=== PATIENT | male | born 1935 | race Caucasian/White ===

== ENCOUNTER 2020-05-28 14:54 | Outpatient (CLI) | payer MEDICARE, SELFPAY ==
--- NOTE | ~2020-05-28 | US_ITS ---
EXAMINATION: US thyroid DATE: 05/28/2020 15:32 INDICATION: Nontoxic single thyroid nodule. TECHNIQUE: Multiple ultrasound images of the thyroid were obtained. COMPARISON: Ultrasound 03/20/2019, 09/08/2016 FINDINGS: The right thyroid lobe measures 3.7 x 2.3 x 2.2 cm. The left thyroid lobe measures 4.0 x 3.2 x 2.4 c m. In the right thyroid lobe, there is a 1.1 mm solid, hypoechoic, xbgcb-xitx-[id number] nodule with lobul ated margin without echogenic foci (TI-RADS TR4), stable from 09/08/16. In the left thyroid lobe, the re is a 2.6 cm solid, hypoechoic, ygoaq-zcgz-vctn nodule with lobulated margin without echogenic foci , increased in size from 1.9 cm on 09/08/16 (TR4). There are multiple subcentimeter nodules in the th yroid. IMPRESSION: 1. Thyroid nodules. Consider ultrasound-guided fine-needle aspiration of the 2.6 cm left thyroid nodu le. Reviewed, dictated and finalized at location A. IMPRESSION: 1. Thyroid nodules. Consider ultrasound-guided fine-needle aspiration of the 2. 6 cm left thyroid nodule.
== END 2020-05-28 14:55 | disposition home or self-care (01) ==
LOC: ANHIMG 15:01
PROVIDERS: PCP Internal Medicine; Visit Provider Internal Medicine Endocrinology, Diabetes & Metabolism
DX: E04.1 Nontoxic single thyroid nodule (principal)
CPT/HCPCS: 76536

== ENCOUNTER 2020-06-11 12:55 | Outpatient (CLI) | payer MEDICARE, SELFPAY ==
--- NOTE | ~2020-06-11 | US_ITS ---
EXAMINATION: US FNA w image guidance DATE: 06/11/2020 13:45 INDICATION: Left thyroid nodule. TECHNIQUE: The procedure and its benefits, risks, and benefits were discussed with the patient. Risks specifical ly discussed included bleeding. The patient verbalized understanding of the risks and agreed to proce ed. The neck was prepped and draped in the usual sterile manner. 1% lidocaine was used for local ane sthesia. 5 passes were made with a 25G needle into the lesion. Appropriate needle location was docu mented with continuous sonographic guidance. There were no immediate complications. The patient unde rstood to call the ordering physician for results after a week and a half and verbalized that underst anding. FINDINGS: Grayscale ultrasound images demonstrate needles advanced into a 2.6 cm left thyroid nodule for biopsy . IMPRESSION: 1. Ultrasound-guided fine needle aspiration of a left thyroid nodule. Reviewed, dictated and finalized at location A.
== END 2020-06-11 12:56 | disposition home or self-care (01) ==
LOC: ANHIMG 12:57
PROVIDERS: PCP Internal Medicine; Visit Provider Internal Medicine Endocrinology, Diabetes & Metabolism
DX: E04.1 Nontoxic single thyroid nodule (principal)
CPT/HCPCS: 10005; 88173; 88305

== ENCOUNTER → 2020-08-14 13:17 | Outpatient (CLI) | payer MEDICARE, SELFPAY ==
--- NOTE | ~2020-08-14 | XR_ITS ---
EXAMINATION: XR chest 2V DATE: 08/14/2020 13:30 INDICATION: Chronic obstructive pulmonary disease with acute exacerbation. TECHNIQUE: Frontal and lateral views of the chest were obtained. COMPARISON: Chest 2 views 09/14/2019, CT abdomen and pelvis 07/14/2010 FINDINGS: The lung volumes are small, which is chronic. There is mild atelectasis in the mid and lowe r lung zones. No pleural effusion or pneumothorax. The heart size is normal. There are multiple chron ic compression fractures in the spine. IMPRESSION: 1. Chronically small lung volumes with mild atelectasis. Reviewed, dictated and finalized at location A.
== END ==
PROVIDERS: PCP Internal Medicine; Visit Provider Internal Medicine
DX: J44.1 Chronic obstructive pulmonary disease with (acute) exacerbation (principal); R91.8 Other nonspecific abnormal finding of lung field
CPT/HCPCS: 71046

== ENCOUNTER 2020-11-25 13:07 | Emergency (ER) | payer MEDICARE, SELFPAY ==
[2020-11-25] VITALS (12 sets, daily range): BP systolic 141–175; BP diastolic 71–91; PULSE 93–116; RESP 0–22; TEMP 37.2; O2SAT 88–100
--- NOTE | ~2020-11-25 | XR_ITS ---
EXAMINATION: XR chest 2V EXAM DATE: 11/25/2020 14:02 INDICATION: Shortness of breath. Chest pain, congestion. TECHNIQUE: Frontal and lateral projections of the chest obtained and reviewed. Comparison is made to prior examination from 08/14/2020. FINDINGS: Again there is low lung volume. No confluent consolidation, pneumothorax or pleural effusi on suspected. Cardiomediastinal silhouette is normal. Chronic thoracolumbar compression fractures. Th ere are bony degenerative changes. IMPRESSION: Chronic low lung volume. Reviewed, dictated and finalized at location B. 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
--- NOTE | ~2020-11-25 | CT_ITS ---
EXAMINATION: CTA chest PE abdomen pel DATE: 11/25/2020 17:32 INDICATION: Chest pain, shortness of breath and congestion with positive d-dimer. Abdominal distentio n and bloating. TECHNIQUE: Computed tomography (CT) pulmonary angiogram of the chest was performed with 100 mL Omnipa que-350 intravenous contrast. Additional 3D reconstructions utilizing coronal maximum intensity proje ction (MIP) were performed. CT of the abdomen and pelvis was performed with intravenous contrast util izing the same contrast bolus following a short delay. Automated exposure control and iterative recon struction technique were employed. The dose-length product was 1687.61 mGy-cm. COMPARISON: CT dated 07/14/2010 FINDINGS: Chest: . contrast opacification of the pulmonary arteries. There is mild streak artifact from dense contrast in the superior vena cava and right atrium. Mild to moderate scattered respiratory motion artifact. Overall this mildly decreases sensitivity in the subsegmental pulmonary arteries. No pulmonary emboli sm identified. Small lung volumes. Peripheral and basilar predominant reticular opacities in the lung s which could represent mild pulmonary edema or chronic interstitial fibrosis with either nonspecific interstitial pneumonia (NSIP) or usual interstitial pneumonia (UIP) pattern. There is mucous pluggin g within multiple subsegmental bronchi in the basilar segments of the bilateral lower lobes. No pleur al effusion. A few scattered calcified pulmonary nodules along with calcified mediastinal and bilater al hilar lymph nodes consistent with old granulomatous disease. Borderline heart size. Atheroscleroti c coronary artery calcifications. No pericardial effusion. No pathologically enlarged thoracic lympha denopathy. Severe thoracal lumbar spondylosis with multiple chronic compression and burst fractures. Abdomen/pelvis: Dilation of the common bile duct to 15 mm which along with minimal central intrahepatic biliary ducta l dilation is likely related to prior cholecystectomy. Punctate hepatic and splenic calcific lesions consistent with old granulomatous disease. Pancreas right adrenal gland are normal. Chronic 1 cm left adrenal nodule most consistent with adenoma. Several bilateral low-attenuation renal cysts, the larg est in the right kidney measuring 2.5 cm. There is a 7 mm indeterminate moderate to high attenuation exophytic lesion at the upper pole of the right kidney which is equivocal for proteinaceous/hemorrhag ic cyst versus solid neoplasm. Decrease in size of a multinodular region of scarring at the periphery of the lower pole of the left kidney likely sequela of prior ablation. There is prominent colonic di verticulosis with a descending and sigmoid: predominance. There is no adjacent inflammatory change to suggest diverticulitis. Small bowel and appendix are normal. No obstruction. Bladder is normal. Bra chytherapy seeds at the prostate. Small fat-containing left inguinal hernia. No free intraperitoneal gas or fluid. No pathologically enlarged abdominal or pelvic lymphadenopathy. Severe lumbosacral spon dylosis with bilateral L5 pars intra-articular is defects and 7 mm anterolisthesis with respect to S1 . IMPRESSION: 1. No pulmonary embolism. Sensitivity decreased in the subsegmental pulmonary arteries. 2. Small lung volumes with coarse reticular opacities with peripheral and lower lung predominance darline picious for chronic interstitial fibrosis of either UIP or NSIP pattern. Differential includes mild p ulmonary edema. 3. Borderline heart size. 4. Diverticulosis. 5. Indeterminate 7 mm exophytic lesion at the upper pole of the right kidney which could represent a proteinaceous/hemorrhagic cyst or solid renal cell carcinoma. If this would affect clinical managemen t would consider and postcontrast MRI for further evaluation although given the size this may still r emain indeterminate.
--- NOTE | 2020-11-25 13:33 | ECG_ITS ---
Measurements Intervals [place] Rate: 115 P: 19 VT: 172 QRS: 3 QRSD: 81 T: 29 QT: 292 QTc: 405 Interpretive Statements SINUS TACHYCARDIA EARLY PRECORDIAL R/S TRANSITION VOLTAGE CRITERIA FOR LVH BASELINE WANDER- II, III, AVF, V4-V6 ABNORMAL ECG Electronically Signed On 11-25-2020 13:39:21 [employer] by Robert Cutler D.O.
[2020-11-25 13:44] LABS: Basophils Absolute Auto 0.1 K/mm3 (0.0-0.1); Basophils Percent Auto 0.7 % (0.2-1.2); Eosinophils Absolute Auto 0.2 K/mm3 (0-0.3); Eosinophils Percent Auto 2.2 % (0-4.4); Hematocrit 40.8 % (42.0-52.0); Hemoglobin 13.4 g/dL (14.0-18.0); Immature Granulocyte Absolute 0.02 K/mm3 (0.00-0.031); Immature Granulocyte Percent A 0.3 % (0-0.5); Lymphocytes Absolute Auto 0.93 K/mm3 (0.9-3.2); Lymphocytes Percent Auto 13.7 % (18.3-44.2); Mean Corpuscular HGB Conc 32.8 g/dl (32-36); Mean Corpuscular Hemoglobin 29.8 pg (26-34); Mean Corpuscular Volume 90.7 fl (80-100); Mean Platelet Volume 9.9 fl (7.4-10.4); Monocytes Absolute Auto 0.4 K/mm3 (0.1-0.6); Monocytes Percent Auto 5.8 % (2.6-8.5); Neutrophils Absolute Auto 5.2 K/mm3 (1.3-6.7); Neutrophils Percent Auto 77.3 % (45.5-73.1); Platelet Count Result 266 k/mm3 (150-375); Red Cell Distribution Width 14.2 % (11.5-14.5); White Blood Count 6.8 K/mm3 (4.5-10.0)
[2020-11-25 13:53] LABS: INR 0.9; Prothrombin Time 13.1 Seconds (11.1-14.7)
[2020-11-25 13:54] LABS: Partial Thromboplastin Time 27.3 SECONDS (22.3-36.8)
[2020-11-25 14:07] LABS: Anion Gap 6 mmol/L (8-16); Blood Urea Nitrogen 19 mg/dL (9-20); Calcium 9.4 mg/dL (8.4-10.2); Carbon Dioxide 28 mmol/L (22-30); Chloride 102 mmol/L (98-107); Estimated CRCL calculation 64 ml/min; Estimated Glomerular Filt Rate > 60; Glucose 163 mg/dL (75-110); Potassium 4.3 mmol/L (3.4-5.0); Sodium 136 mmol/L (137-145)
[2020-11-25 14:11] LABS: D Dimer 0.58 ug/mL (<0.48)
[2020-11-25 14:16] LABS: Troponin I < 0.012 ng/mL (0.000-0.034)
--- NOTE | 2020-11-25 16:07 | ED.GENADULT ---
HPI - General Adult General Chief complaint: Weakness Stated complaint: SOB Time Seen by Provider: 11/25/20 16:04 Source: patient Mode of arrival: ambulatory Limitations: no limitations History of Present Illness HPI narrative: An 85-year-old male presents to the emergency department with complaints of shortness of breath, cough and congestion. Patient states that he has been diagnosed with chronic bronchitis. Patient notes that his symptoms have been going on for the past 3 months. He states he had some other meds changed around by his primary care doctor and he feels that maybe some of the new medications are not working as well. He denies any fevers or chills. He denies any headache or body aches. Patient states that his stomach always feels bloated and that he has problems with breathing. Related Data Home Medications Medication Instructions Recorded Confirmed acetaminophen [Tylenol] 650 mg PO ONCE 09/14/19 10/27/20 aspirin [Adult Aspirin Regimen] 09/14/19 10/27/20 multivit with min-folic acid mg PO 09/14/19 10/27/20 [Adult One Daily Multivitamin] cholecalciferol (vitamin D3) 25 2,000 unit PO DAILY tablet 11/19/19 10/27/20 mcg (1,000 unit) tablet methimazole 5 mg tablet 5 mg PO DAILY 10/27/20 10/27/20 Allergies Allergy/AdvReac Type Severity Reaction Status Date / Time warfarin AdvReac Intermediate Dizziness Verified 11/25/20 13:37 Review of Systems Review of Systems: Narrative: CONSTITUTIONAL: Denies fever, chills, or sweats. EYES: Denies visual changes, redness, or discharge. ENT: Denies rhinorrhea, congestion, sore throat, or otalgia. CARDIOVASCULAR: Denies chest pain, palpitations, or edema. RESPIRATORY: Denies cough or dyspnea. GASTROINTESTINAL: Denies abdominal pain, nausea, vomiting, or diarrhea. He does endorse distention and bloating. GENITOURINARY: Denies dysuria or hematuria. SKIN: Denies rash or itching. MUSCULOSKELETAL: Denies back pain, joint pain, or myalgia. NEUROLOGIC: Denies headache, numbness, dizziness, or weakness. PSYCHIATRIC: Denies anxiety or depression. [facility] Past Medical History Medical History (Updated 11/25/20 @ 18:17 by Saul Michael DO) Dermatitis of left ear canal Eczema intertrigo Hypertension Prostate cancer Psoriasis Surgical History Surgical History H/O heart artery stent Family History Family History Mother Family history of malignant neoplasm Father Acute myocardial infarction Social History Social History Smoking status: Never smoker Alcohol intake: never Gender identity (if verbalized by the patient): Male Exam Narrative: Exam Narrative: GENERAL: Well-appearing, well-nourished, and in no acute distress. HEAD: Normocephalic, atraumatic. EYES: PERRLA and EOMI. ENT: Nares clear, no rhinorrhea or epistaxis. Mucous membranes moist. Oropharynx without tonsillar hypertrophy exudate or other lesions. Bilateral TMs pearly cintron nonbulging NECK: Supple. No adenopathy or masses. No carotid bruits or JVD CHEST: Clear to auscultation. No respiratory distress. No wheezes rales or rhonchi HEART: Regular rate and rhythm. No murmur heard. Normal peripheral pulses. ABDOMEN: Soft, nontender, normal active bowel sounds. Distended abdomen, nontender. EXTREMITIES: Normal range of motion. No edema. SKIN: Warm, dry, no rash. NEURO: No focal deficits. Alert and oriented x3. PSYCH: Normal mood and affect. Course Reevaluation(s) Reevaluation #1: After work of having completed patient was resting comfortably in the room, I presented to his room he was sleeping. After waking him we discussed his work-up. Patient states that he feels better after the breathing treatment and steroids. He is feeling reassured after the work-up noting that there was nothing acutely wrong. Explained to him that I feel like t
[2020-11-25] MEDS: methylPREDNISolone SOD SUCC 125 MG VIAL IV PUSH (16:29)
[2020-11-25] MEDS: ALBUTEROL SULFATE NEB 2.5 MG/0.5 ML INH 10 MG INHALATION (16:38)
[2020-11-25] MEDS: IPRATROPIUM BR 0.02% INH SOLN 0.5 MG/2.5 ML VIAL 1 MG INHALATION (16:38)
[2020-11-25 17:08] LABS: Troponin I 0.019 ng/mL (0.000-0.034)
[2020-11-26 18:19] LABS: SARS-CoV-2 RNA PCR Negative
== END 2020-11-25 18:43 | disposition home or self-care (01) ==
PROVIDERS: Emergency Medicine; Emergency Provider Emergency Medicine; PCP Internal Medicine
DX: J44.1 Chronic obstructive pulmonary disease with (acute) exacerbation (principal); Z20.822 Contact with and (suspected) exposure to COVID-19; I10 Essential (primary) hypertension; Z85.038 Personal history of other malignant neoplasm of large intestine; Z95.5 Presence of coronary angioplasty implant and graft; Z79.82 Long term (current) use of aspirin; R00.0 Tachycardia, unspecified; R94.31 Abnormal electrocardiogram [ECG] [EKG]
CPT/HCPCS: 36415; 71046; 71275; 74177; 80048; 84484; 85025; 85380; 85610; 85730; 93005; 94640; 96374; 99284; C9803; J2930; Q9967; U0003; U0005

== ENCOUNTER 2021-01-16 10:57 | Outpatient (CLI) | payer MEDICARE, SELFPAY | END 2021-01-16 10:58 | disposition home or self-care (01) | LOC: ANHCOVIDVC 10:57 | PROVIDERS: PCP Internal Medicine | DX: Z23 Encounter for immunization (principal) | CPT/HCPCS: 0001A; 91300 ==

== ENCOUNTER 2021-02-06 10:53 | Outpatient (CLI) | payer MEDICARE, SELFPAY | END 2021-02-06 10:54 | disposition home or self-care (01) | LOC: ANHCOVIDVC 10:53 | PROVIDERS: PCP Internal Medicine | DX: Z23 Encounter for immunization (principal) | CPT/HCPCS: 0002A; 91300 ==

== ENCOUNTER 2021-03-17 11:45 | Outpatient (CLI) | payer MEDICARE, SELFPAY ==
[2021-03-17 12:20] LABS: Rheumatoid Factor < 8.6 IU/ML (<12)
[2021-03-17 13:00] VITALS: PULSE 88; O2SAT 95
[2021-03-17 13:05] VITALS: PULSE 118; O2SAT 90
[2021-03-17 13:15] VITALS: PULSE 93; O2SAT 95
--- NOTE | 2021-03-17 16:39 | WPDPFTINT ---
PFT Procedure Performed PFT Procedure Performed Spirometry with Pre/Post Bronchodilator Plethysmography (Lung Vol) Diffusing Cap (DLCO) Flow Vol Loop PFT Interpretation This is a pulmonary function test with pre and post-bronchodilator spirometry, plethysmography and diffusing capacity. The test was performed and results interpreted in accordance with the 2019 and 2005 ATS/ERS Task Force guidelines respectively using the Global Lung Function Initiative-2012 reference equations. Patient demonstrated good effort and cooperation. Reproducibility criteria were met. The quality of the pre bronchodilator spirometry maneuver was Grade B and post bronchodilator spirometry maneuver was Grade E. Patient had difficulty performing the test despite maximal coaching. Only 1 DLCO and lung volume efforts were performed due to these difficulties. Findings: Spirometry: There is decreased maximal expiratory airflow at all lung volumes with a concave expiratory flow tracing. The contour the inspiratory flow tracing is normal. The pre bronchodilator FVC is 1.64 L, 50% predicted. The pre bronchodilator FEV1 is 1.01 L, 42% predicted. The FEV1: FVC ratio 62%. The post bronchodilator FVC is 1.39 L, representing a 15% decrease. The post bronchodilator FEV1 is 0.85 L, representing a 16% decrease. Plethysmography: The total lung capacity is 4.07 L, 65% predicted. The functional residual capacity is 3.55 L, 105% predicted. The residual volume is 2.43 L, 96% predicted. Diffusing capacity: The absolute diffusion capacity is 14.6, 68% predicted. The diffusing capacity corrected for alveolar volume is 5.30, 142% predicted. Impression: There is poor reproducibility of the post bronchodilator spirometry and only single DLCO and plethysmography maneuvers limiting the interpretation of the study. Using the best available data there is a combined obstructive and restrictive ventilatory abnormality. There are no guidelines to assign the severity of obstruction and restriction with a combined abnormality. In my opinion, given the moderately concave expiratory flow tracing and moderately decreased FEV1: FVC ratio and moderate restrictive abnormality I would state there is a moderate obstructive abnormality and a moderate restrictive abnormality resulting in a severely decreased FEV1. There is no significant improvement after inhaling a single dose of albuterol. The absolute diffusing capacity is normal and increased when corrected for alveolar volume. There are no prior studies for comparison
== END 2021-03-17 11:46 | disposition home or self-care (01) ==
PROVIDERS: PCP Internal Medicine; Visit Provider Internal Medicine Pulmonary Disease
DX: R60.0 Localized edema (principal)
CPT/HCPCS: 36415; 86430; 94060; 94618; 94726; 94729

== ENCOUNTER 2021-06-23 09:30 | Outpatient (CLI) | payer MEDICARE, SELFPAY ==
--- NOTE | ~2021-06-23 | US_ITS ---
EXAMINATION: US thyroid DATE: 06/23/2021 10:01 INDICATION: Hypothyroidism. TECHNIQUE: Multiple ultrasound images of the thyroid were obtained. COMPARISON: Ultrasound 05/28/2020, 03/20/2019, 09/08/16 FINDINGS: The right thyroid lobe measures 4.0 x 2.4 x 2.2 cm. The left thyroid lobe measures 3.4 x 3.3 x 2.3 c m. In the right thyroid lobe, there is a 10 mm predominantly solid, hypoechoic, tmzzm-znrh-xpnj nodu le with lobulated margin without echogenic foci (TI-RADS TR4), stable from 09/08/16. In the left thyr oid lobe, there is a 2.5 cm solid, very hypoechoic, gllxt-qqtc-gyvm nodule with smooth margin without echogenic foci (TR4), stable from 06/11/2020 when fine-needle aspiration demonstrated benign patholog y. There are subcentimeter nodules in the thyroid. IMPRESSION: 1. Stable thyroid nodules, likely not clinically significant. No follow-up is needed. Reviewed, dictated and finalized at location A. IMPRESSION: 1. Stable thyroid nodules, likely not clinically significant. No follow-up is n eeded.
[2021-06-23 10:56] LABS: Thyroid Stimulating Hormone 0.468 uIU/mL (0.465-4.680)
[2021-06-23 11:15] LABS: Free T4 Free Thyroxine 1.17 ng/mL (0.78-2.19)
== END 2021-06-23 09:31 | disposition home or self-care (01) ==
PROVIDERS: PCP Internal Medicine; Visit Provider Internal Medicine Endocrinology, Diabetes & Metabolism
DX: E03.9 Hypothyroidism, unspecified (principal); E04.2 Nontoxic multinodular goiter
CPT/HCPCS: 36415; 76536; 84439; 84443

== ENCOUNTER 2022-01-01 14:00 | Outpatient (CLI) | payer MEDICARE, SELFPAY ==
--- NOTE | ~2022-01-01 | CT_ITS ---
EXAMINATION: CT diagnostic chest wo con EXAM DATE: 01/01/2022 14:24 INDICATION: J84.9 - Interstitial pulmonary disease, unspecified . Upper chest pressure. Cough. TECHNIQUE: Spiral CT of the chest without contrast. HRCT. Axial, coronal and sagittal images of the c hest were reviewed. Coronal maximum intensity pixel images of chest reviewed. The dose-length produ ct (DLP) for this examination was 457.28 mGy-cm. The exposure was tailored according to patient size (auto mA exposure control), and iterative reconstruction (ASIR) was used as additional dose reductio n technique. Comparison is made to prior examination from 11/25/2020. FINDINGS: Again there is mild peripheral basilar predominant interlobular septal thickening, probabl y mild Nonspecific Interstitial Pneumonitis (NSIP) pattern interstitial lung disease with many possi ble underlying etiologies including collagen vascular disease, medications/drugs, prior viral infecti on (COVID-19), hypersensitivity pneumonitis, idiopathic etiologies. This is not significantly changed compared to prior study. There are no pleural or pericardial effusions. Tracheobronchial tree is patent. There is no media stinal, hilar or axillary lymphadenopathy. There is no pneumothorax. Mild cardiomegaly. There ar e dense coronary arteries, could be severe coronary arterial sclerosis and/or coronary artery stent(s ), which are difficult to distinguish due to cardiac motion on this non-gated exam. Correlate with ca rdiac history. Small lesion superior pole of the right kidney are unchanged, probably cysts, hemorrh agic cysts. There is thoracic spondylosis without osteoblastic or osteolytic lesions identified. IMPRESSION: 1. 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 2. Mild cardiomegaly. Reviewed, dictated and finalized at location A. LUBRICATOR
== END 2022-01-01 14:01 | disposition home or self-care (01) ==
LOC: ANHIMG 14:04
PROVIDERS: PCP Internal Medicine; Visit Provider Physician Assistant
DX: J84.9 Interstitial pulmonary disease, unspecified (principal); I51.7 Cardiomegaly
CPT/HCPCS: 71250

== ENCOUNTER 2022-01-11 12:25 | Outpatient (CLI) | payer MEDICARE, SELFPAY ==
--- NOTE | 2022-01-12 13:50 | WPDPFTINT ---
PFT Procedure Performed PFT Procedure Performed Spirometry with Pre/Post Bronchodilator Plethysmography (Lung Vol) Diffusing Cap (DLCO) Flow Vol Loop PFT Interpretation Lung volumes were measured with the body plethysmography method. Lung volumes are unremarkable. Spirometry showed diminished expiratory flow rates and a normal FEV1 to FVC ratio 79%. Following administration of a bronchodilator there was no significant increase in expiratory flow rates. Lung diffusion capacity was not measured as patient could not hold breath for 6 sec. Flow volume loop is consistent with a suboptimal effort. In comparison to previous study in March of 2021, the post bronchodilator FVC is unchanged whereas the FEV1 is now greater by approximately 200 mL. Impression: Nonspecific pattern. Suboptimal patient effort.
--- NOTE | 2022-01-12 13:56 | WPDSIXMINUTE ---
Six Minute Walk Procedure Procedure Performed Pulmonary Stress Test (6 min walk) Six Minute Walk This 6 minute walk test was carried out with the patient breathing ambient air. The pre walk oxyhemoglobin saturation was 94%. The patient was able to walk only 5 minutes with the distance walked being 500 ft. Patient performance was limited by shortness of breath. During this limited walk the oxyhemoglobin saturation remained over 92%. Impression: Incomplete testing due to shortness of breath. No oxyhemoglobin desaturation noted.
== END 2022-01-11 12:26 | disposition home or self-care (01) ==
LOC: ANHPFT 12:28
PROVIDERS: PCP Internal Medicine; Visit Provider Physician Assistant
DX: J84.9 Interstitial pulmonary disease, unspecified (principal); G47.34 Idiopathic sleep related nonobstructive alveolar hypoventilation; R06.02 Shortness of breath
CPT/HCPCS: 94060; 94618; 94726

== ENCOUNTER 2022-02-12 08:23 | Outpatient (CLI) | payer MEDICARE, SELFPAY ==
--- NOTE | ~2022-02-12 | CT_ITS ---
EXAMINATION: CT abdomen pelvis w con DATE: 02/12/2022 09:18 INDICATION: Prostate cancer. TECHNIQUE: Computed tomography (CT) of the abdomen and pelvis was performed with 100 mL Omnipaque 350 intravenous contrast. Automated exposure control and iterative reconstruction technique were employe d. The dose-length product was 1664.17 mGy-cm. COMPARISON: CT abdomen and pelvis 11/25/2020 FINDINGS: The visualized portions of the lung bases again demonstrate peripheral septal thickening. N o bronchiectasis or honeycombing. There is a trace right pleural effusion. There is left atrial and l eft ventricular enlargement the heart. 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 There are coron emily artery calcifications. No pericardial effusion. Calcifications in the liver and spleen are consis tent with old granulomatous disease. There are changes of cholecystectomy. The common duct measures 1 1 mm without change. The pancreas and adrenal glands are normal. There are cysts in the kidneys measu ring up to 2.9 cm. There is a 6 mm hyperdense mass in right kidney. There are ablation changes of inf erior pole of left kidney. There are brachytherapy seeds in the prostate. There is diverticulosis of the colon without evidence of diverticulitis. The appendix is normal. There are no dilated loops of b owel. There are no pathologically enlarged lymph nodes. There is no free intraperitoneal fluid. There is a left inguinal hernia containing fat. There is a 16 mm nonaggressive lytic lesion with sclerotic margin in right ilium, likely benign. There is severe thoracolumbar spondylosis. There are chronic b ilateral L5 pars defects. There is 8 mm anterolisthesis of L5 on S1. There are numerous chronic verte bral body fractures. IMPRESSION: 1. No evidence of metastatic disease. 2. Stable 6 mm hyperdense mass in right kidney, which may be a hemorrhagic cyst or renal cell carcino ma. 3. Peripheral septal thickening in the lungs, which may be mild pulmonary edema or mild chronic inter stitial lung disease. Reviewed, dictated and finalized at location A. IMPRESSION: 1. No evidence of metastatic disease. 2. Stable 6 mm hyperdense mass in right kidney, which may be a hemorrhagic cyst or renal cell carcinoma. 3. Peripheral septal thickening in the lungs, which may be mild pulmonary edema or mild chronic interstitial lung disease.
--- NOTE | ~2022-02-12 | NM_ITS ---
EXAMINATION: NM bone scan whole body DATE: 02/12/2022 15:37 INDICATION: Prostate cancer TECHNIQUE: 25 mCi Tc-99m HDP was administered intravenously. Delayed whole-body scintigrams were obt ained. COMPARISON: CT abdomen and pelvis dated 02/12/2022 FINDINGS: Likely degenerative joint centered uptake in the right foot, bilateral elbows and at the medial julia rtment of the left knee. Additional minimal likely degenerative joint centered uptake at the remainin g compartments of the bilateral knees and at the bilateral acromioclavicular joints. Additional mild disc centered uptake associated with severe spondylosis at L5-S1. No other suspicious foci of abnorma l bone uptake to suggest metastatic disease. IMPRESSION: 1. No evident osseous metastatic disease. Reviewed, dictated and finalized at location A.
[2022-02-12 09:04] LABS: Estimated Glomerular Filt Rate > 60
== END 2022-02-12 08:24 | disposition home or self-care (01) ==
LOC: ANHIMG 08:25
PROVIDERS: PCP Internal Medicine; Visit Provider Urology
DX: C61 Malignant neoplasm of prostate (principal); N28.89 Other specified disorders of kidney and ureter; R91.8 Other nonspecific abnormal finding of lung field
CPT/HCPCS: 74177; 78306; A9561; Q9967

== ENCOUNTER 2022-02-24 09:55 | Emergency (ER) | payer MEDICARE, SELFPAY ==
[2022-02-24] VITALS (62 sets, daily range): BP systolic 67–195; BP diastolic 45–112; PULSE 101–162; RESP 17–27; TEMP 36.8; O2SAT 92–100
--- NOTE | ~2022-02-24 | CT_ITS ---
EXAMINATION: CT brain wo con DATE: 02/24/2022 10:33 INDICATION: Syncope. Head injury. TECHNIQUE: Computed tomography (CT) of the head was performed without intravenous contrast. The mA wa s adjusted according to patient size. Iterative reconstruction technique was employed. The dose-lengt h product was 908.00 mGy-cm. COMPARISON: Head CT 07/01/2006, brain MRI 05/20/2016 FINDINGS: There are scattered areas of low attenuation in the cerebral white matter. There are bilate ral subdural hematomas measuring up to 7 mm on the right and 5 mm on the left there are predominantly isodense to cerebrospinal fluid. There is a small area in right parietal region that is hyperdense t o cintron matter. There is no acute ischemic infarct or abnormal mass lesion. The ventricles are normal in size. There is mild mucosal thickening in the paranasal sinuses. There are changes of right-sided scleral banding procedure. There are likely changes of right ocular lens replacement surgery. The mas toid air cells are normal. There is a chronic 2 mm radiopaque foreign body in left forehead. IMPRESSION: 1. Small right-sided acute on chronic subdural hematoma. Small left-sided chronic subdural hematoma. I called this result to Dr. Wadsworth. 2. Moderate nonspecific cerebral white matter disease, which likely represents chronic small vessel i schemic disease. Reviewed, dictated and finalized at location A. IMPRESSION: 1. Small right-sided acute on chronic subdural hematoma. Small left-sided chron ic subdural hematoma. I called this result to Dr. Wadsworth. 2. Moderate nonspecific cerebral white matter disease, which likely represents chronic small vessel ischemic disease.
--- NOTE | ~2022-02-24 | XR_ITS ---
EXAMINATION: XR abdomen NG/feed tube insert INDICATION: Nasogastric tube placement TECHNIQUE: Portable AP KUB-NG at 1249 hours COMPARISON: None available FINDINGS: The tip of the nasogastric tube is in the stomach. The proximal side port is in the distal esophagus. The bowel gas pattern is normal. There are airspace opacities of the visualized lung bases . IMPRESSION: 1. Tip of the nasogastric tube in the stomach with the proximal side port in the distal esophagus. Re commend advancing 3 to 4 cm. Reviewed, dictated and finalized at location A. IMPRESSION: 1. Tip of the nasogastric tube in the stomach with the proximal side port in th e distal esophagus. Recommend advancing 3 to 4 cm.
--- NOTE | ~2022-02-24 | XR_ITS ---
EXAMINATION: XR chest ET placement INDICATION: Endotracheal tube placement TECHNIQUE: Portable AP chest at 1248 hours COMPARISON: 1020 hours FINDINGS: An endotracheal tube has been inserted which ends 3.8 cm above the simone. A nasogastric tu be is been inserted which ends with its tip in the stomach and proximal side port in the distal esoph berry. Patchy bilateral airspace opacities persist without significant change. The lung volumes are lo w. The heart size is normal. There is no pleural effusion or pneumothorax. IMPRESSION: 1. Endotracheal tube in adequate position. 2. Recommend advancing nasogastric tube 3 to 4 cm. 3. Stable patchy bilateral opacities, consistent with pneumonia and/or pulmonary edema. Reviewed, dictated and finalized at location A. IMPRESSION: 1. Endotracheal tube in adequate position. 2. Recommend advancing nasogastric tube 3 to 4 cm. 3. Stable patchy bilateral opacities, consistent with pneumonia and/or pulmonar y edema.
--- NOTE | ~2022-02-24 | CT_ITS ---
EXAMINATION: CT cervical spine wo con EXAM DATE: 02/24/2022 10:33 INDICATION: fall, rule out fracture . TECHNIQUE: Spiral CT of the cervical spine was performed without contrast. Axial images were reviewe d. Coronal and sagittal reformatted images cervical spine were also reviewed. The dose-length produc t (DLP) for this examination was 393.16 mGy-cm. The exposure was tailored according to patient size (auto mA exposure control), and iterative reconstruction (ASIR) was used as additional dose reduction technique. Correlation is made to neck CT 09/28/2014. FINDINGS: There is no evidence of acute cervical fracture. The odontoid process is intact. Pre-dens space is normal. Prevertebral soft tissue is normal. There are no soft tissue abnormalities identi fied. There is no disc space widening or traumatic vertebral body subluxation suspected. Moderate t o severe cervical spondylosis. There is 1.8 cm left thyroid lobe nodule. A detailed level by level e valuation of spondylosis can be added as addendum if requested. IMPRESSION: 1. No acute cervical fracture. 2. Moderate to severe cervical spondylosis. 3. Left thyroid lobe nodule. Reviewed, dictated and finalized at location B.
--- NOTE | ~2022-02-24 | CT_ITS ---
EXAMINATION: CT brain wo con EXAM DATE: 02/24/2022 13:39 INDICATION: Confusion, syncope. TECHNIQUE: Spiral CT of the head was performed without contrast. Axial, coronal and sagittal images were reviewed. The dose-length product (DLP) for this examination was 605.33 mGy-cm. The exposure w as tailored according to patient size, and iterative reconstruction (ASIR) was used as additional dos e reduction technique. There is no prior study for comparison. FINDINGS: There is a nasogastric tube. There are low-density thin bilateral subdural fluid collection s, with small hyperdense region in the right subdural posteriorly most likely small amount of acute b lood, acute on chronic right-sided and chronic left-sided subdural hematomas. Stable appearance julia red to earlier same date. There is moderate microangiopathy and cerebral atrophy. Right-sided catarac t surgery. No brain mass or acute infarction suspected. IMPRESSION: 1. Small acute on chronic right subdural hematoma, unchanged. 2. Small chronic left subdural hematoma. 3. Microangiopathy and atrophy. Reviewed, dictated and finalized at location B.
--- NOTE | ~2022-02-24 | XR_ITS ---
EXAMINATION: XR chest 1V portable INDICATION: Dyspnea on exertion TECHNIQUE: Portable AP chest at 1020 hours COMPARISON: 11/25/2020 FINDINGS: The lung volumes are low. There are patchy opacities throughout all lung zones. The heart s ize is normal. There is no pleural effusion or pneumothorax. IMPRESSION: 1. Patchy bilateral opacities, consistent with pneumonia and/or pulmonary edema. Reviewed, dictated and finalized at location A. IMPRESSION: 1. Patchy bilateral opacities, consistent with pneumonia and/or pulmonary edema .
--- NOTE | 2022-02-24 10:13 | ECG_ITS ---
Measurements Intervals [place] Rate: 93 P: 48 CA: 173 QRS: 1 QRSD: 85 T: 91 QT: 298 QTc: 371 Interpretive Statements SINUS RHYTHM WITH OCCASIONAL SUPRAVENTRICULAR PREMATURE COMPLEXES POSSIBLE RIGHT VENTRICULAR CONDUCTION DELAY [RSR (QR) IN V1/V2] ANTERIOR MYOCARDIAL INFARCTION , PROBABLY OLD [40+ ms Q WAVE AND/OR ST/T ABNORMALITY IN V3/V4] ABNORMAL ECG COMPARED TO ECG 11/25/2020 13:25:28 SINUS RHYTHM NOW PRESENT MYOCARDIAL INFARCT FINDING NOW PRESENT Electronically Signed On 02-24-2022 15:55:13 CDT by Laci Borges M.D.
--- NOTE | 2022-02-24 10:24 | ED.SYNCOPE ---
HPI - Syncope General Chief Complaint: Syncope Stated Complaint: fall/head injury/blacking out Time Seen by Provider: 02/24/22 10:03 Source: patient, RN notes reviewed and old records reviewed Mode of arrival: ambulatory Limitations: other (hard of hearing) History of Present Illness HPI narrative: This is an 87 year old male with history of interstitial lung disease, CAD s/p stent, hypertension who presents for evaluation of syncopal episodes. Patient states he has been having worsening shortness of breath over past several months and he has been evaluated by his communication analyst. He thinks he may have passed out 3 times last night and this morning. His told nursing that he passed out last night and hit his head on counter, but patient does not remember . This morning he states he was just standing and he passed out. He also reports increasing shortness of breath but denies chest pain. He reports having frequent episodes of sob with syncopal episodes. He has mild headache but denies nausea, vomiting or dizziness. He is also reporting chronic bilateral leg swelling. Related Data Home Medications Medication Instructions Recorded Confirmed acetaminophen [Tylenol] 650 mg PO ONCE 09/14/19 01/25/22 aspirin [Adult Aspirin Regimen] 09/14/19 01/25/22 multivit with min-folic acid mg PO 09/14/19 01/25/22 [Adult One Daily Multivitamin] cholecalciferol (vitamin D3) 25 2,000 unit PO DAILY tablet 11/19/19 01/25/22 mcg (1,000 unit) tablet methimazole 5 mg tablet 5 mg PO DAILY 10/27/20 01/25/22 Allergies Allergy/AdvReac Type Severity Reaction Status Date / Time warfarin AdvReac Intermediate Dizziness Verified 12/29/21 13:29 Review of Systems Review of Systems: All systems reviewed & are unremarkable except as noted in HPI and below Constitutional: Constitutional: Denies chills and Denies fever(s) ENT: Denies sore throat Cardiovascular: Cardiovascular: Denies chest pain and Denies rapid heart rate Respiratory: Respiratory: Reports cough and Reports dyspnea Gastrointestinal: Gastrointestinal: Denies abdominal pain, Denies diarrhea, Denies nausea and Denies vomiting Neurologic: Reports headache(s) and Denies numbness PMFSH Past Medical History Medical History Dermatitis of left ear canal Eczema intertrigo Hypertension Interstitial lung disease Obesity (BMI 30-39.9) Prostate cancer Psoriasis Surgical History Surgical History H/O heart artery stent Family History Family History Mother Family history of malignant neoplasm Father Acute myocardial infarction Social History Social History Alcohol intake: never Gender identity (if verbalized by the patient): Male Exam Const: General: alert Orientation/consciousness: patient oriented x3 Other: tachypnea HENMT: Mouth: Yes moist mucous membranes Other: dried blood to posterior scalp, no active bleeding Eyes: Pupils: Equal, round and reactive pupils present EOM: EOMs intact bilaterally Neck: Neck: normal visual inspection Chest: Chest palpation & inspection: normal inspection of the chest Resp: Effort & Inspection: no retractions, tachypneic and no use of accessory muscles Auscultation: clear to auscultation bilaterally Cardio: Rate: tachycardic Rhythm: regular rhythm Heart sounds: no murmurs GI: Inspection: distended Auscultation: normal bowel sounds Other: soft, nontender, Back/Spine/Pelvis: Back: no CVA tenderness Skin: General skin exam: normal color Rashes: no rashes Neuro: General: patient oriented x3, moves all extremities and CN's II-XI intact bilaterally Extrem: General: edema bilateral (leg) Psych: Mental Status: mental status grossly normal Affect: normal affect Course Reevaluat
--- NOTE | 2022-02-24 10:24 | PC.NURSE ---
pt in CT at this time.
[2022-02-24 10:43] LABS: Basophils Absolute Auto 0.1 K/mm3 (0.0-0.1); Basophils Percent Auto 0.5 % (0.2-1.2); Eosinophils Absolute Auto 0.1 K/mm3 (0-0.3); Eosinophils Percent Auto 1.1 % (0-4.4); Hematocrit 35.2 % (42.0-52.0); Hemoglobin 11.5 g/dL (14.0-18.0); Immature Granulocyte Absolute 0.02 K/mm3 (0.00-0.031); Immature Granulocyte Percent A 0.2 % (0-0.5); Lymphocytes Percent Auto 7.5 % (18.3-44.2); Mean Corpuscular HGB Conc 32.7 g/dl (32-36); Mean Corpuscular Hemoglobin 29.9 pg (26-34); Mean Corpuscular Volume 91.7 fl (80-100); Mean Platelet Volume 9.9 fl (7.4-10.4); Monocytes Absolute Auto 0.8 K/mm3 (0.1-0.6); Monocytes Percent Auto 8.4 % (2.6-8.5); Neutrophils Absolute Auto 7.7 K/mm3 (1.3-6.7); Neutrophils Percent Auto 82.3 % (45.5-73.1); Platelet Count Result 307 k/mm3 (150-375); Red Blood Count 3.84 M/mm3 (4.6-6.20); Red Cell Distribution Width 14.6 % (11.5-14.5); White Blood Count 9.4 K/mm3 (4.5-10.0)
[2022-02-24 10:57] LABS: Alanine Aminotransferase 38 U/L (4-50); Albumin Level 4.1 g/dL (3.5-5.1); Alkaline Phosphatase 72 U/L (38-126); Anion Gap 7 mmol/L (8-16); Aspartate Amino Transferase 39 U/L (17-59); Bilirubin,Total 0.8 mg/dL (0.2-1.3); Blood Urea Nitrogen 20 mg/dL (9-20); Calcium 9.1 mg/dL (8.4-10.2); Carbon Dioxide 26 mmol/L (22-30); Chloride 98 mmol/L (98-107); Estimated CRCL calculation 65 ml/min; Estimated Glomerular Filt Rate > 60; Glucose 127 mg/dL (65-110); Lipase 75 U/L (23-300); Magnesium 1.9 mg/dL (1.6-2.3); Potassium 3.9 mmol/L (3.4-5.0); Sodium 131 mmol/L (137-145)
[2022-02-24 10:59] LABS: INR 1.1; Prothrombin Time 13.7 Seconds (11.1-14.7)
[2022-02-24 11:00] LABS: Partial Thromboplastin Time 29.2 SECONDS (22.3-36.8)
[2022-02-24 11:08] LABS: Alveolar/Arterial O2 Gradient 48.5 mmHg; Base Excess ABG 1.4 mEq/l (+/-2.0); Carboxyhemoglobin 1.1 % THb (0-2.0); Device ROOM AIR; Fractional Inspired Oxygen 21 %; HCO3 ABG 25.3 mEq/l (22.0-26.0); Methemoglobin ABG 0.3 %THb (0-1.5); Modified Allen's Test Pass; Oxygen Content ABG 15.3 %vol (16.0-22.0); Oxygen Saturation ABG 90.7 % (95.0-100.0); Oxyhemoglobin 88.4 % THb (90.0-100.0); PCO2 ABG 37.4 mmHg (35.0-45.0); PO2 ABG 56.4 mmHg (80.0-100.0); PO2 FiO2 Ratio Arterial Blood 2.69 %; Reduced Hemoglobin 10.2 %THb (0-5.0); Site Drawn RIGHT RADIAL; Total Hemoglobin 12.3 g/dL (12.0-18.0); pH ABG 7.448 (7.350-7.450)
[2022-02-24 11:10] LABS: NT Pro B Type Natriuretic Pept 3830 pg/mL (5-100); Troponin I 0.078 ng/mL (0.000-0.034)
[2022-02-24 11:30] LABS: SARS-CoV-2 RNA PCR Negative
[2022-02-24] MEDS: FUROSEMIDE INJ 40 MG/4 ML VIAL IV PUSH (11:35)
--- NOTE | 2022-02-24 12:02 | PC.NURSE ---
pt attempting to get out of bed. pt educated on the importance of staying in bed. bed alarm placed under pt. call light within reach.
[2022-02-24 12:10] LABS: Appearance Urine Clear (Clear); Bilirubin Urine Negative (Negative); Color Urine Yellow (Yellow); Glucose Urine UA Negative (Negative); Ketones Urine Trace mg/dL (Negative); Leukocyte Esterase Ur Negative LEU/UL (Negative); Nitrate Urine Negative (Negative); Protein Urine 3+ mg/dL (Negative); Specific Grav Ur 1.025 (1.001-1.035); Urobilinogen Urine 0.2 mg/dL (<2.0)
--- NOTE | 2022-02-24 12:15 | PC.NURSE ---
verbal order from edp for 1mg ativan ivp and 5mg haldol im stat for pt agitation.
[2022-02-24 12:17] LABS: Add Urine Microscopic? YES; Blood Urine Trace-Intact (Negative)
[2022-02-24 12:18] LABS: Glucose Point of Care 197 mg/dl (65-105)
[2022-02-24] MEDS: LORazepam INJ (*CRX) 2 MG/ML VIAL 1 MG IV PUSH (12:18)
[2022-02-24] MEDS: HALOPERIDOL LACTATE 5 MG/ML VIAL IM (12:19)
[2022-02-24 12:20] LABS: Mucus Urine Rare /lpf; RBC Urine 0-2 /hpf (0-2); WBC Urine 0-3 /hpf
--- NOTE | 2022-02-24 12:25 | PC.NURSE ---
pt noncompliant w/ care. pt screaming and continuously pulling off oxygen. pt hitting staff. EDP at bedside at this time for intubation.
--- NOTE | 2022-02-24 12:27 | PC.NURSE ---
1227: 24 mg of Etomidate administered per Dr. Wadsworth. 1229: pt intubated. 8mm tube. 24 cm at the lip.
--- NOTE | 2022-02-24 12:37 | PC.NURSE ---
Per EDP Ananth. Propofol started at 5mcg/kg/min. VORB.
[2022-02-24 12:49] LABS: Base Excess ABG -8.1 mEq/l (+/-2.0); Fractional Inspired Oxygen 100 %; HCO3 ABG 21.3 mEq/l (22.0-26.0); Methemoglobin ABG 0.3 %THb (0-1.5); Oxygen Content ABG 17.9 %vol (16.0-22.0); Oxygen Saturation ABG 98.9 % (95.0-100.0); Oxyhemoglobin 97.5 % THb (90.0-100.0); PO2 ABG 188.1 mmHg (80.0-100.0); PO2 FiO2 Ratio Arterial Blood 1.88 %; Reduced Hemoglobin 1.2 %THb (0-5.0); Total Hemoglobin 12.8 g/dL (12.0-18.0)
[2022-02-24 12:52] LABS: Device VENTILATOR; Modified Allen's Test Pass; PCO2 ABG 61.9 mmHg (35.0-45.0); Site Drawn RIGHT RADIAL; pH ABG 7.155 (7.350-7.450)
[2022-02-24 12:53] LABS: Arterial Blood Gas PEEP 5 cmH2O; Arterial Blood Gas Tidal Volume 450 ml; Arterial Blood Gas Vent Mode CMV; Arterial Blood Gas Ventilator rate 18 /MIN
[2022-02-24] MEDS: PROPOFOL IV EMULSION 100 ML 3.07 MG IV CONT (12:59)
[2022-02-24] MEDS: ALBUTEROL SULFATE NEB 2.5 MG/0.5 ML INH 5 MG INHALATION (13:02)
[2022-02-24] MEDS: IPRATROPIUM BR 0.02% INH SOLN 0.5 MG/2.5 ML VIAL INHALATION (13:02)
[2022-02-24] MEDS: fentaNYL CITRATE INJ (*CRX) 100 MCG/2 ML VIAL 75 MCG IV PUSH (13:03)
[2022-02-24] MEDS: SODIUM CHLORIDE 0.9% IV 1,000 ML 999 ML IV CONT (13:20)
--- NOTE | 2022-02-24 13:52 | ECG_ITS ---
Measurements Intervals Cascade Rate: 135 P: SD: 0 QRS: 7 QRSD: 106 T: 139 QT: 308 QTc: 462 Interpretive Statements ATRIAL FIBRILLATION WITH RAPID VENTRICULAR RESPONSE POSSIBLE RIGHT VENTRICULAR CONDUCTION DELAY [RSR (QR) IN V1/V2] ANTERIOR MYOCARDIAL INFARCTION , OF INDETERMINATE AGE [40+ ms Q WAVE AND/OR ST/T ABNORMALITY IN V3/V4] MODERATE T-WAVE ABNORMALITY, CONSIDER LATERAL ISCHEMIA [-0.1+ mV T WAVE IN I/aVL/V5/V6] ABNORMAL ECG Electronically Signed On 02-24-2022 16:05:29 CDT by Laci Borges M.D.
[2022-02-24] MEDS: methylPREDNISolone SOD SUCC 125 MG VIAL IV PUSH (14:19)
[2022-02-24 15:00] LABS: Alveolar/Arterial O2 Gradient 475.3 mmHg; Base Excess ABG -1.9 mEq/l (+/-2.0); Carboxyhemoglobin 0.3 % THb (0-2.0); Fractional Inspired Oxygen 100 %; HCO3 ABG 23.9 mEq/l (22.0-26.0); Methemoglobin ABG 0.3 %THb (0-1.5); Oxygen Content ABG 16.3 %vol (16.0-22.0); Oxygen Saturation ABG 99.2 % (95.0-100.0); Oxyhemoglobin 98.3 % THb (90.0-100.0); PCO2 ABG 45.3 mmHg (35.0-45.0); PO2 ABG 192.4 mmHg (80.0-100.0); PO2 FiO2 Ratio Arterial Blood 1.92 %; Reduced Hemoglobin 1.1 %THb (0-5.0); Total Hemoglobin 11.5 g/dL (12.0-18.0); pH ABG 7.341 (7.350-7.450)
[2022-02-24 15:01] LABS: Arterial Blood Gas PEEP 5 cmH2O; Arterial Blood Gas Tidal Volume 450 ml; Arterial Blood Gas Vent Mode CMV; Arterial Blood Gas Ventilator rate 18 /MIN; Device VENTILATOR; Modified Allen's Test Pass; Site Drawn RIGHT RADIAL
[2022-02-24] MEDS: fentaNYL CITRATE INJ (*CRX) 100 MCG/2 ML VIAL 50 MCG IV PUSH (15:34)
[2022-02-24] MEDS: ROCURONIUM BROMIDE 50 MG/5 ML VIAL IV PUSH (15:35)
[2022-02-24] MEDS: MIDAZOLAM HCL (*CRX) 2 MG/2 ML VIAL IV PUSH (15:40)
[2022-02-24] MEDS: SODIUM CHLORIDE 0.9% IV 500 ML 999 ML IV CONT (15:55)
== END 2022-02-24 16:30 | disposition short-term general hospital (02) ==
PROVIDERS: Emergency Provider General Practice; PCP Internal Medicine
DX: I62.01 Nontraumatic acute subdural hemorrhage (principal); R55 Syncope and collapse; I50.9 Heart failure, unspecified; J96.01 Acute respiratory failure with hypoxia; I62.03 Nontraumatic chronic subdural hemorrhage; J96.02 Acute respiratory failure with hypercapnia; R79.89 Other specified abnormal findings of blood chemistry; Z20.822 Contact with and (suspected) exposure to COVID-19; I11.0 Hypertensive heart disease with heart failure; I25.10 Atherosclerotic heart disease of native coronary artery without angina pectoris; Z95.5 Presence of coronary angioplasty implant and graft; J84.9 Interstitial pulmonary disease, unspecified; Z79.82 Long term (current) use of aspirin; R90.82 White matter disease, unspecified; E04.1 Nontoxic single thyroid nodule; M47.812 Spondylosis without myelopathy or radiculopathy, cervical region
CPT/HCPCS: 31500; 36415; 36600; 51702; 70450; 71045; 72125; 80053; 81001; 82375; 82805; 82948; 83050; 83605; 83690; 83735; 83880; 84484; 85025; 85380; 85610; 85730; 93005; 94640; 96365; 96366; 96372; 96375; 96376; 99291; C9803; J0330; J1630; J1940; J2060; J2250; J2704; J2930; J3010; J7030; J7040; U0003; U0005

== ENCOUNTER 2023-02-09 16:19 | Observation (INO) | payer MEDICARE, SELFPAY ==
[2023-02-09] VITALS (11 sets, daily range): BP systolic 112–167; BP diastolic 51–79; PULSE 67–91; RESP 16–21; TEMP 36.8; O2SAT 95–100; BMI 34.3
--- NOTE | ~2023-02-09 | CT_ITS ---
EXAMINATION: CT cervical spine wo con DATE: 02/09/2023 16:55 INDICATION: Ground-level fall, neck pain TECHNIQUE: Computed tomography (CT) of the cervical spine was performed without intravenous contrast. The dose-length product (DLP) was 543.92 mGy-cm. Automated exposure control and iterative reconstruc tion technique were employed. COMPARISON: 02/24/2022 FINDINGS: There are 2 mm of retrolisthesis of C5 on C6. There is no fracture. The vertebral body heig hts are normal. There is mild loss of intervertebral disc space height throughout the cervical spine. The odontoid process is intact. There is multilevel severe facet and uncovertebral joint osteoarthri tis. There is a 2 cm left thyroid nodule. IMPRESSION: 1. Moderate to severe cervical spondylosis without acute findings. Reviewed, dictated and finalized at location F.
--- NOTE | ~2023-02-09 | CT_ITS ---
EXAMINATION: CT brain wo con DATE: 02/09/2023 16:53 INDICATION: Possible cerebrovascular accident TECHNIQUE: Computed tomography (CT) of the head was performed without intravenous contrast. The mA wa s adjusted according to patient size. Iterative reconstruction technique was employed. Exam dose: 60 5.33 mGy-cm total exam DLP. COMPARISON: February 24, 2022 CT brain FINDINGS: Bilateral vertebral artery and prominent bilateral carotid siphon internal carotid artery c alcifications. There is nonspecific diminished attenuation of the cerebral white matter, likely due to chronic small vessel ischemic changes. No intracranial mass lesion or hemorrhage, midline shift or mass effect. There is cerebral volume loss. No subdural or epidural hematoma. No midline shift or mass effects. There is a scleral band of the right ocular globe. The paranasal sinuses and mastoid air cells are no rmally developed and aerated. No fracture or bone destruction of the cranial vault is detected. IMPRESSION: Cerebral atherosclerosis and chronic small vessel ischemic changes of the cerebral white matter Cerebral atrophy No acute intracranial finding Reviewed, dictated and finalized at Location A. Reviewed, dictated and finalized at location B.
--- NOTE | ~2023-02-09 | XR_ITS ---
EXAMINATION: XR chest 2V DATE: 02/09/2023 18:16 INDICATION: Transient alteration of awareness, interstitial lung disease TECHNIQUE: AP and lateral views of the chest are obtained. COMPARISON: 02/24/2022 FINDINGS: The lung volumes are low. There are minimal bibasilar airspace opacities. No pleural effusi on or pneumothorax. The cardiomediastinal silhouette is normal. There is moderate thoracic spondylosi s. Chronic thoracic and lumbar compression fractures are noted. IMPRESSION: 1. Mild atelectasis of the lung bases. Reviewed, dictated and finalized at location F.
--- NOTE | ~2023-02-09 | US_ITS ---
Procedure: Duplex Doppler examination of the bilateral carotids. Indication: Syncope Technique: Real time, color-flow and pulse wave Doppler examination of the bilateral carotids was performed. Findings: Padilla scale ultrasonography of the right neck demonstrated small calcified plaques at the right caroti d bulb. There was demonstration of normal color-flow and Doppler waveforms within the right common, i nternal and external carotid arteries. The peak systolic velocities in the right common, internal and external carotid arteries were demonstrated to be 100 cm/sec, 99 cm/sec and 133 cm/sec respectively. The right ICA/CCA ratio was 1.0.The proximal right internal carotid artery demonstrates 0% stenosis relative to the normal distal artery lumen diameter. Padilla scale sonography of the left neck demonstrated small plaques at the left carotid bulb. There was demonstration of normal color-flow and wave forms within the left common, internal and external bhakta tid arteries. The peak systolic velocities in the left common, internal and external carotid arteries were demonstrated to be 125cm/sec, 122 cm/sec and 167 cm/sec respectively. The left ICA/CCA ratio wa s 1.0. The proximal left internal carotid artery demonstrates 0% stenosis relative to the normal dist al artery lumen diameter. There was antegrade flow demonstrated in the bilateral vertebral arteries. Impression: No hemodynamically significant stenosis of the bilateral internal carotid arteries. Antegrade flow in the bilateral vertebral arteries. Note: The methodology used is an indirect measurement validated against a direct method (such as the NASCET criteria) that compares diameters at the stenosis to the distal ICA. Reviewed, dictated and finalized at location . Impression: No hemodynamically significant stenosis of the bilateral internal carotid arter ies. Antegrade flow in the bilateral vertebral arteries. Note: The methodology used is an indirect measurement validated against a direct meth od (such as the NASCET criteria) that compares diameters at the stenosis to the distal ICA.
[2023-02-09 16:47] LABS: Basophils Percent Auto 0.6 % (0.2-1.2); Eosinophils Absolute Auto 0.1 K/mm3 (0-0.3); Eosinophils Percent Auto 1.7 % (0-4.4); Hematocrit 34.8 % (42.0-52.0); Hemoglobin 11.1 g/dL (14.0-18.0); Immature Granulocyte Absolute 0.02 K/mm3 (0.00-0.031); Immature Granulocyte Percent A 0.3 % (0-0.5); Lymphocytes Absolute Auto 1.38 K/mm3 (0.9-3.2); Lymphocytes Percent Auto 19.6 % (18.3-44.2); Mean Corpuscular HGB Conc 31.9 g/dl (32-36); Mean Corpuscular Volume 94.1 fl (80-100); Mean Platelet Volume 10.3 fl (7.4-10.4); Monocytes Absolute Auto 0.6 K/mm3 (0.1-0.6); Monocytes Percent Auto 8.1 % (2.6-8.5); Neutrophils Absolute Auto 4.9 K/mm3 (1.3-6.7); Neutrophils Percent Auto 69.7 % (45.5-73.1); Platelet Count Result 250 k/mm3 (150-375)
[2023-02-09 16:59] LABS: Alanine Aminotransferase 33 U/L (6-50); Albumin Level 4.4 g/dL (3.5-5.1); Alkaline Phosphatase 69 U/L (38-126); Anion Gap 8 mmol/L (8-16); Aspartate Amino Transferase 34 U/L (17-59); Bilirubin,Total 0.5 mg/dL (0.2-1.3); Blood Urea Nitrogen 29 mg/dL (9-20); Calcium 9.9 mg/dL (8.4-10.2); Carbon Dioxide 27 mmol/L (22-30); Chloride 100 mmol/L (98-107); Estimated CRCL calculation 64 ml/min; Estimated Glomerular Filt Rate > 60; Glucose 97 mg/dL (65-110); Potassium 4.8 mmol/L (3.4-5.0); Sodium 135 mmol/L (137-145)
--- NOTE | 2023-02-09 17:38 | ED.GENADULT ---
HPI - General Adult General Chief complaint: Syncope Stated complaint: near syncope, GLF Time Seen by Provider: 02/09/23 16:26 History of Present Illness HPI narrative: 87-year-old male presenting to the emergency department for evaluation of multiple near syncopal and syncopal episodes today. Patient states this morning he was working on his car and had 2 near syncopal episodes where he felt increasingly lightheaded and dizzy. Patient states he was able to rest and did feel improved after these episodes. Patient reports that this afternoon he bent over to pick something up and did have a full syncopal episode at this time. Patient denies any injury but states he did fall to the ground and did have loss of consciousness for approximately 1 minute. Patient did call EMS for this and was found to have a low pulse ox on exam. Patient did not have hypoxia upon arrival to the ED. Related Data Home Medications Medication Instructions Recorded Confirmed acetaminophen 325 mg capsule 650 mg PO ONCE 09/14/19 01/24/23 (Tylenol) aspirin 81 mg tablet,delayed 09/14/19 01/24/23 release (Adult Aspirin Regimen) multivitamin with minerals-folic mg PO 09/14/19 01/24/23 acid 0.4 mg tablet (Adult One Daily Multivitamin) cholecalciferol (vitamin D3) 25 2,000 unit PO DAILY 11/19/19 01/24/23 mcg (1,000 unit) tablet atorvastatin 80 mg tablet 80 mg PO QHS 01/24/23 01/24/23 clopidogrel 75 mg tablet (Plavix) 75 mg PO DAILY 01/24/23 01/24/23 furosemide 20 mg tablet 20 mg PO QAM 01/24/23 01/24/23 lisinopril 5 mg tablet 5 mg PO DAILY 01/24/23 01/24/23 loteprednol etabonate 0.5 % eye 1 drp EACH EYE ONCE 01/24/23 01/24/23 drops,suspension metoprolol tartrate 25 mg tablet 25 mg PO BID 01/24/23 01/24/23 Allergies Allergy/AdvReac Type Severity Reaction Status Date / Time warfarin AdvReac Intermediate Dizziness Verified 01/24/23 11:18 Review of Systems Review of Systems: All systems reviewed & are unremarkable except as noted in HPI and below PMFSH Past Medical History Medical History Dermatitis of left ear canal Eczema intertrigo Hypertension Interstitial lung disease Obesity (BMI 30-39.9) Prostate cancer Psoriasis Surgical History Surgical History H/O heart artery stent (~02/2022) Family History Family History Mother Family history of malignant neoplasm Father Acute myocardial infarction Social History Social History Smoking status: Never smoker Alcohol intake: never Substance use: never Substance use type: does not use Lack of Transportation: No Lack of Food: Never True Current Housing: I Have Housing Concerned About Future Housing: No Difficulty Paying Gas/Electric Bills: No Difficulty Paying for Meds: No Currently Unemployed: No Education: High School Diploma/GED Difficulty w/ Childcare or Family Care: No Living arrangements: with family Additional living arrangements comments: Occupation/Education: retired Gender identity (if verbalized by the patient): Male Sexual Orientation (if Verbalized by the Patient): Straight or Heterosexual Spiritual care concerns: No Exam Narrative: APPEARANCE: Well appearing, no pain, no distress, well-nourished. HEAD: normocephalic, atraumatic. EYES: PERRLA/EOMI, conjunctivae clear. NOSE: Normal no drainage NECK: Supple. No adenopathy, no masses. RESPIRATORY: Airway patent, respirations nonlabored. Clear to auscultation bilaterally, no rales, rhonchi, wheezing. CARDIOVASCULAR: Regular rate and rhythm without murmurs rubs or gallops. ABDOMINAL: Soft, nontender, nondistended, normal bowel sounds MUSCULOSKELETAL: Moves all extremities. Strength/ROM intact, No edema, No calf tenderness. NEURO: Alert. Cranial nerves II through X
[2023-02-09 17:42] LABS: Influenza A QL RT-PCR Negative (Negative); Influenza B QL RT-PCR Negative (Negative); RSV RNA, RT-PCR Negative (Negative); SARS-CoV-2 RNA PCR Negative
[2023-02-09 20:00] LABS: Troponin I 0.013 ng/mL (0.000-0.034)
--- NOTE | 2023-02-09 21:24 | ADMGEN ---
This patient, Kwame Crane, was admitted to Medical Room 341-01. Patient/family oriented to hospital policies and general routines including ID bracelet, bed and alarms, visiting hours, pain management, procedures, bathroom and other care routines, personal items, smoking policy, room service/diet, and visiting hours. Information on how to activate the Rapid Response Team has been discussed. Patient/Family are encouraged to report perceived risks to care and to ask questions if they do not understand what they are told or what they should do.
--- NOTE | 2023-02-09 22:19 | PM.IMHP ---
H&P: HPI History of Present Illness Date/Time: 02/09/23 22:19 Chief Complaint: Syncopal episode Narrative: Patient is an 87-year-old male with past medical history coronary artery disease status post LAD stenting in February of 2022, hyperlipidemia, hypertension, systolic CHF with most recent EF of 65%, interstitial lung disease and atrial fibrillation not on anticoagulation due to GI bleeding who was brought in by his son for a syncopal episode today. Patient is usually very at home, not on home oxygen ambulates by himself. He said that he was underneath his car working on it when he felt dizzy and felt that he was going to pass out. This subsided until patient went to open his car door had a syncopal episode. Patient denies any prodrome. He denies any chest pain new shortness of breath, no headache, no focal weakness, no seizure activity no bladder or bowel incontinence. Patient says this has never happened to him before. He did say that he had dizzy episodes back in February 2022 when he was found to have a non ST elevation MT requiring catheterization with stenting of his LAD. At that time he had a brief episode of atrial fibrillation which converted on its own. Patient was started on anticoagulation however developed GI bleeding so this was discontinued. On initial discharge from the hospital patient was noted to have EF of less than 30% and was on a LifeVest, however most recent echo from April of 2022 shows EF of 65%. He also has chronic neck pains for which he takes Tylenol and ibuprofen. Patient currently denies any fever, headache, nausea or vomiting, dysuria or diarrhea. Workup in the ER revealed normal sinus rhythm on EKG with a head CT scan negative for any acute lesions, CT of the cervical spine with no acute fractures, and a chest x-ray which was unremarkable. Patient is being admitted for observation for his syncope. Review of Systems Review of Systems: no fever or weight loss no vision changes, no eye discharge no throat pain, no hoarseness, no lymphadenopathy no chest pain, no palpitations no coughing, no wheezing no abdominal pain, no diarrhea, no nausea, no vomiting no dysuria, no vaginal discharge no leg swelling, no edema no suicidal or homicidal ideation PMFSH Past Medical History Medical History Dermatitis of left ear canal Eczema intertrigo Hypertension Interstitial lung disease Obesity (BMI 30-39.9) Prostate cancer Psoriasis Surgical History Surgical History H/O heart artery stent (~02/2022) Family History Family History Mother Family history of malignant neoplasm Father Acute myocardial infarction Social History Social History Smoking status: Never smoker Alcohol intake: never Substance use: never Substance use type: does not use Lack of Transportation: No Lack of Food: Never True Current Housing: I Have Housing Concerned About Future Housing: No Difficulty Paying Gas/Electric Bills: No Difficulty Paying for Meds: No Currently Unemployed: No Education: High School Diploma/GED Difficulty w/ Childcare or Family Care: No Living arrangements: with family Additional living arrangements comments: Occupation/Education: retired Gender identity (if verbalized by the patient): Male Sexual Orientation (if Verbalized by the Patient): Straight or Heterosexual Spiritual care concerns: No Meds Home Medications and Allergies Home Medications Medication Instructions Recorded Confirmed Type acetaminophen 325 mg capsule 650 mg PO PRN PRN pain 09/14/19 02/09/23 History (Tylenol) aspirin 81 mg tablet,delayed 81 mg PO DAILY 09/14/19 02/09/23 History release (Adult Aspirin Regimen) multivitamin with minerals-folic 0.4 mg PO DAILY 09/14/19 02/09/23 Hist
[2023-02-10] VITALS (11 sets, daily range): BP systolic 106–164; BP diastolic 54–79; PULSE 60–97; RESP 16–18; TEMP 36.7–37.1; O2SAT 93–99
--- NOTE | 2023-02-10 | ECG_ITS ---
Measurements Intervals Moran Rate: 77 P: 46 VT: 170 QRS: 56 QRSD: 85 T: 0 QT: 338 QTc: 384 Interpretive Statements SINUS RHYTHM EARLY PRECORDIAL R/S TRANSITION BORDERLINE ST-T WAVE ABNORMALITY- ANTEROLAT/INF LEADS BASELINE ARTIFACT- I, II, AVR, V1-V3 COMPARED TO ECG 02/24/2022 14:04:25 SINUS RHYTHM NOW PRESENT Electronically Signed On 02-10-2023 6:50:45 CDT by Robert Cutler D.O.
[2023-02-10] MEDS: ACETAMINOPHEN 325 MG TABLET 650 MG PO ×3 (01:58→18:03)
[2023-02-10 02:44] LABS: Troponin I < 0.012 ng/mL (0.000-0.034)
[2023-02-10 09:43] LABS: Hematocrit 34.1 % (42.0-52.0); Hemoglobin 10.9 g/dL (14.0-18.0); Mean Corpuscular Hemoglobin 30.2 pg (26-34); Mean Corpuscular Volume 94.5 fl (80-100); Platelet Count Result 242 k/mm3 (150-375); Red Blood Count 3.61 M/mm3 (4.6-6.20); White Blood Count 6.4 K/mm3 (4.5-10.0)
[2023-02-10 10:11] LABS: Anion Gap 5 mmol/L (8-16); Blood Urea Nitrogen 24 mg/dL (9-20); Calcium 9.3 mg/dL (8.4-10.2); Carbon Dioxide 31 mmol/L (22-30); Chloride 100 mmol/L (98-107); Estimated CRCL calculation 57 ml/min; Estimated Glomerular Filt Rate > 60; Glucose 150 mg/dL (65-110); Potassium 4.6 mmol/L (3.4-5.0); Sodium 136 mmol/L (137-145)
[2023-02-10] MEDS: lisinopriL 5 MG TABLET PO (10:27)
[2023-02-10] MEDS: METOPROLOL TARTRATE 25 MG TABLET PO ×2 (10:28→18:00)
[2023-02-10] MEDS: LOTEPREDNOL ETABONATE 0.5% OPH 5 ML BOTTLE 1 DROP EACH EYE (10:28)
[2023-02-10] MEDS: THERAPEUTIC MULTIVITAMINS/MINERALS TAB (*BKC) 1 TABLET PO (10:28)
[2023-02-10] MEDS: ASPIRIN 81 MG ENTERIC TABLET PO (10:28)
[2023-02-10] MEDS: CHOLECALCIFEROL 1,000 UNITS TABLET 2000 UNITS PO (10:28)
[2023-02-10] MEDS: CLOPIDOGREL BISULFATE 75 MG TABLET PO (10:28)
--- NOTE | 2023-02-10 16:48 | PM.IMPN ---
Progress Note: A&P Assessment and Plan (1) Syncope: Code(s): R55 - Syncope and collapse Status: Acute Assessment and Plan: presented after an episode of syncope. Patient hit his head and possibly briefly lost consciousness. Head CT and cervical spine CT with no acute abnormalities with findings of cerebral atrophy and moderate to severe cervical spondylosis. orthostatics initially negative. Repeat in continue to monitor orthostatics each shift. Patient appears euvolemic. Troponin negative. EKG was sinus rhythm. Continue to monitor on telemetry. Carotid Dopplers with no significant stenosis. Will obtain echocardiogram. (2) Interstitial lung disease: Code(s): J84.9 - Interstitial pulmonary disease, unspecified Status: Acute Assessment and Plan: Patient with known interstitial lung disease and follows up with Pulmonary as an outpatient. Currently patient is not on any home oxygen and is saturating well on room air. Continue inhalers as needed (3) Hypertension: Code(s): I10 - Essential (primary) hypertension Status: Acute Assessment and Plan: blood pressures are stable. Orthostatics negative. Continue home lisinopril and metoprolol tartrate. Hold furosemide at this time. Monitor BP trends (4) Paroxysmal atrial fibrillation: Code(s): I48.0 - Paroxysmal atrial fibrillation Status: Acute Assessment and Plan: Patient with history of paroxysmal AFib. Currently rate controlled and patient is sinus rhythm on his EKG. He follows up with Cardiology. Patient is not on full anticoagulation due to history of GI bleed but is on daily aspirin therapy. (5) Presence of stent in coronary artery in patient with coronary artery disease: Code(s): I25.10 - Atherosclerotic heart disease of [place] coronary artery without angina pectoris; Z95.5 - Presence of coronary angioplasty implant and graft Status: Acute Assessment and Plan: Patient with known history of coronary artery disease status post non ST elevation [place] in February 2022 with LAD stenting. patient is asymptomatic, no acute issues. Troponin negative. Continue with medical management. Subjective Date/time seen: 02/10/23 16:48 Interval history: date of service: 02/10/2023 Kwame Crane is an 87-year-old male with a history of interstitial lung disease, hypertension, prostate cancer, and CAD who is seen in follow-up for syncope. The patient states that he was feeling lightheaded, fell to the ground and hit his head. If he had any loss of consciousness it was extremely briefly as the patient was awake and alert at the time that his son found him immediately after urine him fall. The patient's main complaint is left-sided neck pain. He states it feels like a numbness and aching. He feels that this occasionally travels down his shoulder and into his arm, however he denies numbness or tingling of his extremities. He denies weakness of his extremities. He denies shortness of breath, cough, chest pain, or wheezing. He does feel a bit unsteady when he is walking but denies any obvious weakness. Endorses some mild dizziness upon standing. Endorses occasional nausea. Denies diarrhea. Denies dysuria or hematuria. Review of Systems Review of Systems: All systems reviewed & are unremarkable except as noted in HPI and below Exam Narrative: General: Well-nourished, well-appearing 87-year-old male, sitting up in a chair, comfortable, NARD Neuro: awake, alert and oriented x4, speech clear, no focal neuro deficits noted HEENMT: normocephalic, atraumatic, EOMI, sclerae anicteric, hard of hearing Respiratory: clear to auscultation bilaterally, nonlabored breathing Cardio: regular rate, regular rhythm with S1-S2 Abdomen: nondistended, normoactive bowel sounds, soft, nontender to palpation Extremities: no edema, erythema, or tenderness to palpation, DP pulses 2+ bilaterally S
[2023-02-10] MEDS: ATORVASTATIN 40 MG TABLET 80 MG PO (20:41)
[2023-02-11] VITALS (10 sets, daily range): BP systolic 109–151; BP diastolic 49–73; PULSE 64–70; RESP 20; TEMP 36.9–37; O2SAT 93–96
--- NOTE | 2023-02-11 | ECHO_ITS ---
Patient Info Name: Kwame Crane Age: 87 years : 1935 Gender: Male Ht: 66 in Wt: 212 lbs BSA: 2.15 m2 HR: 69 bpm BP: 164 / 56 mmHg Heart Rhythm: Sinus Rhythm Exam Date: 02/11/2023 8:13 AM Exam Location: [facility] Patient Status: Inpatient Admit Date: 02/09/2023 Staff Ordering Physician: Myriam Mendoza PA-C Nurse Aide: Cy Garcia RDCS, RT Attending Provider: Yonny Jeffrey MD Referring Physician: Reji CAMPA; Exam Type: CA echo doppler color flow Study Info Complete two-dimensional, color flow and Doppler transthoracic echocardiogram is performed. Strain analysis performed. Summary 1. Complete two-dimensional, color flow and Doppler transthoracic echocardiogram is performed. 2. Concentric left ventricular hypertrophy with normal systolic function and grade 2 diastolic noncompliance. 3. Mild aortic valve stenosis and modest aortic regurgitation. Valve area 1.5 cm2. Left Ventricle Left ventricular chamber dimension is normal. Left ventricular systolic function is normal, estimated at 55-60%. There is mild concentric increased left ventricular wall thickness. The left ventricular diastolic function is grade II diastolic dysfunction. Right Ventricle Right ventricular chamber dimension is normal. Left Atria Left atrial chamber dimension is mildly enlarged. Aortic Valve The aortic valve is trileaflet. There is moderate aortic valve sclerosis. There is mild to moderate aortic valve stenosis with a peak velocity of 258 cm/s, mean gradient of 15 mmHg, and aortic valve area of 1.8 cm2. There is mild aortic valve regurgitation. Pulmonic Valve The pulmonic valve is not well visualized. Mitral Valve The mitral valve has normal leaflets. Tricuspid Valve The tricuspid valve leaflets are normal. Pericardium/Pleural The pericardium appears normal. Aorta The aortic root size at the sinus of Valsalva is normal. Left Ventricular Outflow Tract Name Value Normal LVOT 2D LVOT Diameter 2.0 cm LVOT Doppler LVOT Peak Gradient 7 mmHg LVOT Mean Gradient 4 mmHg LVOT VTI 29 cm LVOT VTI/AV VTI Ratio 0.6 LVOT Stroke Volume 90 ml LVOT CO 5.7 l/min LVOT CI 2.7 l/min/m2 Mitral Valve Name Value Normal MV Doppler MV Decel [place] 219 cm/s2 MV PHT 84 ms MV Area (PHT) 2.6 cm2 4.0-5.0 MV Diastolic Function MV E Peak Velocity 63 cm/s MV A Peak Velocity 67 cm/s MV E/A 1.0
[2023-02-11 06:10] LABS: Hematocrit 32.5 % (42.0-52.0); Hemoglobin 10.2 g/dL (14.0-18.0); Mean Corpuscular HGB Conc 31.4 g/dl (32-36); Mean Corpuscular Hemoglobin 29.2 pg (26-34); Mean Corpuscular Volume 93.1 fl (80-100); Mean Platelet Volume 10.5 fl (7.4-10.4); Platelet Count Result 243 k/mm3 (150-375); Red Blood Count 3.49 M/mm3 (4.6-6.20); Red Cell Distribution Width 13.9 % (11.5-14.5); White Blood Count 7.6 K/mm3 (4.5-10.0)
[2023-02-11 06:33] LABS: Anion Gap 4 mmol/L (8-16); Blood Urea Nitrogen 33 mg/dL (9-20); Calcium 9.3 mg/dL (8.4-10.2); Carbon Dioxide 33 mmol/L (22-30); Chloride 99 mmol/L (98-107); Estimated CRCL calculation 47 ml/min; Estimated Glomerular Filt Rate > 60; Glucose 100 mg/dL (65-110); Potassium 4.9 mmol/L (3.4-5.0); Sodium 136 mmol/L (137-145)
[2023-02-11] MEDS: lisinopriL 5 MG TABLET PO (08:50)
[2023-02-11] MEDS: ASPIRIN 81 MG ENTERIC TABLET PO (08:51)
[2023-02-11] MEDS: CHOLECALCIFEROL 1,000 UNITS TABLET 2000 UNITS PO (08:51)
[2023-02-11] MEDS: METOPROLOL TARTRATE 25 MG TABLET PO (08:51)
[2023-02-11] MEDS: LOTEPREDNOL ETABONATE 0.5% OPH 5 ML BOTTLE 1 DROP EACH EYE (08:51)
[2023-02-11] MEDS: CLOPIDOGREL BISULFATE 75 MG TABLET PO (08:51)
[2023-02-11] MEDS: THERAPEUTIC MULTIVITAMINS/MINERALS TAB (*BKC) 1 TABLET PO (08:51)
[2023-02-11] MEDS: ACETAMINOPHEN 325 MG TABLET 650 MG PO (08:52)
--- NOTE | 2023-02-11 13:58 | PM.DS ---
DS: Admitting Diagnosis Discharge Date 02/11/2023 Admitting Diagnosis Syncope DS: Discharge Diagnosis Discharge Diagnosis (1) Syncope: Code(s): R55 - Syncope and collapse Status: Acute Assessment and Plan: presented after an episode of syncope. Patient hit his head and possibly briefly lost consciousness. Head CT and cervical spine CT with no acute abnormalities with findings of cerebral atrophy and moderate to severe cervical spondylosis. orthostatics negative. Patient euvolemic. Troponins negative. EKG showed patient to be in sinus rhythm. He will continue with 30 day cardiac event monitor and follow up with his brickmason helper. Echocardiogram completed which revealed mild aortic stenosis and modest aortic regurgitation. No additional significant valvular disease. Carotid Dopplers with no significant stenosis. discussed importance of maintaining adequate p.o. hydration and fall prevention. (2) Interstitial lung disease: Code(s): J84.9 - Interstitial pulmonary disease, unspecified Status: Acute Assessment and Plan: Patient with known interstitial lung disease and follows with Pulmonary as an outpatient. Currently patient is not on any home oxygen and Maintained adequate O2 saturations on room air during admission. Continue home maintenance inhaler (3) Hypertension: Code(s): I10 - Essential (primary) hypertension Status: Acute Assessment and Plan: blood pressures remained stable. Orthostatics negative. Continue home lisinopril, metoprolol tartrate, furosemide. (4) Paroxysmal atrial fibrillation: Code(s): I48.0 - Paroxysmal atrial fibrillation Status: Acute Assessment and Plan: Patient with history of paroxysmal AFib. Remained rate controlled during admission and patient in sinus rhythm on EKG. He follows with Cardiology. Patient is not on full anticoagulation due to history of GI bleed but is on daily aspirin therapy. (5) Presence of stent in coronary artery in patient with coronary artery disease: Code(s): I25.10 - Atherosclerotic heart disease of [place] coronary artery without angina pectoris; Z95.5 - Presence of coronary angioplasty implant and graft Status: Acute Assessment and Plan: Patient with known history of coronary artery disease status post non ST elevation [place] in February 2022 with LAD stenting. patient remained asymptomatic, no acute issues. Troponin negative. Continue with medical management. DS: Summary Hospital Course Hospital Course: Date of admission: 02/09/2023 Date of discharge: 02/11/2023 Kwame Crane is an 87-year-old male with a history of interstitial lung disease, hypertension, prostate cancer, and CAD who presented to the emergency department on 02/09/2023 with complaints of syncope. On presentation to the ED, his vital signs were stable, he was afebrile, CBC and BMP unremarkable, head CT with no acute findings with evidence of cerebral atrophy, cervical spine CT no acute findings with evidence of moderate to severe cervical spondylosis, and CXR with mild atelectasis. He was admitted to the hospitalist service for further evaluation and management. Please see above for further details. Workup for syncope was negative. Orthostatics negative. Patient was overall feeling improved ambulating without difficulty. He will continue with 30 day monitor technician at discharge and follow-up with his brickmason helper. Discussed fall precautions. Patient overall feeling back to his usual state of health and felt comfortable with plans for discharge home. He was discharged in hemodynamically stable condition on 02/11/2023. Discussed with the patient and his family regarding worrisome signs and symptoms for which to return and he was educated on his medications. Time Spent with Patient Time attestation: Total time spent providing and/or coordinating discharge services: 45 minutes Time spent: Jah
--- NOTE | 2023-02-11 14:44 | PC.NURSE ---
call to pt's son to inform him of dc order per pt's request
== END 2023-02-11 15:20 | disposition home or self-care (01) ==
LOC: ANHED 16:59 → ANH3MED 20:51
PROVIDERS: Physician Assistant; Admitting Provider Internal Medicine; Emergency Provider Emergency Medicine; Visit Provider Family Medicine
DX: R55 Syncope and collapse (principal); J84.9 Interstitial pulmonary disease, unspecified; I11.0 Hypertensive heart disease with heart failure; I50.20 Unspecified systolic (congestive) heart failure; I48.0 Paroxysmal atrial fibrillation; I25.10 Atherosclerotic heart disease of native coronary artery without angina pectoris; E66.9 Obesity, unspecified; Z20.822 Contact with and (suspected) exposure to COVID-19; I67.2 Cerebral atherosclerosis; I35.0 Nonrheumatic aortic (valve) stenosis; M47.812 Spondylosis without myelopathy or radiculopathy, cervical region; J98.11 Atelectasis; G31.9 Degenerative disease of nervous system, unspecified; E78.5 Hyperlipidemia, unspecified; Z95.5 Presence of coronary angioplasty implant and graft; Z68.34 Body mass index [BMI] 34.0-34.9, adult; Z79.1 Long term (current) use of non-steroidal anti-inflammatories (NSAID); Z79.51 Long term (current) use of inhaled steroids; Z79.82 Long term (current) use of aspirin; Z79.01 Long term (current) use of anticoagulants; Z79.899 Other long term (current) drug therapy
CPT/HCPCS: 36415; 70450; 71046; 72125; 80048; 80053; 84484; 85025; 85027; 87637; 93005; 93306; 93880; 99285; A9270; G0378

== ENCOUNTER 2023-03-12 10:00 | Emergency (ER) | payer MEDICARE, SELFPAY ==
[2023-03-12] VITALS (20 sets, daily range): BP systolic 132–186; BP diastolic 61–92; PULSE 65–96; RESP 17–25; TEMP 36.6; O2SAT 82–100
--- NOTE | ~2023-03-12 | CT_ITS ---
EXAMINATION: CT brain wo con INDICATION: Headache COMPARISON: 02/09/2023 TECHNIQUE: Standard unenhanced head CT. The dose-length product (DLP) was 529.67 mGy-cm. The mA was a djusted according to patient size. Iterative reconstruction technique was employed. FINDINGS: There is no acute intraparenchymal hemorrhage. No evidence of mass lesion. No evidence of a cute infarction. There is moderate periventricular and subcortical hypodensity probably related to sm all vessel ischemic disease. There is moderate prominence of the sulci and ventricles related to cere bral atrophy. Intracranial calcified cerebral atherosclerosis is noted. There are no extra-axial farida ections. There is no mass effect or midline shift. Changes in the right globe are likely from ocular lens surgery. There also appear be changes of scleral banding on the left. The visualized sinuses and mastoid air cells are well aerated. IMPRESSION: 1. No acute intracranial abnormality. 2. Age related findings. Reviewed, dictated and finalized at location A.
--- NOTE | ~2023-03-12 | XR_ITS ---
EXAMINATION: XR chest 1V portable INDICATION: Weakness TECHNIQUE: Portable AP chest at 1045 hours COMPARISON: 02/09/2023 FINDINGS: The lung volumes are low. There is mild atelectasis of the lung bases. No pleural effusion or pneumothorax. The cardiomediastinal silhouette is normal. IMPRESSION: 1. Mild atelectasis of the lung bases. Reviewed, dictated and finalized at location A.
--- NOTE | ~2023-03-12 | CT_ITS ---
EXAMINATION: CT abdomen pelvis w con INDICATION: Generalized abdominal pain TECHNIQUE: Computed tomographic images of the abdomen and pelvis were obtained after the administrati on of 100 cc of Omnipaque 350 intravenous contrast. The dose-length product (DLP) was 1448.74 mGy-cm. Automated exposure control and iterative reconstruction technique were employed. COMPARISON: 02/12/2022 FINDINGS: Minimal dependent atelectasis is present in the lung bases. The heart size is normal. The g allbladder is surgically absent. There is mild enlargement of the common bile duct and central intrah epatic ducts which is likely due to post cholecystectomy state. Punctate calcifications in otherwise normal appearing liver and spleen likely represent healed granulomatous disease. The pancreas and adr enal glands are normal. Cysts of the kidneys measure up to 2.9 cm on the right. The previously descri bed 6 mm hyperdense right kidney mass is difficult to assess due to respiratory motion. There is calc ified atherosclerosis of the aorta and many of the other arteries. No pathologically enlarged abdomin al or pelvic lymph nodes are identified. No free intraperitoneal gas or evidence of bowel obstruction . Brachytherapy seeds are noted in the prostate. Colonic diverticulosis is present without evidence o f diverticulitis. There is severe thoracolumbar spondylosis. Multiple chronic vertebral body fracture s are noted. There are bilateral L5 pars defects. IMPRESSION: 1. No CT correlate for the patient's symptoms. Reviewed, dictated and finalized at location A.
--- NOTE | 2023-03-12 10:06 | ECG_ITS ---
Measurements Intervals Rudolph Rate: 63 P: 93 WA: 178 QRS: -6 QRSD: 88 T: 118 QT: 376 QTc: 387 Interpretive Statements SINUS RHYTHM LEFT VENTRICULAR HYPERTROPHY AND ST-T CHANGE [VOLTAGE CRITERIA PLUS ST/T ABNORMALITY] COMPARED TO ECG 02/09/2023 16:24:55 LEFT VENTRICULAR HYPERTROPHY NOW PRESENT Electronically Signed On 03-12-2023 12:17:52 CDT by Marina Schwab M.D.
[2023-03-12 10:17] LABS: Basophils Percent Auto 0.6 % (0.2-1.2); Eosinophils Absolute Auto 0.2 K/mm3 (0-0.3); Eosinophils Percent Auto 2.7 % (0-4.4); Hematocrit 35.2 % (42.0-52.0); Hemoglobin 11.2 g/dL (14.0-18.0); Immature Granulocyte Absolute 0.02 K/mm3 (0.00-0.031); Immature Granulocyte Percent A 0.3 % (0-0.5); Lymphocytes Absolute Auto 1.42 K/mm3 (0.9-3.2); Lymphocytes Percent Auto 21.2 % (18.3-44.2); Mean Corpuscular HGB Conc 31.8 g/dl (32-36); Mean Corpuscular Hemoglobin 29.4 pg (26-34); Mean Corpuscular Volume 92.4 fl (80-100); Mean Platelet Volume 10.1 fl (7.4-10.4); Monocytes Absolute Auto 0.8 K/mm3 (0.1-0.6); Monocytes Percent Auto 11.4 % (2.6-8.5); Neutrophils Absolute Auto 4.3 K/mm3 (1.3-6.7); Neutrophils Percent Auto 63.8 % (45.5-73.1); Platelet Count Result 262 k/mm3 (150-375); Red Blood Count 3.81 M/mm3 (4.6-6.20); Red Cell Distribution Width 14.3 % (11.5-14.5); White Blood Count 6.7 K/mm3 (4.5-10.0)
[2023-03-12 10:28] LABS: Alanine Aminotransferase 32 U/L (6-50); Albumin Level 4.4 g/dL (3.5-5.1); Alkaline Phosphatase 73 U/L (38-126); Anion Gap 7 mmol/L (8-16); Aspartate Amino Transferase 33 U/L (17-59); Bilirubin,Total 0.5 mg/dL (0.2-1.3); Blood Urea Nitrogen 21 mg/dL (9-20); Calcium 9.5 mg/dL (8.4-10.2); Carbon Dioxide 30 mmol/L (22-30); Chloride 98 mmol/L (98-107); Estimated CRCL calculation 58 ml/min; Estimated Glomerular Filt Rate > 60; Glucose 105 mg/dL (65-110); Potassium 4.3 mmol/L (3.4-5.0); Sodium 135 mmol/L (137-145)
[2023-03-12 10:39] LABS: Appearance Urine Clear (Clear); Bacteria Urine None Seen /hpf; Bilirubin Urine Negative (Negative); Blood Urine Negative (Negative); Color Urine Yellow (Yellow); Glucose Urine UA Negative (Negative); Ketones Urine Negative (Negative); Leukocyte Esterase Ur Negative LEU/UL (Negative); Nitrate Urine Negative (Negative); Non Pathogenic Casts 0-2; Protein Urine 2+ mg/dL (Negative); RBC Urine 0-2 /hpf (0-2); Specific Grav Ur 1.011 (1.001-1.035); Squamous Epithelial Cell Urine None seen /hpf (Few); Urobilinogen Urine 0.2 mg/dL (<2.0); WBC Urine 0-5 /hpf
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
[2023-03-12 10:58] LABS: Lipase 164 U/L (23-300)
[2023-03-12 10:59] LABS: Add Urine Microscopic? YES
[2023-03-12] MEDS: ONDANSETRON INJ 4 MG/2 ML VIAL IV PUSH (11:07)
[2023-03-12] MEDS: ACETAMINOPHEN 500 MG TABLET 1000 MG PO (11:09)
[2023-03-12 11:11] LABS: NT Pro B Type Natriuretic Pept 657 pg/mL (19.9-100); Troponin I 0.017 ng/mL (0.000-0.034)
[2023-03-12] MEDS: SODIUM CHLORIDE 0.9% IV 1,000 ML 500 ML IV CONT (11:22)
[2023-03-12] MEDS: diphenhydrAMINE HCl INJ 50 MG/ML VIAL 25 MG IV PUSH (11:23)
[2023-03-12] MEDS: PROCHLORPERAZINE EDISYLATE 10 MG/2 ML VIAL IV PUSH (11:24)
[2023-03-12 11:38] LABS: Influenza A QL RT-PCR Negative (Negative); Influenza B QL RT-PCR Negative (Negative); SARS-CoV-2 RNA PCR Negative (Negative)
[2023-03-12] MEDS: fentaNYL CITRATE INJ (*CRX) 100 MCG/2 ML VIAL 25 MCG IV PUSH (14:52)
== END 2023-03-12 16:16 | disposition home or self-care (01) ==
PROVIDERS: Emergency Medicine; Emergency Provider Physician Assistant; PCP Family Medicine
DX: R10.84 Generalized abdominal pain (principal); R51.9 Headache, unspecified; Z20.822 Contact with and (suspected) exposure to COVID-19; I10 Essential (primary) hypertension; J44.9 Chronic obstructive pulmonary disease, unspecified; I48.0 Paroxysmal atrial fibrillation; I25.2 Old myocardial infarction; J84.9 Interstitial pulmonary disease, unspecified; E66.9 Obesity, unspecified; Z68.37 Body mass index [BMI] 37.0-37.9, adult; Z95.5 Presence of coronary angioplasty implant and graft; Z85.46 Personal history of malignant neoplasm of prostate; Z79.82 Long term (current) use of aspirin; Z79.02 Long term (current) use of antithrombotics/antiplatelets; I51.7 Cardiomegaly
CPT/HCPCS: 36415; 70450; 71045; 74177; 80053; 81001; 83690; 83880; 84484; 85025; 87636; 93005; 96361; 96374; 96375; 99284; A9270; J0780; J1200; J2405; J3010; J7030; Q9967

== ENCOUNTER 2023-05-15 06:57 | Emergency (ER) | payer MEDICARE, SELFPAY ==
--- NOTE | ~2023-05-15 | CT_ITS ---
EXAMINATION: CT cervical spine wo con DATE: 05/15/2023 08:01 INDICATION: Head injury TECHNIQUE: Computed tomography (CT) of the cervical spine was performed without intravenous contrast. The dose-length product (DLP) was 560.66 mGy-cm. Automated exposure control and iterative reconstruc tion technique were employed. COMPARISON: 02/09/2023 FINDINGS: There are 2 mm of unchanged retrolisthesis of C5 on C6. There is mild loss of intervertebra l disc space height throughout the cervical spine. The vertebral body heights are normal. The odontoi d process is intact. There is multilevel severe facet and uncovertebral joint osteoarthritis. IMPRESSION: 1. Moderate to severe cervical spondylosis without acute findings or significant interval change. Reviewed, dictated and finalized at location A. IMPRESSION: 1. Moderate to severe cervical spondylosis without acute findings or significan t interval change.
--- NOTE | ~2023-05-15 | XR_ITS ---
EXAMINATION: XR shoulder RT min 2V INDICATION: Right shoulder pain TECHNIQUE: Four views of the right shoulder are submitted. COMPARISON: None FINDINGS: Normal alignment. No fracture. A tiny heterotopic ossification projecting adjacent to the g reater tuberosity likely reflects calcific tendinitis. Glenohumeral and acromioclavicular joint space s are normal. Soft tissues are unremarkable. IMPRESSION: 1. No acute osseous abnormality. Reviewed, dictated and finalized at location A.
--- NOTE | ~2023-05-15 | CT_ITS ---
EXAMINATION: CT brain wo con INDICATION: Head injury COMPARISON: 03/12/2023 TECHNIQUE: Standard unenhanced head CT. The dose-length product (DLP) was 529.67 mGy-cm. The mA was a djusted according to patient size. Iterative reconstruction technique was employed. FINDINGS: There is no acute intraparenchymal hemorrhage. No evidence of mass lesion. No evidence of a cute infarction. There is mild periventricular and subcortical hypodensity probably related to small vessel ischemic disease. There is mild prominence of the sulci and ventricles related to cerebral atr ophy. Intracranial calcified cerebral atherosclerosis is noted. There are no extra-axial collections. There is no mass effect or midline shift. There are surgical changes in the globes. The visualized s inuses and mastoid air cells are well aerated. IMPRESSION: 1. No acute intracranial abnormality. 2. Age related findings. Reviewed, dictated and finalized at location A.
--- NOTE | ~2023-05-15 | XR_ITS ---
EXAMINATION: XR hand LT min 3V INDICATION: Left hand laceration TECHNIQUE: Three views of the left hand are obtained. COMPARISON: None available FINDINGS: Soft tissue gas is seen between the first and second metacarpals. There is an associated 1 mm radiopaque density in palmar skin, possible foreign body. There are at least three heterotopic den sities projecting between the first and second metacarpals. Advanced osteoarthritis is present at the first carpometacarpal joint, the first through third metacarpophalangeal joints, and in multiple int erphalangeal joints. No definite fracture is identified. IMPRESSION: 1. Findings consistent with soft tissue laceration between the first and second metacarpals with poss ible associated radiopaque foreign bodies. 2. Severe polyarticular arthritis. Reviewed, dictated and finalized at location A. IMPRESSION: 1. Findings consistent with soft tissue laceration between the first and second metacarpals with possible associated radiopaque foreign bodies. 2. Severe polyarticular arthritis.
--- NOTE | ~2023-05-15 | XR_ITS ---
EXAMINATION: XR ribs LT 2V w CXR 2V INDICATION: Left chest pain TECHNIQUE: Frontal and lateral views of the chest and 3 views of the left ribs were obtained. COMPARISON: 02/09/2023 FINDINGS: The lung volumes are low. There are minimal bibasilar airspace opacities. No pleural effusi on or pneumothorax. Chronic thoracic and lumbar compression fractures are again noted. There appear t o be nondisplaced anterolateral fractures of the left eighth and ninth ribs. IMPRESSION: 1. Probable nondisplaced anterolateral fractures of the left eighth and ninth ribs. 2. Mild atelectasis of the lung bases. Reviewed, dictated and finalized at location A. IMPRESSION: 1. Probable nondisplaced anterolateral fractures of the left eighth and ninth r ibs. 2. Mild atelectasis of the lung bases.
[2023-05-15 06:58] VITALS: BP 94/55; PULSE 92; RESP 20; TEMP 36.3; O2SAT 97
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
--- NOTE | 2023-05-15 07:39 | ED.FALL ---
HPI - Fall General Chief Complaint: Fall Stated Complaint: fall Time Seen by Provider: 05/15/23 07:06 Source: patient, family, RN notes reviewed and old records reviewed Mode of arrival: ambulatory Limitations: no limitations History of Present Illness HPI Narrative: This is an 88 year old male who presents from home for evaluation of a fall. His family states they do not have electricity so patient was walking in the dark and he tripped. Patient thinks he hit his head but he denies LOC. He states he has some dizziness after the fall . He also reports right shoulder pain , left rib pain and left hand laceration. His family is unsure is he takes anticoagulation. He deneis shortness of breath, nausea, vomiting. He denies neck pain, back pain or lower extremity pain. MD complaint: fall Related Data Home Medications Medication Instructions Recorded Confirmed acetaminophen 325 mg capsule 650 mg PO PRN PRN pain 09/14/19 05/03/23 (Tylenol) aspirin 81 mg tablet,delayed 81 mg PO DAILY 09/14/19 05/03/23 release (Adult Aspirin Regimen) multivitamin with minerals-folic 0.4 mg PO DAILY 09/14/19 05/03/23 acid 0.4 mg tablet (Adult One Daily Multivitamin) cholecalciferol (vitamin D3) 25 2,000 unit PO DAILY 11/19/19 05/03/23 mcg (1,000 unit) tablet atorvastatin 80 mg tablet 80 mg PO QHS 01/24/23 05/03/23 clopidogrel 75 mg tablet (Plavix) 75 mg PO DAILY 01/24/23 05/03/23 furosemide 20 mg tablet 20 mg PO QAM 01/24/23 05/03/23 lisinopril 5 mg tablet 5 mg PO DAILY 01/24/23 05/03/23 loteprednol etabonate 0.5 % eye 1 drp EACH EYE DAILY 01/24/23 05/03/23 drops,suspension metoprolol tartrate 25 mg tablet 25 mg PO BID 01/24/23 05/03/23 Allergies Allergy/AdvReac Type Severity Reaction Status Date / Time warfarin AdvReac Intermediate Dizziness Verified 05/15/23 06:57 Review of Systems Constitutional: Constitutional: Denies weakness Cardiovascular: Cardiovascular: Denies syncope, Denies rapid heart rate, Denies irregular heart rhythm, Denies leg edema and Denies dyspnea Respiratory: Respiratory: Denies chest congestion, Denies hemoptysis, Denies excessive phlegm production and Denies dyspnea Gastrointestinal: Gastrointestinal: Denies abdominal pain, Denies hematochezia, Denies diarrhea and Denies vomiting Genitourinary: Genitourinary: Denies hematuria, Denies dysuria, Denies penile discharge and Denies testicular pain Musculoskeletal: Musculoskeletal: Reports myalgias, Reports arthralgias, Denies joint swelling, Denies loss of height and Denies muscle weakness Neurologic: Reports dizziness, Denies syncope, Denies focal weakness and Denies weakness PMFSH Past Medical History Medical History Dermatitis of left ear canal Eczema intertrigo Hypertension Interstitial lung disease Obesity (BMI 30-39.9) Prostate cancer Psoriasis Surgical History Surgical History H/O heart artery stent (~02/2022) Family History Family History Mother Family history of malignant neoplasm Father Acute myocardial infarction Social History Social History Smoking status: Never smoker Alcohol intake: never Substance use: never Substance use type: does not use Lack of Transportation: No Lack of Food: Never True Current Housing: I Have Housing Concerned About Future Housing: No Difficulty Paying Gas/Electric Bills: No Difficulty Paying for Meds: No Currently Unemployed: No Education: High School Diploma/GED Difficulty w/ Childcare or Family Care: No Living arrangements: with family Additional living arrangements comments: Occupation/Education: retired Gender identity (if verbalized by the patient): Male Sexual Orientation (if Verbalized by the Patient): Straight or Heterosexual Spiritua
[2023-05-15 07:54] LABS: Basophils Absolute Auto 0.1 K/mm3 (0.0-0.1); Basophils Percent Auto 0.5 % (0.2-1.2); Eosinophils Absolute Auto 0.1 K/mm3 (0-0.3); Eosinophils Percent Auto 0.7 % (0-4.4); Hematocrit 35.5 % (42.0-52.0); Hemoglobin 11.4 g/dL (14.0-18.0); Immature Granulocyte Absolute 0.05 K/mm3 (0.00-0.031); Immature Granulocyte Percent A 0.5 % (0-0.5); Lymphocytes Absolute Auto 0.67 K/mm3 (0.9-3.2); Lymphocytes Percent Auto 6.1 % (18.3-44.2); Mean Corpuscular HGB Conc 32.1 g/dl (32-36); Mean Corpuscular Hemoglobin 28.9 pg (26-34); Mean Corpuscular Volume 89.9 fl (80-100); Mean Platelet Volume 10.1 fl (7.4-10.4); Monocytes Absolute Auto 0.6 K/mm3 (0.1-0.6); Monocytes Percent Auto 5.4 % (2.6-8.5); Neutrophils Absolute Auto 9.5 K/mm3 (1.3-6.7); Neutrophils Percent Auto 86.8 % (45.5-73.1); Platelet Count Result 259 k/mm3 (150-375); Red Blood Count 3.95 M/mm3 (4.6-6.20); Red Cell Distribution Width 15.2 % (11.5-14.5); White Blood Count 10.9 K/mm3 (4.5-10.0)
[2023-05-15 08:05] LABS: Prothrombin Time 13.6 Seconds (11.1-14.7)
[2023-05-15 08:06] LABS: Partial Thromboplastin Time 26.6 SECONDS (22.3-36.8)
[2023-05-15 08:12] LABS: Alanine Aminotransferase 32 U/L (6-50); Albumin Level 4.2 g/dL (3.5-5.1); Alkaline Phosphatase 72 U/L (38-126); Anion Gap 4 mmol/L (8-16); Aspartate Amino Transferase 37 U/L (17-59); Bilirubin,Total 0.6 mg/dL (0.2-1.3); Blood Urea Nitrogen 24 mg/dL (9-20); Calcium 9.8 mg/dL (8.4-10.2); Carbon Dioxide 33 mmol/L (22-30); Chloride 98 mmol/L (98-107); Estimated CRCL calculation 46 ml/min; Estimated Glomerular Filt Rate > 60; Glucose 126 mg/dL (65-110); Potassium 4.5 mmol/L (3.4-5.0); Sodium 135 mmol/L (137-145)
[2023-05-15] MEDS: TETANUS,DIPHTHERIA,AC PERTUSSIS ADULT (0.5 ML) BOOSTRIX IM (08:18)
[2023-05-15 08:25] VITALS: BP 160/78; PULSE 73
[2023-05-15 08:29] VITALS: BP 150/84; PULSE 78
[2023-05-15 08:30] VITALS: BP 181/87; PULSE 81
[2023-05-15 08:49] LABS: Appearance Urine Clear (Clear); Bacteria Urine None Seen /hpf; Bilirubin Urine Negative (Negative); Blood Urine Negative (Negative); Color Urine Yellow (Yellow); Glucose Urine UA Negative (Negative); Ketones Urine Negative (Negative); Leukocyte Esterase Ur Negative LEU/UL (Negative); Nitrate Urine Negative (Negative); Protein Urine 3+ mg/dL (Negative); RBC Urine 0-2 /hpf (0-2); Specific Grav Ur 1.026 (1.001-1.035); Squamous Epithelial Cell Urine None seen /hpf (Few); WBC Urine 0-5 /hpf; pH Urine 5.5 (5.0-9.0)
[2023-05-15 08:51] LABS: Add Urine Microscopic? YES
[2023-05-15] MEDS: ACETAMINOPHEN 325 MG TABLET 650 MG PO (09:24)
[2023-05-15] MEDS: traMADol HCL (*CRX) 50 MG TABLET PO (12:18)
[2023-05-15 12:53] VITALS: BP 160/57; PULSE 83; RESP 16; O2SAT 100
== END 2023-05-15 13:00 | disposition home or self-care (01) ==
PROVIDERS: Emergency Provider General Practice; PCP Family Medicine
DX: M25.511 Pain in right shoulder (principal); S09.90XA Unspecified injury of head, initial encounter; S22.42XA Multiple fractures of ribs, left side, initial encounter for closed fracture; S61.422A Laceration with foreign body of left hand, initial encounter; I10 Essential (primary) hypertension; W01.0XXA Fall on same level from slipping, tripping and stumbling without subsequent striking against object, initial encounter; Z23 Encounter for immunization
CPT/HCPCS: 12002; 36415; 70450; 71046; 71100; 72125; 73030; 73130; 80053; 81001; 85025; 85610; 85730; 90471; 90715; 99284; A9270

== ENCOUNTER 2023-05-19 08:59 | Emergency (ER) | payer MEDICARE, SELFPAY ==
[2023-05-19 09:04] VITALS: BP 173/71; PULSE 102; RESP 18; TEMP 36.5; O2SAT 95
--- NOTE | 2023-05-19 09:10 | ED.NAVMDI ---
HPI - Nausea/Vomiting/Diarrhea General Chief complaint: Fall Stated complaint: recent fall, n/v Time Seen by Provider: 05/19/23 09:02 History of Present Illness HPI Narrative: 88-year-old male returns to the emergency room for evaluation of acute onset of nausea and vomiting for 3 days. Patient states that he was seen here in the emergency room 4 days ago for evaluation of a fall and fall related injuries. Patient is accompanied by his family who is assisting with history. According to family, patient lost electricity on Tuesday and fell after he tripped while walking in the dark. Patient sustained right shoulder contusion, multiple fractured ribs on the left side, and a laceration to his left hand. Patient was placed on tramadol and Keflex. Patient states that he has been experiencing nausea and vomiting since beginning those 2 medications. Has had 1 formed stool, which was today. Related Data Home Medications Medication Instructions Recorded Confirmed acetaminophen 325 mg capsule 650 mg PO PRN PRN pain 09/14/19 05/03/23 (Tylenol) aspirin 81 mg tablet,delayed 81 mg PO DAILY 09/14/19 05/03/23 release (Adult Aspirin Regimen) multivitamin with minerals-folic 0.4 mg PO DAILY 09/14/19 05/03/23 acid 0.4 mg tablet (Adult One Daily Multivitamin) cholecalciferol (vitamin D3) 25 2,000 unit PO DAILY 11/19/19 05/03/23 mcg (1,000 unit) tablet atorvastatin 80 mg tablet 80 mg PO QHS 01/24/23 05/03/23 clopidogrel 75 mg tablet (Plavix) 75 mg PO DAILY 01/24/23 05/03/23 furosemide 20 mg tablet 20 mg PO QAM 01/24/23 05/03/23 lisinopril 5 mg tablet 5 mg PO DAILY 01/24/23 05/03/23 loteprednol etabonate 0.5 % eye 1 drp EACH EYE DAILY 01/24/23 05/03/23 drops,suspension metoprolol tartrate 25 mg tablet 25 mg PO BID 01/24/23 05/03/23 Allergies Allergy/AdvReac Type Severity Reaction Status Date / Time warfarin AdvReac Intermediate Dizziness Verified 05/19/23 09:11 Review of Systems Review of Systems: CONSTITUTIONAL: Denies fever, chills, or sweats. EYES: Denies visual changes, redness, or discharge. ENT: Denies rhinorrhea, congestion, sore throat, or otalgia. CARDIOVASCULAR: Reports left rib pain RESPIRATORY: Denies cough or dyspnea. GASTROINTESTINAL: Reports nausea, and vomiting GENITOURINARY: Denies dysuria or hematuria. SKIN: Denies rash or itching. MUSCULOSKELETAL: Denies back pain, joint pain, or myalgia. NEUROLOGIC: Denies headache, numbness, dizziness, or weakness. PSYCHIATRIC: Denies anxiety or depression. PMFSH Past Medical History Medical History Dermatitis of left ear canal Eczema intertrigo Hypertension Interstitial lung disease Obesity (BMI 30-39.9) Prostate cancer Psoriasis Surgical History Surgical History H/O heart artery stent (~02/2022) Family History Family History Mother Family history of malignant neoplasm Father Acute myocardial infarction Social History Social History Smoking status: Never smoker Alcohol intake: never Substance use: never Substance use type: does not use Lack of Transportation: No Lack of Food: Never True Current Housing: I Have Housing Concerned About Future Housing: No Difficulty Paying Gas/Electric Bills: No Difficulty Paying for Meds: No Currently Unemployed: No Education: High School Diploma/GED Difficulty w/ Childcare or Family Care: No Living arrangements: with family Additional living arrangements comments: Occupation/Education: retired Gender identity (if verbalized by the patient): Male Sexual Orientation (if Verbalized by the Patient): Straight or Heterosexual Spiritual care concerns: No Exam Narrative: GENERAL: Chronically ill-appearing, well-nourished, no physical limitations, and in n
[2023-05-19 09:31] LABS: Basophils Percent Auto 0.4 % (0.2-1.2); Eosinophils Absolute Auto 0.1 K/mm3 (0-0.3); Eosinophils Percent Auto 1.7 % (0-4.4); Immature Granulocyte Absolute 0.02 K/mm3 (0.00-0.031); Immature Granulocyte Percent A 0.3 % (0-0.5); Lymphocytes Absolute Auto 1.03 K/mm3 (0.9-3.2); Lymphocytes Percent Auto 13.8 % (18.3-44.2); Mean Corpuscular HGB Conc 32.3 g/dl (32-36); Mean Corpuscular Hemoglobin 29.1 pg (26-34); Mean Corpuscular Volume 90.1 fl (80-100); Mean Platelet Volume 10.4 fl (7.4-10.4); Monocytes Absolute Auto 0.6 K/mm3 (0.1-0.6); Monocytes Percent Auto 8.5 % (2.6-8.5); Neutrophils Absolute Auto 5.6 K/mm3 (1.3-6.7); Neutrophils Percent Auto 75.3 % (45.5-73.1); Platelet Count Result 300 k/mm3 (150-375); Red Blood Count 3.44 M/mm3 (4.6-6.20); Red Cell Distribution Width 15.3 % (11.5-14.5); White Blood Count 7.4 K/mm3 (4.5-10.0)
[2023-05-19] MEDS: SODIUM CHLORIDE 0.9% IV 500 ML 999 ML IV CONT (09:31)
[2023-05-19] MEDS: ONDANSETRON INJ 4 MG/2 ML VIAL IV PUSH (09:31)
[2023-05-19 09:40] LABS: Alanine Aminotransferase 53 U/L (6-50); Albumin Level 3.8 g/dL (3.5-5.1); Alkaline Phosphatase 60 U/L (38-126); Anion Gap 3 mmol/L (8-16); Aspartate Amino Transferase 79 U/L (17-59); Bilirubin,Total 1.1 mg/dL (0.2-1.3); Blood Urea Nitrogen 34 mg/dL (9-20); Calcium 9.2 mg/dL (8.4-10.2); Carbon Dioxide 35 mmol/L (22-30); Chloride 95 mmol/L (98-107); Estimated CRCL calculation 57 ml/min; Estimated Glomerular Filt Rate > 60; Glucose 115 mg/dL (65-110); Potassium 4.2 mmol/L (3.4-5.0); Sodium 133 mmol/L (137-145)
[2023-05-19 09:49] LABS: NT Pro B Type Natriuretic Pept 557 pg/mL (19.9-100)
--- NOTE | 2023-05-19 10:15 | PC.NURSE ---
pt given water and crackers for po challenge per provider
[2023-05-19 10:56] VITALS: BP 135/56; PULSE 92; RESP 20; O2SAT 92
--- NOTE | 2023-05-19 11:00 | PC.NURSE ---
Pt tolerated PO challenge. No nausea.
== END 2023-05-19 11:00 | disposition home or self-care (01) ==
PROVIDERS: Emergency Provider Nurse Practitioner Family; PCP Family Medicine
DX: R11.2 Nausea with vomiting, unspecified (principal); T36.8X5A Adverse effect of other systemic antibiotics, initial encounter; I10 Essential (primary) hypertension; Z79.82 Long term (current) use of aspirin; W01.0XXA Fall on same level from slipping, tripping and stumbling without subsequent striking against object, initial encounter
CPT/HCPCS: 36415; 80053; 83880; 85025; 96361; 96374; 99284; J2405; J7040

== ENCOUNTER 2023-08-20 23:07 | Emergency (ER) | payer MEDICARE, SELFPAY ==
[2023-08-20 23:13] VITALS: BP 182/76; PULSE 99; RESP 24; TEMP 36.8; O2SAT 96
--- NOTE | 2023-08-20 23:16 | ECG_ITS ---
Measurements Intervals [place] Rate: 96 P: 16 SD: 169 QRS: -6 QRSD: 86 T: 52 QT: 346 QTc: 438 Interpretive Statements SINUS RHYTHM LEFT VENTRICULAR HYPERTROPHY AND ST-T CHANGE [VOLTAGE CRITERIA PLUS ST/T ABNORMALITY] ABNORMAL ECG COMPARED TO ECG 03/12/2023 10:13:44 NO SIGNIFICANT CHANGES Electronically Signed On 08-21-2023 8:51:12 CDT by Laci Borges M.D.
[2023-08-20 23:27] LABS: Basophils Absolute Auto 0.1 K/mm3 (0.0-0.1); Basophils Percent Auto 0.9 % (0.2-1.2); Eosinophils Absolute Auto 0.3 K/mm3 (0-0.3); Eosinophils Percent Auto 3.8 % (0-4.4); Hematocrit 32.8 % (42.0-52.0); Hemoglobin 10.3 g/dL (14.0-18.0); Immature Granulocyte Absolute 0.02 K/mm3 (0.00-0.031); Immature Granulocyte Percent A 0.3 % (0-0.5); Lymphocytes Absolute Auto 1.74 K/mm3 (0.9-3.2); Lymphocytes Percent Auto 23.5 % (18.3-44.2); Mean Corpuscular HGB Conc 31.4 g/dl (32-36); Mean Corpuscular Hemoglobin 28.6 pg (26-34); Mean Corpuscular Volume 91.1 fl (80-100); Mean Platelet Volume 10.1 fl (7.4-10.4); Monocytes Absolute Auto 0.8 K/mm3 (0.1-0.6); Monocytes Percent Auto 10.8 % (2.6-8.5); Neutrophils Absolute Auto 4.5 K/mm3 (1.3-6.7); Neutrophils Percent Auto 60.7 % (45.5-73.1); Platelet Count Result 306 k/mm3 (150-375); Red Cell Distribution Width 14.4 % (11.5-14.5); White Blood Count 7.4 K/mm3 (4.5-10.0)
[2023-08-20 23:37] LABS: INR 0.9; Prothrombin Time 13.1 Seconds (11.1-14.7)
[2023-08-20 23:38] LABS: Partial Thromboplastin Time 30.7 SECONDS (22.3-36.8)
[2023-08-20 23:39] LABS: Alanine Aminotransferase 32 U/L (6-50); Albumin Level 4.3 g/dL (3.5-5.1); Alkaline Phosphatase 123 U/L (38-126); Anion Gap 4 mmol/L (8-16); Aspartate Amino Transferase 41 U/L (17-59); Bilirubin,Total 0.4 mg/dL (0.2-1.3); Blood Urea Nitrogen 25 mg/dL (9-20); Carbon Dioxide 32 mmol/L (22-30); Chloride 98 mmol/L (98-107); Estimated CRCL calculation 62 ml/min; Estimated Glomerular Filt Rate > 60; Glucose 125 mg/dL (65-110); Potassium 4.5 mmol/L (3.4-5.0); Sodium 134 mmol/L (137-145)
[2023-08-20 23:51] LABS: Troponin I 0.022 ng/mL (0.000-0.034)
--- NOTE | 2023-08-20 23:54 | ED.CHESTPAIN ---
HPI - Chest Pain General Chief Complaint: Chest Pain Stated Complaint: heart racing, HTN, chills Time Seen by Provider: 08/20/23 23:13 History of Present Illness HPI narrative: 88-year-old male presenting with department for evaluation of sensation of heart palpitations that started while he was sleeping. Patient states he had approximately 45 minutes of rapid heart rate with a pounding sensation in his chest that lasted approximately 3045 minutes. Upon arrival to the ED patient states symptoms have resolved. Patient states previously had similar symptoms and does describe having a monitor that showed no acute findings. Patient denies any falls or injuries. Related Data Home Medications Medication Instructions Recorded Confirmed acetaminophen 325 mg capsule 650 mg PO PRN PRN pain 09/14/19 07/25/23 (Tylenol) aspirin 81 mg tablet,delayed 81 mg PO DAILY 09/14/19 07/25/23 release (Adult Aspirin Regimen) multivitamin with minerals-folic 0.4 mg PO DAILY 09/14/19 07/25/23 acid 0.4 mg tablet (Adult One Daily Multivitamin) cholecalciferol (vitamin D3) 25 2,000 unit PO DAILY 11/19/19 07/25/23 mcg (1,000 unit) tablet atorvastatin 80 mg tablet 80 mg PO QHS 01/24/23 07/25/23 clopidogrel 75 mg tablet (Plavix) 75 mg PO DAILY 01/24/23 07/25/23 furosemide 20 mg tablet 20 mg PO QAM 01/24/23 07/25/23 lisinopril 5 mg tablet 5 mg PO DAILY 01/24/23 07/25/23 loteprednol etabonate 0.5 % eye 1 drp EACH EYE DAILY 01/24/23 07/25/23 drops,suspension metoprolol tartrate 25 mg tablet 25 mg PO BID 01/24/23 07/25/23 Allergies Allergy/AdvReac Type Severity Reaction Status Date / Time warfarin AdvReac Intermediate Dizziness Verified 07/25/23 11:15 Review of Systems Review of Systems: All systems reviewed & are unremarkable except as noted in HPI and below PMFSH Past Medical History Medical History Dermatitis of left ear canal Eczema intertrigo Hypertension Interstitial lung disease Obesity (BMI 30-39.9) Prostate cancer Psoriasis Surgical History Surgical History H/O heart artery stent (~02/2022) Family History Family History Mother Family history of malignant neoplasm Father Acute myocardial infarction Social History Social History Smoking status: Never smoker Alcohol intake: never Substance use: never Substance use type: does not use Lack of Transportation: No Lack of Food: Never True Current Housing: I Have Housing Concerned About Future Housing: No Difficulty Paying Gas/Electric Bills: No Difficulty Paying for Meds: No Currently Unemployed: No Education: High School Diploma/GED Difficulty w/ Childcare or Family Care: No Living arrangements: with family Additional living arrangements comments: Occupation/Education: retired Gender identity (if verbalized by the patient): Male Sexual Orientation (if Verbalized by the Patient): Straight or Heterosexual Spiritual care concerns: No Exam Narrative: APPEARANCE: Well appearing, no pain, no distress, well-nourished. HEAD: normocephalic, atraumatic. EYES: PERRLA/EOMI, conjunctivae clear. NOSE: Normal no drainage NECK: Supple. No adenopathy, no masses. RESPIRATORY: Airway patent, respirations nonlabored. Clear to auscultation bilaterally, no rales, rhonchi, wheezing. CARDIOVASCULAR: Regular rate and rhythm without murmurs rubs or gallops. ABDOMINAL: Soft, nontender, nondistended, normal bowel sounds MUSCULOSKELETAL: Moves all extremities. Strength/ROM intact, No edema, No calf tenderness. NEURO: Alert. Cranial nerves II through XII intact. Grossly intact SKIN: Warm, dry. Normal Color Course Course Emergency Course: 88-year-old male presented ED for evaluation of heart palpitations. Patient was afebrile wit
[2023-08-21 00:58] VITALS: BP 164/82; PULSE 82; RESP 18; O2SAT 98
[2023-08-21 01:18] LABS: Magnesium 1.9 mg/dL (1.6-2.3)
[2023-08-21 01:54] LABS: Appearance Urine Clear (Clear); Bilirubin Urine Negative (Negative); Blood Urine Negative (Negative); Color Urine Yellow (Yellow); Glucose Urine UA Negative (Negative); Ketones Urine Negative (Negative); Leukocyte Esterase Ur Negative LEU/UL (Negative); Nitrate Urine Negative (Negative); Protein Urine 3+ mg/dL (Negative); Specific Grav Ur 1.025 (1.001-1.035); Urobilinogen Urine 0.2 mg/dL (<2.0); pH Urine 6.5 (5.0-9.0)
[2023-08-21 02:24] VITALS: BP 140/62; PULSE 80; RESP 16; O2SAT 96
[2023-08-21 02:33] LABS: Bacteria Urine None Seen /hpf; Need Manual Microscopic Reviewed; Non Pathogenic Casts 0-2; RBC Urine 0-2 /hpf (0-2); Squamous Epithelial Cell Urine None seen /hpf (Few); WBC Urine 0-5 /hpf
[2023-08-21 02:36] LABS: Add Urine Microscopic? YES
[2023-08-21 02:46] LABS: Troponin I 0.026 ng/mL (0.000-0.034)
[2023-08-21 03:56] VITALS: BP 146/82; PULSE 90; RESP 15; O2SAT 100
== END 2023-08-21 03:57 | disposition home or self-care (01) ==
PROVIDERS: Emergency Provider Emergency Medicine; PCP Family Medicine
DX: R00.2 Palpitations (principal); I10 Essential (primary) hypertension; J84.9 Interstitial pulmonary disease, unspecified; E66.9 Obesity, unspecified; Z68.33 Body mass index [BMI] 33.0-33.9, adult; Z95.5 Presence of coronary angioplasty implant and graft; Z85.46 Personal history of malignant neoplasm of prostate; Z79.82 Long term (current) use of aspirin; I51.7 Cardiomegaly
CPT/HCPCS: 36415; 80053; 81001; 83735; 84484; 85025; 85610; 85730; 93005; 99284

== ENCOUNTER 2023-11-18 11:59 | Inpatient (IN) | payer MEDICARE, SELFPAY ==
[2023-11-18] VITALS (46 sets, daily range): BP systolic 140–189; BP diastolic 74–111; PULSE 79–102; RESP 20–39; TEMP 36.3–36.8; O2SAT 90–101; BMI 35.8
--- NOTE | ~2023-11-18 | XR_ITS ---
XR abdomen/kub 1V DATE: 11/19/2023 09:38 INDICATION: Constipation TECHNIQUE: Supine AP portable views on 11/19/2023 at 0932 and 0933 hours COMPARISON: 03/12/2023 CT abdomen pelvis FINDINGS: Multiple radiopaque seeds are noted overlying the prostate bed. Nonspecific bowel gas pattern without apparent obstruction or unusual a large amount of fecal materia l in the colon. IMPRESSION: Nonspecific abdomen Radiopaque prostate seeds Reviewed, dictated and finalized at Location A. Reviewed, dictated and finalized at location A. RANCE OPERATIONS REP
--- NOTE | ~2023-11-18 | XR_ITS ---
Portable chest x-ray Comparison: 11/23/2023 Clinical History: Shortness breath Findings: Lungs are clear, without focal consolidation or pleural effusion. Cardiomediastinal silho uette is stable. Bones and soft tissues are unremarkable. Impression: Clear lungs. Reviewed, dictated and finalized at location . GRAVURE PRESS OPERATOR Impression: Clear lungs.
--- NOTE | ~2023-11-18 | XR_ITS ---
Portable chest x-ray Comparison: 11/18/2023 Clinical History: CHF Findings: Lungs are clear, without focal consolidation or pleural effusion. Cardiomediastinal silho uette is stable. Bones and soft tissues are unremarkable. Impression: Clear lungs. Low lung volumes. Reviewed, dictated and finalized at location . T OPERATOR Impression: Clear lungs. Low lung volumes.
--- NOTE | ~2023-11-18 | CT_ITS ---
EXAMINATION: CT chest abdomen pelvis w con DATE: 11/20/2023 20:29 INDICATION: Anemia, tachycardia, hypoxia TECHNIQUE: Transaxial computed tomographic images of the chest, abdomen, and pelvis were obtained aft er the administration of 100 cc of Omnipaque 350 intravenous contrast. The dose-length product (DLP) was 1602.30 mGy-cm. Automated exposure control and iterative reconstruction technique were employed. COMPARISON: 03/12/2023, 02/12/2022 FINDINGS: CHEST CT: Cardiomegaly is noted. There is mild interlobular septal thickening. There are small pleural effusion s. There is no pneumothorax. There are no pathologically enlarged thoracic lymph nodes. Calcified cor onary artery atherosclerosis is noted. There is severe thoracic spondylosis. There is an age-indeterm inate compression fracture of T5. ABDOMEN/PELVIS CT: The gallbladder is surgically absent. There is mild enlargement of the common bile duct and central i ntrahepatic ducts which is likely due to post cholecystectomy state. Punctate calcifications in other cedeon normal appearing liver and spleen likely represent healed granulomatous disease. The pancreas an d adrenal glands are normal. Cysts of the kidneys measure up to 2.8 cm on the right. No pathologicall y enlarged abdominal or pelvic lymph nodes are identified. No free intraperitoneal gas or evidence of bowel obstruction. Colonic diverticulosis is present without evidence of diverticulitis. The bladder is decompressed by Young catheter. Brachytherapy seeds are noted in the prostate. There is severe manasa mbar spondylosis at L5-S1. There are bilateral L5 pars defects with grade 1 anterolisthesis of L5 on S1. There is a chronic burst fracture of L1 without significant change. IMPRESSION: 1. Cardiomegaly with mild pulmonary edema. 2. No acute findings of the abdomen or pelvis. Reviewed, dictated and finalized at location F. OPERATOR
--- NOTE | ~2023-11-18 | CT_ITS ---
EXAMINATION: CT brain wo con DATE: 11/18/2023 17:08 INDICATION: Near syncope. Headache. Altered mental status. TECHNIQUE: Computed tomography (CT) of the head was performed without intravenous contrast. The mA wa s adjusted according to patient size. Iterative reconstruction technique was employed. The dose-lengt h product was 1210.67 mGy-cm. COMPARISON: Head CT 05/15/2023 FINDINGS: There are scattered areas of low attenuation in the cerebral white matter. There is no intr acranial hemorrhage, acute infarction, or abnormal intracranial mass lesion. The ventricles are rj l in size. There is mild mucosal thickening in the paranasal sinuses. There are changes of right-side d scleral banding procedure. There are likely changes of right ocular lens replacement surgery. The m astoid air cells are normal. IMPRESSION: 1. Stable extensive nonspecific cerebral white matter disease, which likely represents chronic small vessel ischemic disease. Reviewed, dictated and finalized at location E. LE EBS CONSULTANT IMPRESSION: 1. Stable extensive nonspecific cerebral white matter disease, which likely rep resents chronic small vessel ischemic disease.
--- NOTE | ~2023-11-18 | CT_ITS ---
EXAMINATION:CT diagnostic chest wo con DATE: 11/24/2023 13:44 INDICATION: Congestive heart failure. Pleural effusion. TECHNIQUE: Computed tomography (CT) of the chest was performed without intravenous contrast. Automate d exposure control and iterative reconstruction technique were employed. The dose-length product (DLP ) was 474.19 mGy-cm. COMPARISON: Chest CT 11/20/2023, 01/01/2022, neck CT 11/28/13 FINDINGS: The lung volumes are small. The lungs demonstrate mild atelectasis. Again seen is mild gildardo pheral septal thickening in the lungs, worst in the upper lobes. No bronchiectasis or honeycombing. T here are trace pleural effusions. Cardiomegaly is noted. There are coronary artery calcifications. No pericardial effusion. There is a chronic 2.3 cm nodule in left thyroid lobe, likely benign. Calcific ations in the liver and spleen are consistent with old granulomatous disease. There are cysts in the kidneys measuring up to 16 mm on the right. IMPRESSION: 1. Stable mild chronic interstitial lung disease in a pattern of usual interstitial pneumonia (UIP) v ersus nonspecific interstitial pneumonia (NSIP). 2. Trace pleural effusions. Reviewed, dictated and finalized at location A. RPRISE ACCOUNT MANAGER IMPRESSION: 1. Stable mild chronic interstitial lung disease in a pattern of usual intersti tial pneumonia (UIP) versus nonspecific interstitial pneumonia (NSIP). 2. Trace pleural effusions.
--- NOTE | ~2023-11-18 | XR_ITS ---
XR chest 1V DATE: 11/18/2023 17:15 INDICATION: Shortness of breath TECHNIQUE: Upright AP views on 11/18/2023 at 1709 and 1711 hours COMPARISON: 05/15/2023 PA and lateral chest FINDINGS: There is relatively high position of the diaphragm and suboptimal expansion of lungs, limit ing the examination, in addition to portable technique. Mild bibasilar infiltrate or atelectasis and mild discoid atelectasis or scarring in the left midlung . There is pulmonary vascular redistribution compared to 05/15/2023, suggesting mild pulmonary venous hyp ertension. Heart size is not optimally evaluated on AP-because of magnification. There is suggestion of the brooke nary artery stent. Recommend clinical correlation. Aortic arch calcification. Bilateral chronic rotator cuff atrophy and bilateral glenohumeral osteoarthritis. IMPRESSION: Pulmonary vascular congestion/redistribution, suggesting congestive change Mild discoid atelectasis or scarring, left midlung and suggestion of mild bibasilar infiltrate or ate lectasis, likely due to relatively high position of the diaphragm Suggestion of coronary stent Aortic atherosclerosis Reviewed, dictated and finalized at location B. CLOSER HELPER IMPRESSION: Pulmonary vascular congestion/redistribution, suggesting congestive change Mild discoid atelectasis or scarring, left midlung and suggestion of mild bibas ilar infiltrate or atelectasis, likely due to relatively high position of the d iaphragm Suggestion of coronary stent Aortic atherosclerosis
--- NOTE | ~2023-11-18 | XR_ITS ---
EXAMINATION: XR chest 1V portable DATE: 11/23/2023 14:36 INDICATION: Congestive heart failure. TECHNIQUE: A single frontal view of the chest was obtained. COMPARISON: Chest single view 11/22/2023, chest CT 11/20/2023 FINDINGS: There is mild elevation of right hemidiaphragm. There are mild airspace opacities in the mi d and lower lung zones, right worse than left. There is a small right pleural effusion. No pneumothor ax. Cardiomegaly is noted. IMPRESSION: 1. Small right pleural effusion. 2. Mild airspace opacities in the mid and lower lung zones, likely atelectasis. 3. Cardiomegaly. Reviewed, dictated and finalized at location A. RINTENDENT LOCAL
--- NOTE | 2023-11-18 16:37 | ECG_ITS ---
Measurements Intervals [place] Rate: 90 P: 28 [place]: 152 QRS: 1 QRSD: 85 T: 153 QT: 352 QTc: 431 Interpretive Statements SINUS RHYTHM FREQUENT ATRIAL PREMATURE COMPLEXES EARLY PRECORDIAL R/S TRANSITION LEFT VENTRICULAR HYPERTROPHY AND ST-T CHANGE ST-T WAVE ABNORMALITY IN ANTEROLATERAL LEADS- CONSIDER ISCHEMIA BASELINE WANDER- I, II, III ABNORMAL ECG COMPARED TO ECG 08/20/2023 23:15:58 ATRIAL PREMATURE COMPLEXES NOW PRESENT ST-T WAVE ABNORMALITY NOW PRESENT Electronically Signed On 11-18-2023 19:23:51 [employer] by Robert Cutler D.O.
--- NOTE | 2023-11-18 16:39 | ED.DIZZY ---
HPI - Dizziness General Chief Complaint: Dizziness Stated Complaint: lightheaded/[place] Time Seen by Provider: 11/18/23 15:51 History of Present Illness HPI Narrative: 88-year-old male presenting with lightheadedness. Patient's son is at bedside and helps with the history as the patient is extremely hard of hearing and does not have his hearing aids. Patient's son states that he has been having a lot of problems sleeping lately. He has been randomly falling asleep. He saw his PCP yesterday who started him on a new medicine which did seem to help him sleep yesterday. Unfortunately he has had a couple of falls and he has been complaining of a headache today. He took some Tylenol earlier today which has improved the headache. States that he has been feeling somewhat lightheaded when standing. No fevers or chills, numbness or weakness, abdominal pain, nausea vomiting, diarrhea, dysuria, leg swelling. Related Data Home Medications Medication Instructions Recorded Confirmed acetaminophen 325 mg capsule 650 mg PO PRN PRN pain 09/14/19 11/17/23 (Tylenol) aspirin 81 mg tablet,delayed 81 mg PO DAILY 09/14/19 11/17/23 release (Adult Aspirin Regimen) multivitamin with minerals-folic 0.4 mg PO DAILY 09/14/19 11/17/23 acid 0.4 mg tablet (Adult One Daily Multivitamin) cholecalciferol (vitamin D3) 25 2,000 unit PO DAILY 11/19/19 11/17/23 mcg (1,000 unit) tablet atorvastatin 80 mg tablet 80 mg PO QHS 01/24/23 11/17/23 clopidogrel 75 mg tablet (Plavix) 75 mg PO DAILY 01/24/23 11/17/23 furosemide 20 mg tablet 20 mg PO QAM 01/24/23 11/17/23 lisinopril 5 mg tablet 5 mg PO DAILY 01/24/23 11/17/23 loteprednol etabonate 0.5 % eye 1 drp EACH EYE DAILY 01/24/23 11/17/23 drops,suspension metoprolol tartrate 25 mg tablet 25 mg PO BID 01/24/23 11/17/23 Allergies Allergy/AdvReac Type Severity Reaction Status Date / Time warfarin AdvReac Intermediate Dizziness Verified 11/17/23 10:30 Review of Systems Review of Systems: All systems reviewed & are unremarkable except as noted in HPI and below PMFSH Past Medical History Medical History Dermatitis of left ear canal Eczema intertrigo Generalized bloating Hypertension Insomnia Interstitial lung disease Obesity (BMI 30-39.9) Prostate cancer Psoriasis Surgical History Surgical History H/O heart artery stent (~02/2022) Family History Family History Mother Family history of malignant neoplasm Father Acute myocardial infarction Social History Social History Smoking status: Never smoker Alcohol intake: never Substance use: never Substance use type: does not use Lack of Transportation: No Lack of Food: Never True Current Housing: I Have Housing Concerned About Future Housing: No Difficulty Paying Gas/Electric Bills: No Difficulty Paying for Meds: No Currently Unemployed: No Education: High School Diploma/GED Difficulty w/ Childcare or Family Care: No Living arrangements: with family Additional living arrangements comments: Occupation/Education: retired Gender identity (if verbalized by the patient): Male Sexual Orientation (if Verbalized by the Patient): Straight or Heterosexual Spiritual care concerns: No Exam Narrative: GENERAL: Nontoxic, no acute distress, pleasant cooperative HEAD: Normocephalic, atraumatic. EYES: PERRLA and EOMI. ENT: Mucous membranes moist. NECK: Supple. CHEST: Clear to auscultation. No respiratory distress. HEART: Regular rate and rhythm ABDOMEN: Soft, distended abdomen that son states is normal, nontender EXTREMITIES: Normal range of motion. No edema. SKIN: Warm, dry, no rash. NEURO: No focal deficits. Alert and oriented x3. PSYCH: Normal mood and affect. Cour
[2023-11-18] MEDS: SODIUM CHLORIDE 0.9% IV 1,000 ML 999 ML IV CONT (16:51)
[2023-11-18 16:57] LABS: Basophils Percent Auto 0.1 % (0.2-1.2); Eosinophils Percent Auto 0.4 % (0-4.4); Hematocrit 22.6 % (42.0-52.0); Immature Granulocyte Absolute 0.04 K/mm3 (0.00-0.031); Immature Granulocyte Percent A 0.5 % (0-0.5); Lymphocytes Percent Auto 9.8 % (18.3-44.2); Mean Corpuscular HGB Conc 29.2 g/dl (32-36); Mean Corpuscular Hemoglobin 23.8 pg (26-34); Mean Corpuscular Volume 81.6 fl (80-100); Mean Platelet Volume 10.5 fl (7.4-10.4); Monocytes Absolute Auto 0.7 K/mm3 (0.1-0.6); Monocytes Percent Auto 7.9 % (2.6-8.5); Neutrophils Absolute Auto 6.7 K/mm3 (1.3-6.7); Neutrophils Percent Auto 81.3 % (45.5-73.1); Platelet Count Result 385 k/mm3 (150-375); Red Blood Count 2.77 M/mm3 (4.6-6.20); Red Cell Distribution Width 16.7 % (11.5-14.5); White Blood Count 8.2 K/mm3 (4.5-10.0)
[2023-11-18 17:10] LABS: INR 1.1; Partial Thromboplastin Time 25.4 SECONDS (22.3-36.8); Prothrombin Time 14.5 Seconds (11.1-14.7)
[2023-11-18 17:16] LABS: Alanine Aminotransferase 45 U/L (6-50); Albumin Level 4.1 g/dL (3.5-5.1); Alkaline Phosphatase 75 U/L (38-126); Anion Gap 9 mmol/L (8-16); Aspartate Amino Transferase 54 U/L (17-59); Bilirubin,Total 0.5 mg/dL (0.2-1.3); Blood Urea Nitrogen 29 mg/dL (9-20); Calcium 9.2 mg/dL (8.4-10.2); Carbon Dioxide 27 mmol/L (22-30); Chloride 97 mmol/L (98-107); Estimated Glomerular Filt Rate > 60; Glucose 136 mg/dL (65-110); Lipase 126 U/L (23-300); Magnesium 2.3 mg/dL (1.6-2.3); Potassium 4.5 mmol/L (3.4-5.0); Sodium 133 mmol/L (137-145)
[2023-11-18 17:32] LABS: Hemoglobin 6.6 g/dL (14.0-18.0)
[2023-11-18 17:34] LABS: Hypochromasia 1+ (NORMAL); Influenza A QL RT-PCR Negative (Negative); Influenza B QL RT-PCR Negative (Negative); Ovalocytes 1+ (NORMAL); RSV RNA, RT-PCR Negative (Negative); SARS-CoV-2 RNA PCR Negative (Negative); Schistocytes None Seen (NORMAL); Target Cells 1+ (NORMAL)
[2023-11-18] MEDS: KETOROLAC 30 MG/ML VIAL (*BKC) IV PUSH (17:43)
--- NOTE | 2023-11-18 17:49 | PC.NURSE ---
02 sats dropped into the mid 80's while sleeping. Son reports pt has sleep apnea. 02 placed at 4 l NC.
--- NOTE | 2023-11-18 19:47 | ECG_ITS ---
Measurements Intervals [place] Rate: 94 P: 24 [place]: 151 QRS: 2 QRSD: 79 T: 147 QT: 332 QTc: 415 Interpretive Statements SINUS RHYTHM VENTRICULAR PREMATURE COMPLEX EARLY PRECORDIAL R/S TRANSITION LEFT VENTRICULAR HYPERTROPHY AND ST-T CHANGE ST-T WAVE ABNORMALITY IN ANTEROLATERAL LEADS- CONSIDER ISCHEMIA BASELINE ARTIFACT- V4-V6 ABNORMAL ECG COMPARED TO ECG 11/18/2023 17:41:49 NO SIGNIFICANT CHANGES Electronically Signed On 11-19-2023 8:25:53 [employer] by Robert Cutler D.O.
[2023-11-18] MEDS: SODIUM CHLORIDE 0.9% IV 250 ML 30 ML IV CONT (20:29)
[2023-11-18] MEDS: TUBING, BLOOD SET 1 EACH XX ×2 (20:42→21:46)
[2023-11-18] MEDS: FUROSEMIDE INJ 40 MG/4 ML VIAL IV PUSH (21:19)
[2023-11-18] MEDS: SODIUM CHLORIDE 0.9% IV 250 ML 30 ML (21:46)
--- NOTE | 2023-11-18 22:29 | PM.IMHP ---
H&P: HPI History of Present Illness Date/Time: 11/18/23 22:29 Chief Complaint: Headache Narrative: 88-year-old male with a past medical history of severe hearing loss, COPD, essential hypertension, coronary artery disease, atrial fibrillation not on anticoagulation due to recurrent anemia, diastolic heart failure grade 2 and aortic valve stenosis who presented to the ER from home due to complaints of headache and feeling like he is going to pass out. Source of information is from past medical records and ER physician report. The patient at the time of my evaluation was responsive only to noxious stimuli and was oriented only to person. Patient evidently was reporting some lightheadedness and his son was at bedside and helps provide some of the history at that time. That he reported the patient has been having trouble falling asleep at home and has been falling asleep at random times. The patient is then jerking awake. The patient has become more combative. Family had tried some Benadryl which seemed to be making the patient's symptoms worse. His primary care physician started him on trazodone yesterday which seemed to help him sleep. Patient was also complaining of generalized abdominal bloating. He has been reporting discomfort and pressure to his bladder. Patient was recommended to start on MiraLax. However, today he began having headache. He took some Tylenol which did not improve his headache. His headache was reported as ?zaps? of pain. He felt as if he was going to pass out when he was trying to avoid earlier in the day. In the ER he was found to be anemic with hemoglobin of 6.6 down from baseline of 10.3. He received 2 units of packed red blood cells and 40 mg of Lasix. He still had no urine output on arrival to the intermediate unit. The patient had greater than 650 in his bladder when Young catheter was placed. Young catheter was placed because patient arrived to the IMU minimally responsive only to painful stimuli. ABG was performed which demonstrated significant respiratory acidosis with pH of 7.23 pCO2 is 64 PO2 of 78. Patient was having markedly labored respirations with respiratory rate in the upper 20s with marked abdominal respirations. The patient was placed on BiPAP 18/6 with rate of 22. Patient was over breathing the BiPAP. Repeat ABG was the tempted but by that time patient was agitated and not following commands. VBG was obtained which demonstrated pH 7.29 pCO2 61 in PO2 of 36. The patient's troponin in the ER was found to be elevated at 1.1 with repeat troponin 1.08. Patient evidently was not complaining of any chest pain. However, patient is unable to give me any information. Review of Systems Review of Systems: ROS unobtainable: Yes unobtainable due to mental status PMFSH Past Medical History Medical History (Updated 11/19/23 @ 01:44 by Irais Pascual DO) Atrial fibrillation Coronary artery disease Dermatitis of left ear canal Eczema intertrigo Glaucoma Hyperlipidemia Hypertension Insomnia Interstitial lung disease Obesity (BMI 30-39.9) Presbycusis of both ears Prostate cancer (2008) Psoriasis Vitamin D deficiency Surgical History Surgical History (Updated 11/19/23 @ 01:43 by Irais Pascual DO) H/O heart artery stent (~02/2022) And 2004 History of right cataract extraction Hx of cholecystectomy Family History Family History Mother Family history of malignant neoplasm Father Acute myocardial infarction Social History Social History (Updated 11/19/23 @ 01:44 by Irais Pascual DO) Social History: Patient is listed as a full code. Smoking status: Never smoker Alcohol intake: never Substance use: never Substance use type: does not use Lack of Transportation: No Lack of Food: Never True Current Housing: I Have Housing Concerned About Future Housing: No Difficulty Paying Gas/Electric Bills
[2023-11-18 22:58] LABS: Alveolar/Arterial O2 Gradient 74.7 mmHg; Base Excess ABG -1.8 mEq/l (+/-2.0); Carboxyhemoglobin 0.3 % THb (0-2.0); Fractional Inspired Oxygen 32 %; HCO3 ABG 26.5 mEq/l (22.0-26.0); Methemoglobin ABG 0.3 %THb (0-1.5); Oxygen Content ABG 13.9 %vol (16.0-22.0); Oxygen Saturation ABG 92.9 % (95.0-100.0); Oxyhemoglobin 92.6 % THb (90.0-100.0); PO2 ABG 78.3 mmHg (80.0-100.0); PO2 FiO2 Ratio Arterial Blood 2.45 %; Reduced Hemoglobin 6.8 %THb (0-5.0); Total Hemoglobin 10.6 g/dL (12.0-18.0)
[2023-11-18 23:12] LABS: Modified Allen's Test Pass; PCO2 ABG 64.2 mmHg (35.0-45.0); Site Drawn RIGHT RADIAL; pH ABG 7.233 (7.350-7.450)
[2023-11-18 23:13] LABS: Device NASAL CANNULA
[2023-11-18] MEDS: methylPREDNISolone SOD SUCC 125 MG VIAL IV PUSH (23:35)
[2023-11-18 23:44] LABS: Appearance Urine Clear (Clear); Bacteria Urine None Seen /hpf; Bilirubin Urine Negative (Negative); Blood Urine Negative (Negative); Color Urine Yellow (Yellow); Glucose Urine UA Negative (Negative); Ketones Urine Negative (Negative); Leukocyte Esterase Ur Negative LEU/UL (Negative); Nitrate Urine Negative (Negative); Protein Urine 2+ mg/dL (Negative); RBC Urine 0-2 /hpf (0-2); Specific Grav Ur 1.013 (1.001-1.035); Squamous Epithelial Cell Urine None seen /hpf (Few); Urobilinogen Urine 0.2 mg/dL (<2.0); WBC Urine 0-5 /hpf; pH Urine 5.5 (5.0-9.0)
[2023-11-19] VITALS (32 sets, daily range): BP systolic 92–147; BP diastolic 44–70; PULSE 63–96; RESP 22–24; TEMP 36.3–37.1; O2SAT 94–100
[2023-11-19 00:03] LABS: Add Urine Microscopic? YES
--- NOTE | 2023-11-19 00:29 | ADMGEN ---
This patient, Kwame Crane, was admitted to IMU Room [id number]. Patient/family oriented to hospital policies and general routines including ID bracelet, bed and alarms, visiting hours, pain management, procedures, bathroom and other care routines, personal items, smoking policy, room service/diet, and visiting hours. Information on how to activate the Rapid Response Team has been discussed. Patient/Family are encouraged to report perceived risks to care and to ask questions if they do not understand what they are told or what they should do.
[2023-11-19 00:47] LABS: Hematocrit 29.7 % (42.0-52.0); Hemoglobin 9.2 g/dL (14.0-18.0)
--- NOTE | 2023-11-19 01:02 | PC.NURSE ---
Unable to contact family for update and admission. Phone number for Billie went to answering machine, left message to call back. Phone number for son Royal is not correct, reaches a stranger in [place]. Phone number for Vic is not in service.
[2023-11-19 01:05] LABS: Fractional Inspired Oxygen 40 %; HCO3 VBG 28.9 mEq/l (24.0-30.0); PCO2 VBG 61.3 mmHg (42.0-48.0); PO2 VBG 36.4 mmHg (35.0-45.0); pH VBG 7.291 (7.300-7.400)
[2023-11-19 01:18] LABS: Device NON-INVASIVE VENT; Non-Invasive Expiratory Pressure 6 CMH2O; Non-Invasive Inspiratory Pressure 18 CMH2O; Non-Invasive Vent Rate 22 /MIN
[2023-11-19] MEDS: OLANZapine 10 MG INJ VIAL 5 MG IM (01:18)
[2023-11-19] MEDS: WATER, STERILE FOR INJECTION 10 ML VIAL XX (01:21)
[2023-11-19 01:23] LABS: Troponin I 0.827 ng/mL (0.000-0.034)
--- NOTE | 2023-11-19 01:37 | PC.NURSE ---
While RT was attempting to obtain arterial blood gas, pt became agitated, pulling away, removing bipap, trying to get out of bed, and yelling about calling the law. Unable to divert behavior. Able to obtain VBG instead but pt removed bipap and continuous pulse oximeter and would not allow them to be replaced. Called doctor who ordered zyprexa im x1. Restraints placed and sitter at bedside to be able to replace bipap to oxygenate patient. Zyprexa given. Bipap settings changed to AVAPs. No returned calls from family at this time.
[2023-11-19] MEDS: ALBUTEROL SULFATE NEB 2.5 MG/3 ML INH 5 MG INHALATION ×4 (02:13→20:07)
[2023-11-19] MEDS: IPRATROPIUM BR 0.02% INH SOLN 0.5 MG/2.5 ML VIAL INHALATION ×4 (02:13→20:08)
[2023-11-19 03:15] LABS: Base Excess ABG 0.9 mEq/l (+/-2.0); Fractional Inspired Oxygen 40 %; HCO3 ABG 27.1 mEq/l (22.0-26.0); Oxygen Content ABG 13.7 %vol (16.0-22.0); Oxygen Saturation ABG 98.4 % (95.0-100.0); Oxyhemoglobin 97.3 % THb (90.0-100.0); PCO2 ABG 51.1 mmHg (35.0-45.0); PO2 ABG 128.5 mmHg (80.0-100.0); PO2 FiO2 Ratio Arterial Blood 3.21 %; Total Hemoglobin 9.8 g/dL (12.0-18.0); pH ABG 7.343 (7.350-7.450)
[2023-11-19 03:19] LABS: Device NON-INVASIVE VENT; Modified Allen's Test Pass; Non-Invasive Vent Rate 24 /MIN; Site Drawn RIGHT RADIAL
[2023-11-19 05:20] LABS: Hematocrit 27.9 % (42.0-52.0); Hemoglobin 8.4 g/dL (14.0-18.0); Mean Corpuscular HGB Conc 30.1 g/dl (32-36); Mean Corpuscular Hemoglobin 25.1 pg (26-34); Mean Corpuscular Volume 83.5 fl (80-100); Mean Platelet Volume 10.9 fl (7.4-10.4); Platelet Count Result 339 k/mm3 (150-375); Red Blood Count 3.34 M/mm3 (4.6-6.20); Red Cell Distribution Width 16.1 % (11.5-14.5); White Blood Count 8.2 K/mm3 (4.5-10.0)
[2023-11-19 05:27] LABS: Anion Gap 5 mmol/L (8-16); Blood Urea Nitrogen 27 mg/dL (9-20); Calcium 8.8 mg/dL (8.4-10.2); Carbon Dioxide 30 mmol/L (22-30); Chloride 101 mmol/L (98-107); Estimated CRCL calculation 57 ml/min; Estimated Glomerular Filt Rate > 60; Glucose 134 mg/dL (65-110); Potassium 4.8 mmol/L (3.4-5.0); Sodium 136 mmol/L (137-145)
[2023-11-19] MEDS: methylPREDNISolone SOD SUCC 125 MG VIAL 60 MG IV PUSH ×3 (06:50→21:21)
--- NOTE | 2023-11-19 09:20 | PM.IMPN ---
Progress Note: A&P Assessment and Plan (1) Urinary retention with incomplete bladder emptying: Code(s): R33.9 - Retention of urine, unspecified Status: Acute (2) Metabolic encephalopathy: Code(s): G93.41 - Metabolic encephalopathy Status: Acute (3) Acute hypercapnic respiratory failure: Code(s): J96.02 - Acute respiratory failure with hypercapnia Status: Acute (4) Symptomatic anemia: Code(s): D64.9 - Anemia, unspecified Status: Acute (5) Elevated troponin: Code(s): R79.89 - Other specified abnormal findings of blood chemistry Status: Acute (6) Lightheadedness: Code(s): R42 - Dizziness and giddiness Status: Acute (7) Generalized bloating: Code(s): R14.0 - Abdominal distension (gaseous) Status: Acute (8) Insomnia: Code(s): G47.00 - Insomnia, unspecified Status: Acute (9) COPD (chronic obstructive pulmonary disease): Qualifiers: COPD type: unspecified COPD Qualified Code(s): J44.9 - Chronic obstructive pulmonary disease, unspecified Code(s): J44.9 - Chronic obstructive pulmonary disease, unspecified Status: Acute Plan H&P via Dr. Braxton on 11/18/23: 88-year-old male with a past medical history of severe hearing loss, COPD, essential hypertension, coronary artery disease s/p stent, atrial fibrillation not on anticoagulation due to recurrent anemia, diastolic heart failure grade 2 and aortic valve stenosis who presented to the ER from home due to complaints of headache and feeling like he is going to pass out.? Source of information is from past medical records and ER physician report.? The patient at the time of my evaluation was responsive only to noxious stimuli and was oriented only to person.? Patient evidently was reporting some lightheadedness and his son was at bedside and helps provide some of the history at that time.? That he reported the patient has been having trouble falling asleep at home and has been falling asleep at random times.? The patient is then jerking awake.? The patient has become more combative.? Family had tried some Benadryl which seemed to be making the patient's symptoms worse.? His primary care physician started him on trazodone yesterday which seemed to help him sleep.? Patient was also complaining of generalized abdominal bloating.? He has been reporting discomfort and pressure to his bladder.? Patient was recommended to start on MiraLax.? However, today he began having headache.? He took some Tylenol which did not improve his headache.? His headache was reported as ?zaps? of pain.? He felt as if he was going to pass out when he was trying to avoid earlier in the day.? In the ER he was found to be anemic with hemoglobin of 6.6 down from baseline of 10.3.? He received 2 units of packed red blood cells and 40 mg of Lasix.? He still had no urine output on arrival to the intermediate unit.? The patient had greater than 650 in his bladder when Young catheter was placed.? Young catheter was placed because patient arrived to the IMU minimally responsive only to painful stimuli.? ABG was performed which demonstrated significant respiratory acidosis with pH of 7.23 pCO2 is 64 PO2 of 78.? Patient was having markedly labored respirations with respiratory rate in the upper 20s with marked abdominal respirations.? The patient was placed on BiPAP 18/6 with rate of 22.? Patient was over breathing the BiPAP.? Repeat ABG was the tempted but by that time patient was agitated and not following commands.? VBG was obtained which demonstrated pH 7.29 pCO2 61 in PO2 of 36.? The patient's troponin in the ER was found to be elevated at 1.1 with repeat troponin 1.08.? Patient evidently was not complaining of any chest pain.? However, patient is unable to give me any information. Extended admission information: Repeat ABG demonstrated pH 7.34 PaCO2 51 PaO2 128. With this, his mental status did not change. # acute metabolic e
--- NOTE | 2023-11-19 09:38 | PM.CNCAR ---
Assessment and Plan Assessment and plan (1) Acute respiratory failure with hypoxia and hypercarbia: Code(s): J96.01 - Acute respiratory failure with hypoxia; J96.02 - Acute respiratory failure with hypercapnia Status: Acute Assessment and Plan: 88-year-old male with multiple medical problems-CAD with remote history of PCI-intervention report not available, CHF with preserved ejection fraction, paroxysmal atrial fibrillation not on anticoagulation due to history of GI bleed and severe anemia; hypertension, mild /AI-GELY 1.8 cm2, chronic respiratory failure from COPD. Patient admitted to the hospital with delirium, and with complaints of headache and dizziness. EKG showed sinus rhythm with PACs, LVH with ST-T abnormality. Troponins mildly elevated which are trending downwards. -management of respiratory failure as per primary team. (2) Elevated troponin: Code(s): R79.89 - Other specified abnormal findings of blood chemistry Status: Acute Assessment and Plan: Elevated troponins in the setting of respiratory failure and possible infection. No active ischemic symptoms. Continue low-dose aspirin, beta-yoko and statin. Conservative cardiac management is anticipated. (3) Anemia: Code(s): D64.9 - Anemia, unspecified Status: Acute Assessment and Plan: Status post blood transfusion. Maintain hemoglobin more than 7 grams/deciliters. Management as per primary team. (4) Paroxysmal atrial fibrillation: Code(s): I48.0 - Paroxysmal atrial fibrillation Status: Acute Assessment and Plan: Currently in sinus rhythm. Continue beta-yoko. Has not been on anticoagulation due to history of GI bleed and anemia. Plan Will follow on p.r.n. basis. Address code status. History of Present Illness History of Present Illness Consult date/time: 11/19/23 09:38 Requesting physician: Mica Ruff MD Reason For Visit: anemia, elevated troponin Narrative: Chief complaint: Dizziness, headache HPI: 88-year-old male with multiple medical problems-CAD with remote history of PCI-intervention report not available, CHF with preserved ejection fraction, paroxysmal atrial fibrillation not on anticoagulation due to history of GI bleed and severe anemia; hypertension, mild /AI-GELY 1.8 cm2, chronic respiratory failure from COPD Patient follows up with Dr. Hylton for his cardiovascular care. He was brought to [facility] Emergency Room on 11/18/2023 with complaints of headache and dizziness. At the time of evaluation today, patient is obtunded and nonresponsive to verbal stimuli. As per staff, he has not had any complaints of chest pain. EKG at presentation on my personal interpretation showed sinus rhythm, PACs, LVH, ST-T abnormality, possible ischemia. Head CT showed Stable extensive nonspecific cerebral white matter disease, which likely represents chronic small vessel ischemic disease. Chest x-ray showed pulmonary vascular condition. Hemoglobin at admission was 6.6, baseline 9.2 grams/deciliters. Troponin mildly elevated which is trending down.. Echo from 02/11/2023 reportedly showed normal LV systolic function, grade 2 diastolic dysfunction. ? Review of Systems Review of Systems: As per HPI, other review of system is not obtainable due to patient's delirium. I gathered the information from extensive review of the chart and from the staff. [facility] Past Medical History Medical History Atrial fibrillation Coronary artery disease Dermatitis of left ear canal Eczema intertrigo Glaucoma Hyperlipidemia Hypertension Insomnia Interstitial lung disease Obesity (BMI 30-39.9) Presbycusis of both ears Prostate cancer (2008) Psoriasis Vitamin D deficiency Surgical History Surgical History H/O heart artery stent (~02/2022) And 2004 History of right cataract ex
[2023-11-19] MEDS: AZITHROMYCIN 500 MG/NS 250 ML 500 MG/250 ML BAG 250 MG IVPB (10:20)
[2023-11-19 10:21] LABS: Acetaminophen < 10 ug/mL (10-30); Ammonia < 9 umol/L (9-30); Salicylate < 1.0 mg/dL (2-20)
[2023-11-19 10:22] LABS: Ethanol < 10 mg/dL (<10)
[2023-11-19 10:52] LABS: Thyroid Stimulating Hormone Reflex 0.095 uIU/mL (0.465-4.68)
[2023-11-19 11:31] LABS: Folic Acid > 20.0 ng/mL (2.76->20)
--- NOTE | 2023-11-19 11:47 | WPDNEURCNPN ---
Assessment and Plan Assessment and plan (1) Metabolic encephalopathy: Code(s): G93.41 - Metabolic encephalopathy Status: Acute (2) Symptomatic anemia: Code(s): D64.9 - Anemia, unspecified Status: Acute (3) Acute hypercapnic respiratory failure: Code(s): J96.02 - Acute respiratory failure with hypercapnia Status: Acute (4) Lightheadedness: Code(s): R42 - Dizziness and giddiness Status: Acute Plan Kwame Crane is a 88 year old male with a history of atrial fibrillation, CAD, HTN, COPD, severe hearing loss, presenting due to lightheadedness and altered mental status. Course has been complicated by anemia as well respiratory failure (possibly due to pneumonia). Acute change in mental status is likely due to underlying illness. There seems also be concerned for a chronic underlying neurocognitive disorder at baseline that may be undiagnosed. B12 level is in 300s, which is on the lower end of normal, but could be contributing. Formal neurocognitive testing should be done in an outpatient setting, when patient is at his 'baseline', as being in the hospital with an illness can confound the picture. Will also need more information from family if there have been ongoing concerns regarding cognition. Attempted call today, but unable to get a hold of family members. - MRI brain w/o contrast pending - Replete B12 Consult date: 11/19/23 Reason for consult: Encephalopathy HPI: Kwame Carne is a 88 year old male with a history of atrial fibrillation, CAD, HTN, COPD, severe hearing loss, presenting due to lightheadedness and altered mental status. Per patient's son, patient had been reporting lightheadedness prior to admission. He has also had trouble falling asleep at night, and has been quite sleepy during the day. There have been reports that patient is 'jerking' when awake, and has overall become more combative. His PCP started him on trazodone just prior to admission. On day of presentation, patient was complaining of headache, discomfort and pressure in the bladder, as well as lightheadedness. When hew as taken to the ER, he was found to be anemic with a hgb of 6.6 Patient has a history of recurrent anemia, which is why he is not currently on anticoagulation of atrial fibrillation. Patient received blood transfusion on admission. His additional work-up including UA, blood tox screen, WBC were all unrevealing. His B12 is 361 and his TSH is 0.095 (L). Folate and ammonia levels are normal. Troponin was elevated on admission, thought to be due to demand ischemia from anemia. CXR showed bibasilar infiltrates. CT head was negative for acute changes. Patient was admitted to IMU for further evaluation. Seems that patient's mentation worsened and he started to have more respiratory difficulty with blood gas demonstrating respiratory acidosis. He was subsequently placed on BiPAP. He has been started on antibiotics for possible pneumonia. Home medications include Aspirin 81mg daily., Plavix 75mg daily, and Lipitor 80mg daily. No family at bedside. Attempted to get collateral information from son, but number not in service. Called but no response. Review of Systems Review of Systems: patient very hard of hearing ROS unobtainable: Yes unobtainable due to medical condition PMFSH Past Medical History Medical History Atrial fibrillation Coronary artery disease Dermatitis of left ear canal Eczema intertrigo Glaucoma Hyperlipidemia Hypertension Insomnia Interstitial lung disease Obesity (BMI 30-39.9) Presbycusis of both ears Prostate cancer (2008) Psoriasis Vitamin D deficiency Surgical History Surgical History H/O heart artery stent (~02/2022) And 2003 History of right cataract extraction Hx of cholecystectomy Family History Family History (Reviewed 11/19/23 @ 14:38 by Noy Sh
[2023-11-19 11:53] LABS: Free T4 Free Thyroxine Reflex 1.16 ng/dL (0.78-2.19)
[2023-11-19] MEDS: PANTOPRAZOLE SODIUM IV 40 MG VIAL IV PUSH (13:10)
[2023-11-19 13:15] LABS: Total Triiodothyronine (T3) 0.95 NG/ML (0.97-1.69)
[2023-11-19 15:01] LABS: Amphetamine Screen Urine Negative (Negative); Barbiturate Screen Urine Negative (Negative); Benzodiazepines Screen Urine Negative (Negative); Cannabinoid Screen Urine Negative (Negative); Cocaine Screen Urine Negative (Negative); Methadone Screen Urine Negative (Negative); Opiate Screen Urine Negative (Negative); Phencyclidine Screen Urine Negative (Negative)
[2023-11-20] VITALS (44 sets, daily range): BP systolic 104–141; BP diastolic 53–94; PULSE 57–199; RESP 20–38; TEMP 36.6–37.1; O2SAT 92–100
[2023-11-20] MEDS: ALBUTEROL SULFATE NEB 2.5 MG/3 ML INH 5 MG INHALATION ×3 (02:22→13:59)
[2023-11-20] MEDS: IPRATROPIUM BR 0.02% INH SOLN 0.5 MG/2.5 ML VIAL INHALATION ×4 (02:22→20:46)
[2023-11-20 05:04] LABS: Alveolar/Arterial O2 Gradient 48.9 mmHg; Base Excess ABG 3.1 mEq/l (+/-2.0); Carboxyhemoglobin 0.2 % THb (0-2.0); Fractional Inspired Oxygen 25 %; HCO3 ABG 27.8 mEq/l (22.0-26.0); Methemoglobin ABG 0.3 %THb (0-1.5); Oxygen Content ABG 12.8 %vol (16.0-22.0); Oxygen Saturation ABG 95.7 % (95.0-100.0); Oxyhemoglobin 94.1 % THb (90.0-100.0); PCO2 ABG 43.4 mmHg (35.0-45.0); PO2 ABG 77.8 mmHg (80.0-100.0); PO2 FiO2 Ratio Arterial Blood 3.11 %; Reduced Hemoglobin 5.4 %THb (0-5.0); Total Hemoglobin 9.6 g/dL (12.0-18.0); pH ABG 7.425 (7.350-7.450)
[2023-11-20 05:05] LABS: Device NON-INVASIVE VENT; Modified Allen's Test Pass; Site Drawn RIGHT RADIAL
[2023-11-20 05:06] LABS: Non-Invasive Expiratory Pressure 5 CMH2O; Non-Invasive Vent Rate 24 /MIN
[2023-11-20 05:10] LABS: Hematocrit 27.9 % (42.0-52.0); Hemoglobin 8.6 g/dL (14.0-18.0); Immature Granulocyte Absolute 0.02 K/mm3 (0.00-0.031); Immature Granulocyte Percent A 0.3 % (0-0.5); Lymphocytes Percent Auto 4.9 % (18.3-44.2); Mean Corpuscular HGB Conc 30.8 g/dl (32-36); Mean Corpuscular Hemoglobin 25.6 pg (26-34); Mean Platelet Volume 10.5 fl (7.4-10.4); Monocytes Absolute Auto 0.3 K/mm3 (0.1-0.6); Neutrophils Absolute Auto 5.5 K/mm3 (1.3-6.7); Neutrophils Percent Auto 89.8 % (45.5-73.1); Nucleated Red Blood Cells Perc 0.3 % (0.0-0.2); Platelet Count Result 331 k/mm3 (150-375); Red Blood Count 3.36 M/mm3 (4.6-6.20); Red Cell Distribution Width 17.1 % (11.5-14.5); White Blood Count 6.2 K/mm3 (4.5-10.0)
[2023-11-20 05:22] LABS: Alanine Aminotransferase 39 U/L (6-50); Albumin Level 3.7 g/dL (3.5-5.1); Alkaline Phosphatase 63 U/L (38-126); Anion Gap 7 mmol/L (8-16); Aspartate Amino Transferase 36 U/L (17-59); Bilirubin,Total 0.6 mg/dL (0.2-1.3); Blood Urea Nitrogen 34 mg/dL (9-20); Calcium 9.2 mg/dL (8.4-10.2); Carbon Dioxide 32 mmol/L (22-30); Chloride 100 mmol/L (98-107); Estimated CRCL calculation 44 ml/min; Estimated Glomerular Filt Rate 57; Glucose 132 mg/dL (65-110); Magnesium 2.5 mg/dL (1.6-2.3); Potassium 4.5 mmol/L (3.4-5.0); Sodium 139 mmol/L (137-145)
[2023-11-20 05:48] LABS: Procalcitonin 0.1 ng/mL
[2023-11-20] MEDS: methylPREDNISolone SOD SUCC 125 MG VIAL 60 MG IV PUSH ×2 (06:47→17:11)
[2023-11-20] MEDS: CHOLECALCIFEROL 1,000 UNITS TABLET 2000 UNITS PO (09:51)
[2023-11-20] MEDS: lisinopriL 5 MG TABLET PO (09:51)
[2023-11-20] MEDS: ASPIRIN 81 MG ENTERIC TABLET PO (09:51)
[2023-11-20] MEDS: AZITHROMYCIN 500 MG/NS 250 ML 500 MG/250 ML BAG 250 MG IVPB (09:51)
[2023-11-20] MEDS: PANTOPRAZOLE SODIUM IV 40 MG VIAL IV PUSH (09:52)
[2023-11-20] MEDS: LOTEPREDNOL ETABONATE 0.5% OPH 5 ML BOTTLE 1 DROP EACH EYE (09:52)
--- NOTE | 2023-11-20 10:30 | WPDNEUROPN ---
Progress Note: A&P Assessment and Plan (1) Metabolic encephalopathy: Code(s): G93.41 - Metabolic encephalopathy Status: Acute (2) Acute hypercapnic respiratory failure: Code(s): J96.02 - Acute respiratory failure with hypercapnia Status: Acute (3) Symptomatic anemia: Code(s): D64.9 - Anemia, unspecified Status: Acute Plan Kwame Crane is a 88 year old male with a history of atrial fibrillation, CAD, HTN, COPD, severe hearing loss, presenting due to lightheadedness and altered mental status. Course has been complicated by anemia as well respiratory failure (possibly due to pneumonia). Acute change in mental status is likely due to underlying illness. There seems also be concerned for a chronic underlying neurocognitive disorder at baseline that may be undiagnosed. B12 level is in 300s, which is on the lower end of normal, but could be contributing. Formal neurocognitive testing should be done in an outpatient setting, when patient is at his 'baseline', as being in the hospital with an illness can confound the picture. Spoke with , who reports that patient is independent and does all his ADLs on his own, as well as driving. He has not had any memory issues as far as she has noticed. From her standpoint, his biggest issue is difficulty sleeping at night, and hypersomnia during the day. He has had some visual hallucinations over the past three weeks, which may be due to sleep deprivation. - MRI brain w/o contrast pending - Replete B12 - If there are persistent concerns about cognition, further neuropsych testing can be done on an outpatient basis Subjective Date/time seen: 11/20/23 10:30 Interval history: Kwame Crane is a 88 year old male with a history of atrial fibrillation, CAD, HTN, COPD, severe hearing loss, presenting due to lightheadedness and altered mental status. Per patient's son, patient had been reporting lightheadedness prior to admission. He has also had trouble falling asleep at night, and has been quite sleepy during the day. There have been reports that patient is 'jerking' when awake, and has overall become more combative. His PCP started him on trazodone just prior to admission. On day of presentation, patient was complaining of headache, discomfort and pressure in the bladder, as well as lightheadedness. When hew as taken to the ER, he was found to be anemic with a hgb of 6.6 Patient has a history of recurrent anemia, which is why he is not currently on anticoagulation of atrial fibrillation. Patient received blood transfusion on admission. His additional work-up including UA, blood tox screen, WBC were all unrevealing. His B12 is 361 and his TSH is 0.095 (L). Folate and ammonia levels are normal. Troponin was elevated on admission, thought to be due to demand ischemia from anemia. CXR showed bibasilar infiltrates. CT head was negative for acute changes. Patient was admitted to IMU for further evaluation. Seems that patient's mentation worsened and he started to have more respiratory difficulty with blood gas demonstrating respiratory acidosis. He was subsequently placed on BiPAP. He has been started on antibiotics for possible pneumonia. Home medications include Aspirin 81mg daily., Plavix 75mg daily, and Lipitor 80mg daily. Called , she seems to think that sleeping is his biggest problem currently. He lives with and son. Patient does not require any assistance with his ADLs. reports that he is quite bright and fairly independent. She denies any forgetfulness that she has noticed. He does still drive, does not get lost. He helps with chores around the house. She did mention that he has had some visual hallucinations (seeing other people in the room), but this started about three weeks ago. Review of Systems Review of Systems: All systems reviewed & are unremarkable except as noted in HPI and below Exam Const: General: comfortable and no acute distress HENMT: Mouth: Y
--- NOTE | 2023-11-20 10:40 | PM.IMPN ---
Progress Note: A&P Assessment and Plan (1) Acute respiratory failure with hypoxia and hypercarbia: Code(s): J96.01 - Acute respiratory failure with hypoxia; J96.02 - Acute respiratory failure with hypercapnia Status: Acute (2) Metabolic encephalopathy: Code(s): G93.41 - Metabolic encephalopathy Status: Acute Plan H&P via Dr. Braxton on 11/18/23: 88-year-old male with a past medical history of severe hearing loss, COPD, anisocoria, essential hypertension, coronary artery disease s/p stent, atrial fibrillation not on anticoagulation due to recurrent anemia, diastolic heart failure grade 2 and aortic valve stenosis who presented to the ER from home due to complaints of headache and feeling like he is going to pass out.? Source of information is from past medical records and ER physician report.? The patient at the time of my evaluation was responsive only to noxious stimuli and was oriented only to person.? Patient evidently was reporting some lightheadedness and his son was at bedside and helps provide some of the history at that time.? That he reported the patient has been having trouble falling asleep at home and has been falling asleep at random times.? The patient is then jerking awake.? The patient has become more combative.? Family had tried some Benadryl which seemed to be making the patient's symptoms worse.? His primary care physician started him on trazodone yesterday which seemed to help him sleep.? Patient was also complaining of generalized abdominal bloating.? He has been reporting discomfort and pressure to his bladder.? Patient was recommended to start on MiraLax.? However, today he began having headache.? He took some Tylenol which did not improve his headache.? His headache was reported as ?zaps? of pain.? He felt as if he was going to pass out when he was trying to avoid earlier in the day.? In the ER he was found to be anemic with hemoglobin of 6.6 down from baseline of 10.3.? He received 2 units of packed red blood cells and 40 mg of Lasix.? He still had no urine output on arrival to the intermediate unit.? The patient had greater than 650 in his bladder when Young catheter was placed.? Young catheter was placed because patient arrived to the IMU minimally responsive only to painful stimuli.? ABG was performed which demonstrated significant respiratory acidosis with pH of 7.23 pCO2 is 64 PO2 of 78.? Patient was having markedly labored respirations with respiratory rate in the upper 20s with marked abdominal respirations.? The patient was placed on BiPAP 18/6 with rate of 22.? Patient was over breathing the BiPAP.? Repeat ABG was the tempted but by that time patient was agitated and not following commands.? VBG was obtained which demonstrated pH 7.29 pCO2 61 in PO2 of 36.? The patient's troponin in the ER was found to be elevated at 1.1 with repeat troponin 1.08.? Patient evidently was not complaining of any chest pain.? However, patient is unable to give me any information. # acute encephalopathy/CO2 narcosis - likely due to hypercapnia and CAP. resolved - neurology consulted. MRI heena brainstem pending. B12 IM weekly - pt denies underlying cognitive decline. he does have insomnia and hypersomnia during the day # acute hypercapnic respiratory failure/acute copd exacerbation - flu RSV and covid PCR neg on admission - scheduled nebs, BIPAP, and solumedrol -P a CO2 on admission 64.2. Post BiPAP therapy he is now 43.4 and completely alert and oriented. 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 This is the culprit for his acute encephalopathy and also probably the cause of his insomnia at home and intermittent syncope. Consult pulmonology to assist with need for noninvasive ventilation at home and to optimize COPD medications and lung capacity. We appreciate their assistance. Continue BiPAP at night. Continue scheduled nebs. Solu-Medrol has been decreased to 60 mg IV b.i.d. repeat ABG in a.m. -while we shift at
--- NOTE | 2023-11-20 12:23 | PM.CNPUL ---
Assessment and Plan Assessment and plan (1) Acute respiratory failure with hypoxia and hypercarbia: Code(s): J96.01 - Acute respiratory failure with hypoxia; J96.02 - Acute respiratory failure with hypercapnia Status: Acute Assessment and Plan: with encephalopathy; this is a multifactorial issue, attributed to abdominal distension with restrictive effect on his lungs, inability to take a large breath and ventilate normally, underlying untreated sleep apnea and baseline ILD. He snores at night, falls asleep in the wakes up gasping for breath, has not been able to have sustained sleep for weeks acutely worse. He has been nodding off in the day and hitting his head. He declined sleep testing as an outpatient. He needs to continue antibiotics, wean IV steroids, and continue BiPAP at night to control hypercapnia. Repeat imaging, clinical management based on how he responds to treatment. Wean O2 as tolerated. (2) Interstitial lung disease: Code(s): J84.9 - Interstitial pulmonary disease, unspecified Status: Acute Assessment and Plan: He has had interstitial changes on his chest CT dating back to 11/25/2020, most consistent with NSIP. This is not his main issue at present. History of Present Illness History of Present Illness Consult date: 11/20/23 Requesting physician: Chelsea Kuhn MD Chief complaint: anemia, elevated troponin Narrative: NEW: Kwame Crane is an 88-yo man who is admitted with decreased level of consciousness and recurrent episodes of falling. He had moderate hypercapnia on admission, arterial blood gas pH is 7.233, pCO2 64, PO2 78.3 HC03 26.5 on nasal cannula 3 liters/minute. After using BiPAP and lowering his pCO2 to 43 he is completely normal regarding mentation. He recently has been struggling to get to sleep and stay asleep. He has been falling asleep at night for a short period of time, waking up and not being able to get back to sleep. he has been so sleepy at times he has nodded off, lean forward and hit his head on a table or other object. On TuesdayNov 17 he saw his covering primary care practitioner who gave him trazodone. He was able to get 6 hours of sleep Tuesday night which was more than he normally gets, also using Benadryl which is usual home medication. However when he woke up he had a severe headache. He was admitted through the emergency department with atrial fib with rapid ventricular response, anemia hemoglobin 6.6, hypercapnic hypoxemic respiratory failure blood gas pH 7.233 pCO2 64 PO2 78.3 HC03 26.5 on 3 liters/minute. His electrolytes showed mild hyponatremia sodium 133, BUN elevated 29, creatinine 0.8. He had elevation of troponin 1.11, 1.08, 0.827. EKG showed rapid atrial fibrillation without ischemia. He is now on IV amiodarone with improved control of his rate, in the 90s. Family reports increased weight of may be 5-10 lb in the last 6 months. He has increasing abdominal girth. He does not drink alcohol. He has not had any obviously bloody stools. On admission his hemoglobin was 6.6, received the 2 units of packed red cells and 40 mg of Lasix. Had significant amount of urinary retention 650 mL when the catheter was placed. Previously was followed in our Pulmonary Clinic, has ILD and nocturnal hypoxemia on 2 L oxygen per night. His last follow-up was April 01, 2022. CT in December of 2021 showed nonspecific interstitial lung disease changes bilaterally, mild peripheral reticulation, primarily subpleurally, no evidence of traction bronchiectasis or honeycombing.? PFT December of 2021 showed a nonspecific pattern; he had a 6 minute walk test in December of 2021 but the test was incomplete because of shortness of breath.? 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 He has a
[2023-11-20] MEDS: CYANOCOBALAMIN INJ 1,000 MCG/ML VIAL 1000 MCG IM (14:12)
[2023-11-20] MEDS: ADENOSINE IV SOLN 6 MG/2 ML VIAL IV PUSH (17:35)
[2023-11-20] MEDS: ADENOSINE IV SOLN 6 MG/2 ML VIAL 12 MG IV PUSH (17:37)
[2023-11-20] MEDS: METOPROLOL TARTRATE INJ 5 MG/5 ML VIAL 2.5 MG IV PUSH ×4 (17:43→18:02)
[2023-11-20] MEDS: SODIUM CHLORIDE 0.9% IV 1,000 ML 999 ML IV CONT (17:48)
--- NOTE | 2023-11-20 18:00 | ECG_ITS ---
Measurements Intervals [place] Rate: 138 P: IN: 0 QRS: 5 QRSD: 93 T: 155 QT: 228 QTc: 346 Interpretive Statements ATRIAL FIBRILLATION WITH RAPID VENTRICULAR RESPONSE LEFT VENTRICULAR HYPERTROPHY WITH ST-T CHANGE ST-T WAVE ABNORMALITY IN ANTEROLATERAL LEADS- CONSIDER ISCHEMIA BASELINE ARTIFACT- I, II, AVR, V1 ABNORMAL ECG COMPARED TO ECG 11/18/2023 19:56:38 ATRIAL FIBRILLATION NOW PRESENT Electronically Signed On 11-21-2023 10:29:16 APPLICATION ARCHITECT by Robert Cutler D.O.
--- NOTE | 2023-11-20 18:05 | ECG_ITS ---
Measurements Intervals [place] Rate: 119 P: ME: 0 QRS: 2 QRSD: 89 T: 146 QT: 305 QTc: 430 Interpretive Statements ATRIAL FIBRILLATION WITH RAPID VENTRICULAR RESPONSE LEFT VENTRICULAR HYPERTROPHY WITH ST-T CHANGE ST-T WAVE ABNORMALITY IN ANTERIOR LEADS- CONSIDER ISCHEMIA ABNORMAL ECG COMPARED TO ECG 11/20/2023 17:42:54 NO SIGNIFICANT CHANGES Electronically Signed On 11-21-2023 10:29:54 BUSINESS REPORTER by Robert Cutler D.O.
[2023-11-20 18:07] LABS: Hemoglobin 9.3 g/dL (14.0-18.0); Mean Corpuscular HGB Conc 29.1 g/dl (32-36); Mean Corpuscular Hemoglobin 25.1 pg (26-34); Mean Corpuscular Volume 86.3 fl (80-100); Mean Platelet Volume 10.8 fl (7.4-10.4); Platelet Count Result 415 k/mm3 (150-375); Red Blood Count 3.71 M/mm3 (4.6-6.20); Red Cell Distribution Width 17.5 % (11.5-14.5); White Blood Count 11.1 K/mm3 (4.5-10.0)
[2023-11-20] MEDS: dilTIAZem HCl INJ 25 MG/5 ML VIAL 5 MG IV PUSH (18:07)
--- NOTE | 2023-11-20 18:10 | ECG_ITS ---
Measurements Intervals [place] Rate: 97 P: [place]: 0 QRS: 2 QRSD: 93 T: 144 QT: 339 QTc: 432 Interpretive Statements ATRIAL FIBRILLATION LEFT VENTRICULAR HYPERTROPHY WITH ST-T CHANGE ST ABNORMALITY IN ANTERIOR LEADS- CONSIDER ISCHEMIA ABNORMAL ECG COMPARED TO ECG 11/20/2023 18:04:21 HEART RATE HAS DECCREASED Electronically Signed On 11-21-2023 10:30:31 SOAP PRESS FEEDER by Robert Cutler D.O.
[2023-11-20 18:24] LABS: Alanine Aminotransferase 44 U/L (6-50); Albumin Level 3.9 g/dL (3.5-5.1); Alkaline Phosphatase 68 U/L (38-126); Anion Gap 11 mmol/L (8-16); Aspartate Amino Transferase 48 U/L (17-59); Bilirubin,Total 0.6 mg/dL (0.2-1.3); Blood Urea Nitrogen 44 mg/dL (9-20); Calcium 9.2 mg/dL (8.4-10.2); Carbon Dioxide 25 mmol/L (22-30); Chloride 103 mmol/L (98-107); Estimated CRCL calculation 43 ml/min; Estimated Glomerular Filt Rate 57; Glucose 201 mg/dL (65-110); Magnesium 2.3 mg/dL (1.6-2.3); Potassium 4.6 mmol/L (3.4-5.0); Sodium 139 mmol/L (137-145)
[2023-11-20 18:42] LABS: Troponin I 0.548 ng/mL (0.000-0.034)
[2023-11-20] MEDS: AMIODARONE 360 MG/D5W 200 ML 360 MG/200 ML BAG 33.33 MG IV CONT (20:11)
--- NOTE | 2023-11-20 20:15 | PC.NURSE ---
This RN was called to the room with pt presenting in SVT at 1718. Upon RN arrival, pt started choking on his food. Dr Kuhn and devulcanizer charger called to the bedside. O2 sat remained stable at 95% on 2L NC and pt was able to clear his airway independently. Verified IV access. Obtained crash cart, vital signs, and ekg. Defib pads applied to chest. See MAR for medications and times administered.
[2023-11-20] MEDS: LEVALBUTEROL NEB 1.25 MG/3 ML INHALATION (20:45)
[2023-11-20 21:02] LABS: Reflex Lactic Acid Yes or No Add Lactic
--- NOTE | 2023-11-20 23:00 | ECG_ITS ---
Measurements Intervals [place] Rate: 72 P: -48 LA: 350 QRS: 1 QRSD: 93 T: 140 QT: 456 QTc: 501 Interpretive Statements SINUS RHYTHM LEFT VENTRICULAR HYPERTROPHY AND ST-T CHANGE MINIMAL Q WAVES- HIGH LATERAL LEADS BASELINE ARTIFACT- V6 BORDERLINE ECG COMPARED TO ECG 11/18/2023 19:56:38 NO SIGNIFICANT CHANGES Electronically Signed On 11-21-2023 7:46:42 RECREATION TECHNICIAN by Robert Cutler D.O.
[2023-11-20 23:43] LABS: Troponin I 0.568 ng/mL (0.000-0.034)
--- NOTE | 2023-11-20 23:57 | PCRCNOTE ---
Apnea Link not completed this evening. RN requested with MD approval that test be rescheduled until tomorrow night. Pt has become increasingly more confused and needs to be on his bipap.
[2023-11-21] VITALS (28 sets, daily range): BP systolic 123–170; BP diastolic 58–74; PULSE 68–100; RESP 20–28; TEMP 35.8–36.9; O2SAT 93–97
--- NOTE | 2023-11-21 | ECHO_ITS ---
Patient Info Name: Kwame Crane Age: 88 years : 1935 Gender: Male Ht: 65 in Wt: 219 lbs BSA: 2.18 m2 HR: 76 bpm BP: 144 / 64 mmHg Heart Rhythm: Sinus Rhythm Technical Quality: Fair Exam Date: 11/21/2023 10:13 AM Exam Location: Echo Lab Exam Room: [facility] Patient Status: Inpatient Admit Date: 11/18/2023 Staff Ordering Physician: Chelsea Kuhn MD Crystal Finisher: Emy Leos RDCS Attending Provider: Sergey Holloway MD Exam Type: CA echo doppler color flow Study Info Indications - tachybrady Complete two-dimensional, color flow and Doppler transthoracic echocardiogram is performed. Summary 1. Complete two-dimensional, color flow and Doppler transthoracic echocardiogram is performed. 2. Left ventricular chamber dimension is normal. 3. Left ventricular systolic function is normal, estimated at 60-65%. 4. There is no increased left ventricular wall thickness. 5. The left ventricular diastolic function is grade II diastolic dysfunction. 6. Left atrial chamber dimension is severely enlarged. 7. Right atrial chamber dimension is mildly enlarged. 8. There is mild aortic valve stenosis with a peak velocity of 279 cm/s, mean gradient of 17 mmHg, and aortic valve area of 1.6 cm2. 9. There is mild aortic valve regurgitation. 10. There is mild mitral valve regurgitation. 11. There is trace tricuspid valve regurgitation. 12. Moderate pulmonary hypertension, estimated pulmonary arterial systolic pressure is 49 mmHg. Left Ventricle Left ventricular chamber dimension is normal. Left ventricular systolic function is normal, estimated at 60-65%. There is no increased left ventricular wall thickness. The left ventricular diastolic function is grade II diastolic dysfunction. Right Ventricle Right ventricular chamber dimension is normal. Right ventricular systolic function is normal. Left Atria Left atrial chamber dimension is severely enlarged. Right Atria Right atrial chamber dimension is mildly enlarged. Aortic Valve The aortic valve is not well visualized. There is mild aortic valve stenosis with a peak velocity of 279 cm/s, mean gradient of 17 mmHg, and aortic valve area of 1.6 cm2. There is mild aortic valve regurgitation. There is moderate aortic valve calcification. Pulmonic Valve The pulmonic valve is not well visualized. There is mild pulmonic regurgitation. Mitral Valve The mitral valve has thickened leaflets. There is mild mitral valve regurgitation. The mitral valve annulus is moderately calcified. Tricuspid Valve The tricuspid valve leaflets are normal. There is trace tricuspid valve regurgitation. Moderate pulmonary hypertension, estimated pulmonary arterial systolic pressure is 49 mmHg. Pericardium/Pleural The pericardium appears not well visualized. Aorta The aortic root size at the sinus of Valsalva is normal. There is moderate aortic atherosclerosis. Left Ventricular Outflow Tract Name Value Normal LVOT 2D LVOT Diameter 2.1 cm LVOT Doppler LVOT Peak Gradient 6 mmHg LVOT Mean Gradient 4 mmHg LVOT VTI 26 cm LVOT VTI/AV VTI Ratio 0.5 LV
[2023-11-21] MEDS: AMIODARONE 360 MG/D5W 200 ML 360 MG/200 ML BAG 16.67 MG IV CONT ×2 (00:02→11:44)
[2023-11-21] MEDS: LEVALBUTEROL NEB 1.25 MG/3 ML INHALATION ×4 (02:20→20:31)
[2023-11-21] MEDS: IPRATROPIUM BR 0.02% INH SOLN 0.5 MG/2.5 ML VIAL INHALATION ×4 (02:20→20:31)
[2023-11-21 04:21] LABS: Alveolar/Arterial O2 Gradient 47.4 mmHg; Base Excess ABG 2.6 mEq/l (+/-2.0); Carboxyhemoglobin 0.3 % THb (0-2.0); Fractional Inspired Oxygen 25 %; HCO3 ABG 27.9 mEq/l (22.0-26.0); Methemoglobin ABG 0.3 %THb (0-1.5); Oxygen Content ABG 12.7 %vol (16.0-22.0); Oxygen Saturation ABG 94.9 % (95.0-100.0); Oxyhemoglobin 93.6 % THb (90.0-100.0); Reduced Hemoglobin 5.8 %THb (0-5.0); Total Hemoglobin 9.6 g/dL (12.0-18.0); pH ABG 7.392 (7.350-7.450)
[2023-11-21 04:22] LABS: Device NON-INVASIVE VENT; Modified Allen's Test Pass; Site Drawn RIGHT RADIAL
[2023-11-21 04:23] LABS: Non-Invasive Expiratory Pressure 5 CMH2O; Non-Invasive Vent Rate 24 /MIN
--- NOTE | 2023-11-21 05:00 | ECG_ITS ---
Measurements Intervals [place] Rate: 78 P: 25 MD: 146 QRS: 5 QRSD: 93 T: 138 QT: 375 QTc: 430 Interpretive Statements SINUS RHYTHM LEFT VENTRICULAR HYPERTROPHY AND ST-T CHANGE BORDERLINE ECG COMPARED TO ECG 11/20/2023 23:53:09 NO SIGNIFICANT CHANGES Electronically Signed On 11-21-2023 8:23:35 INTERNATIONAL SALES REPRESENTATIVE by Robert Cutler D.O.
[2023-11-21 05:37] LABS: Anion Gap 8 mmol/L (8-16); Blood Urea Nitrogen 46 mg/dL (9-20); Calcium 8.8 mg/dL (8.4-10.2); Carbon Dioxide 24 mmol/L (22-30); Chloride 104 mmol/L (98-107); Estimated CRCL calculation 52 ml/min; Estimated Glomerular Filt Rate > 60; Glucose 138 mg/dL (65-110); Magnesium 2.7 mg/dL (1.6-2.3); Potassium 4.5 mmol/L (3.4-5.0); Sodium 136 mmol/L (137-145)
[2023-11-21 06:18] LABS: Procalcitonin 0.1 ng/mL
[2023-11-21 07:03] LABS: Basophils Percent Auto 0.1 % (0.2-1.2); Hemoglobin 8.8 g/dL (14.0-18.0); Immature Granulocyte Absolute 0.04 K/mm3 (0.00-0.031); Immature Granulocyte Percent A 0.5 % (0-0.5); Lymphocytes Absolute Auto 0.33 K/mm3 (0.9-3.2); Lymphocytes Percent Auto 3.7 % (18.3-44.2); Mean Corpuscular HGB Conc 30.3 g/dl (32-36); Mean Corpuscular Hemoglobin 25.4 pg (26-34); Mean Corpuscular Volume 83.6 fl (80-100); Monocytes Absolute Auto 0.7 K/mm3 (0.1-0.6); Neutrophils Absolute Auto 7.8 K/mm3 (1.3-6.7); Neutrophils Percent Auto 87.7 % (45.5-73.1); Nucleated Red Blood Cells Perc 0.2 % (0.0-0.2); Platelet Count Result 333 k/mm3 (150-375); Red Blood Count 3.47 M/mm3 (4.6-6.20); Red Cell Distribution Width 17.6 % (11.5-14.5); White Blood Count 8.9 K/mm3 (4.5-10.0)
[2023-11-21 08:40] LABS: Anisocytosis 1+ (NORMAL); Hypochromasia 1+ (NORMAL); Platelet Estimate Adequate (Adequate)
[2023-11-21 08:41] LABS: Schistocytes None Seen (NORMAL); Target Cells 1+ (NORMAL)
[2023-11-21] MEDS: ASPIRIN 81 MG ENTERIC TABLET PO (09:04)
[2023-11-21] MEDS: CHOLECALCIFEROL 1,000 UNITS TABLET 2000 UNITS PO (09:04)
[2023-11-21] MEDS: methylPREDNISolone SOD SUCC 125 MG VIAL 60 MG IV PUSH (09:04)
[2023-11-21] MEDS: PANTOPRAZOLE SODIUM IV 40 MG VIAL IV PUSH (09:04)
[2023-11-21] MEDS: lisinopriL 5 MG TABLET PO (09:06)
[2023-11-21] MEDS: LOTEPREDNOL ETABONATE 0.5% OPH 5 ML BOTTLE 1 DROP EACH EYE (09:49)
[2023-11-21] MEDS: AZITHROMYCIN 500 MG/NS 250 ML 500 MG/250 ML BAG 250 MG IVPB (09:50)
--- NOTE | 2023-11-21 13:32 | PM.PNPUL ---
Progress Note: A&P Assessment and Plan (1) Acute respiratory failure with hypoxia and hypercarbia: Code(s): J96.01 - Acute respiratory failure with hypoxia; J96.02 - Acute respiratory failure with hypercapnia Status: Acute Assessment and Plan: An 88-year-old male patient presented with hypercapnic respiratory failure. The patient is well known to me. He was previously evaluated in the outpatient pulmonary clinic for mild interstitial lung disease on a chest CT. His past medical history significant for coronary artery disease, left ventricular diastolic dysfunction. The patient has known history of nocturnal hypoxemia and had been on supplemental oxygen at night. When I first saw him in the outpatient pulmonary clinic, I recommended sleep study but patient declined. His hypercapnic respiratory failure is most likely related to sleep disordered breathing. Respiratory status improved following BiPAP support. On physical exam he has no wheezing. Plan: I have discontinued the IV steroids. Continue with current antibiotic regimen for now. Patient should be started on DVT prophylaxis. He will continue with BiPAP support at night and p.r.n. during the day. I have made changes to BiPAP support. He is scheduled to undergo [facility] tonight. Repeat chest x-ray in a.m.. (2) Metabolic encephalopathy: Code(s): G93.41 - Metabolic encephalopathy Status: Acute Subjective Date/time seen: 11/21/23 13:32 Interval history: An 88-year-old male patient, with a medical history of severe hearing loss, COPD, anisocoria, essential hypertension, coronary artery disease post-stent placement, atrial fibrillation (not currently on anticoagulation due to recurrent anemia), grade 2 diastolic heart failure, and aortic valve stenosis, was brought to the ER from his home. Arterial blood gases revealing significant respiratory acidosis with a pH of 7.23, pCO2 of 64, and PO2 of 78. The patient has been treated with a BiPAP support with significant improvement. Chest x-ray showed small lungs bilaterally possibly elevated right hemidiaphragm. On last blood gases pCO2 was lower and the pH back into the normal range. Currently the patient is fully awake. Currently on amiodarone for episode of SVT. Patient used AVAPS last night, EPAP 5 cm, tidal volume 550 respiratory rate 20 for and FiO2 of 25. He was supposed to undergo sleep apnea last night but this has not been done. He still on antibiotics for possible lower respiratory tract infection. He has no new respiratory symptoms over the last 24 hours. Review of Systems Review of Systems: All systems reviewed & are unremarkable except as noted in HPI and below Exam Narrative: General: The patient is alert and oriented, showing no signs of distress. Head, Eyes, Ears, Nose, Throat: His pupils are equal in size, with normal eye movements and a symmetrical facial structure. Oral membranes are somewhat moist; Mallampati III airway. Neck: trachea is in the midline position. Chest: He shows equal air entry and symmetric chest movement. Scattered wheezing and clear breath sounds are observed. Cardiovascular (CV): His heartbeats are irregular with a grade III/ systolic murmur that radiates across the precordium. No gallop rhythm is detected. His heart sounds are somewhat obscured by wheezing. Abdomen: His abdomen is protuberant. He shows no tenderness and positive bowel sounds are present. Extremities: There are no signs of clubbing, cyanosis, or edema. His calves are not tender. Neuro exam: Patient appears alert oriented. He has no gross deficits. Moving all extremities. Objective Data Vital Signs Vital Signs: Vital Signs - 24 hr 11/20/23 13:59 11/20/23 14:24 11/20/23 14:25 Temperature Pulse Rate 110 H 108 H 104 H Respiratory Rate 20 30 H 22 H Blood Pressure Pulse Oximetry 98 Oxygen Delivery BiPAP Oxygen Flow Rate Fraction of Inspired Oxygen 11/20/23 14:00
--- NOTE | 2023-11-21 14:08 | PM.PNCARD ---
Progress Note: A&P Assessment and Plan (1) Paroxysmal atrial fibrillation: Code(s): I48.0 - Paroxysmal atrial fibrillation Status: Acute Assessment and Plan: Bradycardic 2 nights ago prompting his metoprolol to be held. Subsequently he reverted to atrial fibrillation with RVR refractory to diltiazem and metoprolol potentially requiring IV amiodarone. He is currently in sinus rhythm no without complaints of palpitations, shortness of breath or chest pain. Transition to oral amiodarone 400 mg twice daily maintaining sinus rhythm. Monitor for bradycardia. Clinically, he has a picture consistent with tachycardia bradycardia syndrome. Will need to be cautious with AV guadalupe blocking agents although tolerating his current regimen. He remains off anticoagulation due to history of GI bleed and anemia unfortunately placing him at higher risk for embolic stroke. Continue telemetry to monitor for tachy and or Tavon arrhythmias. Conservative management. DVT prophylaxis. (2) Acute respiratory failure with hypoxia and hypercarbia: Code(s): J96.01 - Acute respiratory failure with hypoxia; J96.02 - Acute respiratory failure with hypercapnia Status: Acute Assessment and Plan: 88-year-old male with multiple medical problems-CAD with remote history of PCI-intervention report not available, CHF with preserved ejection fraction, paroxysmal atrial fibrillation not on anticoagulation due to history of GI bleed and severe anemia; hypertension, mild /AI-GELY 1.8 cm2, chronic respiratory failure from COPD. Bradycardia. She has been overnight likely related to untreated SUDHIR. I would not hold AV guadalupe blocking agents or antiarrhythmic unless patient is symptomatic, relatively hypotensive or pauses greater than 3 seconds were persistently bradycardic with heart rate sustained less than 45 beats per minute. Patient admitted to the hospital with delirium, and with complaints of headache and dizziness. EKG showed sinus rhythm with PACs, LVH with ST-T abnormality. Troponins mildly elevated which are trending downwards. -management of respiratory failure as per primary team. Continue intravenous ceftriaxone and azithromycin. 2D echocardiogram pending. Further recommendations to follow after review. (3) Elevated troponin: Code(s): R79.89 - Other specified abnormal findings of blood chemistry Status: Acute Assessment and Plan: Elevated troponins in the setting of respiratory failure and possible infection type 2 infarction not acute coronary syndrome and/or plaque rupture. No active ischemic symptoms. Continue low-dose aspirin, 81 mg daily, atorvastatin 80 mg at bedtime. Conservative cardiac management is anticipated. (4) Anemia: Code(s): D64.9 - Anemia, unspecified Status: Acute Assessment and Plan: Status post blood transfusion for severe anemia. Maintain hemoglobin more than 7 grams/deciliters. Management as per primary team. Follow H& H. Stable thus far. (5) Coronary artery disease: Code(s): I25.10 - Atherosclerotic heart disease of [place] coronary artery without angina pectoris Status: Acute Assessment and Plan: Stable. Continue conservative medical management as above with aspirin 81 mg daily, atorvastatin 80 mg at bedtime. Subjective Date/time seen: Date of service: 11/21/23 14:08 Interval history: Follow-up for acute respiratory failure, elevated troponin, paroxysmal atrial fibrillation Patient denies significant shortness of breath or chest pain at this time. He is lying upright in bed, echocardiogram being performed at bedside. Patient was bradycardic the night before with heart rates in the 40s prompting his metoprolol to be held. Subsequently he went back into AFib with RVR which was refractory to diltiazem and metoprolol requiring amiodarone when he finally converted to sinus rhythm. He apparently also received adenosine without effect. He remains o
--- NOTE | 2023-11-21 16:16 | PM.IMPN ---
Progress Note: A&P Assessment and Plan (1) Acute respiratory failure with hypoxia and hypercarbia: Code(s): J96.01 - Acute respiratory failure with hypoxia; J96.02 - Acute respiratory failure with hypercapnia Status: Acute (2) Coronary artery disease: Code(s): I25.10 - Atherosclerotic heart disease of [place] coronary artery without angina pectoris Status: Acute (3) Symptomatic anemia: Code(s): D64.9 - Anemia, unspecified Status: Acute (4) Anemia: Code(s): D64.9 - Anemia, unspecified Status: Acute (5) Elevated troponin: Code(s): R79.89 - Other specified abnormal findings of blood chemistry Status: Acute (6) Generalized bloating: Code(s): R14.0 - Abdominal distension (gaseous) Status: Acute (7) Insomnia: Code(s): G47.00 - Insomnia, unspecified Status: Acute (8) Interstitial lung disease: Code(s): J84.9 - Interstitial pulmonary disease, unspecified Status: Acute (9) Paroxysmal atrial fibrillation: Code(s): I48.0 - Paroxysmal atrial fibrillation Status: Acute Plan H&P via Dr. Braxton on 11/18/23: 88-year-old male with a past medical history of severe hearing loss, COPD, anisocoria, essential hypertension, coronary artery disease s/p stent, atrial fibrillation not on anticoagulation due to recurrent anemia, diastolic heart failure grade 2 and aortic valve stenosis, NSIP, chronic respiratory failure requiring nasal cannula at night, who presented to the ER from home due to complaints of headache and feeling like he is going to pass out.? Source of information is from past medical records and ER physician report.? The patient at the time of my evaluation was responsive only to noxious stimuli and was oriented only to person.? Patient evidently was reporting some lightheadedness and his son was at bedside and helps provide some of the history at that time.? That he reported the patient has been having trouble falling asleep at home and has been falling asleep at random times.? The patient is then jerking awake.? The patient has become more combative.? Family had tried some Benadryl which seemed to be making the patient's symptoms worse.? His primary care physician started him on trazodone yesterday which seemed to help him sleep.? Patient was also complaining of generalized abdominal bloating.? He has been reporting discomfort and pressure to his bladder.? Patient was recommended to start on MiraLax.? However, today he began having headache.? He took some Tylenol which did not improve his headache.? His headache was reported as ?zaps? of pain.? He felt as if he was going to pass out when he was trying to avoid earlier in the day.? In the ER he was found to be anemic with hemoglobin of 6.6 down from baseline of 10.3.? He received 2 units of packed red blood cells and 40 mg of Lasix.? He still had no urine output on arrival to the intermediate unit.? The patient had greater than 650 in his bladder when Young catheter was placed.? Young catheter was placed because patient arrived to the IMU minimally responsive only to painful stimuli.? ABG was performed which demonstrated significant respiratory acidosis with pH of 7.23 pCO2 is 64 PO2 of 78.? Patient was having markedly labored respirations with respiratory rate in the upper 20s with marked abdominal respirations.? The patient was placed on BiPAP 18/6 with rate of 22.? Patient was over breathing the BiPAP.? Repeat ABG was the tempted but by that time patient was agitated and not following commands.? VBG was obtained which demonstrated pH 7.29 pCO2 61 in PO2 of 36.? The patient's troponin in the ER was found to be elevated at 1.1 with repeat troponin 1.08.? Patient evidently was not complaining of any chest pain.? However, patient is unable to give me any information. # acute encephalopathy/CO2 narcosis - due to hypercapnia. Resolved. He will wear BiPAP at night and p.r.n.. - neurology consulted. They s
[2023-11-21] MEDS: VANCOMYCIN 1,250 MG/NS 250 ML 1,250 MG/250 ML BAG 166.67 MG IVPB ×2 (16:24→18:10)
[2023-11-21] MEDS: AMIODARONE HCL 200 MG TABLET 400 MG PO (16:24)
[2023-11-21 17:02] LABS: IFOB Positive Control Positive; Immunochemical Fecal Occult Bl Negative (N)
[2023-11-21 17:59] LABS: Troponin I 0.519 ng/mL (0.000-0.034)
[2023-11-21] MEDS: AMPICILLIN SULB 3 GM/NS 100 ML 3 GM/100 ML VIAL IVPB ×2 (18:10→23:49)
[2023-11-21] MEDS: HEPARIN SODIUM 5,000 UNITS/ML VIAL 5000 UNITS SUB-Q (21:42)
[2023-11-21] MEDS: ATORVASTATIN 40 MG TABLET 80 MG PO (21:42)
--- NOTE | 2023-11-21 23:15 | PCRCNOTE ---
Not able to do apnea link, pt confused, climbing out of bed and pulling everything off, unable to place BIPAP on at this time also
[2023-11-22] VITALS (25 sets, daily range): BP systolic 116–167; BP diastolic 42–73; PULSE 82–108; RESP 20–24; TEMP 36.6–37; O2SAT 85–100
[2023-11-22] MEDS: IPRATROPIUM BR 0.02% INH SOLN 0.5 MG/2.5 ML VIAL INHALATION ×4 (01:53→19:58)
[2023-11-22] MEDS: LEVALBUTEROL NEB 1.25 MG/3 ML INHALATION ×4 (01:54→19:57)
[2023-11-22 05:36] LABS: Basophils Percent Auto 0.1 % (0.2-1.2); Eosinophils Percent Auto 0.1 % (0-4.4); Hematocrit 28.9 % (42.0-52.0); Hemoglobin 8.4 g/dL (14.0-18.0); Immature Granulocyte Absolute 0.07 K/mm3 (0.00-0.031); Immature Granulocyte Percent A 0.6 % (0-0.5); Lymphocytes Absolute Auto 0.62 K/mm3 (0.9-3.2); Lymphocytes Percent Auto 5.6 % (18.3-44.2); Mean Corpuscular HGB Conc 29.1 g/dl (32-36); Mean Corpuscular Hemoglobin 24.9 pg (26-34); Mean Corpuscular Volume 85.8 fl (80-100); Mean Platelet Volume 10.2 fl (7.4-10.4); Monocytes Absolute Auto 1.2 K/mm3 (0.1-0.6); Monocytes Percent Auto 11.2 % (2.6-8.5); Neutrophils Absolute Auto 9.1 K/mm3 (1.3-6.7); Neutrophils Percent Auto 82.4 % (45.5-73.1); Platelet Count Result 330 k/mm3 (150-375); Red Blood Count 3.37 M/mm3 (4.6-6.20); Red Cell Distribution Width 17.6 % (11.5-14.5); White Blood Count 11.1 K/mm3 (4.5-10.0)
[2023-11-22 05:45] LABS: Alanine Aminotransferase 149 U/L (6-50); Albumin Level 3.4 g/dL (3.5-5.1); Alkaline Phosphatase 66 U/L (38-126); Anion Gap 4 mmol/L (8-16); Aspartate Amino Transferase 87 U/L (17-59); Bilirubin,Total 0.9 mg/dL (0.2-1.3); Blood Urea Nitrogen 35 mg/dL (9-20); Calcium 8.7 mg/dL (8.4-10.2); Carbon Dioxide 32 mmol/L (22-30); Chloride 102 mmol/L (98-107); Estimated CRCL calculation 47 ml/min; Estimated Glomerular Filt Rate > 60; Glucose 103 mg/dL (65-110); Magnesium 2.3 mg/dL (1.6-2.3); Potassium 4.4 mmol/L (3.4-5.0); Sodium 138 mmol/L (137-145)
[2023-11-22] MEDS: AMPICILLIN SULB 3 GM/NS 100 ML 3 GM/100 ML VIAL IVPB ×2 (05:54→11:42)
[2023-11-22] MEDS: HEPARIN SODIUM 5,000 UNITS/ML VIAL 5000 UNITS SUB-Q ×3 (05:57→20:30)
[2023-11-22 06:30] LABS: Procalcitonin 0.1 ng/mL
[2023-11-22 07:02] LABS: Anisocytosis 2+ (NORMAL); Schistocytes Rare (NORMAL); Target Cells 1+ (NORMAL)
[2023-11-22] MEDS: PANTOPRAZOLE SODIUM IV 40 MG VIAL IV PUSH (08:55)
[2023-11-22] MEDS: LOTEPREDNOL ETABONATE 0.5% OPH 5 ML BOTTLE 1 DROP EACH EYE (08:55)
[2023-11-22] MEDS: lisinopriL 5 MG TABLET PO (08:55)
[2023-11-22] MEDS: ASPIRIN 81 MG ENTERIC TABLET PO (08:55)
[2023-11-22] MEDS: CHOLECALCIFEROL 1,000 UNITS TABLET 2000 UNITS PO (08:55)
[2023-11-22] MEDS: AMIODARONE HCL 200 MG TABLET 400 MG PO ×2 (08:55→17:39)
--- NOTE | 2023-11-22 10:09 | PM.PNPUL ---
Progress Note: A&P Assessment and Plan (1) Acute respiratory failure with hypoxia and hypercarbia: Code(s): J96.01 - Acute respiratory failure with hypoxia; J96.02 - Acute respiratory failure with hypercapnia Status: Acute Assessment and Plan: An 88-year-old male patient presented with hypercapnic respiratory failure. The patient is well known to me. He was previously evaluated in the outpatient pulmonary clinic for mild interstitial lung disease on a chest CT. His past medical history significant for coronary artery disease, left ventricular diastolic dysfunction. The patient has known history of nocturnal hypoxemia and had been on supplemental oxygen at night. When I first saw him in the outpatient pulmonary clinic, I recommended sleep study but patient declined. His hypercapnic respiratory failure is most likely related to sleep disordered breathing. Respiratory status improved following BiPAP support. On physical exam he has no wheezing. Patient remaining stable from a respiratory standpoint while using a BiPAP support at night. Today's chest x-ray showed no new infiltrates. He continues to have a small lung volumes. Review previous x-rays going back to 2019 also showed small lung volumes. On physical exam he does not evidence to suggest respiratory muscle weakness. His hypercapnic respiratory failure is new. He has no evidence of lower respiratory tract infection. Staphylococcal hominis in 1 of the blood cultures probably skin contaminant. Plan: Will continue with BiPAP support at night and p.r.n. during the day. Consider discontinuing vancomycin. Will get Apnea[facility] prior to DC home. Continue with DVT prophylaxis. (2) Metabolic encephalopathy: Code(s): G93.41 - Metabolic encephalopathy Status: Acute Subjective Date/time seen: 11/22/23 10:09 Interval history: Patient has no new respiratory symptoms. Used BiPAP last night. Currently on just supplemental oxygen. Antibiotics switched to IV vancomycin. Blood culture grew Staph hominis. Review of Systems Review of Systems: All systems reviewed & are unremarkable except as noted in HPI and below Exam Narrative: General: The patient is alert and oriented, showing no signs of distress. Head, Eyes, Ears, Nose, Throat: His pupils are equal in size, with normal eye movements and a symmetrical facial structure. Oral membranes are somewhat moist; Mallampati III airway. Neck: trachea is in the midline position. Chest: He shows equal air entry and symmetric chest movement. Scattered wheezing and clear breath sounds are observed. Cardiovascular (CV): His heartbeats are irregular with a grade III/ systolic murmur that radiates across the precordium. No gallop rhythm is detected. His heart sounds are somewhat obscured by wheezing. Abdomen: His abdomen is protuberant. He shows no tenderness and positive bowel sounds are present. Extremities: There are no signs of clubbing, cyanosis, or edema. His calves are not tender. Neuro exam: Patient appears alert oriented. He has no gross deficits. Moving all extremities. Objective Data Vital Signs Vital Signs: Vital Signs - 24 hr 11/21/23 11:44 11/21/23 11:44 11/21/23 11:51 Temperature 36.3 C L Pulse Rate 80 80 80 Respiratory Rate 28 H Blood Pressure 153/74 H Pulse Oximetry 95 Oxygen Delivery Oxygen Flow Rate Fraction of Inspired Oxygen 11/21/23 12:00 11/21/23 12:00 11/21/23 14:11 Temperature Pulse Rate 84 87 Respiratory Rate 20 Blood Pressure Pulse Oximetry 95 Oxygen Delivery Nasal Cannula Oxygen Flow Rate 2 Fraction of Inspired Oxygen 11/21/23 14:12 11/21/23 14:25 11/21/23 14:00 Temperature Pulse Rate 87 93 Respiratory Rate 20 Blood Pressure Pulse Oximetry 93 Oxygen Delivery Nasal Cannula Oxygen Flow Rate 2 Fraction of Inspired Oxygen 11/21/23 16:00 11/21/23 16:00 11/21/23 16:00 Temperature 36.4 C Pulse Rate 90
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
[2023-11-22] MEDS: AMOXICILLIN/CLAVULANATE K 875-125 MG TAB 1 TABLET PO (17:39)
[2023-11-22] MEDS: ATORVASTATIN 40 MG TABLET 80 MG PO (20:30)
[2023-11-23] VITALS (25 sets, daily range): BP systolic 131–151; BP diastolic 42–89; PULSE 62–99; RESP 16–26; TEMP 36.1–36.7; O2SAT 94–99
[2023-11-23] MEDS: LEVALBUTEROL NEB 1.25 MG/3 ML INHALATION ×4 (02:29→20:17)
[2023-11-23] MEDS: IPRATROPIUM BR 0.02% INH SOLN 0.5 MG/2.5 ML VIAL INHALATION ×4 (02:29→20:17)
[2023-11-23 05:15] LABS: Hematocrit 29.2 % (42.0-52.0); Hemoglobin 8.5 g/dL (14.0-18.0); Mean Corpuscular HGB Conc 29.1 g/dl (32-36); Mean Corpuscular Volume 85.9 fl (80-100); Mean Platelet Volume 10.3 fl (7.4-10.4); Platelet Count Result 297 k/mm3 (150-375); Red Cell Distribution Width 17.5 % (11.5-14.5); White Blood Count 9.4 K/mm3 (4.5-10.0)
[2023-11-23 05:27] LABS: Anion Gap 1 mmol/L (8-16); Blood Urea Nitrogen 28 mg/dL (9-20); Calcium 8.8 mg/dL (8.4-10.2); Carbon Dioxide 35 mmol/L (22-30); Chloride 102 mmol/L (98-107); Estimated CRCL calculation 51 ml/min; Estimated Glomerular Filt Rate > 60; Glucose 102 mg/dL (65-110); Potassium 4.3 mmol/L (3.4-5.0); Sodium 138 mmol/L (137-145)
[2023-11-23] MEDS: HEPARIN SODIUM 5,000 UNITS/ML VIAL 5000 UNITS SUB-Q ×3 (05:27→21:06)
[2023-11-23] MEDS: AMOXICILLIN/CLAVULANATE K 875-125 MG TAB 1 TABLET PO ×2 (05:27→16:21)
[2023-11-23] MEDS: PANTOPRAZOLE SODIUM IV 40 MG VIAL IV PUSH (09:15)
[2023-11-23] MEDS: lisinopriL 5 MG TABLET PO (09:17)
[2023-11-23] MEDS: AMIODARONE HCL 200 MG TABLET 400 MG PO ×2 (09:17→16:21)
[2023-11-23] MEDS: ASPIRIN 81 MG ENTERIC TABLET PO (09:17)
[2023-11-23] MEDS: CHOLECALCIFEROL 1,000 UNITS TABLET 2000 UNITS PO (09:17)
[2023-11-23] MEDS: LOTEPREDNOL ETABONATE 0.5% OPH 5 ML BOTTLE 1 DROP EACH EYE (09:17)
[2023-11-23 09:54] LABS: pH ABG 7.261 (7.350-7.450)
[2023-11-23 09:56] LABS: Base Excess ABG 5.4 mEq/l (+/-2.0); HCO3 ABG 34.1 mEq/l (22.0-26.0); PCO2 ABG 77.6 mmHg (35.0-45.0); PO2 ABG 24.1 mmHg (80.0-100.0)
[2023-11-23 09:57] LABS: Oxygen Saturation ABG 33.2 % (95.0-100.0)
[2023-11-23 10:00] LABS: Fractional Inspired Oxygen 28 %; Oxyhemoglobin 35.5 % THb (90.0-100.0); PO2 FiO2 Ratio Arterial Blood 0.86 %; Site Drawn LEFT BRACHIAL
[2023-11-23 10:01] LABS: Device NASAL CANNULA
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
--- NOTE | 2023-11-23 13:15 | PM.PNPUL ---
Progress Note: A&P Assessment and Plan (1) Acute respiratory failure with hypoxia and hypercarbia: Code(s): J96.01 - Acute respiratory failure with hypoxia; J96.02 - Acute respiratory failure with hypercapnia Status: Acute Assessment and Plan: The patient is an 88-year-old male who presented with hypercapnic respiratory failure. I have had previous encounters with this patient in the outpatient pulmonary clinic where he was assessed for mild interstitial lung disease, identified within a chest CT scan. His past medical history is noteworthy for coronary artery disease and left ventricular diastolic dysfunction. It is known that he has a history of nocturnal hypoxemia and has been on supplemental oxygen during the night. On his initial evaluation in the outpatient pulmonary clinic, I recommended a sleep study, but the patient declined. His hypercapnic respiratory failure is likely attributed to his disordered sleep breathing. The implementation of BiPAP support has shown a marked improvement in his respiratory status. Physical examination does not indicate any wheezing, and his respiratory status was stable with night-time BiPAP support. Reportedly the patient did not use BiPAP support last night. He had confusion this a.m. which necessitated observation by bedside sitter. On repeat blood gases there was worsening of his respiratory acidosis and patient placed back on a BiPAP support. The chest x-ray performed yesterday did not reveal any new infiltrates, although small lung volumes continue to be seen. A review of previous x-rays dating back to 2019 also unveiled small lung volumes. Physical examination did not provide any indications of respiratory muscle weakness. This hypercapnic respiratory failure is a new development for the patient and is most likely related to obesity hypoventilation. There is no evidence of any lower respiratory tract infection. Plan: Will continue with BiPAP support at this point a repeat blood gases later on today. A new chest x-ray ordered. Eventually the patient will require ventilatory support at home via a home ventilator for his obesity hypoventilation syndrome. (2) Metabolic encephalopathy: Code(s): G93.41 - Metabolic encephalopathy Status: Acute Subjective Date/time seen: 11/23/23 13:15 Interval history: Patient appeared more confused this a.m. while on supplemental oxygen via nasal cannula. Stat ABGs showed worsening respiratory acidosis. The patient was placed back on BiPAP support. Patient has been hemodynamically stable Review of Systems Review of Systems: All systems reviewed & are unremarkable except as noted in HPI and below (HPI and below) Objective Data Vital Signs Vital Signs: Vital Signs - 24 hr 11/22/23 13:48 11/22/23 13:59 11/22/23 15:53 Temperature 37.0 C Pulse Rate 106 H 104 H 82 Respiratory Rate 20 20 20 Blood Pressure 124/47 L Pulse Oximetry 94 Oxygen Delivery Oxygen Flow Rate Fraction of Inspired Oxygen 11/22/23 16:00 11/22/23 18:00 11/22/23 14:00 Temperature Pulse Rate 94 88 Respiratory Rate Blood Pressure Pulse Oximetry 94 Oxygen Delivery Nasal Cannula Oxygen Flow Rate 2 Fraction of Inspired Oxygen 11/22/23 16:00 11/22/23 19:58 11/22/23 19:59 Temperature Pulse Rate 87 93 Respiratory Rate 22 H Blood Pressure Pulse Oximetry 98 Oxygen Delivery Nasal Cannula Oxygen Flow Rate 2 Fraction of Inspired Oxygen 28 11/22/23 20:00 11/22/23 20:29 11/22/23 23:46 Temperature 36.9 C 36.9 C Pulse Rate 93 96 88 Respiratory Rate 20 22 H 22 H Blood Pressure 116/70 123/42 L Pulse Oximetry 97 94 Oxygen Delivery Oxygen Flow Rate Fraction of Inspired Oxygen 11/23/23 02:29 11/22/23 22:00 11/23/23 02:46 Temperature Pulse Rate 98 98 99 Respiratory Rate 23 H 22 H 24 H Blood Pressure Pulse Oximetry 98 Oxygen Delivery BiPAP Oxygen Flow Rate Fraction of Inspired
[2023-11-23] MEDS: methylPREDNISolone SOD SUCC 40 MG VIAL IV PUSH (14:51)
[2023-11-23] MEDS: FUROSEMIDE INJ 40 MG/4 ML VIAL 20 MG IV PUSH (16:21)
[2023-11-23] MEDS: ATORVASTATIN 40 MG TABLET 80 MG PO (21:06)
[2023-11-24] VITALS (26 sets, daily range): BP systolic 118–156; BP diastolic 48–57; PULSE 59–98; RESP 18–32; TEMP 27.7–36.6; O2SAT 94–99
[2023-11-24] MEDS: HEPARIN SODIUM 5,000 UNITS/ML VIAL 5000 UNITS SUB-Q ×3 (06:01→20:47)
[2023-11-24] MEDS: IPRATROPIUM BR 0.02% INH SOLN 0.5 MG/2.5 ML VIAL INHALATION ×3 (07:05→21:01)
[2023-11-24] MEDS: LEVALBUTEROL NEB 1.25 MG/3 ML INHALATION ×3 (07:05→21:02)
[2023-11-24 07:55] LABS: Alveolar/Arterial O2 Gradient 62.7 mmHg; Fractional Inspired Oxygen 28 %; HCO3 ABG 35.5 mEq/l (22.0-26.0); Oxygen Content ABG 12.6 %vol (16.0-22.0); Oxygen Saturation ABG 95.1 % (95.0-100.0); Oxyhemoglobin 93.5 % THb (90.0-100.0); PCO2 ABG 53.2 mmHg (35.0-45.0); PO2 ABG 74.2 mmHg (80.0-100.0); PO2 FiO2 Ratio Arterial Blood 2.65 %; Total Hemoglobin 9.5 g/dL (12.0-18.0); pH ABG 7.442 (7.350-7.450)
[2023-11-24 07:56] LABS: Device BIPAP; Modified Allen's Test Pass; Site Drawn RIGHT RADIAL
[2023-11-24 07:57] LABS: Expiratory Pressure 6 cmH2O
[2023-11-24] MEDS: AMIODARONE HCL 200 MG TABLET 400 MG PO ×2 (09:09→16:02)
[2023-11-24] MEDS: CHOLECALCIFEROL 1,000 UNITS TABLET 2000 UNITS PO (09:10)
[2023-11-24] MEDS: PANTOPRAZOLE SODIUM IV 40 MG VIAL IV PUSH (09:10)
[2023-11-24] MEDS: ASPIRIN 81 MG ENTERIC TABLET PO (09:10)
[2023-11-24] MEDS: lisinopriL 5 MG TABLET PO (09:10)
[2023-11-24] MEDS: LOTEPREDNOL ETABONATE 0.5% OPH 5 ML BOTTLE 1 DROP EACH EYE (09:13)
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
--- NOTE | 2023-11-24 13:09 | PM.PNPUL ---
Progress Note: A&P Assessment and Plan (1) Acute respiratory failure with hypoxia and hypercarbia: Code(s): J96.01 - Acute respiratory failure with hypoxia; J96.02 - Acute respiratory failure with hypercapnia Status: Acute (2) Metabolic encephalopathy: Code(s): G93.41 - Metabolic encephalopathy Status: Acute (3) Acute hypercapnic respiratory failure: Code(s): J96.02 - Acute respiratory failure with hypercapnia Status: Acute (4) Obesity hypoventilation syndrome: Code(s): E66.2 - Morbid (severe) obesity with alveolar hypoventilation Status: Acute Assessment and Plan: The patient, an 88-year-old male, came in with hypercapnic respiratory failure. I've previously seen him in the outpatient pulmonary clinic for the evaluation of mild interstitial lung disease, as detected on a chest CT scan. His medical history includes coronary artery disease, grade 2 left ventricular diastolic dysfunction, a significantly enlarged left atrium, and moderate pulmonary hypertension as determined by a recent echocardiogram. During this hospital stay, he was assessed by Cardiology Services for potential sick sinus syndrome. It's known that he experiences nocturnal hypoxemia and uses supplemental oxygen at home during the night. I had recommended a sleep study in the past, but he declined. His hypercapnic respiratory failure is attributed to obesity hypoventilation syndrome. Upon admission, his pCO2 was 51 and his pH was 7.34. He was initiated on BiPAP support, which greatly improved his hypercapnia. Yesterday, while he was off BiPAP during the day, he showed worsening hypercapnia with a pH of 7.26 and a pCO2 of 77.6, necessitating the resumption of BiPAP support. The patient received BiPAP ventilation for over 20 hours. Today's blood gas analysis shows a reduced pCO2 of 53.2 and a pH of 7.44. The latest chest x-ray reveals a newly developed small pleural effusion on the right side, and the patient was administered 20 mg of IV Lasix. A chest CT scan is currently pending to evaluate the size of the pleural effusions and to check for possible new infiltrates related to pneumonia. Considering the patient's clinical history and current situation, this case aligns with obesity hypoventilation syndrome. The recommended management for this condition involves the use of noninvasive ventilatory support at home via a home ventilator with the AVAPS AE mode. This treatment modality, as compared to the traditional use of BiPAP support, is superior as it offers consistent ventilatory support tailored to the patient's needs. It enhances CO2 elimination, improves symptoms and quality of life, and also reduces the likelihood of hospital readmission. Plan: Will continue with BiPAP support at night and p.r.n. during the days. Will monitor arterial blood gases. Depending upon the results of chest CT will consider adding IV Lasix daily. Subjective Date/time seen: 11/24/23 13:09 Interval history: Patient continued BiPAP support from yesterday morning throughout the night until early this a.m. when he was placed back on supplemental oxygen via nasal cannula. He appears more cooperative and alert this a.m.. He offered no new complaints. Review of Systems Review of Systems: All systems reviewed & are unremarkable except as noted in HPI and below (HPI and below) Exam Narrative: General: The patient is alert and oriented, showing mild respiratory distress while on supplemental oxygen. Head, Eyes, Ears, Nose, Throat: His pupils are equal in size, with normal eye movements and a symmetrical facial structure. Oral membranes are somewhat moist; Mallampati III airway. Neck: trachea is in the midline position. Chest: He shows equal air entry and symmetric chest movement. Scattered wheezing and clear breath sounds are observed. Cardiovascular (CV): His heartbeats are irregular with a grade III/ systolic murmur that radiates across the precordium. No
[2023-11-24] MEDS: AMOXICILLIN/CLAVULANATE K 875-125 MG TAB 1 TABLET PO (16:03)
[2023-11-24] MEDS: ATORVASTATIN 40 MG TABLET 80 MG PO (20:47)
[2023-11-25] VITALS (23 sets, daily range): BP systolic 131–165; BP diastolic 44–57; PULSE 64–98; RESP 20–27; TEMP 36.7–37.1; O2SAT 94–100
[2023-11-25] MEDS: IPRATROPIUM BR 0.02% INH SOLN 0.5 MG/2.5 ML VIAL INHALATION ×4 (03:07→20:48)
[2023-11-25] MEDS: LEVALBUTEROL NEB 1.25 MG/3 ML INHALATION ×4 (03:08→20:48)
[2023-11-25 03:47] LABS: Alveolar/Arterial O2 Gradient 63.5 mmHg; Base Excess ABG 7.7 mEq/l (+/-2.0); Fractional Inspired Oxygen 28 %; HCO3 ABG 32.4 mEq/l (22.0-26.0); Oxygen Content ABG 12.9 %vol (16.0-22.0); Oxygen Saturation ABG 96.4 % (95.0-100.0); Oxyhemoglobin 95.6 % THb (90.0-100.0); PCO2 ABG 46.6 mmHg (35.0-45.0); PO2 ABG 81.2 mmHg (80.0-100.0); Total Hemoglobin 9.5 g/dL (12.0-18.0)
[2023-11-25 05:03] LABS: Hemoglobin 8.4 g/dL (14.0-18.0); Mean Corpuscular Hemoglobin 24.6 pg (26-34); Mean Platelet Volume 10.6 fl (7.4-10.4); Platelet Count Result 282 k/mm3 (150-375); Red Blood Count 3.41 M/mm3 (4.6-6.20); Red Cell Distribution Width 18.3 % (11.5-14.5); White Blood Count 9.8 K/mm3 (4.5-10.0)
[2023-11-25 05:10] LABS: Anion Gap 3 mmol/L (8-16); Blood Urea Nitrogen 32 mg/dL (9-20); Calcium 8.7 mg/dL (8.4-10.2); Carbon Dioxide 35 mmol/L (22-30); Chloride 97 mmol/L (98-107); Estimated CRCL calculation 51 ml/min; Estimated Glomerular Filt Rate > 60; Glucose 95 mg/dL (65-110); Potassium 4.4 mmol/L (3.4-5.0); Sodium 135 mmol/L (137-145)
[2023-11-25] MEDS: HEPARIN SODIUM 5,000 UNITS/ML VIAL 5000 UNITS SUB-Q ×3 (05:36→21:02)
[2023-11-25] MEDS: AMOXICILLIN/CLAVULANATE K 875-125 MG TAB 1 TABLET PO ×2 (05:36→17:08)
[2023-11-25 06:13] LABS: Device OTHER DEVICE; Modified Allen's Test Pass; Site Drawn RIGHT RADIAL
[2023-11-25] MEDS: AMIODARONE HCL 200 MG TABLET 400 MG PO ×2 (08:38→17:08)
[2023-11-25] MEDS: ASPIRIN 81 MG ENTERIC TABLET PO (08:39)
[2023-11-25] MEDS: lisinopriL 5 MG TABLET PO (08:39)
[2023-11-25] MEDS: PANTOPRAZOLE SODIUM IV 40 MG VIAL IV PUSH (08:39)
[2023-11-25] MEDS: CHOLECALCIFEROL 1,000 UNITS TABLET 2000 UNITS PO (08:39)
[2023-11-25] MEDS: LOTEPREDNOL ETABONATE 0.5% OPH 5 ML BOTTLE 1 DROP EACH EYE (08:40)
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
[2023-11-25] MEDS: ACETAMINOPHEN 325 MG TABLET 650 MG PO (10:38)
--- NOTE | 2023-11-25 11:01 | PM.PNPUL ---
Progress Note: A&P Assessment and Plan (1) Acute respiratory failure with hypoxia and hypercarbia: Code(s): J96.01 - Acute respiratory failure with hypoxia; J96.02 - Acute respiratory failure with hypercapnia Status: Acute (2) Metabolic encephalopathy: Code(s): G93.41 - Metabolic encephalopathy Status: Acute (3) Acute hypercapnic respiratory failure: Code(s): J96.02 - Acute respiratory failure with hypercapnia Status: Acute (4) Obesity hypoventilation syndrome: Code(s): E66.2 - Morbid (severe) obesity with alveolar hypoventilation Status: Acute Assessment and Plan: The patient, an 88-year-old male, came in with hypercapnic respiratory failure. I've previously seen him in the outpatient pulmonary clinic for the evaluation of mild interstitial lung disease, as detected on a chest CT scan. His medical history includes coronary artery disease, grade 2 left ventricular diastolic dysfunction, a significantly enlarged left atrium, and moderate pulmonary hypertension as determined by a recent echocardiogram. During this hospital stay, he was assessed by Cardiology Services for potential sick sinus syndrome. It's known that he experiences nocturnal hypoxemia and uses supplemental oxygen at home during the night. I had recommended a sleep study in the past, but he declined. His hypercapnic respiratory failure is attributed to obesity hypoventilation syndrome. Upon admission, his pCO2 was 51 and his pH was 7.34. He was initiated on BiPAP support, which greatly improved his hypercapnia. Yesterday, while he was off BiPAP during the day, he showed worsening hypercapnia with a pH of 7.26 and a pCO2 of 77.6, necessitating the resumption of BiPAP support. The patient received BiPAP ventilation for over 20 hours.On yesterday's blood gas analysis shows a reduced pCO2 of 53.2 and a pH of 7.44. Today's ABGs showed further improvement of pCO2. The most recent chest CT scan revealed bilateral ground-glass opacities, suggesting the possibility of mild interstitial lung disease. Additionally, small pleural effusions were observed on both sides. However, there has been no evidence of progression in the interstitial infiltrates over the past year. It's worth noting that the patient has had chronically small lung volumes bilaterally since 2019. The patient's hypercapnic respiratory failure appears to be a relatively recent development, as indicated by the normal total bicarbonate level prior to 2022. The patient has also presented with abdominal distension, which could potentially explain the small lung volumes. However, it doesn't seem that respiratory muscle weakness is the cause of the hypercapnia and small lung volumes. Considering the patient's clinical history and current situation, this case aligns with obesity hypoventilation syndrome. The recommended management for this condition involves the use of noninvasive ventilatory support at home via a home ventilator with the AVAPS AE mode. This treatment modality, as compared to the traditional use of BiPAP support, is superior as it offers consistent ventilatory support tailored to the patient's needs. It enhances CO2 elimination, improves symptoms and quality of life, and also reduces the likelihood of hospital readmission. Plan: The patient will persist with nocturnal BiPAP support and as needed during the daytime. Arterial blood gases will be regularly monitored. We are awaiting approval for his home ventilator. If there is evidence of positive fluid balance, the use of Lasix on an as-needed basis will be considered. Subjective Date/time seen: 11/25/23 11:01 Interval history: Patient used BiPAP support last night. Currently sitting in chair on just supplemental oxygen. He has no new respiratory symptoms. Review of Systems Review of Systems: All systems reviewed & are unremarkable except as noted in HPI and below (HPI and below) Exam Narrative: General: The pat
--- NOTE | 2023-11-25 11:19 | PCRCNOTE ---
Spoke to sabas at [facility] today at 1100. She stated she reviewed paperwork for home trilogy unit, but hasnt submitted it to the review team, she will try to send it now, they should respond in 2 hours to whether they ok diagnosis of obesity hypovent. syndrome. Then we will send in the order or switch to another provider.
--- NOTE | 2023-11-25 13:50 | PC.NURSE ---
This patient, Kwame Crane, was transferred to [[id number] ] on 11/25/23 at 1345. Personal belongings sent with patient. Report given to [Irais COHEN ]. Appropriate documentation sent with patient.
--- NOTE | 2023-11-25 13:52 | PCRCNOTE ---
[facility] will NOT set up pt with trilogy unit due to dx. Will reach out to another DME and restart approval process
[2023-11-25] MEDS: ATORVASTATIN 40 MG TABLET 80 MG PO (21:02)
[2023-11-25] MEDS: MELATONIN 5 MG TABLET PO (21:02)
[2023-11-26] VITALS (17 sets, daily range): BP systolic 122–156; BP diastolic 53–57; PULSE 61–85; RESP 12–25; TEMP 36.4–36.6; O2SAT 93–100
[2023-11-26] MEDS: LEVALBUTEROL NEB 1.25 MG/3 ML INHALATION ×4 (03:05→20:06)
[2023-11-26] MEDS: IPRATROPIUM BR 0.02% INH SOLN 0.5 MG/2.5 ML VIAL INHALATION ×4 (03:05→20:06)
[2023-11-26 05:50] LABS: Eosinophils Absolute Auto 0.4 K/mm3 (0-0.3); Hemoglobin 8.4 g/dL (14.0-18.0); Immature Granulocyte Absolute 0.05 K/mm3 (0.00-0.031); Immature Granulocyte Percent A 0.5 % (0-0.5); Lymphocytes Absolute Auto 0.52 K/mm3 (0.9-3.2); Lymphocytes Percent Auto 5.5 % (18.3-44.2); Mean Corpuscular Hemoglobin 24.8 pg (26-34); Mean Corpuscular Volume 85.5 fl (80-100); Mean Platelet Volume 10.4 fl (7.4-10.4); Monocytes Absolute Auto 0.7 K/mm3 (0.1-0.6); Monocytes Percent Auto 6.9 % (2.6-8.5); Neutrophils Absolute Auto 7.9 K/mm3 (1.3-6.7); Neutrophils Percent Auto 83.1 % (45.5-73.1); Platelet Count Result 253 k/mm3 (150-375); Red Blood Count 3.39 M/mm3 (4.6-6.20); White Blood Count 9.5 K/mm3 (4.5-10.0)
[2023-11-26 06:03] LABS: Alanine Aminotransferase 72 U/L (6-50); Albumin Level 3.2 g/dL (3.5-5.1); Alkaline Phosphatase 65 U/L (38-126); Anion Gap 0 mmol/L (8-16); Aspartate Amino Transferase 45 U/L (17-59); Bilirubin,Total 0.8 mg/dL (0.2-1.3); Blood Urea Nitrogen 25 mg/dL (9-20); Calcium 8.6 mg/dL (8.4-10.2); Carbon Dioxide 38 mmol/L (22-30); Chloride 97 mmol/L (98-107); Estimated CRCL calculation 57 ml/min; Estimated Glomerular Filt Rate > 60; Glucose 115 mg/dL (65-110); Potassium 4.2 mmol/L (3.4-5.0); Sodium 135 mmol/L (137-145)
[2023-11-26] MEDS: AMOXICILLIN/CLAVULANATE K 875-125 MG TAB 1 TABLET PO ×2 (06:17→18:23)
[2023-11-26] MEDS: HEPARIN SODIUM 5,000 UNITS/ML VIAL 5000 UNITS SUB-Q ×3 (06:17→21:39)
[2023-11-26 06:22] LABS: Hypochromasia 2+ (NORMAL); Platelet Estimate Adequate (Adequate)
[2023-11-26 06:23] LABS: Anisocytosis 1+ (NORMAL); Ovalocytes 1+ (NORMAL); Schistocytes None Seen (NORMAL)
[2023-11-26] MEDS: lisinopriL 5 MG TABLET PO (08:52)
[2023-11-26] MEDS: LOTEPREDNOL ETABONATE 0.5% OPH 5 ML BOTTLE 1 DROP EACH EYE (08:52)
[2023-11-26] MEDS: AMIODARONE HCL 200 MG TABLET 400 MG PO ×2 (08:52→18:23)
[2023-11-26] MEDS: ASPIRIN 81 MG ENTERIC TABLET PO (08:55)
[2023-11-26] MEDS: CHOLECALCIFEROL 1,000 UNITS TABLET 2000 UNITS PO (08:55)
[2023-11-26] MEDS: PANTOPRAZOLE SODIUM IV 40 MG VIAL IV PUSH (08:56)
--- NOTE | 2023-11-26 11:25 | PM.PNPUL ---
Progress Note: A&P Assessment and Plan (1) Acute respiratory failure with hypoxia and hypercarbia: Code(s): J96.01 - Acute respiratory failure with hypoxia; J96.02 - Acute respiratory failure with hypercapnia Status: Acute Assessment and Plan: The patient, an 88-year-old male with a history of mild interstitial lung disease and coronary artery disease, was admitted with hypercapnic respiratory failure. He has been diagnosed with obesity hypoventilation syndrome. His condition worsened during his hospital stay, necessitating BiPAP support. His most recent chest CT scan showed bilateral ground-glass opacities and small pleural effusions on both sides, suggesting mild interstitial lung disease. The patient's hypercapnic respiratory failure is a recent development, as indicated by normal total bicarbonate levels before 2022. He also presented with abdominal distension, contributing to small lung volumes. His condition aligns with obesity hypoventilation syndrome. The recommended treatment is noninvasive ventilatory support at home using a home ventilator with the AVAPS AE mode, which is superior to BiPAP as it provides more tailored support, improves symptoms and quality of life, and reduces hospital readmission likelihood. Plan: Continue with current treatment which includes BiPAP support at night. Await approval of home ventilator. Patient will also need evaluation for home oxygen. Out of bed to chair. (2) Metabolic encephalopathy: Code(s): G93.41 - Metabolic encephalopathy Status: Acute (3) Acute hypercapnic respiratory failure: Code(s): J96.02 - Acute respiratory failure with hypercapnia Status: Acute (4) Obesity hypoventilation syndrome: Code(s): E66.2 - Morbid (severe) obesity with alveolar hypoventilation Status: Acute Subjective Date/time seen: 11/26/23 11:25 Interval history: Patient used BiPAP support last night. Currently sitting up in bed on just supplemental oxygen. He has no new respiratory symptoms. Review of Systems Review of Systems: All systems reviewed & are unremarkable except as noted in HPI and below (HPI and below) Exam Narrative: General: The patient is alert and oriented, showing mild respiratory distress while on supplemental oxygen. Head, Eyes, Ears, Nose, Throat: His pupils are equal in size, with normal eye movements and a symmetrical facial structure. Oral membranes are somewhat moist; Mallampati III airway. Neck: trachea is in the midline position. Chest: He shows equal air entry and symmetric chest movement. Scattered wheezing and clear breath sounds are observed. Cardiovascular (CV): His heartbeats are irregular with a grade III/ systolic murmur that radiates across the precordium. No gallop rhythm is detected. His heart sounds are somewhat obscured by wheezing. Abdomen: His abdomen is protuberant. He shows no tenderness and positive bowel sounds are present. Extremities: There are no signs of clubbing, cyanosis, or edema. His calves are not tender. Neuro exam: Patient appears alert oriented. He has no gross deficits. Moving all extremities. Objective Data Vital Signs Vital Signs: Vital Signs - 24 hr 11/25/23 11:34 11/25/23 14:19 11/25/23 14:33 Temperature 36.9 C Pulse Rate 64 86 83 Respiratory Rate 20 20 20 Blood Pressure 131/55 L Pulse Oximetry 100 Oxygen Delivery Oxygen Flow Rate 11/25/23 17:08 11/25/23 20:35 11/25/23 20:48 Temperature 37.0 C Pulse Rate 80 83 80 Respiratory Rate 22 H 20 Blood Pressure 143/54 H Pulse Oximetry 96 Oxygen Delivery Oxygen Flow Rate 11/25/23 20:49 11/25/23 20:58 11/26/23 03:05 Temperature Pulse Rate 80 82 85 Respiratory Rate 20 20 22 H Blood Pressure Pulse Oximetry 97 Oxygen Delivery Nasal Cannula Oxygen Flow Rate 2 11/25/23 22:50 11/26/23 03:16 11/26/23 04:36 Temperature 36.6 C Pulse Rate 83 85 66 Respiratory Rate 26 H 25 H 22 H Blood
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
[2023-11-26] MEDS: ATORVASTATIN 40 MG TABLET 80 MG PO (21:39)
[2023-11-26] MEDS: MELATONIN 5 MG TABLET PO (21:40)
[2023-11-27] VITALS (16 sets, daily range): BP systolic 140–174; BP diastolic 52–75; PULSE 57–88; RESP 17–24; TEMP 36.2–37; O2SAT 91–100
[2023-11-27] MEDS: LEVALBUTEROL NEB 1.25 MG/3 ML INHALATION ×4 (02:07→20:49)
[2023-11-27] MEDS: IPRATROPIUM BR 0.02% INH SOLN 0.5 MG/2.5 ML VIAL INHALATION ×4 (02:07→20:49)
[2023-11-27] MEDS: AMOXICILLIN/CLAVULANATE K 875-125 MG TAB 1 TABLET PO ×2 (06:05→17:10)
[2023-11-27] MEDS: HEPARIN SODIUM 5,000 UNITS/ML VIAL 5000 UNITS SUB-Q ×3 (06:05→22:05)
[2023-11-27] MEDS: CHOLECALCIFEROL 1,000 UNITS TABLET 2000 UNITS PO (08:06)
[2023-11-27] MEDS: ASPIRIN 81 MG ENTERIC TABLET PO (08:07)
[2023-11-27] MEDS: PANTOPRAZOLE SODIUM IV 40 MG VIAL IV PUSH (08:07)
[2023-11-27] MEDS: AMIODARONE HCL 200 MG TABLET 400 MG PO ×2 (08:07→17:10)
[2023-11-27] MEDS: LOTEPREDNOL ETABONATE 0.5% OPH 5 ML BOTTLE 1 DROP EACH EYE (08:07)
[2023-11-27] MEDS: lisinopriL 5 MG TABLET PO (08:07)
[2023-11-27] MEDS: CYANOCOBALAMIN INJ 1,000 MCG/ML VIAL 1000 MCG IM (08:50)
--- NOTE | 2023-11-27 09:14 | PM.PNPUL ---
Progress Note: A&P Assessment and Plan (1) Acute respiratory failure with hypoxia and hypercarbia: Code(s): J96.01 - Acute respiratory failure with hypoxia; J96.02 - Acute respiratory failure with hypercapnia Status: Acute Assessment and Plan: The patient, an 88-year-old male with a history of mild interstitial lung disease and coronary artery disease, was admitted with hypercapnic respiratory failure. He has been diagnosed with obesity hypoventilation syndrome. His condition worsened during his hospital stay, necessitating BiPAP support. His most recent chest CT scan showed bilateral ground-glass opacities and small pleural effusions on both sides, suggesting mild interstitial lung disease. The patient's hypercapnic respiratory failure is a recent development, as indicated by normal total bicarbonate levels before 2022. He also presented with abdominal distension, contributing to small lung volumes. His condition aligns with obesity hypoventilation syndrome. The recommended treatment is noninvasive ventilatory support at home using a home ventilator with the AVAPS AE mode, which is superior to BiPAP as it provides more tailored support, improves symptoms and quality of life, and reduces hospital readmission likelihood. Plan: Continue with current treatment which includes BiPAP support at night. Await approval of home ventilator. Patient will also need evaluation for home oxygen. (2) Metabolic encephalopathy: Code(s): G93.41 - Metabolic encephalopathy Status: Acute (3) Acute hypercapnic respiratory failure: Code(s): J96.02 - Acute respiratory failure with hypercapnia Status: Acute (4) Obesity hypoventilation syndrome: Code(s): E66.2 - Morbid (severe) obesity with alveolar hypoventilation Status: Acute Subjective Date/time seen: 11/27/23 09:14 Interval history: Patient has no new respiratory symptoms. Use BiPAP support. Currently sitting in chair, on room air. Review of Systems Review of Systems: All systems reviewed & are unremarkable except as noted in HPI and below (HPI and below) Exam Narrative: General: The patient is alert and oriented, showing mild respiratory distress while on supplemental oxygen. Head, Eyes, Ears, Nose, Throat: His pupils are equal in size, with normal eye movements and a symmetrical facial structure. Oral membranes are somewhat moist; Mallampati III airway. Neck: trachea is in the midline position. Chest: He shows equal air entry and symmetric chest movement. Scattered wheezing and clear breath sounds are observed. Cardiovascular (CV): His heartbeats are irregular with a grade III/ systolic murmur that radiates across the precordium. No gallop rhythm is detected. His heart sounds are somewhat obscured by wheezing. Abdomen: His abdomen is protuberant. He shows no tenderness and positive bowel sounds are present. Extremities: There are no signs of clubbing, cyanosis, or edema. His calves are not tender. Neuro exam: Patient appears alert oriented. He has no gross deficits. Objective Data Vital Signs Vital Signs: Vital Signs - 24 hr 11/26/23 13:15 11/26/23 13:29 11/26/23 15:37 Temperature 36.4 C L Pulse Rate 68 76 61 Respiratory Rate 20 20 12 Blood Pressure 122/54 L Pulse Oximetry 100 Oxygen Delivery 11/26/23 15:46 11/26/23 18:23 11/26/23 19:35 Temperature 36.6 C Pulse Rate 61 61 69 Respiratory Rate 18 Blood Pressure 144/53 H Pulse Oximetry 99 94 Oxygen Delivery Room Air 11/26/23 20:06 11/26/23 20:14 11/26/23 20:21 Temperature Pulse Rate 74 74 75 Respiratory Rate 20 20 Blood Pressure Pulse Oximetry 93 Oxygen Delivery Room Air 11/26/23 22:45 11/27/23 02:07 11/27/23 02:11 Temperature Pulse Rate 69 57 L 57 L Respiratory Rate 21 H 22 H 22 H Blood Pressure Pulse Oximetry 93 91 Oxygen Delivery BiPAP BiPAP 11/27/23 02:12 11/27/23 04:16 11/27/23 07:21 Temperature 36.6 C Pu
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
[2023-11-27] MEDS: ACETAMINOPHEN 325 MG TABLET 650 MG PO (17:13)
[2023-11-27] MEDS: MELATONIN 5 MG TABLET PO (22:05)
[2023-11-27] MEDS: ATORVASTATIN 40 MG TABLET 80 MG PO (22:05)
[2023-11-28] VITALS (16 sets, daily range): BP systolic 129–140; BP diastolic 59–65; PULSE 62–84; RESP 17–23; TEMP 36.3–36.7; O2SAT 92–98
[2023-11-28] MEDS: IPRATROPIUM BR 0.02% INH SOLN 0.5 MG/2.5 ML VIAL INHALATION ×4 (02:56→20:15)
[2023-11-28] MEDS: LEVALBUTEROL NEB 1.25 MG/3 ML INHALATION ×4 (02:56→20:15)
[2023-11-28] MEDS: HEPARIN SODIUM 5,000 UNITS/ML VIAL 5000 UNITS SUB-Q ×3 (05:32→21:03)
[2023-11-28] MEDS: AMOXICILLIN/CLAVULANATE K 875-125 MG TAB 1 TABLET PO ×2 (05:32→17:42)
[2023-11-28] MEDS: PANTOPRAZOLE SODIUM IV 40 MG VIAL IV PUSH (09:38)
[2023-11-28] MEDS: ASPIRIN 81 MG ENTERIC TABLET PO (09:38)
[2023-11-28] MEDS: CHOLECALCIFEROL 1,000 UNITS TABLET 2000 UNITS PO (09:38)
[2023-11-28] MEDS: LOTEPREDNOL ETABONATE 0.5% OPH 5 ML BOTTLE 1 DROP EACH EYE (09:39)
[2023-11-28] MEDS: AMIODARONE HCL 200 MG TABLET 400 MG PO ×2 (09:41→17:42)
[2023-11-28] MEDS: lisinopriL 5 MG TABLET PO (09:41)
--- NOTE | 2023-11-28 10:45 | PC.NURSE ---
RN gave update on patient status to [facility] via telephone
--- NOTE | 2023-11-28 10:58 | PCNWS ---
Weekly nutritional screen. Patient is tolerating current diet with adequate intake. No weight loss reported. No nutritional needs at this time.
--- NOTE | 2023-11-28 14:39 | PC.NURSE ---
Dakota with [facility] came by unit to see if patient was discharging. Dakota has patients triology. RN informed him that patient is not going to discharge today, but once discharged will call Dakota at [phone].
[2023-11-28] MEDS: ATORVASTATIN 40 MG TABLET 80 MG PO (21:02)
[2023-11-28] MEDS: MELATONIN 5 MG TABLET PO (22:02)
[2023-11-29 04:38] VITALS: BP 127/70; PULSE 70; RESP 20; TEMP 36.2; O2SAT 96
--- NOTE | 2023-11-29 05:30 | PCRCNOTE ---
Patient did not receive 0200 updraft treatment due to being on an overnight pulse oximetry study. Treatment to resume @ 0800.
[2023-11-29] MEDS: HEPARIN SODIUM 5,000 UNITS/ML VIAL 5000 UNITS SUB-Q (05:33)
[2023-11-29] MEDS: AMOXICILLIN/CLAVULANATE K 875-125 MG TAB 1 TABLET PO (05:33)
[2023-11-29 08:07] VITALS: PULSE 68; RESP 18
[2023-11-29] MEDS: LEVALBUTEROL NEB 1.25 MG/3 ML INHALATION (08:07)
[2023-11-29] MEDS: IPRATROPIUM BR 0.02% INH SOLN 0.5 MG/2.5 ML VIAL INHALATION (08:07)
[2023-11-29 08:10] VITALS: PULSE 68; RESP 18; O2SAT 94
[2023-11-29 08:24] VITALS: PULSE 72; RESP 18
--- NOTE | 2023-11-29 09:13 | PM.PNPUL ---
Progress Note: A&P Assessment and Plan (1) Acute respiratory failure with hypoxia and hypercarbia: Code(s): J96.01 - Acute respiratory failure with hypoxia; J96.02 - Acute respiratory failure with hypercapnia Status: Acute Assessment and Plan: The patient, an 88-year-old male with a history of mild interstitial lung disease and coronary artery disease, was admitted with hypercapnic respiratory failure. He has been diagnosed with obesity hypoventilation syndrome. His condition worsened during his hospital stay, necessitating BiPAP support. His most recent chest CT scan showed bilateral ground-glass opacities and small pleural effusions on both sides, suggesting mild interstitial lung disease. The patient's hypercapnic respiratory failure is a recent development, as indicated by normal total bicarbonate levels before 2022. He also presented with abdominal distension, contributing to small lung volumes. His condition aligns with obesity hypoventilation syndrome. The patient has been treated with BiPAP support throughout the hospital stay. Last night was placed on home ventilator with 2 liters/minute oxygen bleed in. ApneaLink showed no significant oxyhemoglobin desaturation. Plan: Okay to DC patient home on home ventilator. Patient has been on home oxygen at 2 liters/minute and should continue with a similar oxygen flow. We would like to follow the patient in the Pulmonary Clinic in approximately 1 month from today. Case was discussed with the hospitalist. Will sign off please call with any questions. (2) Metabolic encephalopathy: Code(s): G93.41 - Metabolic encephalopathy Status: Acute (3) Acute hypercapnic respiratory failure: Code(s): J96.02 - Acute respiratory failure with hypercapnia Status: Acute (4) Obesity hypoventilation syndrome: Code(s): E66.2 - Morbid (severe) obesity with alveolar hypoventilation Status: Acute Subjective Date/time seen: 11/29/23 09:13 Interval history: Patient has no new respiratory symptoms. Slept well last night on home ventilator. Underwent ApneaLink on home ventilator and supplemental oxygen 2 liters/minute. Currently on just room air Review of Systems Review of Systems: All systems reviewed & are unremarkable except as noted in HPI and below (Subjective) Exam Narrative: General: The patient is alert and oriented, showing mild respiratory distress while on supplemental oxygen. Head, Eyes, Ears, Nose, Throat: His pupils are equal in size, with normal eye movements and a symmetrical facial structure. Oral membranes are somewhat moist; Mallampati III airway. Neck: trachea is in the midline position. Chest: He shows equal air entry and symmetric chest movement. Scattered wheezing and clear breath sounds are observed. Cardiovascular (CV): His heartbeats are irregular with a grade III/ systolic murmur that radiates across the precordium. No gallop rhythm is detected. His heart sounds are somewhat obscured by wheezing. Abdomen: His abdomen is protuberant. He shows no tenderness and positive bowel sounds are present. Extremities: There are no signs of clubbing, cyanosis, or edema. His calves are not tender. Neuro exam: Patient appears alert oriented. He has no gross deficits. Objective Data Vital Signs Vital Signs: Vital Signs - 24 hr 11/28/23 09:41 11/28/23 09:41 11/28/23 13:28 Temperature 36.7 C Pulse Rate 72 82 Respiratory Rate 20 Blood Pressure 138/61 Pulse Oximetry 97 Oxygen Delivery Room Air Oxygen Flow Rate Fraction of Inspired Oxygen 11/28/23 13:58 11/28/23 14:01 11/28/23 14:13 Temperature Pulse Rate 64 64 67 Respiratory Rate 18 18 18 Blood Pressure Pulse Oximetry 97 Oxygen Delivery Room Air Oxygen Flow Rate Fraction of Inspired Oxygen 11/28/23 17:42 11/28/23 19:37 11/28/23 20:15 Temperature 36.7 C Pulse Rate 75 79 62 Respiratory Rate 20 18 Blood Pressure 140/65 Pulse Ox
[2023-11-29 09:26] VITALS: PULSE 70
[2023-11-29] MEDS: AMIODARONE HCL 200 MG TABLET 400 MG PO (09:26)
[2023-11-29] MEDS: LOTEPREDNOL ETABONATE 0.5% OPH 5 ML BOTTLE 1 DROP EACH EYE (09:26)
[2023-11-29] MEDS: CHOLECALCIFEROL 1,000 UNITS TABLET 2000 UNITS PO (09:26)
[2023-11-29] MEDS: lisinopriL 5 MG TABLET PO (09:27)
[2023-11-29] MEDS: PANTOPRAZOLE SODIUM IV 40 MG VIAL IV PUSH (09:27)
[2023-11-29] MEDS: ASPIRIN 81 MG ENTERIC TABLET PO (09:27)
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
[2023-11-29 14:00] VITALS: BP 130/56; PULSE 73; RESP 18; TEMP 36.8; O2SAT 100
== END 2023-11-29 14:37 | disposition home health service (06) | DRG 189 ==
LOC: ANHED 16:07 → ANHIMU 21:42 → ANH3MED 11-25 13:51 → ANH2MED 11-28 21:36
PROVIDERS: Family Medicine; General Practice; Internal Medicine; Internal Medicine Pulmonary Disease; Student in an Organized Health Care Education/Training Program; Admitting Provider Hospitalist; Emergency Provider Emergency Medicine; PCP Family Medicine; Visit Provider Internal Medicine
DX: J96.01 Acute respiratory failure with hypoxia (principal); J18.9 Pneumonia, unspecified organism; G93.41 Metabolic encephalopathy; I50.32 Chronic diastolic (congestive) heart failure; J84.9 Interstitial pulmonary disease, unspecified; E66.2 Morbid (severe) obesity with alveolar hypoventilation; I24.89 Other forms of acute ischemic heart disease; I47.10 Supraventricular tachycardia, unspecified; J96.02 Acute respiratory failure with hypercapnia; I25.10 Atherosclerotic heart disease of native coronary artery without angina pectoris; D64.9 Anemia, unspecified; G47.00 Insomnia, unspecified; I48.0 Paroxysmal atrial fibrillation; E86.0 Dehydration; B95.7 Other staphylococcus as the cause of diseases classified elsewhere; K59.00 Constipation, unspecified; R00.1 Bradycardia, unspecified; L40.9 Psoriasis, unspecified; R79.89 Other specified abnormal findings of blood chemistry; I35.0 Nonrheumatic aortic (valve) stenosis; R33.9 Retention of urine, unspecified; H40.9 Unspecified glaucoma; T17.908A Unspecified foreign body in respiratory tract, part unspecified causing other injury, initial encounter; Z20.822 Contact with and (suspected) exposure to COVID-19; E66.9 Obesity, unspecified; Z68.38 Body mass index [BMI] 38.0-38.9, adult; Z79.82 Long term (current) use of aspirin; Z85.46 Personal history of malignant neoplasm of prostate; Z95.5 Presence of coronary angioplasty implant and graft; Z90.49 Acquired absence of other specified parts of digestive tract; S05.90XS Unspecified injury of unspecified eye and orbit, sequela; W34.010S Accidental discharge of airgun, sequela
CPT/HCPCS: 36415; 36430; 36600; 70450; 71045; 71250; 71260; 74018; 74177; 80048; 80053; 80307; 81001; 82140; 82274; 82375; 82607; 82746; 82803; 82805; 83050; 83605; 83690; 83735; 84145; 84439; 84443; 84480; 84484; 85014; 85018; 85025; 85027; 85610; 85730; 86850; 86900; 86901; 86920; 87040; 87147; 87181; 87186; 87637; 93005; 93306; 94002; 94003; 94640; 94762; 96361; 96374; 97110; 97116; 97161; 97165; 97530; 97535; 99285; A9270; C9113; J0153; J0282; J0295; J0456; J0696; J1644; J1885; J1940; J2359; J2920; J2930; J3370; J3420; J7030; J7040; J7050; P9016; Q9967

== ENCOUNTER 2023-12-12 15:58 | Inpatient (IN) | payer MEDICARE, SELFPAY ==
[2023-12-12] VITALS (28 sets, daily range): BP systolic 121–169; BP diastolic 53–77; PULSE 89–113; RESP 20–33; TEMP 36.7–37.6; O2SAT 90–100; BMI 35.0
--- NOTE | ~2023-12-12 | CT_ITS ---
EXAMINATION: CT chest high resolution wo ak DATE: 12/17/2023 10:06 INDICATION: Interstitial lung disease TECHNIQUE: Computed tomography (CT) of the chest was performed without intravenous contrast. The dose -length product (DLP) was 845.58 mGy-cm. Automated exposure control and iterative reconstruction tech Ailvxing netque were employed. COMPARISON: 11/24/2023 FINDINGS: Respiratory motion limits evaluation for interstitial lung disease in the upper lung zones in the areas previously questioned. Dependent atelectasis is noted. No honeycombing is identified. Th ere are trace pleural effusions. No pneumothorax is identified. Cardiomegaly is noted. There are no p athologically enlarged thoracic lymph nodes. There is severe thoracic spondylosis. Calcified coronary artery atherosclerosis is noted. Cysts of the kidneys are noted. IMPRESSION: 1. Evaluation for interstitial lung disease in the upper lung zones limited by respiratory motion. Reviewed, dictated and finalized at location F. OR SALES CONSULTANT
--- NOTE | ~2023-12-12 | XR_ITS ---
EXAMINATION: XR chest 1V portable DATE: 12/12/2023 16:48 INDICATION: Cough and shortness of breath. TECHNIQUE: A single frontal view of the chest was obtained. COMPARISON: Chest single view 11/25/2023, chest CT 11/24/2023 FINDINGS: Lung volumes are small. There are mild airspace opacities in all lung zones bilaterally. No pleural effusion or pneumothorax. Cardiomegaly is noted. IMPRESSION: 1. Small lung volumes. Diffuse mild airspace opacities in the lungs may be atelectasis, pulmonary ahmet ma, or pneumonia. 2. Cardiomegaly. Reviewed, dictated and finalized at location A. OR WINDOWS SYSTEMS ENGINEER IMPRESSION: 1. Small lung volumes. Diffuse mild airspace opacities in the lungs may be atel ectasis, pulmonary edema, or pneumonia. 2. Cardiomegaly.
--- NOTE | ~2023-12-12 | CT_ITS ---
EXAMINATION: CT abdomen pelvis w con DATE: 12/12/2023 21:56 INDICATION: distended abdomen, GI bleed TECHNIQUE: Computed tomography (CT) of the abdomen and pelvis was performed with 100 mL Omnipaque-350 intravenous contrast. Automated exposure control and iterative reconstruction technique were employe d. The dose-length product was 1617.36 mGy-cm. COMPARISON: 03/12/2023 CT chest abdomen 11/20/2023. FINDINGS: Lower thorax: Aortic, mitral, and coronary artery calcifications. Mild atelectasis and interstitial c hanges in the lung bases. Liver: Normal. Biliary/Gallbladder: Gallbladder is absent. Mild stable intrahepatic and extrahepatic duct dilation, likely secondary to cholecystectomy. Pancreas: No mass or duct dilation. Spleen: Normal. Adrenals:No mass. Kidneys: No obstructing stone or hydronephrosis. Indeterminate density 6 mm and 1.3 cm right upper po le masses. The 1.3 cm mass was previously cystic, and is unchanged in morphology and slightly smaller in size and therefore likely represents a hemorrhagic cyst. Multiple simple right renal cysts and ad ditional lesions that are too small to characterize. Left lower pole ablation changes. GI tract: No small or large bowel dilation. Normal appendix. Diverticulosis without diverticulitis. Mesentery/Peritoneum: No ascites, mass, or free air. Retroperitoneum: No mass. Atherosclerotic abdominal aortic and/or arterial calcifications. Pelvis: The bladder is decompressed by a Young catheter. Prostate implants. Soft Tissues: Soft tissues and body wall unremarkable. Bones: No acute osseous finding. Stable moderate compression deformity at L1 and mild anterior wedge deformities at multiple additional levels. Bilateral L5 pars defects with grade 1 L5-S1 anterolisthe sis. Likely benign lytic lesion in the right posterior iliac crest. IMPRESSION: Mild edema versus mild chronic interstitial lung disease. No acute abdominopelvic process detected. Indeterminate density 6 mm right upper pole mass may represent a hemorrhagic cyst or renal cell carci noma. Consider renal CT or MRI without and with contrast for further evaluation. Reviewed, dictated and finalized at location K. RER CONCRETE PAVING IMPRESSION: Mild edema versus mild chronic interstitial lung disease. No acute abdominopelvic process detected. Indeterminate density 6 mm right upper pole mass may represent a hemorrhagic cy st or renal cell carcinoma. Consider renal CT or MRI without and with contrast for further evaluation.
--- NOTE | ~2023-12-12 | XR_ITS ---
EXAMINATION: XR chest 1V portable DATE: 12/15/2023 10:04 INDICATION: Community-acquired pneumonia. TECHNIQUE: A single frontal view of the chest was obtained. COMPARISON: Chest single view 12/12/2023 FINDINGS: The lung volumes are small. There are airspace and interstitial opacities in the mid and lo wer lung zones. No pleural effusion or pneumothorax. Cardiomegaly is noted. IMPRESSION: 1. Small lung volumes with mildly worsened airspace and interstitial opacities in the mid and lower l cira zones, likely at least predominantly chronic interstitial lung disease and atelectasis. Pneumonia cannot be excluded. 2. Cardiomegaly. Reviewed, dictated and finalized at location A. KING GUIDE IMPRESSION: 1. Small lung volumes with mildly worsened airspace and interstitial opacities in the mid and lower lung zones, likely at least predominantly chronic intersti tial lung disease and atelectasis. Pneumonia cannot be excluded. 2. Cardiomegaly.
--- NOTE | 2023-12-12 16:04 | ECG_ITS ---
Measurements Intervals [place] Rate: 103 P: 3 HI: 169 QRS: -3 QRSD: 96 T: 71 QT: 339 QTc: 445 Interpretive Statements SINUS TACHYCARDIA LEFT VENTRICULAR HYPERTROPHY AND ST-T CHANGE BASELINE ARTIFACT- I, II, AVR, AVF, V1-V6 BORDERLINE ECG COMPARED TO ECG 11/21/2023 08:10:00 SINUS TACHYCARDIA NOW PRESENT Electronically Signed On 12-12-2023 17:08:51 [employer] by Robert Cutler D.O.
[2023-12-12] MEDS: IPRATROPIUM BR 0.02% INH SOLN 0.5 MG/2.5 ML VIAL INHALATION (16:14)
[2023-12-12] MEDS: ALBUTEROL SULFATE NEB 2.5 MG/3 ML INH 1.25 MG INHALATION (16:14)
--- NOTE | 2023-12-12 16:30 | ED.SOB ---
HPI - SOB/Dyspnea General Chief Complaint: Shortness of Breath/Dyspnea Stated Complaint: cough Time Seen by Provider: 12/12/23 16:30 Source: patient and EMS Mode of arrival: EMS History of Present Illness HPI Narrative: 88 years old white male came by ambulance complaining of feeling shortness of breath, coughing, runny nose, nasal congestion. On arrival to ED patient have persistent coughing unable to get history from him because of the constant coughing. Patient is telling me that he been coughing for days patient came with 4 L oxygen by nasal cannula. Normally not on oxygen. Related Data Home Medications Medication Instructions Recorded Confirmed aspirin 81 mg tablet,delayed 81 mg PO DAILY 09/14/19 11/19/23 release (Adult Aspirin Regimen) multivitamin with minerals-folic 0.4 mg PO DAILY 09/14/19 11/19/23 acid 0.4 mg tablet (Adult One Daily Multivitamin) cholecalciferol (vitamin D3) 25 2,000 unit PO DAILY 11/19/19 11/19/23 mcg (1,000 unit) tablet atorvastatin 80 mg tablet 80 mg PO QHS 01/24/23 11/19/23 clopidogrel 75 mg tablet (Plavix) 75 mg PO DAILY 01/24/23 11/19/23 furosemide 20 mg tablet 20 mg PO QAM 01/24/23 11/19/23 lisinopril 5 mg tablet 5 mg PO DAILY 01/24/23 11/19/23 loteprednol etabonate 0.5 % eye 1 drp EACH EYE DAILY 01/24/23 11/19/23 drops,suspension Allergies Allergy/AdvReac Type Severity Reaction Status Date / Time warfarin AdvReac Intermediate Dizziness Verified 11/17/23 10:30 Review of Systems Review of Systems: All systems reviewed & are unremarkable except as noted in HPI and below PMFSH Past Medical History Medical History Atrial fibrillation Coronary artery disease Dermatitis of left ear canal Eczema intertrigo Glaucoma Hyperlipidemia Hypertension Insomnia Interstitial lung disease Obesity (BMI 30-39.9) Presbycusis of both ears Prostate cancer (2008) Psoriasis Vitamin D deficiency Surgical History Surgical History H/O heart artery stent (~02/2022) And 2004 History of right cataract extraction Hx of cholecystectomy Family History Family History Mother Family history of malignant neoplasm Father Acute myocardial infarction Social History Social History Social History: Patient is listed as a full code. 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 Gender identity (if verbalized by the patient): Male Sexual Orientation (if Verbalized by the Patient): Straight or Heterosexual Spiritual care concerns: No Exam Narrative: General appearance: Well-developed, well-nourished , labored breathing Skin: Normal color Head: Normocephalic, nontraumatic Eyes: Clear conjunctiva ENT: Oropharynx normal, ears normal, nose normal Neck: Supple, nontender Chest and respiratory: diminution of air entry bilaterally, few scattered rales and rhonchi Heart: Regular rate/rhythm Abdomen: Soft, nontender, no organomegaly, quiet bowel sounds, rectal exam, brown hard stool, guaiac positive Vascular: Normal peripheral pulses, normal capillary refill. Musculoskeletal: Normal range of motion, nontender back Neurologic: Alert and oriented ?3, PARA OPERATOR is normal as tested, no gross motor deficit
[2023-12-12 16:36] LABS: Basophils Percent Auto 0.5 % (0.2-1.2); Eosinophils Absolute Auto 0.2 K/mm3 (0-0.3); Eosinophils Percent Auto 1.7 % (0-4.4); Hematocrit 22.8 % (42.0-52.0); Immature Granulocyte Absolute 0.03 K/mm3 (0.00-0.031); Immature Granulocyte Percent A 0.3 % (0-0.5); Lymphocytes Absolute Auto 0.29 K/mm3 (0.9-3.2); Lymphocytes Percent Auto 3.4 % (18.3-44.2); Mean Corpuscular HGB Conc 29.4 g/dl (32-36); Mean Corpuscular Hemoglobin 24.8 pg (26-34); Mean Corpuscular Volume 84.4 fl (80-100); Mean Platelet Volume 9.7 fl (7.4-10.4); Monocytes Absolute Auto 0.7 K/mm3 (0.1-0.6); Neutrophils Absolute Auto 7.4 K/mm3 (1.3-6.7); Neutrophils Percent Auto 86.1 % (45.5-73.1); Platelet Count Result 547 k/mm3 (150-375); Red Cell Distribution Width 21.1 % (11.5-14.5); White Blood Count 8.6 K/mm3 (4.5-10.0)
[2023-12-12 16:39] LABS: Alanine Aminotransferase 35 U/L (6-50); Albumin Level 3.9 g/dL (3.5-5.1); Alkaline Phosphatase 78 U/L (38-126); Anion Gap 5 mmol/L (8-16); Aspartate Amino Transferase 49 U/L (17-59); Bilirubin,Total 0.5 mg/dL (0.2-1.3); Blood Urea Nitrogen 20 mg/dL (9-20); Calcium 9.7 mg/dL (8.4-10.2); Carbon Dioxide 29 mmol/L (22-30); Chloride 100 mmol/L (98-107); Estimated CRCL calculation 52 ml/min; Estimated Glomerular Filt Rate > 60; Glucose 112 mg/dL (65-110); Potassium 4.3 mmol/L (3.4-5.0); Sodium 134 mmol/L (137-145)
[2023-12-12 16:54] LABS: Hemoglobin 6.7 g/dL (14.0-18.0)
[2023-12-12 16:55] LABS: Anisocytosis 1+ (NORMAL); Hypochromasia 1+ (NORMAL); Ovalocytes 1+ (NORMAL); Platelet Estimate Increased (Adequate); Schistocytes None Seen (NORMAL)
[2023-12-12] MEDS: ALBUTEROL SULFATE NEB 2.5 MG/3 ML INH INHALATION ×3 (17:02→17:09)
[2023-12-12 17:06] LABS: Alveolar/Arterial O2 Gradient 133.2 mmHg; Fractional Inspired Oxygen 36 %; HCO3 ABG 26.7 mEq/l (22.0-26.0); Oxygen Content ABG 9.5 %vol (16.0-22.0); Oxygen Saturation ABG 95.2 % (95.0-100.0); Oxyhemoglobin 92.7 % THb (90.0-100.0); PCO2 ABG 42.2 mmHg (35.0-45.0); PO2 ABG 74.5 mmHg (80.0-100.0); PO2 FiO2 Ratio Arterial Blood 2.07 %; pH ABG 7.419 (7.350-7.450)
[2023-12-12] MEDS: FUROSEMIDE INJ 40 MG/4 ML VIAL IV PUSH (17:06)
[2023-12-12] MEDS: methylPREDNISolone SOD SUCC 125 MG VIAL IV PUSH (17:06)
[2023-12-12 17:13] LABS: INR 1.1; Partial Thromboplastin Time 28.1 SECONDS (22.3-36.8); Prothrombin Time 14.5 Seconds (11.1-14.7)
[2023-12-12 17:16] LABS: Total Hemoglobin 7.2 g/dL (12.0-18.0)
[2023-12-12 17:17] LABS: Device NASAL CANNULA; Modified Allen's Test Pass; Site Drawn RIGHT RADIAL
[2023-12-12 17:29] LABS: Magnesium 1.8 mg/dL (1.6-2.3)
[2023-12-12 17:42] LABS: NT Pro B Type Natriuretic Pept 904 pg/mL (19.9-100); Troponin I 0.034 ng/mL (0.000-0.034)
[2023-12-12 17:47] LABS: Influenza A QL RT-PCR Positive (Negative); Influenza B QL RT-PCR Negative (Negative); RSV RNA, RT-PCR Negative (Negative); SARS-CoV-2 RNA PCR Negative (Negative)
--- NOTE | 2023-12-12 18:03 | PM.IMHP ---
H&P: HPI History of Present Illness Date/Time: 12/12/23 18:03 Chief Complaint: Dyspnea Narrative: This is an 88-year-old male patient presents via EMS with complaints of difficulty breathing and cough. On initial presentation patient was very dyspneic with constant cough and it seemed like he may need intubation. Nebulizer treatment was given and BiPAP applied. After period of time patient began breathing easier that he still remains tachypneic. ER workup shows patient is positive for influenza A, normal white blood cell count but hemoglobin was 6.7. Patient's prior hemoglobins 8-9. Chemistry panel grossly unremarkable with mild hyponatremia sodium 134. Patient has significant hearing loss and sight loss making HPI and ROS difficult. Patient denies any pain states that his belly is distended. CT scan abdomen pelvis with IV contrast ordered. He reports much improved breathing with BiPAP in place. Review of Systems Review of Systems: ROS unobtainable: Yes other (Hard of hearing) FOR[facility]LY [facility] Past Medical History Medical History Atrial fibrillation Coronary artery disease Dermatitis of left ear canal Eczema intertrigo Glaucoma Hyperlipidemia Hypertension Insomnia Interstitial lung disease Obesity (BMI 30-39.9) Presbycusis of both ears Prostate cancer (2008) Psoriasis Vitamin D deficiency Surgical History Surgical History H/O heart artery stent (~02/2022) And 2004 History of right cataract extraction Hx of cholecystectomy Family History Family History Mother Family history of malignant neoplasm Father Acute myocardial infarction Social History Social History Social History: Patient is listed as a full code. 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 Gender identity (if verbalized by the patient): Male Sexual Orientation (if Verbalized by the Patient): Straight or Heterosexual Spiritual care concerns: No Meds Home Medications and Allergies Home Medications Medication Instructions Recorded Confirmed Type aspirin 81 mg tablet,delayed 81 mg PO DAILY 09/14/19 11/19/23 History release (Adult Aspirin Regimen) multivitamin with minerals-folic 0.4 mg PO DAILY 09/14/19 11/19/23 History acid 0.4 mg tablet (Adult One Daily Multivitamin) cholecalciferol (vitamin D3) 25 2,000 unit PO DAILY 11/19/19 11/19/23 History mcg (1,000 unit) tablet atorvastatin 80 mg tablet 80 mg PO QHS 01/24/23 11/19/23 History clopidogrel 75 mg tablet (Plavix) 75 mg PO DAILY 01/24/23 11/19/23 History furosemide 20 mg tablet 20 mg PO QAM 01/24/23 11/19/23 History lisinopril 5 mg tablet 5 mg PO DAILY 01/24/23 11/19/23 History loteprednol etabonate 0.5 % eye 1 drp EACH EYE DAILY 01/24/23 11/19/23 History drops,suspension albuterol sulfate 90 mcg/actuation 1 - 2 puff inhalation Q4-6H PRN 09/22/23 11/19/23 Rx aerosol inhaler shortness of breath or wheezing #8.5 grams trazodone 50 mg tablet 50 mg PO QHS #30 tabs 11/17/23 11/19/23 Rx amiodarone 200 mg tablet (Pacerone) 200 mg PO DAILY #30 tabs 11/29/23 Rx nebulizer and compressor #1 ea 11/29/23 Rx ipratropium bromide 0.02 % 0.5 mg (2.5 mL) inhalation Q6HRT 12/06/23 Rx soluti
[2023-12-12] MEDS: PANTOPRAZOLE SODIUM IV 40 MG VIAL IV PUSH (18:47)
[2023-12-12] MEDS: SODIUM CHLORIDE 0.9% IV 250 ML 30 ML IV CONT (19:12)
[2023-12-12] MEDS: TUBING, BLOOD SET 1 EACH XX ×2 (19:12→20:30)
[2023-12-12] MEDS: SODIUM CHLORIDE 0.9% IV 250 ML 30 ML (20:30)
[2023-12-12] MEDS: OSELTAMIVIR PHOSPHATE 30 MG CAPSULE PO (21:01)
[2023-12-12 21:37] LABS: Hematocrit 26.7 % (42.0-52.0)
--- NOTE | 2023-12-12 22:19 | ADMGEN ---
This patient, Kwame Crane, was admitted to IMU Room 212-01 at 2205. Patient/family oriented to hospital policies and general routines including ID bracelet, bed and alarms, visiting hours, pain management, procedures, bathroom and other care routines, personal items, smoking policy, room service/diet, and visiting hours. Information on how to activate the Rapid Response Team has been discussed. Patient/Family are encouraged to report perceived risks to care and to ask questions if they do not understand what they are told or what they should do.
[2023-12-12] MEDS: traZODone HCL 50 MG TABLET PO (23:33)
[2023-12-12] MEDS: ATORVASTATIN 40 MG TABLET 80 MG PO (23:33)
[2023-12-13] VITALS (29 sets, daily range): BP systolic 105–125; BP diastolic 45–69; PULSE 46–103; RESP 24–31; TEMP 36.6–37.1; O2SAT 96–100
[2023-12-13 01:59] LABS: Hematocrit 26.5 % (42.0-52.0); Hemoglobin 8.1 g/dL (14.0-18.0)
[2023-12-13 05:12] LABS: Hematocrit 25.7 % (42.0-52.0); Immature Granulocyte Absolute 0.02 K/mm3 (0.00-0.031); Immature Granulocyte Percent A 0.4 % (0-0.5); Lymphocytes Absolute Auto 0.27 K/mm3 (0.9-3.2); Lymphocytes Percent Auto 4.8 % (18.3-44.2); Mean Corpuscular HGB Conc 31.1 g/dl (32-36); Mean Corpuscular Hemoglobin 26.6 pg (26-34); Mean Corpuscular Volume 85.4 fl (80-100); Mean Platelet Volume 9.5 fl (7.4-10.4); Monocytes Absolute Auto 0.2 K/mm3 (0.1-0.6); Neutrophils Absolute Auto 5.1 K/mm3 (1.3-6.7); Neutrophils Percent Auto 91.8 % (45.5-73.1); Platelet Count Result 458 k/mm3 (150-375); Red Blood Count 3.01 M/mm3 (4.6-6.20); Red Cell Distribution Width 19.2 % (11.5-14.5); White Blood Count 5.6 K/mm3 (4.5-10.0)
[2023-12-13 05:29] LABS: Alanine Aminotransferase 36 U/L (6-50); Albumin Level 3.5 g/dL (3.5-5.1); Alkaline Phosphatase 61 U/L (38-126); Anion Gap 6 mmol/L (8-16); Aspartate Amino Transferase 42 U/L (17-59); Bilirubin,Total 0.4 mg/dL (0.2-1.3); Blood Urea Nitrogen 22 mg/dL (9-20); Carbon Dioxide 29 mmol/L (22-30); Chloride 100 mmol/L (98-107); Estimated CRCL calculation 57 ml/min; Estimated Glomerular Filt Rate > 60; Glucose 123 mg/dL (65-110); Magnesium 1.9 mg/dL (1.6-2.3); Potassium 4.7 mmol/L (3.4-5.0); Sodium 135 mmol/L (137-145)
[2023-12-13 05:56] LABS: Anisocytosis 1+ (NORMAL); Hypochromasia 2+ (NORMAL); Ovalocytes 1+ (NORMAL); Platelet Estimate Increased (Adequate)
[2023-12-13 05:57] LABS: Schistocytes None Seen (NORMAL)
[2023-12-13] MEDS: AMIODARONE HCL 200 MG TABLET PO (08:06)
[2023-12-13] MEDS: OSELTAMIVIR PHOSPHATE 30 MG CAPSULE PO ×2 (08:06→21:03)
[2023-12-13] MEDS: THERAPEUTIC MULTIVITAMINS/MINERALS TAB (*BKC) 1 TABLET PO (08:06)
[2023-12-13] MEDS: FUROSEMIDE 20 MG TABLET PO (08:06)
[2023-12-13] MEDS: lisinopriL 5 MG TABLET PO (08:06)
[2023-12-13] MEDS: CHOLECALCIFEROL 1,000 UNITS TABLET 2000 UNITS PO (08:06)
[2023-12-13] MEDS: LOTEPREDNOL ETABONATE 0.5% OPH 5 ML BOTTLE 1 DROP EACH EYE (08:07)
[2023-12-13] MEDS: ACETAMINOPHEN 325 MG TABLET 650 MG PO ×2 (08:36→21:03)
--- NOTE | 2023-12-13 11:29 | PM.IMPN ---
Progress Note: A&P Assessment and Plan (1) Acute hypoxic respiratory failure: Code(s): J96.01 - Acute respiratory failure with hypoxia Status: Acute (2) Anemia: Code(s): D64.9 - Anemia, unspecified Status: Acute (3) Influenza A: Code(s): J10.1 - Influenza due to other identified influenza virus with other respiratory manifestations Status: Acute (4) Obesity hypoventilation syndrome: Code(s): E66.2 - Morbid (severe) obesity with alveolar hypoventilation Status: Acute Plan 88-year-old male with a history of chronic respiratory failure on 2 L home O2, NSIP, obesity hypoventilation syndrome, obesity, atrial fibrillation not on anticoagulation/tachy-vickie, chronic anemia, history of urinary retention, hypertension, CAD status post stents, heart failure preserved ejection fraction, anisocoria, aortic valve stenosis. He has been at home with home health after discharge this month with an admission of hypercapnia. He presents via ground transport with the complaint of cough shortness of breath runny nose and nasal congestion. Admitted on 12/12/2023 #Acute on chronic hypoxic respiratory failure/influenza a/obesity hypoventilation syndrome/nonspecific interstitial pneumonia -requiring BiPAP for tachypnea. Wean as tolerated. -continue Tamiflu renal dose for influenza a -has significant wheezing. Along with his baseline diagnosis of nonspecific interstitial pneumonia and findings on chest x-ray will start cefepime and vancomycin for Hcap. Pending blood cultures. Can deescalate tomorrow if the does not appear toxic/septic still. Also adding DuoNeb scheduled and Solu-Medrol -pCO2 42 on admission #Acute on chronic anemia due to suspected GI bleed -stool occult positive in the ER. -NPO. GI consulted. Protonix b.i.d. -presented with hemoglobin 6.7. Hemoglobin 8 status post 2 units PRBC on 12/12 #Paroxysmal atrial fibrillation not on anticoagulation -currently normal sinus rhythm. Continue telemetry. #History of hypertension -currently controlled. Need to monitor #CAD status post stents -restart aspirin based on results of possibly EGD and further discussion #Heart failure preserved ejection fraction -concurrently euvolemic. Continue Lasix. FEN: NPO. Saline lock IV. GI prophylaxis: Protonix IV b.i.d. DVT prophylaxis: SCDs only Lines: Peripheral IV Code Status: Full code Dispo: Guarded Subjective Date/time seen: 12/13/23 11:29 Interval history: Patient has been taking off his BiPAP mask. Becomes tachypneic after taking it off. Upon evaluation at this time he denies any shortness of breath and is wearing the BiPAP mask. Denies any chest pain. He denies any cough. Review of Systems Review of Systems: All systems reviewed & are unremarkable except as noted in HPI and below (Subjective) Exam Const: General: comfortable and no acute distress Other: A&O x3 Eyes: Pupils: Equal, round and reactive pupils present Neck: Neck: supple Resp: Effort & Inspection: normal respiratory effort Auscultation: no crackles and wheezes Cardio: Rate: regular rate Rhythm: regular rhythm Heart sounds: no gallops, no murmurs and no rubs GI: Inspection: distended GI Palp: Yes Soft to palpation and No Tenderness to palpation present (GI) Extrem: General: edema (Trace) Objective Data Vital Signs Vital Signs: Vital Signs - 24 hr 12/12/23 16:08 12/12/23 16:12 12/12/23 16:13 Temperature 99.7 F H Pulse Rate 103 H 113 H Respiratory Rate 26 H Blood Pressure 163/76 H Pulse Oximetry 90 98 Oxygen Delivery Room Air Nasal Cannula Oxygen Flow Rate 4 Fraction of Inspired Oxygen 12/12/23 16:14 12/12/23 16:28 12/12/23 17:02 Temperature Pulse Rate 104 H 103 H 102 H Respiratory Rate 25 H 24 H 28 H Blood Pressure Pulse Oximetry Oxygen Delivery Oxygen Flow Rate Fraction of Inspired Oxygen 12/12/23 17:02 12/12/23 17:07 12/12/23
[2023-12-13] MEDS: PANTOPRAZOLE SODIUM IV 40 MG VIAL IV PUSH ×2 (11:48→21:03)
[2023-12-13] MEDS: methylPREDNISolone SOD SUCC 125 MG VIAL 60 MG IV PUSH ×2 (11:48→17:04)
[2023-12-13] MEDS: CEFEPIME 2 GM/NS 50 ML 2 GM/50 ML BAG IVPB ×2 (11:49→21:03)
[2023-12-13] MEDS: VANCOMYCIN 1,250 MG/NS 250 ML 1,250 MG/250 ML BAG 166.67 MG IVPB ×2 (12:40→12:41)
[2023-12-13 13:21] LABS: MRSA (PCR) NOT DETECTED (NOT DETECTE)
[2023-12-13 13:35] LABS: Hematocrit 27.5 % (42.0-52.0); Hemoglobin 8.2 g/dL (14.0-18.0)
[2023-12-13] MEDS: IPRATROPIUM 0.5 MG/ALBUTEROL SULFATE 2.5 MG AMPUL.NEB 3 ML INHALATION ×2 (14:22→19:20)
--- NOTE | 2023-12-13 16:44 | WPDGICN ---
Assessment and Plan Assessment and plan (1) Acute on chronic anemia: Code(s): D64.9 - Anemia, unspecified Status: Acute Assessment and Plan: no overt gib given respiratory status requiring use of bipap and also influenza I recommend conservative treatment, iv protonix obviously if condition changes and obvious GIB then we will reconsider use of endoscopy. (2) Occult blood in stools: Code(s): R19.5 - Other fecal abnormalities Status: Acute Assessment and Plan: monitor for signs of bleeding no scopes given respiratory condition iv protonix ok to start diet (3) Influenza A: Code(s): J10.1 - Influenza due to other identified influenza virus with other respiratory manifestations Status: Acute Assessment and Plan: by primary team (4) Acute hypoxic respiratory failure: Code(s): J96.01 - Acute respiratory failure with hypoxia Status: Acute (5) Coronary artery disease: Code(s): I25.10 - Atherosclerotic heart disease of [place] coronary artery without angina pectoris Status: Acute GI Consult Note Consult date/time: 12/13/23 16:44 Reason for consult: acute on chronic anemia, FOBT + HPI: Kwame Crane is a 88 year old male with history of chronic respiratory failure on 2 L home O2, obesity hypoventilation syndrome, atrial fibrillation not on anticoagulation, hypertension, CAD status post stents, heart failure preserved ejection fraction. Had recent hospitalization with respiratory issues also found to have anemia with hgb 6.7 and given blood transfusion at that time, no signs of GIB and had negative FOBT. He returns to hospital with worsening SOB and cough, diagnosed this time with influenza. Again with anemia hgb 6.6 and given blood transfusion. Also required bipap (still wearing) and feeling much better than yesterday, denies overt gib. He says that had EGD and colonoscopy in 2017. Review of Systems Constitutional: Constitutional: Reports lethargy Eyes: Eyes: Denies blurry vision ENT: Reports Normal hearing present Cardiovascular: Cardiovascular: Denies chest pain Respiratory: Respiratory: Reports cough and Reports dyspnea on exertion Gastrointestinal: Gastrointestinal: Denies hematochezia Genitourinary: Genitourinary: Denies dysuria Musculoskeletal: Musculoskeletal: Denies neck pain Integumentary/Breasts: Skin/Breast: Denies rash Neurologic: Denies Abnormal speech present Psychiatric: Psychiatric: Denies anxiety [facility] Past Medical History Medical History (Updated 12/13/23 @ 16:49 by Lloyd Cook MD) Acute on chronic anemia Atrial fibrillation Coronary artery disease Dermatitis of left ear canal Eczema intertrigo Glaucoma Hyperlipidemia Hypertension Insomnia Interstitial lung disease Obesity (BMI 30-39.9) Occult blood in stools Presbycusis of both ears Prostate cancer (2008) Psoriasis Vitamin D deficiency Surgical History Surgical History H/O heart artery stent (~02/2022) And 2004 History of right cataract extraction Hx of cholecystectomy Family History Family History Mother Family history of malignant neoplasm Father Acute myocardial infarction Social History Social History Social History: Patient is listed as a full code. Smoking status: Never smoker Second hand tobacco smoke exposure: No Alcohol intake: never Substance use: never Substance use type: does not use Lack of Transportation: No Lack of Food: Never True Current Housing: I Have Housing Concerned About Future Housing: No Difficulty Paying Gas/Electric Bills: No Difficulty Paying for Meds: No Currently Unemployed: No Education: High School Diploma/GED Difficulty w/ Childcare or Family Care: No Living arrangements: with
[2023-12-13] MEDS: ATORVASTATIN 40 MG TABLET 80 MG PO (21:03)
[2023-12-13] MEDS: traZODone HCL 50 MG TABLET PO (21:04)
[2023-12-14] VITALS (23 sets, daily range): BP systolic 94–177; BP diastolic 48–81; PULSE 68–96; RESP 20–25; TEMP 36.6–37; O2SAT 96–100
[2023-12-14] MEDS: methylPREDNISolone SOD SUCC 125 MG VIAL 60 MG IV PUSH ×3 (00:30→11:23)
[2023-12-14] MEDS: IPRATROPIUM 0.5 MG/ALBUTEROL SULFATE 2.5 MG AMPUL.NEB 3 ML INHALATION ×4 (01:16→22:16)
[2023-12-14 05:00] LABS: Hematocrit 27.6 % (42.0-52.0); Hemoglobin 8.4 g/dL (14.0-18.0); Immature Granulocyte Absolute 0.02 K/mm3 (0.00-0.031); Immature Granulocyte Percent A 0.5 % (0-0.5); Lymphocytes Absolute Auto 0.24 K/mm3 (0.9-3.2); Mean Corpuscular HGB Conc 30.4 g/dl (32-36); Mean Corpuscular Hemoglobin 26.3 pg (26-34); Mean Corpuscular Volume 86.5 fl (80-100); Mean Platelet Volume 9.8 fl (7.4-10.4); Monocytes Absolute Auto 0.2 K/mm3 (0.1-0.6); Monocytes Percent Auto 3.8 % (2.6-8.5); Neutrophils Absolute Auto 3.6 K/mm3 (1.3-6.7); Neutrophils Percent Auto 89.7 % (45.5-73.1); Platelet Count Result 476 k/mm3 (150-375); Red Blood Count 3.19 M/mm3 (4.6-6.20); Red Cell Distribution Width 19.6 % (11.5-14.5)
--- NOTE | 2023-12-14 05:00 | ECG_ITS ---
Measurements Intervals [place] Rate: 80 P: 35 AL: 185 QRS: 0 QRSD: 79 T: 54 QT: 367 QTc: 425 Interpretive Statements SINUS RHYTHM LEFT VENTRICULAR HYPERTROPHY WITH ST-T CHANGE BASELINE ARTIFACT- I, II, III, AVR, AVL, AVF, V3 BORDERLINE ECG NONSPECIFIC T-WAVE ABNORMALITY COMPARED TO ECG 12/12/2023 16:11:38 SINUS RHYTHM NOW PRESENT Electronically Signed On 12-14-2023 11:10:26 LONGSHORE EQUIPMENT OPERATOR by Robert Cutler D.O.
[2023-12-14 05:18] LABS: Alanine Aminotransferase 35 U/L (6-50); Albumin Level 3.4 g/dL (3.5-5.1); Alkaline Phosphatase 58 U/L (38-126); Anion Gap 6 mmol/L (8-16); Aspartate Amino Transferase 44 U/L (17-59); Bilirubin,Total 0.4 mg/dL (0.2-1.3); Blood Urea Nitrogen 33 mg/dL (9-20); Calcium 8.7 mg/dL (8.4-10.2); Carbon Dioxide 29 mmol/L (22-30); Chloride 100 mmol/L (98-107); Estimated CRCL calculation 51 ml/min; Estimated Glomerular Filt Rate > 60; Glucose 131 mg/dL (65-110); Magnesium 2.1 mg/dL (1.6-2.3); Potassium 4.6 mmol/L (3.4-5.0); Sodium 135 mmol/L (137-145)
[2023-12-14] MEDS: CEFEPIME 2 GM/NS 50 ML 2 GM/50 ML BAG IVPB ×3 (05:34→21:21)
[2023-12-14] MEDS: FUROSEMIDE 20 MG TABLET PO (09:01)
[2023-12-14] MEDS: AMIODARONE HCL 200 MG TABLET PO (09:01)
[2023-12-14] MEDS: lisinopriL 5 MG TABLET PO (09:01)
[2023-12-14] MEDS: CHOLECALCIFEROL 1,000 UNITS TABLET 2000 UNITS PO (09:01)
[2023-12-14] MEDS: THERAPEUTIC MULTIVITAMINS/MINERALS TAB (*BKC) 1 TABLET PO (09:01)
[2023-12-14] MEDS: PANTOPRAZOLE SODIUM IV 40 MG VIAL IV PUSH (09:02)
[2023-12-14] MEDS: OSELTAMIVIR PHOSPHATE 30 MG CAPSULE PO ×2 (09:02→21:21)
[2023-12-14] MEDS: LOTEPREDNOL ETABONATE 0.5% OPH 5 ML BOTTLE 1 DROP EACH EYE (09:07)
[2023-12-14] MEDS: VANCOMYCIN 1,500 MG/NS 500 ML 1,500 MG/500 ML BAG 250 MG IVPB (11:23)
--- NOTE | 2023-12-14 11:57 | PM.IMPN ---
Progress Note: A&P Assessment and Plan (1) Acute hypoxic respiratory failure: Code(s): J96.01 - Acute respiratory failure with hypoxia Status: Acute (2) Anemia: Code(s): D64.9 - Anemia, unspecified Status: Acute (3) Influenza A: Code(s): J10.1 - Influenza due to other identified influenza virus with other respiratory manifestations Status: Acute (4) Obesity hypoventilation syndrome: Code(s): E66.2 - Morbid (severe) obesity with alveolar hypoventilation Status: Acute Plan 88-year-old male with a history of chronic respiratory failure on 2 L home O2, NSIP, obesity hypoventilation syndrome, obesity, atrial fibrillation not on anticoagulation/tachy-vickie, chronic anemia, history of urinary retention, hypertension, CAD status post stents, heart failure preserved ejection fraction, anisocoria, aortic valve stenosis. He has been at home with home health after discharge this month with an admission of hypercapnia. He presents via ground transport with the complaint of cough shortness of breath runny nose and nasal congestion. Admitted on 12/12/2023 #Acute on chronic hypoxic respiratory failure/influenza a/obesity hypoventilation syndrome/nonspecific interstitial pneumonia -tolerating nasal cannula day. Much improved. PCO2 42 on admission. Continue BiPAP at night -continue Tamiflu renal dose for influenza a -wheezing improved. Continue DuoNebs. Discontinue vancomycin. Deescalate cefepime. Downgrade Solu-Medrol to prednisone. -on 12/14 he is breathing better but complaining of chest congestion with inability to produce sputum. Start guaifenesin 1.2 b.i.d. and check sputum culture #Acute on chronic anemia due to suspected GI bleed -stool occult positive in the ER. -appreciated GI recommendations. Had EGD in 2017. Conservative treatment. Switch Protonix 40 mg IV b.i.d. to 40 mg p.o. q.day -presented with hemoglobin 6.7. Hemoglobin 8 status post 2 units PRBC on 12/12 #Paroxysmal atrial fibrillation not on anticoagulation -currently normal sinus rhythm. Continue telemetry. #History of hypertension -currently controlled. Need to monitor #CAD status post stents -aspirin has been held. Revisit discussion tomorrow the benefits versus risk considering his GI bleed. #Heart failure preserved ejection fraction -concurrently euvolemic. Continue Lasix. FEN: Heart healthy diet. Saline lock IV. GI prophylaxis: Protonix 40 mg q.day DVT prophylaxis: SCDs only Lines: Peripheral IV Code Status: Full code Dispo: Stable. Transfer to [facility] Subjective Date/time seen: 12/14/23 11:57 Interval history: No acute overnight events. He wears BiPAP all night and has been breathing well on 3 L nasal cannula all morning. He reports cough no sputum production, feels very congested Review of Systems Review of Systems: All systems reviewed & are unremarkable except as noted in HPI and below (Subjective) Exam Const: General: comfortable and no acute distress Other: A&O x3 Eyes: Pupils: Equal, round and reactive pupils present Neck: Neck: supple Resp: Effort & Inspection: normal respiratory effort Auscultation: no crackles Cardio: Rate: regular rate Rhythm: regular rhythm Heart sounds: no gallops, no murmurs and no rubs GI: Inspection: distended GI Palp: Yes Soft to palpation and No Tenderness to palpation present (GI) Extrem: General: edema (Trace) Objective Data Vital Signs Vital Signs: Vital Signs - 24 hr 12/13/23 12:00 12/13/23 12:00 12/13/23 14:00 Temperature Pulse Rate 76 74 Respiratory Rate Blood Pressure Pulse Oximetry 100 Oxygen Delivery BiPAP Oxygen Flow Rate Fraction of Inspired Oxygen 35 12/13/23 14:17 12/13/23 12:00 12/13/23 14:33 Temperature Pulse Rate 99 93 103 H Respiratory Rate 27 H 29 H 26 H Blood Pressure Pulse Oximetry 97 Oxygen Delivery BiPAP Oxygen Flow Rate Fraction of Inspired Oxygen
[2023-12-14] MEDS: guaiFENesin 12 HR 600 MG TABCR 1200 MG PO ×2 (12:48→21:20)
--- NOTE | 2023-12-14 16:15 | PC.NURSE ---
Transfer received from IMU per hospital bed.
--- NOTE | 2023-12-14 17:15 | PC.NURSE ---
This patient, Kwame Crane, was transferred to 331 bed 2 on 12/14/23 at 1615. Personal belongings sent with patient. Report given to Carleen COHEN Appropriate documentation sent with patient.
[2023-12-14] MEDS: ATORVASTATIN 40 MG TABLET 80 MG PO (21:20)
[2023-12-14] MEDS: ACETAMINOPHEN 325 MG TABLET 650 MG PO (21:21)
[2023-12-14] MEDS: traZODone HCL 50 MG TABLET PO (23:08)
[2023-12-15] VITALS (16 sets, daily range): BP systolic 135–152; BP diastolic 40–78; PULSE 81–95; RESP 18–28; TEMP 36.4–37.2; O2SAT 93–99
[2023-12-15] MEDS: IPRATROPIUM 0.5 MG/ALBUTEROL SULFATE 2.5 MG AMPUL.NEB 3 ML INHALATION ×4 (03:08→21:34)
[2023-12-15] MEDS: CEFEPIME 2 GM/NS 50 ML 2 GM/50 ML BAG IVPB ×2 (05:32→14:42)
[2023-12-15 08:27] LABS: Hemoglobin 8.4 g/dL (14.0-18.0); Immature Granulocyte Absolute 0.03 K/mm3 (0.00-0.031); Immature Granulocyte Percent A 0.4 % (0-0.5); Lymphocytes Absolute Auto 0.54 K/mm3 (0.9-3.2); Lymphocytes Percent Auto 7.1 % (18.3-44.2); Mean Corpuscular Hemoglobin 26.2 pg (26-34); Mean Corpuscular Volume 87.2 fl (80-100); Mean Platelet Volume 9.4 fl (7.4-10.4); Monocytes Absolute Auto 0.7 K/mm3 (0.1-0.6); Monocytes Percent Auto 9.5 % (2.6-8.5); Neutrophils Absolute Auto 6.3 K/mm3 (1.3-6.7); Platelet Count Result 438 k/mm3 (150-375); Red Blood Count 3.21 M/mm3 (4.6-6.20); Red Cell Distribution Width 19.4 % (11.5-14.5); White Blood Count 7.6 K/mm3 (4.5-10.0)
[2023-12-15 08:51] LABS: Alanine Aminotransferase 37 U/L (6-50); Albumin Level 3.4 g/dL (3.5-5.1); Alkaline Phosphatase 57 U/L (38-126); Anion Gap 2 mmol/L (8-16); Aspartate Amino Transferase 45 U/L (17-59); Bilirubin,Total 0.5 mg/dL (0.2-1.3); Blood Urea Nitrogen 35 mg/dL (9-20); Calcium 8.6 mg/dL (8.4-10.2); Carbon Dioxide 33 mmol/L (22-30); Chloride 102 mmol/L (98-107); Estimated CRCL calculation 51 ml/min; Estimated Glomerular Filt Rate > 60; Glucose 97 mg/dL (65-110); Potassium 4.5 mmol/L (3.4-5.0); Sodium 137 mmol/L (137-145)
--- NOTE | 2023-12-15 09:41 | PM.IMPN ---
Progress Note: A&P Assessment and Plan (1) Acute hypoxic respiratory failure: Code(s): J96.01 - Acute respiratory failure with hypoxia Status: Acute (2) Anemia: Code(s): D64.9 - Anemia, unspecified Status: Acute (3) Influenza A: Code(s): J10.1 - Influenza due to other identified influenza virus with other respiratory manifestations Status: Acute (4) Obesity hypoventilation syndrome: Code(s): E66.2 - Morbid (severe) obesity with alveolar hypoventilation Status: Acute Plan 88-year-old male with a history of chronic respiratory failure on 2 L home O2, NSIP, obesity hypoventilation syndrome, obesity, atrial fibrillation not on anticoagulation/tachy-vickie, chronic anemia, history of urinary retention, hypertension, CAD status post stents, heart failure preserved ejection fraction, anisocoria, aortic valve stenosis. He has been at home with home health after discharge this month with an admission of hypercapnia. He presents via ground transport with the complaint of cough shortness of breath runny nose and nasal congestion. Admitted on 12/12/2023 #Acute on chronic hypoxic respiratory failure/influenza a/obesity hypoventilation syndrome/nonspecific interstitial pneumonia -tolerating nasal cannula day. Much improved. PCO2 42 on admission. Continue BiPAP at night -continue Tamiflu renal dose for influenza a -wheezing improved. Continue DuoNebs. Discontinue vancomycin. Deescalate cefepime. Downgrade Solu-Medrol to prednisone. -on 12/14 he is breathing better but complaining of chest congestion with inability to produce sputum. Start guaifenesin 1.2 b.i.d. and check sputum culture 12/15: Patient's oxygen therapy 3 liters/minute via nasal cannular, follow-up procalcitonin, chest x-ray, well 2 bottles of grows Staphylococcus epidermidis, possible contamination, repeat blood culture negative on 12/14, deescalate antibiotics to ceftriaxone and doxycycline p.o. #Acute on chronic anemia due to suspected GI bleed -stool occult positive in the ER. -appreciated GI recommendations. Had EGD in 2017. Conservative treatment. Switch Protonix 40 mg IV b.i.d. to 40 mg p.o. q.day -presented with hemoglobin 6.7. Hemoglobin 8 status post 2 units PRBC on 12/12 Today hemoglobin 8.4, stable #Paroxysmal atrial fibrillation not on anticoagulation -currently normal sinus rhythm. Continue telemetry. #History of hypertension -currently controlled. Need to monitor #CAD status post stents -aspirin has been held. Revisit discussion tomorrow the benefits versus risk considering his GI bleed. #Heart failure preserved ejection fraction Decompensated heart failure/acute on chronic diastolic heart failure Echocardiogram report ? 1. Complete two-dimensional, color flow and Doppler transthoracic echocardiogram is performed. ? 2. Left ventricular chamber dimension is normal. ? 3. Left ventricular systolic function is normal, estimated at 60-65%. ? 4. There is no increased left ventricular wall thickness. ? 5. The left ventricular diastolic function is grade II diastolic dysfunction. ? 6. Left atrial chamber dimension is severely enlarged. ? 7. Right atrial chamber dimension is mildly enlarged. ? 8. There is mild aortic valve stenosis with a peak velocity of 279 cm/s, mean gradient of 17 mmHg, and aortic valve area of 1.6 cm2. ? 9. There is mild aortic valve regurgitation. ? 10. There is mild mitral valve regurgitation. ? 11. There is trace tricuspid valve regurgitation. ? 12. Moderate pulmonary hypertension, estimated pulmonary arterial systolic pressure is 49 mmHg. Change from Lasix 20 mg daily p.o., to 20 mg b.i.d. IV push, add acetazolamide p.o. 125 mg q.h.s. patient has high bicarbonate FEN: Heart healthy diet. Saline lock IV. GI prophylaxis: Protonix 40 mg q.day DVT prophylaxis: SCDs only Lines: Peripheral IV Code Status: Full code Dispo: Stable. Transfer to [facility] Subjective Date/time seen:
[2023-12-15] MEDS: CHOLECALCIFEROL 1,000 UNITS TABLET 2000 UNITS PO (10:46)
[2023-12-15] MEDS: lisinopriL 5 MG TABLET PO (10:46)
[2023-12-15] MEDS: AMIODARONE HCL 200 MG TABLET PO (10:47)
[2023-12-15] MEDS: PANTOPRAZOLE 40 MG TABLET PO (10:51)
[2023-12-15] MEDS: predniSONE 20 MG TABLET 40 MG PO (10:51)
[2023-12-15] MEDS: guaiFENesin 12 HR 600 MG TABCR 1200 MG PO ×2 (10:51→20:10)
[2023-12-15] MEDS: OSELTAMIVIR PHOSPHATE 30 MG CAPSULE PO ×2 (10:51→20:11)
[2023-12-15] MEDS: THERAPEUTIC MULTIVITAMINS/MINERALS TAB (*BKC) 1 TABLET PO (10:52)
[2023-12-15] MEDS: LOTEPREDNOL ETABONATE 0.5% OPH 5 ML BOTTLE 1 DROP EACH EYE (10:52)
[2023-12-15 11:35] LABS: Procalcitonin 0.1 ng/mL
--- NOTE | 2023-12-15 14:26 | WPDGIPROGNO ---
Progress Note: A&P Assessment and Plan (1) Acute on chronic anemia: Code(s): D64.9 - Anemia, unspecified Status: Acute Assessment and Plan: stable and no overt gib had occult blood in stools here with influenza but symptomatically better given advanced age and respiratory issues recommended conservative management if obvious bleeding then he can follow-up in office to entertain idea of possible scopes (2) Acute hypoxic respiratory failure: Code(s): J96.01 - Acute respiratory failure with hypoxia Status: Acute Assessment and Plan: improving (3) Occult blood in stools: Code(s): R19.5 - Other fecal abnormalities Status: Acute (4) Influenza A: Code(s): J10.1 - Influenza due to other identified influenza virus with other respiratory manifestations Status: Acute (5) Coronary artery disease: Code(s): I25.10 - Atherosclerotic heart disease of [place] coronary artery without angina pectoris Status: Acute (6) Obesity hypoventilation syndrome: Code(s): E66.2 - Morbid (severe) obesity with alveolar hypoventilation Status: Acute Assessment and Plan: also seeing pulmonary Subjective Date/time seen: 12/15/23 14:26 Interval history: he is feeling better, less shortness of breath but still on oxygen Review of Systems Review of Systems: All systems reviewed & are unremarkable except as noted in HPI and below Exam Const: Other: A&O x3, using oxygen, more comfortable HENMT: Face/Nose/Sinus: Normal nares present Eyes: Sclera: sclerae normal Neck: Neck: supple Resp: Effort & Inspection: normal respiratory effort Auscultation: no crackles and wheezes Cardio: Rate: regular rate Rhythm: regular rhythm Heart sounds: no gallops, no murmurs and no rubs GI: Inspection: distended GI Palp: Yes Soft to palpation, No Tenderness to palpation present (GI) and No Guarding due to palpation present (GI) Auscultation: normal bowel sounds Skin: General skin exam: normal color Neuro: Speech: normal speech Motor exam (neuro): 5/5 motor strength present throughout Extrem: General: edema (Trace) Psych: Affect: normal affect Objective Data Vital Signs Vital Signs: Vital Signs - 24 hr 12/14/23 14:28 12/14/23 16:35 12/14/23 16:20 Temperature Pulse Rate 80 96 Respiratory Rate 20 20 Blood Pressure 94/48 L Pulse Oximetry 96 96 Oxygen Delivery Nasal Cannula Oxygen Flow Rate 4 12/14/23 22:16 12/14/23 22:22 12/14/23 21:18 Temperature 97.9 F Pulse Rate 87 87 88 Respiratory Rate 22 H 20 Blood Pressure 177/81 H Pulse Oximetry 96 97 Oxygen Delivery Nasal Cannula Oxygen Flow Rate 3 12/14/23 20:00 12/15/23 01:00 12/15/23 03:08 Temperature 98.7 F Pulse Rate 95 92 Respiratory Rate 28 H 26 H Blood Pressure 146/60 H Pulse Oximetry 96 96 Oxygen Delivery Nasal Cannula Oxygen Flow Rate 4 12/14/23 22:30 12/15/23 05:31 12/15/23 07:00 Temperature 98.6 F Pulse Rate 85 83 84 Respiratory Rate 24 H 20 18 Blood Pressure 152/58 H Pulse Oximetry 93 95 Oxygen Delivery Nasal Cannula Oxygen Flow Rate 3 12/15/23 07:00 12/15/23 07:10 12/15/23 10:47 Temperature Pulse Rate 84 87 81 Respiratory Rate 18 20 Blood Pressure Pulse Oximetry Oxygen Delivery Oxygen Flow Rate 12/15/23 10:00 12/15/23 12:00 12/15/23 13:00 Temperature 97.7 F 97.5 F L Pulse Rate 81 83 86 Respiratory Rate 20 22 H 20 Blood Pressure 137/40 L 135/61 Pulse Oximetry 95 96 Oxygen Delivery Oxygen Flow Rate 12/15/23 13:10 Temperature Pulse Rate 88 Respiratory Rate 18 Blood Pressure Pulse Oximetry Oxygen Delivery Oxygen Flow Rate Intake/Output Intake/Output: Intake & Output 12/12/23 12/13/23 12/14/23 12/15/23 23:59 23:59 23:59 23:59 Intake Total 4164 077 2090 390 Output Total 1000 2284 544 3283 Balance 200 -1050 730 -888 Meds/Results Medications: Active
[2023-12-15] MEDS: FUROSEMIDE INJ 40 MG/4 ML VIAL 20 MG IV PUSH (18:31)
[2023-12-15] MEDS: DOXYCYCLINE HYCLATE 100 MG TABLET PO (20:10)
[2023-12-15] MEDS: ACETAMINOPHEN 325 MG TABLET 650 MG PO (20:10)
[2023-12-15] MEDS: cefTRIAXone 2 GM/NS 100 ML 2 GM/100 ML BAG IVPB (20:10)
[2023-12-15] MEDS: traZODone HCL 50 MG TABLET PO (20:11)
[2023-12-15] MEDS: ATORVASTATIN 40 MG TABLET 80 MG PO (20:11)
[2023-12-16] VITALS (18 sets, daily range): BP systolic 130–178; BP diastolic 48–91; PULSE 75–88; RESP 18–24; TEMP 36.3–37.2; O2SAT 94–99
[2023-12-16] MEDS: ACETAMINOPHEN 325 MG TABLET 650 MG PO ×2 (02:21→21:47)
[2023-12-16] MEDS: IPRATROPIUM 0.5 MG/ALBUTEROL SULFATE 2.5 MG AMPUL.NEB 3 ML INHALATION ×4 (02:31→20:38)
[2023-12-16] MEDS: ALBUTEROL SULFATE (*SP) AEROSOL 1 PUFF 2 PUFF INHALATION (06:03)
[2023-12-16 07:07] LABS: Basophils Percent Auto 0.2 % (0.2-1.2); Hemoglobin 8.6 g/dL (14.0-18.0); Immature Granulocyte Absolute 0.03 K/mm3 (0.00-0.031); Immature Granulocyte Percent A 0.5 % (0-0.5); Lymphocytes Absolute Auto 0.78 K/mm3 (0.9-3.2); Lymphocytes Percent Auto 12.9 % (18.3-44.2); Mean Corpuscular HGB Conc 29.7 g/dl (32-36); Mean Corpuscular Hemoglobin 26.4 pg (26-34); Mean Platelet Volume 9.9 fl (7.4-10.4); Monocytes Absolute Auto 0.7 K/mm3 (0.1-0.6); Monocytes Percent Auto 11.2 % (2.6-8.5); Neutrophils Absolute Auto 4.6 K/mm3 (1.3-6.7); Neutrophils Percent Auto 75.2 % (45.5-73.1); Platelet Count Result 415 k/mm3 (150-375); Red Blood Count 3.26 M/mm3 (4.6-6.20); Red Cell Distribution Width 19.1 % (11.5-14.5); White Blood Count 6.1 K/mm3 (4.5-10.0)
[2023-12-16 07:20] LABS: Alanine Aminotransferase 34 U/L (6-50); Albumin Level 3.4 g/dL (3.5-5.1); Alkaline Phosphatase 56 U/L (38-126); Anion Gap 4 mmol/L (8-16); Aspartate Amino Transferase 39 U/L (17-59); Bilirubin,Total 0.6 mg/dL (0.2-1.3); Blood Urea Nitrogen 31 mg/dL (9-20); Carbon Dioxide 33 mmol/L (22-30); Chloride 98 mmol/L (98-107); Estimated CRCL calculation 47 ml/min; Estimated Glomerular Filt Rate > 60; Glucose 93 mg/dL (65-110); Magnesium 2.1 mg/dL (1.6-2.3); Potassium 4.1 mmol/L (3.4-5.0); Sodium 135 mmol/L (137-145)
[2023-12-16 07:30] LABS: Anisocytosis 1+ (NORMAL); Hypochromasia 1+ (NORMAL); Ovalocytes 1+ (NORMAL); Platelet Estimate Adequate (Adequate); Schistocytes None Seen (NORMAL)
[2023-12-16 07:54] LABS: Procalcitonin 0.1 ng/mL
[2023-12-16] MEDS: predniSONE 20 MG TABLET 40 MG PO (08:26)
[2023-12-16] MEDS: PANTOPRAZOLE 40 MG TABLET PO (08:26)
[2023-12-16] MEDS: lisinopriL 5 MG TABLET PO (08:26)
[2023-12-16] MEDS: DOXYCYCLINE HYCLATE 100 MG TABLET PO ×2 (08:26→21:48)
[2023-12-16] MEDS: THERAPEUTIC MULTIVITAMINS/MINERALS TAB (*BKC) 1 TABLET PO (08:27)
[2023-12-16] MEDS: CHOLECALCIFEROL 1,000 UNITS TABLET 2000 UNITS PO (08:27)
[2023-12-16] MEDS: AMIODARONE HCL 200 MG TABLET PO (08:27)
[2023-12-16] MEDS: OSELTAMIVIR PHOSPHATE 30 MG CAPSULE PO ×2 (08:27→21:48)
[2023-12-16] MEDS: LOTEPREDNOL ETABONATE 0.5% OPH 5 ML BOTTLE 1 DROP EACH EYE (08:27)
[2023-12-16] MEDS: FUROSEMIDE INJ 40 MG/4 ML VIAL 20 MG IV PUSH (08:27)
[2023-12-16] MEDS: guaiFENesin 12 HR 600 MG TABCR 1200 MG PO ×2 (08:27→21:47)
--- NOTE | 2023-12-16 08:36 | PM.IMPN ---
Progress Note: A&P Assessment and Plan (1) Acute hypoxic respiratory failure: Code(s): J96.01 - Acute respiratory failure with hypoxia Status: Acute (2) Anemia: Code(s): D64.9 - Anemia, unspecified Status: Acute (3) Influenza A: Code(s): J10.1 - Influenza due to other identified influenza virus with other respiratory manifestations Status: Acute (4) Obesity hypoventilation syndrome: Code(s): E66.2 - Morbid (severe) obesity with alveolar hypoventilation Status: Acute Plan 88-year-old male with a history of chronic respiratory failure on 2 L home O2, NSIP, obesity hypoventilation syndrome, obesity, atrial fibrillation not on anticoagulation/tachy-vickie, chronic anemia, history of urinary retention, hypertension, CAD status post stents, heart failure preserved ejection fraction, anisocoria, aortic valve stenosis. He has been at home with home health after discharge this month with an admission of hypercapnia. He presents via ground transport with the complaint of cough shortness of breath runny nose and nasal congestion. Admitted on 12/12/2023 #Acute on chronic hypoxic respiratory failure/influenza a/obesity hypoventilation syndrome/nonspecific interstitial pneumonia -tolerating nasal cannula day. Much improved. PCO2 42 on admission. Continue BiPAP at night -continue Tamiflu renal dose for influenza a -wheezing improved. Continue DuoNebs. Discontinue vancomycin. Deescalate cefepime. Downgrade Solu-Medrol to prednisone. -on 12/14 he is breathing better but complaining of chest congestion with inability to produce sputum. Start guaifenesin 1.2 b.i.d. and check sputum culture 12/15: Patient's oxygen therapy 3 liters/minute via nasal cannular, follow-up procalcitonin, chest x-ray, well 2 bottles of grows Staphylococcus epidermidis, possible contamination, repeat blood culture negative on 12/14, deescalate antibiotics to ceftriaxone and doxycycline p.o. 2/2 on nasal canular 3 l #Acute on chronic anemia due to suspected GI bleed -stool occult positive in the ER. -appreciated GI recommendations. Had EGD in 2017. Conservative treatment. Switch Protonix 40 mg IV b.i.d. to 40 mg p.o. q.day -presented with hemoglobin 6.7. Hemoglobin 8 status post 2 units PRBC on 12/12 Today hemoglobin 8.4, stable #Paroxysmal atrial fibrillation not on anticoagulation -currently normal sinus rhythm. Continue telemetry. #History of hypertension -currently controlled. Need to monitor #CAD status post stents -aspirin has been held. Revisit discussion tomorrow the benefits versus risk considering his GI bleed. #Heart failure preserved ejection fraction Decompensated heart failure/acute on chronic diastolic heart failure Echocardiogram report ? 1. Complete two-dimensional, color flow and Doppler transthoracic echocardiogram is performed. ? 2. Left ventricular chamber dimension is normal. ? 3. Left ventricular systolic function is normal, estimated at 60-65%. ? 4. There is no increased left ventricular wall thickness. ? 5. The left ventricular diastolic function is grade II diastolic dysfunction. ? 6. Left atrial chamber dimension is severely enlarged. ? 7. Right atrial chamber dimension is mildly enlarged. ? 8. There is mild aortic valve stenosis with a peak velocity of 279 cm/s, mean gradient of 17 mmHg, and aortic valve area of 1.6 cm2. ? 9. There is mild aortic valve regurgitation. ? 10. There is mild mitral valve regurgitation. ? 11. There is trace tricuspid valve regurgitation. ? 12. Moderate pulmonary hypertension, estimated pulmonary arterial systolic pressure is 49 mmHg. Change from Lasix 20 mg daily p.o., to 20 mg b.i.d. IV push, add acetazolamide p.o. 125 mg q.h.s. patient has high bicarbonate 2/2 : Continue to improve, bicarbonate 33, stop Lasix, changed to acetazolamide 250 mg daily IV FEN: Heart healthy diet. Saline lock IV. GI prophylaxis: Protonix 40 mg q.day DVT prophylaxis: SCDs only Kiera
[2023-12-16] MEDS: acetaZOLAMIDE SODIUM FOR INJ 500 MG VIAL 250 MG IV PUSH (09:46)
[2023-12-16 17:41] LABS: Alveolar/Arterial O2 Gradient 86.8 mmHg; Base Excess ABG -0.6 mEq/l (+/-2.0); Fractional Inspired Oxygen 32 %; Oxygen Content ABG 13.4 %vol (16.0-22.0); Oxygen Saturation ABG 94.7 % (95.0-100.0); Oxyhemoglobin 93.7 % THb (90.0-100.0); PCO2 ABG 52.3 mmHg (35.0-45.0); PO2 ABG 80.2 mmHg (80.0-100.0); PO2 FiO2 Ratio Arterial Blood 2.51 %; Total Hemoglobin 10.1 g/dL (12.0-18.0); pH ABG 7.315 (7.350-7.450)
[2023-12-16 17:42] LABS: Device NASAL CANNULA; Modified Allen's Test Pass; Site Drawn RIGHT RADIAL
[2023-12-16] MEDS: ATORVASTATIN 40 MG TABLET 80 MG PO (21:47)
[2023-12-16] MEDS: traZODone HCL 50 MG TABLET PO (21:48)
[2023-12-16] MEDS: AMOXICILLIN/CLAVULANATE K 875-125 MG TAB 1 TABLET PO (21:48)
[2023-12-17] VITALS (16 sets, daily range): BP systolic 146–157; BP diastolic 58–89; PULSE 71–92; RESP 20–24; TEMP 35.8–36.9; O2SAT 93–100
[2023-12-17] MEDS: IPRATROPIUM 0.5 MG/ALBUTEROL SULFATE 2.5 MG AMPUL.NEB 3 ML INHALATION ×4 (02:40→20:34)
[2023-12-17 07:09] LABS: Eosinophils Percent Auto 0.7 % (0-4.4); Hematocrit 31.1 % (42.0-52.0); Immature Granulocyte Absolute 0.02 K/mm3 (0.00-0.031); Immature Granulocyte Percent A 0.3 % (0-0.5); Lymphocytes Absolute Auto 0.89 K/mm3 (0.9-3.2); Lymphocytes Percent Auto 15.5 % (18.3-44.2); Mean Corpuscular HGB Conc 28.9 g/dl (32-36); Mean Corpuscular Hemoglobin 25.6 pg (26-34); Mean Corpuscular Volume 88.4 fl (80-100); Mean Platelet Volume 9.6 fl (7.4-10.4); Monocytes Absolute Auto 0.7 K/mm3 (0.1-0.6); Monocytes Percent Auto 12.4 % (2.6-8.5); Neutrophils Absolute Auto 4.1 K/mm3 (1.3-6.7); Neutrophils Percent Auto 71.1 % (45.5-73.1); Platelet Count Result 394 k/mm3 (150-375); Red Blood Count 3.52 M/mm3 (4.6-6.20); Red Cell Distribution Width 18.9 % (11.5-14.5); White Blood Count 5.7 K/mm3 (4.5-10.0)
[2023-12-17 07:36] LABS: Alanine Aminotransferase 36 U/L (6-50); Albumin Level 3.6 g/dL (3.5-5.1); Alkaline Phosphatase 60 U/L (38-126); Anion Gap 2 mmol/L (8-16); Aspartate Amino Transferase 34 U/L (17-59); Bilirubin,Total 0.6 mg/dL (0.2-1.3); Blood Urea Nitrogen 28 mg/dL (9-20); Carbon Dioxide 33 mmol/L (22-30); Chloride 100 mmol/L (98-107); Estimated CRCL calculation 50 ml/min; Estimated Glomerular Filt Rate > 60; Glucose 93 mg/dL (65-110); Magnesium 2.1 mg/dL (1.6-2.3); Sodium 135 mmol/L (137-145)
[2023-12-17 07:56] LABS: Procalcitonin 0.1 ng/mL
[2023-12-17 08:28] LABS: Anisocytosis 1+ (NORMAL); Hypochromasia 1+ (NORMAL); Ovalocytes 1+ (NORMAL); Platelet Estimate Adequate (Adequate); Schistocytes None Seen (NORMAL)
[2023-12-17] MEDS: AMIODARONE HCL 200 MG TABLET PO (08:38)
[2023-12-17] MEDS: CHOLECALCIFEROL 1,000 UNITS TABLET 2000 UNITS PO (08:38)
[2023-12-17] MEDS: THERAPEUTIC MULTIVITAMINS/MINERALS TAB (*BKC) 1 TABLET PO (08:38)
[2023-12-17] MEDS: PANTOPRAZOLE 40 MG TABLET PO (08:38)
[2023-12-17] MEDS: acetaZOLAMIDE SODIUM FOR INJ 500 MG VIAL 250 MG IV PUSH (08:38)
[2023-12-17] MEDS: predniSONE 20 MG TABLET 40 MG PO (08:39)
[2023-12-17] MEDS: DOXYCYCLINE HYCLATE 100 MG TABLET PO ×2 (08:39→21:30)
[2023-12-17] MEDS: AMOXICILLIN/CLAVULANATE K 875-125 MG TAB 1 TABLET PO ×2 (08:39→21:29)
[2023-12-17] MEDS: lisinopriL 5 MG TABLET PO (08:39)
[2023-12-17] MEDS: guaiFENesin 12 HR 600 MG TABCR 1200 MG PO ×2 (08:39→21:28)
[2023-12-17] MEDS: OSELTAMIVIR PHOSPHATE 30 MG CAPSULE PO (08:39)
[2023-12-17] MEDS: LOTEPREDNOL ETABONATE 0.5% OPH 5 ML BOTTLE 1 DROP EACH EYE (08:40)
--- NOTE | 2023-12-17 09:12 | PM.IMPN ---
Progress Note: A&P Assessment and Plan (1) Acute hypoxic respiratory failure: Code(s): J96.01 - Acute respiratory failure with hypoxia Status: Acute (2) Anemia: Code(s): D64.9 - Anemia, unspecified Status: Acute (3) Influenza A: Code(s): J10.1 - Influenza due to other identified influenza virus with other respiratory manifestations Status: Acute (4) Obesity hypoventilation syndrome: Code(s): E66.2 - Morbid (severe) obesity with alveolar hypoventilation Status: Acute Plan 88-year-old male with a history of chronic respiratory failure on 2 L home O2, NSIP, obesity hypoventilation syndrome, obesity, atrial fibrillation not on anticoagulation/tachy-vickie, chronic anemia, history of urinary retention, hypertension, CAD status post stents, heart failure preserved ejection fraction, anisocoria, aortic valve stenosis. He has been at home with home health after discharge this month with an admission of hypercapnia. He presents via ground transport with the complaint of cough shortness of breath runny nose and nasal congestion. Admitted on 12/12/2023 #Acute on chronic hypoxic respiratory failure/influenza a/obesity hypoventilation syndrome/nonspecific interstitial pneumonia -tolerating nasal cannula day. Much improved. PCO2 42 on admission. Continue BiPAP at night -continue Tamiflu renal dose for influenza a -wheezing improved. Continue DuoNebs. Discontinue vancomycin. Deescalate cefepime. Downgrade Solu-Medrol to prednisone. -on 12/14 he is breathing better but complaining of chest congestion with inability to produce sputum. Start guaifenesin 1.2 b.i.d. and check sputum culture 12/15: Patient's oxygen therapy 3 liters/minute via nasal cannular, follow-up procalcitonin, chest x-ray, well 2 bottles of grows Staphylococcus epidermidis, possible contamination, repeat blood culture negative on 12/14, deescalate antibiotics to ceftriaxone and doxycycline p.o. /2 on nasal canular 3 l 12/17: ABG showed acute chronic respiratory failure with CO2 retention, respiratory acidosis, possible related hypoventilation syndrome and chronic interstitial lung disease order CT chest high resolution consult history department chair for evaluation treatment #Acute on chronic anemia due to suspected GI bleed -stool occult positive in the ER. -appreciated GI recommendations. Had EGD in 2017. Conservative treatment. Switch Protonix 40 mg IV b.i.d. to 40 mg p.o. q.day -presented with hemoglobin 6.7. Hemoglobin 8 status post 2 units PRBC on 12/12 Today hemoglobin 8.4, stable #Paroxysmal atrial fibrillation not on anticoagulation -currently normal sinus rhythm. Continue telemetry. #History of hypertension -currently controlled. Need to monitor #CAD status post stents -aspirin has been held. Revisit discussion tomorrow the benefits versus risk considering his GI bleed. #Heart failure preserved ejection fraction Decompensated heart failure/acute on chronic diastolic heart failure Echocardiogram report ? 1. Complete two-dimensional, color flow and Doppler transthoracic echocardiogram is performed. ? 2. Left ventricular chamber dimension is normal. ? 3. Left ventricular systolic function is normal, estimated at 60-65%. ? 4. There is no increased left ventricular wall thickness. ? 5. The left ventricular diastolic function is grade II diastolic dysfunction. ? 6. Left atrial chamber dimension is severely enlarged. ? 7. Right atrial chamber dimension is mildly enlarged. ? 8. There is mild aortic valve stenosis with a peak velocity of 279 cm/s, mean gradient of 17 mmHg, and aortic valve area of 1.6 cm2. ? 9. There is mild aortic valve regurgitation. ? 10. There is mild mitral valve regurgitation. ? 11. There is trace tricuspid valve regurgitation. ? 12. Moderate pulmonary hypertension, estimated pulmonary arterial systolic pressure is 49 mmHg. Change from Lasix 20 mg daily p.o., to 20 mg b.i.d. IV push, add acetazolamide p.o. 125 mg q
--- NOTE | 2023-12-17 09:59 | PCOTNOTE ---
Attempted OT eval at 9:59, pt. off unit with radiology. Will follow.
--- NOTE | 2023-12-17 13:16 | PM.CNPUL ---
Assessment and Plan Assessment and plan (1) Influenza A: Code(s): J10.1 - Influenza due to other identified influenza virus with other respiratory manifestations Status: Acute Assessment and Plan: Patient presented on 12/12/2023 with shortness of breath, cough and hypoxemia. He was found to be influenza A positive. He has completed 5 days of Tamiflu today. He has also been treated empirically for bacterial superinfection and is currently on Augmentin and doxycycline. Patient is also been treated with DuoNebs and prednisone. Plan: Patient continues to improve. I have been able to discontinue his oxygen and we will follow him clinically. I have discontinued the prednisone as systemic steroids are contraindicated in influenza infection and he no longer has any wheezing and I do not believe this is a flare of his interstitial lung disease. If patient remains clinically stable he would be suitable for discharge on 12/18/2023 on these pulmonary medications: Augmentin 875-125 p.o. b.i.d. x3 days Doxycycline 100 mg p.o. b.i.d. x3 days Levalbuterol 1.25 mg nebulized q.6 hours Ipratropium 0.5 mg nebulized q.6 hours Oxygen at rest and with ambulation per home O2 assessment Noninvasive ventilator with 2 L bleed in. Follow-up in the Pulmonary Clinic with his previously scheduled appointment on 12/29/2023 at 10:[address] Holloway, will follow with you (2) Interstitial lung disease: Code(s): J84.9 - Interstitial pulmonary disease, unspecified Status: Acute Assessment and Plan: Review of his medical chart showed that chest CT in 11/25/2020 and 01/04/2022 had shown nonspecific interstitial lung disease changes bilaterally.? In particular he had mild peripheral reticulation, primarily subpleurally with no evidence of traction bronchiectasis or honeycombing.? Also pulmonary function testing in December of 2021 showed a nonspecific pattern; he had a 6 minute walk test in December of 2021 but the test was incomplete because of shortness of breath.? Patient admitted now with influenza a infection and CT scan shows continued peripheral reticulations with minimal progression since 2020 or 2021. Plan: I do not believe this is a flare of his interstitial lung disease. I will send us a complete set of serologies looking for autoimmune or mixed connective tissue disease etiology for his interstitial lung disease. (3) Chronic respiratory failure: Code(s): J96.10 - Chronic respiratory failure, unspecified whether with hypoxia or hypercapnia Status: Acute Assessment and Plan: Patient with a history chronic hypercarbic respiratory failure and has been on a home noninvasive ventilator through the [employer]. This was initiated about 2-3 weeks ago and patient and son state that he is wearing it every night and that he is doing well with this with 2 L bleed in. Plan: I recommended to the son that he bring his machine in and tonight the patient will wear his home machine with 2 L bleed in and I will to and an overnight oximetry an ABG prior to removal. History of Present Illness History of Present Illness Consult date: 12/17/23 Chief complaint: Hypoxia, Anemia, GI Bleed, Influenza A Narrative: 12/17/23: New pulmonary consult for ILD 88 YO with severe hearing loss, COPD, anisocoria, essential hypertension, coronary artery disease post-stent placement, atrial fibrillation (not currently on anticoagulation due to recurrent anemia), grade 2 diastolic heart failure, and aortic valve stenosis. Patient followed in pulmonary clinic. Patient admitted to the hospital on 11/18/2023 through 11/29/23: for altered mental status and seen by the Pulmonary consult team 11/20/23 this 87-year-old man seen in pulmonary clinic in follow-up.? The patient has history of a chronic shortness of breath, history of interstitial lung disease, nocturnal hypoxemia currently on supplemental oxygen at night.? Since previous offic
[2023-12-17] MEDS: FUROSEMIDE INJ 40 MG/4 ML VIAL 20 MG IV PUSH (16:20)
[2023-12-17] MEDS: traZODone HCL 50 MG TABLET PO (21:28)
[2023-12-17] MEDS: ATORVASTATIN 40 MG TABLET 80 MG PO (21:29)
[2023-12-18] VITALS (15 sets, daily range): BP systolic 115–153; BP diastolic 52–71; PULSE 78–120; RESP 16–28; TEMP 35.7–36.9; O2SAT 85–99
[2023-12-18] MEDS: IPRATROPIUM 0.5 MG/ALBUTEROL SULFATE 2.5 MG AMPUL.NEB 3 ML INHALATION ×3 (02:00→13:43)
--- NOTE | 2023-12-18 06:08 | PCRCNOTE ---
Pt refused ABG this am
[2023-12-18 07:23] LABS: Basophils Percent Auto 0.2 % (0.2-1.2); Eosinophils Absolute Auto 0.1 K/mm3 (0-0.3); Eosinophils Percent Auto 1.6 % (0-4.4); Hematocrit 31.5 % (42.0-52.0); Hemoglobin 9.4 g/dL (14.0-18.0); Immature Granulocyte Absolute 0.03 K/mm3 (0.00-0.031); Immature Granulocyte Percent A 0.5 % (0-0.5); Lymphocytes Absolute Auto 0.83 K/mm3 (0.9-3.2); Lymphocytes Percent Auto 14.8 % (18.3-44.2); Mean Corpuscular HGB Conc 29.8 g/dl (32-36); Mean Corpuscular Hemoglobin 26.3 pg (26-34); Mean Platelet Volume 10.2 fl (7.4-10.4); Monocytes Absolute Auto 0.7 K/mm3 (0.1-0.6); Monocytes Percent Auto 11.6 % (2.6-8.5); Neutrophils Percent Auto 71.3 % (45.5-73.1); Platelet Count Result 362 k/mm3 (150-375); Red Blood Count 3.58 M/mm3 (4.6-6.20); Red Cell Distribution Width 18.7 % (11.5-14.5); White Blood Count 5.6 K/mm3 (4.5-10.0)
[2023-12-18 07:28] LABS: Alanine Aminotransferase 38 U/L (6-50); Albumin Level 3.5 g/dL (3.5-5.1); Alkaline Phosphatase 61 U/L (38-126); Anion Gap 3 mmol/L (8-16); Aspartate Amino Transferase 32 U/L (17-59); Bilirubin,Total 0.7 mg/dL (0.2-1.3); Blood Urea Nitrogen 25 mg/dL (9-20); Carbon Dioxide 31 mmol/L (22-30); Chloride 101 mmol/L (98-107); Estimated CRCL calculation 54 ml/min; Estimated Glomerular Filt Rate > 60; Glucose 97 mg/dL (65-110); Potassium 4.1 mmol/L (3.4-5.0); Sodium 135 mmol/L (137-145)
--- NOTE | 2023-12-18 07:29 | PM.PNPUL ---
Progress Note: A&P Assessment and Plan (1) Influenza A: Code(s): J10.1 - Influenza due to other identified influenza virus with other respiratory manifestations Status: Acute Assessment and Plan: Patient presented on 12/12/2023 with shortness of breath, cough and hypoxemia. He was found to be influenza A positive. He has completed 5 days of Tamiflu today. He has also been treated empirically for bacterial superinfection and is currently on Augmentin and doxycycline. Patient is also been treated with DuoNebs and prednisone. Plan: Patient continues to improve. I have been able to discontinue his oxygen and we will follow him clinically. I have discontinued the prednisone as systemic steroids are contraindicated in influenza infection and he no longer has any wheezing and I do not believe this is a flare of his interstitial lung disease. 12/18/23: Patient states he is breathing at his normal. Continued cough with minimal phlegm production. No hemoptysis. Currently the patient is on 3 L nasal cannula saturations 98%. Plan: From a pulmonary perspective patient is ready to be discharged on these pulmonary medications: Augmentin 875-125 p.o. b.i.d. x3 days Doxycycline 100 mg p.o. b.i.d. x3 days Levalbuterol 1.25 mg nebulized q.6 hours Ipratropium 0.5 mg nebulized q.6 hours Oxygen at rest and with ambulation per home O2 assessment which I have ordered Noninvasive ventilator with 3 L bleed in. Follow-up in the Pulmonary Clinic with his previously scheduled appointment on 12/29/2023 at 10:15 a.m.. Call with questions (2) Interstitial lung disease: Code(s): J84.9 - Interstitial pulmonary disease, unspecified Status: Acute Assessment and Plan: Review of his medical chart showed that chest CT in 11/25/2020 and 01/04/2022 had shown nonspecific interstitial lung disease changes bilaterally.? In particular he had mild peripheral reticulation, primarily subpleurally with no evidence of traction bronchiectasis or honeycombing.? Also pulmonary function testing in December of 2021 showed a nonspecific pattern; he had a 6 minute walk test in December of 2021 but the test was incomplete because of shortness of breath.? Patient admitted now with influenza a infection and CT scan shows continued peripheral reticulations with minimal progression since 2020 or 2021. Plan: I do not believe this is a flare of his interstitial lung disease. I will send us a complete set of serologies looking for autoimmune or mixed connective tissue disease etiology for his interstitial lung disease. 12/18/23: Patient is clinically stable at this time. Plan: As above. Serologies have been sent. (3) Chronic respiratory failure: Code(s): J96.10 - Chronic respiratory failure, unspecified whether with hypoxia or hypercapnia Status: Acute Assessment and Plan: Patient with a history chronic hypercarbic respiratory failure and has been on a home noninvasive ventilator through the [employer]. This was initiated about 2-3 weeks ago and patient and son state that he is wearing it every night and that he is doing well with this with 2 L bleed in. 12/17/23: Plan: I recommended to the son that he bring his machine in and tonight the patient will wear his home machine with 2 L bleed in and I will to and an overnight oximetry an ABG prior to removal. Patient was only able to tolerate his home noninvasive ventilator for 2 hours last night and then was placed on 3 L nasal cannulae. Overnight oximetry on his home machine with 2 L bleed in recording duration 3 hours and 45 minutes, the the respiratory therapist documented was on clear when he had taken his noninvasive ventilator off and put 3 L nasal cannula on. Average saturation 94%, low saturation 79%, time with saturation less than or equal to 88% at 28 minutes. Later in the day patient brought his home machine in through [employer]. He is on AVAPS AE through via [employer] with a set rate of 12
[2023-12-18 07:33] LABS: Rheumatoid Factor < 12.0 IU/ML (<12)
[2023-12-18 07:42] LABS: Creatine Kinase 39 U/L (55-170)
[2023-12-18] MEDS: CHOLECALCIFEROL 1,000 UNITS TABLET 2000 UNITS PO (07:43)
[2023-12-18] MEDS: AMOXICILLIN/CLAVULANATE K 875-125 MG TAB 1 TABLET PO (07:43)
[2023-12-18] MEDS: lisinopriL 5 MG TABLET PO (07:43)
[2023-12-18] MEDS: guaiFENesin 12 HR 600 MG TABCR 1200 MG PO (07:43)
[2023-12-18] MEDS: DOXYCYCLINE HYCLATE 100 MG TABLET PO (07:43)
[2023-12-18] MEDS: PANTOPRAZOLE 40 MG TABLET PO (07:44)
[2023-12-18] MEDS: FUROSEMIDE INJ 40 MG/4 ML VIAL 20 MG IV PUSH (07:44)
[2023-12-18] MEDS: THERAPEUTIC MULTIVITAMINS/MINERALS TAB (*BKC) 1 TABLET PO (07:44)
[2023-12-18] MEDS: LOTEPREDNOL ETABONATE 0.5% OPH 5 ML BOTTLE 1 DROP EACH EYE (07:44)
[2023-12-18] MEDS: AMIODARONE HCL 200 MG TABLET PO (07:45)
[2023-12-18 07:54] LABS: Anisocytosis 1+ (NORMAL); Hypochromasia 1+ (NORMAL); Large Platelets Present; Ovalocytes 1+ (NORMAL); Platelet Estimate Adequate (Adequate)
[2023-12-18 07:55] LABS: Schistocytes None Seen (NORMAL)
--- NOTE | 2023-12-18 10:49 | HOMEO2EVAL ---
Evaluation was performed at [facility] Evaluation RC: Home Oxygen (O2) Evaluation Start: 12/18/23 07:37 Freq: ONCE Status: Active Protocol: RPE Activity Type Activity Date Activity User E-sign Co-sign Detail Recorded Client Recorded Date Recorded By Document 12/18/23 08:28 CLAIRE [id number] 12/18/23 08:41 KAG Document 12/18/23 08:30 KAG [id number] 12/18/23 08:42 KAG Document 12/18/23 08:32 KAG [id number] 12/18/23 08:43 KAG Document 12/18/23 08:34 KAG [id number] 12/18/23 08:44 KAG 12/18/23 12/18/23 12/18/23 08:28 08:30 08:32 Home O2 Evaluation [Oxygen] -Test Phase Resting Exercise Exercise -Oxygen Delivery Room Air Room Air Nasal Cannula -Oxygen Flow Rate (L/min) 1 [Pulse Oximetry] -Pulse Oximetry (90-100 %) 94 85 L 86 L [Pulse Rate] -Pulse Rate (60-100 beats/min) 92 112 H 120 H [Evaluation] -Activity Tolerance Fair Fair [Exercise] -Ambulation Distance (feet) 20 -Ambulation Distance (meters) 6.09 [Comments] -Home Oxygen Evaluation Comments Pt ambulated Increased to 2L from bed to due to low other hospital SpO2 while bed and back, ambulating. pt a little unsteady with feet. Low SpO2 increased to 1L . [Charges] -Evaluation Charges O2 Evaluation by 12/18/23 08:34 Home O2 Evaluation [Oxygen] -Test Phase Exercise -Oxygen Delivery Nasal Cannula -Oxygen Flow Rate (L/min) 2 [Pulse Oximetry] -Pulse Oximetry (90-100 %) 90 [Pulse Rate] -Pulse Rate (60-100 beats/min) 115 H [Evaluation] -Activity Tolerance Fair [Exercise] -Ambulation Distance (feet) -Ambulation Distance (meters) [Comments] -Home Oxygen Evaluation Comments Pt seems to tolerate 2L while ambulating. [Charges] -Evaluation Charges
--- NOTE | 2023-12-18 10:56 | PCRCNOTE ---
Patient evaluated for home oxygen set up, patient requires 2 liters nasal cannula with activity and room air at rest. RN informed of patient oxygen needs for discharge.
--- NOTE | 2023-12-18 13:44 | PM.DS ---
DS: Admitting Diagnosis Discharge Date 12/18/2023 Admitting Diagnosis Anemia due to chronic blood loss DS: Discharge Diagnosis Discharge Diagnosis (1) Acute hypoxic respiratory failure: Code(s): J96.01 - Acute respiratory failure with hypoxia Status: Acute (2) Anemia: Code(s): D64.9 - Anemia, unspecified Status: Acute (3) Influenza A: Code(s): J10.1 - Influenza due to other identified influenza virus with other respiratory manifestations Status: Acute (4) Obesity hypoventilation syndrome: Code(s): E66.2 - Morbid (severe) obesity with alveolar hypoventilation Status: Acute DS: Summary Hospital Course Hospital Course: 88-year-old gentleman with interstitial lung disease was admitted due to hemoglobin is 6.7. He was also positive for influenza A. He received 2 units of packed red cells and his H&H remained stable with day of discharge hemoglobin 9.4. However his of Hemoccult-positive stool he underwent an EGD which was unrevealing. He was treated empirically initially with IV and then p.o. tonics. His oxygen requirement gradually improved. On the day of discharge he required 0 at rest, 2 L with exertion, and 3 L bleed in overnight with his BiPAP. He completed 5 days of Tamiflu for influenza A. He was to complete 3 additional days of Augmentin and doxycycline as an outpatient to complete his full course of that. At the time of discharge diet well and was alert oriented and able to function with assistance. He was to be followed by home health upon discharge. Time Spent with Patient Time attestation: Total time spent providing and/or coordinating discharge services: Exam Narrative: General appearance: Tachypneic elderly gentleman in no acute distress. Skin: Warm and dry. Head: Normocephalic Eyes: Clear conjunctiva ENT: Oropharynx normal, ears normal, nose normal Neck: no JVD Chest and respiratory: Coarse breath sounds throughout with end inspiratory and expiratory wheezes. Heart: Regular rate/rhythm. Normal S1 and S2 without audible murmurs. Abdomen: Soft, nontender, distended, BS present. Musculoskeletal: No gross deformity to visual inspection Neurologic: Cranial nerves symmetric to visual inspection Psychiatric: Alert oriented person place and time DS: Data Data Completed and Pending Labs on day of discharge: Labs from last 24 hours 12/18/23 12/18/23 12/18/23 06:00 05:59 05:54 WBC 5.6 RBC 3.58 L Hgb 9.4 L Hct 31.5 L MCV 88.0 MCH 26.3 MCHC 29.8 L RDW 18.7 H Plt Count 362 MPV 10.2 Immature Gran % (Auto) 0.5 Neut % (Auto) 71.3 Lymph % (Auto) 14.8 L Bay % (Auto) 11.6 H Eos % (Auto) 1.6 Baso % (Auto) 0.2 Lymph # (Auto) 0.83 L Bay # (Auto) 0.7 H Eos # (Auto) 0.1 Baso # (Auto) 0.0 Abs Immat Gran (auto) 0.03 Absolute Neuts (auto) 4.0 Absolute Nucleated RBC 0.0 Nucleated RBC % 0.0 Platelet Estimate Adequate Large Platelets Present Hypochromasia 1+ Anisocytosis 1+ Ovalocytes 1+ Schistocytes None seen Sodium 135 L Potassium 4.1 Chloride 101 Carbon Dioxide 31 H Anion Gap 3 L BUN 25 H Creatinine 0.90 Estim Creat Clear Calc 54 Estimated GFR > 60 Glucose 97 Calcium 9.0 Magnesium 2.0 Total Bilirubin 0.7 AST 32 ALT 38 Alkaline Phosphatase 61 Total Creatine Kinase 39 L Total Protein 6.0 L Albumin 3.5 Aldolase Pending Rheumatoid Factor < 12.0 Rheumatoid Factor Scrn Cancelled Rheumatoid Factor Titer Cancelled Anti-Cycl Citrul Peptide Pending DENIZ Scrn Qualitative Pending DENIZ [place] Interp Pending Anti-Faby-1 FEIA c/o 6.9 Pending EJ Antibody Pending OJ Antibody Pending Mi-2 Antibody Pending NXP-[address]-12 Antibody Pending Anti-NM-2 Beta Pending Anti-MDA5 Pending Myos P155/140 TIF1-g Ab Pending Anti-SRP An
--- NOTE | 2023-12-18 15:25 | PCRCNOTE ---
Patient is a patient with [facility] company with oxygen needs. Company was called and set up with the new needs of room air at rest and 2L with Activity. Samantha was also informed of Dr. Clark new changes with home trilogy unit of having a 3L bleed in. RN informed of discharge instructions and patient sent home with a tank from [facility].
[2023-12-21 12:41] LABS: ANA Cascade Screen Negative (Negative)
[2023-12-23 05:23] LABS: Anti Cyclic Citrullinated Pept <16 Units (<20)
[2023-12-27 00:02] LABS: JO-1 AB <11 SI (<11); MI-2 Alpha Ab <11 SI (<11); MI-2 Beta Ab <11 SI (<11); NXP-2 AB <11 SI (<11); TIF1 Gamma Ab <11 SI (<11)
== END 2023-12-18 15:45 | disposition home health service (06) | DRG 193 ==
LOC: ANHED 18:41 → ANHIMU 20:14 → ANH3MEDSUR 12-14 16:11
PROVIDERS: General Practice; Hospitalist; Internal Medicine Pulmonary Disease; Nurse Practitioner; Admitting Provider Internal Medicine; Emergency Provider Emergency Medicine; PCP Family Medicine; Visit Provider Internal Medicine
DX: J10.1 Influenza due to other identified influenza virus with other respiratory manifestations (principal); I50.33 Acute on chronic diastolic (congestive) heart failure; J96.21 Acute and chronic respiratory failure with hypoxia; K92.2 Gastrointestinal hemorrhage, unspecified; E66.2 Morbid (severe) obesity with alveolar hypoventilation; D62 Acute posthemorrhagic anemia; J84.9 Interstitial pulmonary disease, unspecified; E87.1 Hypo-osmolality and hyponatremia; J44.9 Chronic obstructive pulmonary disease, unspecified; D64.9 Anemia, unspecified; I25.10 Atherosclerotic heart disease of native coronary artery without angina pectoris; E78.5 Hyperlipidemia, unspecified; H40.9 Unspecified glaucoma; I35.0 Nonrheumatic aortic (valve) stenosis; I48.0 Paroxysmal atrial fibrillation; L40.9 Psoriasis, unspecified; I10 Essential (primary) hypertension; Z68.32 Body mass index [BMI] 32.0-32.9, adult; Z85.46 Personal history of malignant neoplasm of prostate; Z95.5 Presence of coronary angioplasty implant and graft; Z90.49 Acquired absence of other specified parts of digestive tract; Z99.81 Dependence on supplemental oxygen; Z79.82 Long term (current) use of aspirin
CPT/HCPCS: 36415; 36430; 36600; 71045; 71250; 74177; 80053; 82085; 82550; 82805; 83605; 83735; 83880; 84145; 84182; 84484; 85014; 85018; 85025; 85610; 85730; 86038; 86200; 86225; 86235; 86364; 86430; 86850; 86900; 86901; 86923; 87040; 87637; 87641; 93005; 94002; 94003; 94618; 94640; 94660; 96374; 96375; 97161; 97165; 99285; A9270; C9113; J0692; J0696; J1120; J1940; J2930; J3370; J7050; J7512; P9016; Q9967

== ENCOUNTER 2023-12-19 14:40 | Inpatient (IN) | payer MEDICARE, SELFPAY ==
[2023-12-19] VITALS (10 sets, daily range): BP systolic 114–147; BP diastolic 56–76; PULSE 74–92; RESP 15–23; TEMP 36.2–37.1; O2SAT 95–100; BMI 30.7
--- NOTE | ~2023-12-19 | US_ITS ---
EXAMINATION: US venous doppler [facility] DATE: 12/20/2023 18:45 INDICATION: ? DVT . TECHNIQUE: Grayscale images without and with compression and Doppler images of the bilateral lower ex tremity veins were obtained. COMPARISON: None FINDINGS: The right common femoral vein, profunda (deep) femoral vein, femoral vein, popliteal vein, peroneal v ein, posterior tibial veins, and greater saphenous vein are patent. The left common femoral vein, profunda (deep) femoral vein, femoral vein, popliteal vein, peroneal v ein, posterior tibial veins, and greater saphenous vein are patent. IMPRESSION: Patent bilateral lower extremity veins. No evidence of deep venous thrombosis. Reviewed, dictated and finalized at location K. NEL EXECUTIVE
--- NOTE | ~2023-12-19 | XR_ITS ---
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 RESULT: Lines, tubes, and devices: None. Lungs and pleura: Low volumes with crowding. Subsegmental right basilar airspace disease. Possible m ild right costophrenic angle blunting. Cardiomediastinal silhouette: Stable. Other: No acute osseous or upper abdominal finding. IMPRESSION: Low volumes and crowding. Subsegmental right basilar atelectasis/consolidation. Possible small right pleural effusion. Reviewed, dictated and finalized at location K. [employer]OR OF SPORTS PERFORMANCE
[2023-12-19 15:48] LABS: Eosinophils Absolute Auto 0.2 K/mm3 (0-0.3); Eosinophils Percent Auto 3.4 % (0-4.4); Hematocrit 31.7 % (42.0-52.0); Hemoglobin 9.6 g/dL (14.0-18.0); Immature Granulocyte Absolute 0.03 K/mm3 (0.00-0.031); Immature Granulocyte Percent A 0.5 % (0-0.5); Lymphocytes Absolute Auto 0.77 K/mm3 (0.9-3.2); Lymphocytes Percent Auto 12.6 % (18.3-44.2); Mean Corpuscular HGB Conc 30.3 g/dl (32-36); Mean Corpuscular Hemoglobin 26.1 pg (26-34); Mean Corpuscular Volume 86.1 fl (80-100); Mean Platelet Volume 9.8 fl (7.4-10.4); Monocytes Absolute Auto 0.7 K/mm3 (0.1-0.6); Monocytes Percent Auto 10.6 % (2.6-8.5); Neutrophils Absolute Auto 4.5 K/mm3 (1.3-6.7); Neutrophils Percent Auto 72.9 % (45.5-73.1); Platelet Count Result 316 k/mm3 (150-375); Red Blood Count 3.68 M/mm3 (4.6-6.20); Red Cell Distribution Width 18.8 % (11.5-14.5); White Blood Count 6.1 K/mm3 (4.5-10.0)
[2023-12-19 15:58] LABS: Alanine Aminotransferase 46 U/L (6-50); Albumin Level 3.8 g/dL (3.5-5.1); Alkaline Phosphatase 65 U/L (38-126); Anion Gap 3 mmol/L (8-16); Aspartate Amino Transferase 35 U/L (17-59); Bilirubin,Total 0.8 mg/dL (0.2-1.3); Blood Urea Nitrogen 35 mg/dL (9-20); Calcium 9.6 mg/dL (8.4-10.2); Carbon Dioxide 31 mmol/L (22-30); Chloride 102 mmol/L (98-107); Estimated CRCL calculation 45 ml/min; Estimated Glomerular Filt Rate > 60; Glucose 125 mg/dL (65-110); Potassium 4.3 mmol/L (3.4-5.0); Sodium 136 mmol/L (137-145)
[2023-12-19 15:59] LABS: Lactic Acid Reflex 1.1 mmol/L (0.7-2.0)
[2023-12-19 16:00] LABS: Partial Thromboplastin Time 22.8 SECONDS (22.3-36.8); Prothrombin Time 13.9 Seconds (11.1-14.7)
--- NOTE | 2023-12-19 16:22 | ED.GENADULT ---
HPI - General Adult General Chief complaint: Weakness Stated complaint: weak/nausea Time Seen by Provider: 12/19/23 14:57 History of Present Illness HPI narrative: 88-year-old male presenting to the emergency department for evaluation of worsening shortness of breath. Patient was recently admitted for influenza A and anemia. While patient was admitted he did receive packed red blood cells and hemoglobin improved to 9.4. Patient was Hemoccult positive and did have an EGD which showed no acute bleeding. Patient did complete 5 days of Tamiflu. Patient was improved during his stay and patient was discharged to home. Upon getting home patient states he felt worsened and called the EMS. Home health state the patient was somnolent and ill-appearing. Patient is normally on 2 L of oxygen since discharge. Per EMS he was 87% on 2 L and this was increased to 4 L. At time of evaluation patient was oxygenating well on 2 L but does report increased shortness of breath. Related Data Home Medications Medication Instructions Recorded Confirmed aspirin 81 mg tablet,delayed 81 mg PO DAILY 09/14/19 12/12/23 release (Adult Aspirin Regimen) multivitamin with minerals-folic 0.4 mg PO DAILY 09/14/19 12/12/23 acid 0.4 mg tablet (Adult One Daily Multivitamin) cholecalciferol (vitamin D3) 25 2,000 unit PO DAILY 11/19/19 12/12/23 mcg (1,000 unit) tablet atorvastatin 80 mg tablet 80 mg PO QHS 01/24/23 12/12/23 clopidogrel 75 mg tablet (Plavix) 75 mg PO DAILY 01/24/23 12/12/23 furosemide 20 mg tablet 20 mg PO QAM 01/24/23 12/12/23 lisinopril 5 mg tablet 5 mg PO DAILY 01/24/23 12/12/23 loteprednol etabonate 0.5 % eye 1 drp EACH EYE DAILY 01/24/23 12/12/23 drops,suspension ipratropium bromide 0.02 % 0.5 mg inhalation Q6HRT PRN 12/12/23 12/12/23 solution for inhalation Shortness Of Breath Or Wheezing levalbuterol HCl 1.25 mg/3 mL 1.25 mg inhalation Q6HRT PRN 12/12/23 12/12/23 solution for nebulization Shortness Of Breath Or Wheezing Allergies Allergy/AdvReac Type Severity Reaction Status Date / Time warfarin AdvReac Intermediate Dizziness Verified 11/17/23 10:30 Review of Systems Review of Systems: All systems reviewed & are unremarkable except as noted in HPI and below PMFSH Past Medical History Medical History (Updated 12/19/23 @ 19:18 by Jose Guadalupe Crane MD) Acute on chronic anemia Atrial fibrillation Coronary artery disease Dermatitis of left ear canal Eczema intertrigo Glaucoma Hyperlipidemia Hypertension Insomnia Interstitial lung disease Obesity (BMI 30-39.9) Occult blood in stools Presbycusis of both ears Prostate cancer (2008) Psoriasis Vitamin D deficiency Surgical History Surgical History H/O heart artery stent (~02/2022) And 2003 History of right cataract extraction Hx of cholecystectomy Family History Family History Mother Family history of malignant neoplasm Father Acute myocardial infarction Social History Social History Social History: Patient is listed as a full code. 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
[2023-12-19 16:23] LABS: Influenza A QL RT-PCR Positive (Negative); Influenza B QL RT-PCR Negative (Negative); RSV RNA, RT-PCR Negative (Negative); SARS-CoV-2 RNA PCR Negative (Negative)
--- NOTE | 2023-12-19 17:18 | PC.NURSE ---
Patient had run of vtach captured by playground monitor. EDP made aware. Defib pads applied as precaution.
[2023-12-19 18:28] LABS: Appearance Urine Cloudy (Clear); Bacteria Urine None Seen /hpf; Bilirubin Urine 1+ (Negative); Blood Urine Negative (Negative); Color Urine Dark Yellow (Yellow); Glucose Urine UA Negative (Negative); Hyaline Casts Urine Present /lpf; Ketones Urine Trace mg/dL (Negative); Leukocyte Esterase Ur 1+ LEU/UL (Negative); Nitrate Urine Negative (Negative); Non Pathogenic Casts >20; Protein Urine 2+ mg/dL (Negative); RBC Urine 0-2 /hpf (0-2); Specific Grav Ur 1.024 (1.001-1.035); Squamous Epithelial Cell Urine Few /hpf (Few); Urobilinogen Urine 0.2 mg/dL (<2.0); WBC Urine 21-50 /hpf
[2023-12-19 18:30] LABS: Add Urine Microscopic? YES
--- NOTE | 2023-12-19 19:29 | PM.IMHP ---
H&P: HPI History of Present Illness Date/Time: 12/19/23 19:29 Chief Complaint: Short of breath o Narrative: 88-year-old male with a history of interstitial lung disease, chronic respiratory failure on 2 L home O2, obesity hypoventilation syndrome, obesity, atrial fibrillation not on anticoagulation/tachy-vickie, chronic anemia, history of urinary retention, hypertension, CAD status post stents, heart failure preserved ejection fraction, anisocoria, aortic valve stenosis, present ED with a chief complaint of short of breath. Patient was recently admitted because of acute on chronic respiratory failure, influenza infection, decompensated heart failure, patient will discharge home on December 18. Patient feel has worsening short of breath today, therefore patient brought back to ED for further evaluation and management. Patient states he has worsening short of breath, significant with exertion. Patient denies chest pain, abdomen pain, nausea vomiting diarrhea fever chills, headache or focal weakness. EMS was called, patient was found have hypoxemia 87% on 2 L oxygen, and patient oxygen level was increased to 4 L. upon arrival, patient was afebrile, but the patient had tachypnea, pulse ox 100% on 4 L oxygen. I reviewed labs, labs showed normal white blood cell, hemoglobin 9.4 under baseline, CT showed bicarbonate 31, BUN 35/1.1. UA showed cloudy urine, pyuria white blood cell 21/50. Chest x-ray shows low lung volume, segmental right basilar atelectasis versus consolidation Review of Systems Review of Systems: ROS negative except above PMFSH Past Medical History Medical History (Updated 12/19/23 @ 19:43 by Sergey Holloway MD) Acute on chronic anemia Atrial fibrillation Coronary artery disease Dermatitis of left ear canal Eczema intertrigo Glaucoma Hyperlipidemia Hypertension Insomnia Interstitial lung disease Obesity (BMI 30-39.9) Occult blood in stools Presbycusis of both ears Prostate cancer (2008) Psoriasis Vitamin D deficiency Surgical History Surgical History H/O heart artery stent (~02/2022) And 2004 History of right cataract extraction Hx of cholecystectomy Family History Family History Mother Family history of malignant neoplasm Father Acute myocardial infarction Social History Social History Social History: Patient is listed as a full code. 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 Gender identity (if verbalized by the patient): Male Sexual Orientation (if Verbalized by the Patient): Straight or Heterosexual Spiritual care concerns: No Meds Home Medications and Allergies Home Medications Medication Instructions Recorded Confirmed Type aspirin 81 mg tablet,delayed 81 mg PO DAILY 09/14/19 12/12/23 History release (Adult Aspirin Regimen) multivitamin with minerals-folic 0.4 mg PO DAILY 09/14/19 12/12/23 History acid 0.4 mg tablet (Adult One Daily Multivitamin) cholecalciferol (vitamin D3) 25 2,000 unit PO DAILY 11/19/19 12/12/23 History mcg (1,000 unit) tablet atorvastatin 80 mg tablet 80 mg PO QHS 01/24/23 12/12/23 History clopidogrel 75 mg tablet (Plavix) 75 mg PO DAILY 01/24/23 12/12/23 Hi
[2023-12-19] MEDS: cefTRIAXone 2 GM/NS 100 ML 2 GM/100 ML BAG IVPB (20:13)
[2023-12-19] MEDS: ALBUTEROL SULFATE NEB 2.5 MG/3 ML INH INHALATION (20:30)
[2023-12-19 20:32] LABS: Alveolar/Arterial O2 Gradient 8.3 mmHg; Base Excess ABG 2.5 mEq/l (+/-2.0); Fractional Inspired Oxygen 28 %; HCO3 ABG 28.1 mEq/l (22.0-26.0); Oxygen Saturation ABG 98.7 % (95.0-100.0); Oxyhemoglobin 95.5 % THb (90.0-100.0); PO2 ABG 135.9 mmHg (80.0-100.0); PO2 FiO2 Ratio Arterial Blood 4.85 %; pH ABG 7.395 (7.350-7.450)
[2023-12-19 21:05] LABS: Total Hemoglobin 7.7 g/dL (12.0-18.0)
[2023-12-19] MEDS: AZITHROMYCIN 500 MG/NS 250 ML 500 MG/250 ML BAG 250 MG IVPB (21:11)
--- NOTE | 2023-12-19 23:46 | ADMGEN ---
This patient, Kwame Crane, was admitted to IMU Room 204-01. Patient/family oriented to hospital policies and general routines including ID bracelet, bed and alarms, visiting hours, pain management, procedures, bathroom and other care routines, personal items, smoking policy, room service/diet, and visiting hours. Information on how to activate the Rapid Response Team has been discussed. Patient/Family are encouraged to report perceived risks to care and to ask questions if they do not understand what they are told or what they should do.
[2023-12-20] VITALS (30 sets, daily range): BP systolic 107–153; BP diastolic 44–64; PULSE 66–85; RESP 18–22; TEMP 36.1–37; O2SAT 94–100
[2023-12-20] MEDS: ALBUTEROL SULFATE NEB 2.5 MG/3 ML INH INHALATION ×4 (01:44→19:30)
[2023-12-20] MEDS: FUROSEMIDE 20 MG TABLET PO (09:04)
[2023-12-20] MEDS: AMIODARONE HCL 200 MG TABLET PO (09:05)
[2023-12-20] MEDS: TAMSULOSIN HCL 0.4 MG CAPSULE PO (09:06)
[2023-12-20] MEDS: lisinopriL 5 MG TABLET PO (09:06)
[2023-12-20 11:29] LABS: Iron 36 ug/dL (49-181)
[2023-12-20 11:38] LABS: Percent Iron Saturation 10 % (20-50)
--- NOTE | 2023-12-20 15:56 | PM.CNPUL ---
Assessment and Plan Assessment and plan (1) Obesity hypoventilation syndrome: Code(s): E66.2 - Morbid (severe) obesity with alveolar hypoventilation Status: Acute (2) Interstitial lung disease: Code(s): J84.9 - Interstitial pulmonary disease, unspecified Status: Acute (3) Obesity (BMI 30-39.9): Code(s): E66.9 - Obesity, unspecified Status: Acute (4) Chronic respiratory failure: Code(s): J96.10 - Chronic respiratory failure, unspecified whether with hypoxia or hypercapnia Status: Acute Assessment and Plan: The patient is an 88-year-old male with a medical history of mild interstitial lung disease mostly at bases, coronary artery disease, and congestive heart failure (CHF). He has previously experienced hypercarbic respiratory failure, which was ascribed to obesity hypoventilation. He was recently discharged from this hospital after being treated for acute hypercarbic respiratory failure. Compliance with his home ventilator has been poor, though his time at home has been limited due to frequent hospitalizations over the past month. The precise reason for this current admission is somewhat unclear to me. As I am familiar with this patient, I do not observe any new changes in his respiratory status. His x-ray continues to show small lung volumes, and there is no evidence of new infiltrates or leukocytosis. His arterial blood gases are at baseline. Plan: I intend to keep monitoring the patient's respiratory status. I have ordered a lower extremity study to rule out DVT. At this point, I would recommend discontinuing antibiotics. History of Present Illness History of Present Illness Consult date: 12/20/23 Chief complaint: Influenza A,Generalized Weakness Narrative: This 88-year-old gentleman was readmitted to the emergency department due to respiratory distress. I am familiar with his case, as I was part of his health care team around a month ago when he came in with acute respiratory failure and hypercapnia. His respiratory history notably includes mild interstitial lung disease and a history of hypercapnic respiratory failure. During his recent hospitalization for hypercapnic respiratory failure, he was provided with BiPAP support, which significantly improved his condition. His hypercapnic respiratory failure was attributed to obesity hypoventilation, and upon discharge, he was provided with home ventilatory support and supplemental oxygen at 3 liters/minute. Since my initial evaluation about a month ago, the patient has been hospitalized twice more. He was recently released from the hospital after being admitted and assessed for anemia. As the patient is a poor historian and also has a hearing impairment, the details of his recent complaints are unclear. He mentioned that his home care providers noticed a change in his vital signs, but it is uncertain whether he experienced shortness of breath or any new respiratory symptoms. He also mentioned struggling to adapt to the home ventilator. He reported no new instances of shortness of breath, fever, chills, or chest pain. Upon admission, a chest x-ray revealed small lung volumes, similar to previous findings. A chest CT conducted during his hospitalization just three days prior showed minimal interstitial lung disease changes at the bases and no other infiltrates. His complete blood count showed no signs of leukocytosis, and arterial blood gases showed no significant change. There was no evidence of acute on chronic hypercapnic respiratory failure. The patient has been on antibiotics and other medications for his cardiac failure. [facility] Past Medical History Medical History (Updated 12/19/23 @ 19:43 by Sergey Holloway MD) Acute on chronic anemia Atrial fibrillation Coronary artery disease Dermatitis of left ear canal Eczema intertrigo Glaucoma Hyperlipidemia Hypertension Insomnia Interstitial lung disease Obesity (BMI 30-39.9) Occult blood in stools
--- NOTE | 2023-12-20 16:15 | PM.IMPN ---
Progress Note: A&P Assessment and Plan (1) Acute respiratory failure with hypoxia and hypercarbia: Code(s): J96.01 - Acute respiratory failure with hypoxia; J96.02 - Acute respiratory failure with hypercapnia Status: Acute (2) Interstitial lung disease: Code(s): J84.9 - Interstitial pulmonary disease, unspecified Status: Acute (3) Obesity (BMI 30-39.9): Code(s): E66.9 - Obesity, unspecified Status: Acute (4) COPD (chronic obstructive pulmonary disease): Qualifiers: COPD type: unspecified COPD Qualified Code(s): J44.9 - Chronic obstructive pulmonary disease, unspecified Code(s): J44.9 - Chronic obstructive pulmonary disease, unspecified Status: Acute (5) Iron deficiency anemia due to chronic blood loss: Code(s): D50.0 - Iron deficiency anemia secondary to blood loss (chronic) Status: Acute (6) Paroxysmal atrial fibrillation: Code(s): I48.0 - Paroxysmal atrial fibrillation Status: Chronic (7) Coronary artery disease: Code(s): I25.10 - Atherosclerotic heart disease of [place] coronary artery without angina pectoris Status: Acute (8) Chronic diastolic heart failure: Code(s): I50.32 - Chronic diastolic (congestive) heart failure Status: Acute (9) UTI (urinary tract infection): Code(s): N39.0 - Urinary tract infection, site not specified Status: Acute Plan Acute on chronic respiratory failure with hypoxemia, hypercapnia Suspecting interstitial lung disease, chest x-ray shows atelectasis versus consolidation Follow ABG Start DuoNeb scheduled, albuterol nebulizer as needed no PNA per Ct and cXR Start O2 therapy to keep pulse ox above 94 given history of CAD Pulm following History of CAD Continue aspirin 81 mg daily p.o., Plavix 75 mg daily p.o. 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 Telemetry monitoring Diastolic heart failure Continue furosemide 20 mg daily p.o. Chronic anemia Hemoglobin close to baseline No obvious bleeding Follow-up CBC Essential hypertension Continue lisinopril 5 mg daily p.o. GERD Continue Protonix 40 mg daily p.o. UTI UA shows cloudy urine, pyuria Start ceftriaxone IV Follow-up urine culture Follow renal ultrasound Patient may stay more than 2 midnights in the hospital Subjective Date/time seen: 12/20/23 16:15 Interval history: patient comfortable at bedside Review of Systems Review of Systems: ROS negative except above Exam Narrative: GENERAL: Pleasant, in no acute distress. Well-nourished. Morbid obesity - EYES: EOMI. Anicteric. - HENT: Moist mucous membranes. - LUNGS: Decreased air entry bilateral, no wheezing, rhonchi, or rales. - CARDIOVASCULAR: Regular rate and rhythm. No murmur. No JVD. - ABDOMEN: Soft, non-tender and non-distended. No palpable masses. - EXTREMITIES: No edema. Peripheral pulses 2+. Non-tender. - NEUROLOGIC: No focal neurological deficits. CN II-XII grossly intact. - PSYCHIATRIC: Awake, Alert and oriented x 3. Appropriate mood and affect. - SKIN: No rashes or lesions. Warm. - LYMPH: No cervical lymphadenopathy. Objective Data Vital Signs Vital Signs: Vital Signs - 24 hr 12/19/23 17:34 12/19/23 20:16 12/19/23 20:16 Temperature 98.7 F 98.7 F Pulse Rate 74 84 83 Respiratory Rate 23 H 15 15 Blood Pressure 139/67 147/69 H 147/69 H Pulse Oximetry 100 100 100 Oxygen Delivery Oxygen Flow Rate 12/19/23 20:30 12/19/23 20:45 12/19/23 22:36 Temperature 97.4 F L Pulse Rate 83 85 79 Respiratory Rate 20 20 18 Blood Pressure 127/56 L Pulse Oximetry 95 Oxygen Delivery Oxygen Flow Rate 12/19/23 23:35 12/20/23 00:00 12/20
[2023-12-20] MEDS: AZITHROMYCIN 500 MG/NS 250 ML 500 MG/250 ML BAG 250 MG IVPB (20:27)
[2023-12-20] MEDS: cefTRIAXone 2 GM/NS 100 ML 2 GM/100 ML BAG IVPB (21:33)
[2023-12-20] MEDS: MELATONIN 3 MG TABLET PO (22:37)
[2023-12-20] MEDS: ACETAMINOPHEN 500 MG TABLET PO (22:37)
[2023-12-21] VITALS (15 sets, daily range): BP systolic 118–151; BP diastolic 49–57; PULSE 66–90; RESP 18–21; TEMP 36.2–36.9; O2SAT 94–100
[2023-12-21] MEDS: ALBUTEROL SULFATE NEB 2.5 MG/3 ML INH INHALATION ×3 (01:20→13:24)
[2023-12-21 05:28] LABS: Basophils Percent Auto 0.2 % (0.2-1.2); Eosinophils Absolute Auto 0.4 K/mm3 (0-0.3); Eosinophils Percent Auto 6.3 % (0-4.4); Hematocrit 29.6 % (42.0-52.0); Hemoglobin 8.9 g/dL (14.0-18.0); Immature Granulocyte Absolute 0.02 K/mm3 (0.00-0.031); Immature Granulocyte Percent A 0.3 % (0-0.5); Lymphocytes Absolute Auto 0.79 K/mm3 (0.9-3.2); Lymphocytes Percent Auto 13.4 % (18.3-44.2); Mean Corpuscular HGB Conc 30.1 g/dl (32-36); Mean Corpuscular Volume 86.5 fl (80-100); Mean Platelet Volume 10.6 fl (7.4-10.4); Monocytes Absolute Auto 0.6 K/mm3 (0.1-0.6); Monocytes Percent Auto 10.9 % (2.6-8.5); Neutrophils Absolute Auto 4.1 K/mm3 (1.3-6.7); Neutrophils Percent Auto 68.9 % (45.5-73.1); Platelet Count Result 266 k/mm3 (150-375); Red Blood Count 3.42 M/mm3 (4.6-6.20); Red Cell Distribution Width 19.8 % (11.5-14.5); White Blood Count 5.9 K/mm3 (4.5-10.0)
[2023-12-21 06:05] LABS: Alveolar/Arterial O2 Gradient 35.5 mmHg; Base Excess ABG 0.9 mEq/l (+/-2.0); Carboxyhemoglobin 0.3 % THb (0-2.0); Fractional Inspired Oxygen 28 %; Methemoglobin ABG 0.4 %THb (0-1.5); Oxygen Content ABG 14.5 %vol (16.0-22.0); Oxygen Saturation ABG 97.5 % (95.0-100.0); Oxyhemoglobin 96.4 % THb (90.0-100.0); PO2 ABG 105.1 mmHg (80.0-100.0); PO2 FiO2 Ratio Arterial Blood 3.75 %; Reduced Hemoglobin 2.9 %THb (0-5.0); Total Hemoglobin 10.6 g/dL (12.0-18.0)
[2023-12-21 06:06] LABS: Modified Allen's Test Pass; Site Drawn RIGHT RADIAL
[2023-12-21 06:07] LABS: Device NASAL CANNULA
[2023-12-21 06:21] LABS: Alanine Aminotransferase 36 U/L (6-50); Albumin Level 3.1 g/dL (3.5-5.1); Alkaline Phosphatase 61 U/L (38-126); Anion Gap 0 mmol/L (8-16); Aspartate Amino Transferase 29 U/L (17-59); Bilirubin,Total 0.3 mg/dL (0.2-1.3); Blood Urea Nitrogen 35 mg/dL (9-20); Calcium 9.1 mg/dL (8.4-10.2); Carbon Dioxide 31 mmol/L (22-30); Chloride 105 mmol/L (98-107); Estimated CRCL calculation 48 ml/min; Estimated Glomerular Filt Rate > 60; Glucose 102 mg/dL (65-110); Potassium 3.8 mmol/L (3.4-5.0); Sodium 136 mmol/L (137-145)
[2023-12-21] MEDS: TAMSULOSIN HCL 0.4 MG CAPSULE PO (08:44)
[2023-12-21] MEDS: lisinopriL 5 MG TABLET PO (08:44)
[2023-12-21] MEDS: AMIODARONE HCL 200 MG TABLET PO (08:44)
[2023-12-21] MEDS: FUROSEMIDE 20 MG TABLET PO (08:44)
[2023-12-21 10:00] LABS: Iron 23 ug/dL (49-181)
[2023-12-21 10:12] LABS: Percent Iron Saturation 7 % (20-50)
--- NOTE | 2023-12-21 12:25 | PM.PNPUL ---
Progress Note: A&P Assessment and Plan (1) Chronic diastolic heart failure: Code(s): I50.32 - Chronic diastolic (congestive) heart failure Status: Acute (2) Chronic respiratory failure: Code(s): J96.10 - Chronic respiratory failure, unspecified whether with hypoxia or hypercapnia Status: Acute (3) Acute hypoxic respiratory failure: Code(s): J96.01 - Acute respiratory failure with hypoxia Status: Acute (4) Obesity hypoventilation syndrome: Code(s): E66.2 - Morbid (severe) obesity with alveolar hypoventilation Status: Acute Assessment and Plan: The patient, an 88-year-old male, has a medical history that includes mild interstitial lung disease primarily at the bases, coronary artery disease, and congestive heart failure (CHF). He has previously suffered from hypercarbic respiratory failure, attributed to obesity hypoventilation. Recently, he was discharged from this hospital after receiving treatment for acute hypercarbic respiratory failure. His compliance with his home ventilator has been subpar, partly due to his limited time at home caused by frequent hospitalizations over the past month. The exact reason for his current admission is somewhat ambiguous to me. As I am well-acquainted with this patient, I do not observe any new changes in his respiratory status. His x-ray still exhibits small lung volumes, with no evidence of new infiltrates or leukocytosis. His arterial blood gases have more or less remained at baseline since his admission. For reasons that are unclear, the patient has been on antibiotics. He has not been utilizing any BiPAP support for his chronic hypercapnic respiratory failure. He mentioned that he has been unable to adjust to the home ventilator and has lately not been using it. From a respiratory perspective, the patient seems to be at his baseline. Considering his frequent hospitalizations over the last two months and the need for home ventilatory support and other care, it may be appropriate to transfer him to a shelter facility where he can use his home ventilator. There is a likelihood that he will require readmission to the hospital if he is discharged home. (5) Obesity (BMI 30-39.9): Code(s): E66.9 - Obesity, unspecified Status: Acute (6) Interstitial lung disease: Code(s): J84.9 - Interstitial pulmonary disease, unspecified Status: Acute Subjective Date/time seen: 12/21/23 12:25 Interval history: Patient has no new respiratory symptoms. Has no shortness of breath. Remains on supplemental oxygen. Not using any ventilatory support during this admission. Has been on antibiotics for unclear reason. Review of Systems Review of Systems: All systems reviewed & are unremarkable except as noted in HPI and below (HPI and below) Exam Narrative: GENERAL APPEARANCE: Well developed, well nourished, alert and cooperative, elderly patient and appears to be in no acute distress while on supplemental oxygen via nasal cannula SKIN: Inspection of the skin reveals no rashes, ulcerations or petechiae. HEENT: Sclerae anicteric and conjunctivae pink and moist. Extraocular movements were intact and pupils were equal. Dry oral mucosa NECK: Supple. There was no thyroid enlargement, and no tenderness, or masses were felt. LUNGS: Auscultation of the lungs revealed normal breath sounds without any other adventitious sounds or rubs. CARDIAC: There was a regular rate and rhythm without any murmurs. ABDOMEN: Soft and nontender with normal bowel sounds. There was no organomegaly. LYMPH NODES: No lymphadenopathy was appreciated in the neck. EXTREMITIES: No cyanosis, clubbing or edema. NEUROLOGIC: Alert and oriented x 3. Normal affect. Objective Data Vital Signs Vital Signs: Vital Signs - 24 hr 12/20/23 13:30 12/20/23 13:38 12/20/23 14:00 Temperature Pulse Rate 85 83 81 Respiratory Rate 18 18 Blood Pressure Pulse Oximetry O
--- NOTE | 2023-12-21 14:33 | PM.DS ---
DS: Admitting Diagnosis Discharge Date 12/21/23 Admitting Diagnosis Short of breath o DS: Discharge Diagnosis Discharge Diagnosis (1) Influenza A: Code(s): J10.1 - Influenza due to other identified influenza virus with other respiratory manifestations Status: Acute DS: Summary Hospital Course Hospital Course: 88-year-old male with a history of interstitial lung disease, chronic respiratory failure on 2 L home O2, obesity hypoventilation syndrome, obesity, atrial fibrillation not on anticoagulation/tachy-vickie, chronic anemia, history of urinary retention, hypertension, CAD status post stents, heart failure preserved ejection fraction, anisocoria, aortic valve stenosis, present ED with a chief complaint of short of breath.? Patient was recently admitted because of acute on chronic respiratory failure, influenza infection, decompensated heart failure, patient will discharge home on December 18.? Patient feel has worsening short of breath today, therefore patient brought back to ED for further evaluation and management.? Patient states he has worsening short of breath, significant with exertion.? Patient denies chest pain, abdomen pain, nausea vomiting diarrhea fever chills, headache or focal weakness.? EMS was called, patient was found have hypoxemia 87% on 2 L oxygen, and patient oxygen level was increased to 4 L. upon arrival, patient was afebrile, but the patient had tachypnea, pulse ox 100% on 4 L oxygen.? I reviewed labs, labs showed normal white blood cell, hemoglobin 9.4 under baseline, CT showed bicarbonate 31, BUN 35/1.1.? UA showed cloudy urine, pyuria white blood cell 21/50.? Chest x-ray shows low lung volume, segmental right basilar atelectasis versus consolidation Patient improved and returned to baseline oxygen, CXR showed possible PNA Pulm followed Hb 8.9 and Isat 7, given 400mg IV iron, then discharged on PO ferrous sulfate and continue follow up with PCP. Discharged on 5 more days of Augmentin and Tamiflu care transition coordinator recommended home discharge with urine culture negative. F/u with PCP in 3-5 days and pulm as instructed Assessment and Plan (1) Acute respiratory failure with hypoxia and hypercarbia: ?Code(s): J96.01 - Acute respiratory failure with hypoxia; J96.02 - Acute respiratory failure with hypercapnia ?Status:?Acute (2) Interstitial lung disease: ?Code(s): J84.9 - Interstitial pulmonary disease, unspecified ?Status:?Acute (3) Obesity (BMI 30-39.9): ?Code(s): E66.9 - Obesity, unspecified ?Status:?Acute (4) COPD (chronic obstructive pulmonary disease): ?Qualifiers: ?COPD type:?unspecified COPD? Qualified Code(s):?J44.9 - Chronic obstructive pulmonary disease, unspecified ?Code(s): J44.9 - Chronic obstructive pulmonary disease, unspecified ?Status:?Acute (5) Iron deficiency anemia due to chronic blood loss: ?Code(s): D50.0 - Iron deficiency anemia secondary to blood loss (chronic) ?Status:?Acute (6) Paroxysmal atrial fibrillation: ?Code(s): I48.0 - Paroxysmal atrial fibrillation ?Status:?Chronic (7) Coronary artery disease: ?Code(s): I25.10 - Atherosclerotic heart disease of [place] coronary artery without angina pectoris ?Status:?Acute (8) Chronic diastolic heart failure: ?Code(s): I50.32 - Chronic diastolic (congestive) heart failure ?Status:?Acute (9) UTI (urinary tract infection): ?Code(s): N39.0 - Urinary tract infection, site not specified ?Status:?Acute Time Spent with Patient Time attestation: Total time spent providing and/or coordinating discharge services: DS: Data Data Completed and Pending Labs on day of discharge: Labs from last 24 hours 12/21/23 12/21/23 12/21/23 06:00 04:29 04:24 WBC 5.9 RBC 3.42 L Hgb 8.9 L Hct 29.6 L MCV 86.5 MCH 26.0 MCHC 30.1 L RDW 19.8 H Plt Count 266 MPV 10.6 H Immature Gran % (Auto) 0.3 Neut % (A
[2023-12-26 11:29] LABS: Device NASAL CANNULA
== END 2023-12-21 15:49 | disposition home health service (06) | DRG 194 ==
LOC: ANHED 19:18 → ANHIMU 22:00
PROVIDERS: Admitting Provider Hospitalist; Emergency Provider Emergency Medicine; PCP Family Medicine; Visit Provider Internal Medicine
DX: J10.1 Influenza due to other identified influenza virus with other respiratory manifestations; J96.11 Chronic respiratory failure with hypoxia; I11.0 Hypertensive heart disease with heart failure; I35.0 Nonrheumatic aortic (valve) stenosis; E55.9 Vitamin D deficiency, unspecified; E78.5 Hyperlipidemia, unspecified; K21.9 Gastro-esophageal reflux disease without esophagitis; H40.9 Unspecified glaucoma; H57.02 Anisocoria; Z20.822 Contact with and (suspected) exposure to COVID-19; Z79.02 Long term (current) use of antithrombotics/antiplatelets; Z79.82 Long term (current) use of aspirin; Z95.5 Presence of coronary angioplasty implant and graft; Z99.81 Dependence on supplemental oxygen; Z68.30 Body mass index [BMI] 30.0-30.9, adult; Z85.46 Personal history of malignant neoplasm of prostate
CPT/HCPCS: 36415; 36600; 71045; 80053; 81001; 82375; 82728; 82805; 83050; 83540; 83550; 83605; 85025; 85610; 85730; 87086; 87637; 93970; 94640; 96365; 96375; 99285; A9270; G0378; J0456; J0696

== ENCOUNTER 2024-01-03 11:57 | Inpatient (IN) | payer MEDICARE, SELFPAY ==
[2024-01-03] VITALS (20 sets, daily range): BP systolic 92–148; BP diastolic 46–64; PULSE 76–87; RESP 16–23; TEMP 36.3–36.9; O2SAT 96–100; BMI 74.0
--- NOTE | ~2024-01-03 | XR_ITS ---
EXAMINATION: XR chest 2V DATE: 01/03/2024 13:01 INDICATION: Shortness of breath TECHNIQUE: PA and lateral views of the chest are obtained. COMPARISON: 12/19/2023 FINDINGS: The lung volumes are low. The lungs are free of acute opacities. No pleural effusion or pne umothorax. The cardiomediastinal silhouette is normal. Thoracic and lumbar compression fractures are noted. IMPRESSION: 1. No acute cardiopulmonary abnormality. Reviewed, dictated and finalized at location L. IGINAL LIAISON OFFICER
--- NOTE | ~2024-01-03 | US_ITS ---
EXAMINATION: US venous doppler [facility] DATE: 01/04/2024 16:37 INDICATION: Bilateral lower limb pain, erythema and swelling. TECHNIQUE: Grayscale ultrasound images without and with compression and Doppler ultrasound images of the bilateral lower extremity veins were obtained. COMPARISON: None. FINDINGS: The visualized portions of right common femoral vein, profunda (deep) femoral vein, femoral vein, pop liteal vein, posterior tibial veins, peroneal veins, gastrocnemius vein and greater saphenous vein ou tflow are patent. The visualized portions of left common femoral vein, profunda femoral vein, femoral vein, popliteal v ein, posterior tibial veins, peroneal veins, gastrocnemius vein and greater saphenous vein outflow ar e patent. IMPRESSION: 1. No deep venous thrombosis in either lower limb. Reviewed, dictated and finalized at location A. STANT COOK
--- NOTE | ~2024-01-03 | XR_ITS ---
EXAMINATION: XR chest 1V portable Exam Date/Time: 01/07/2024 14:15 LEARNING SUPPORT SERVICES DIRECTOR HISTORY: Crackles/cough Comparison: 01/03/2024. RESULT: Lines, tubes, and devices: None. Lungs and pleura: Severely decreased lung volumes with significant crowding. Possible mild diffuse r eticular opacities. Linear bibasilar opacities. Cardiomediastinal silhouette: Stable. Other: No acute osseous or upper abdominal finding. IMPRESSION: Severely low lung volumes, possible mild edema interstitial with bibasilar atelectasis. Infection is not excluded. Reviewed, dictated and finalized at location K. NING SUPPORT SERVICES DIRECTOR IMPRESSION: Severely low lung volumes, possible mild edema interstitial with bibasilar atel ectasis. Infection is not excluded.
--- NOTE | 2024-01-03 12:00 | ECG_ITS ---
Measurements Intervals [place] Rate: 83 P: -8 ID: [id number] QRS: -3 QRSD: 90 T: 66 QT: 395 QTc: 465 Interpretive Statements SINUS RHYTHM VOLTAGE CRITERIA FOR LVH [MEETS CRITERIA IN ONE OF: R(aVL), S(V1), R(V5), R(V5/V6)+S(V1)] ST DEVIATION AND MODERATE T-WAVE ABNORMALITY, CONSIDER LATERAL ISCHEMIA [-0.1+ mV T WAVE IN I/aVL/V5/V6] COMPARED TO ECG 12/14/2023 10:40:33 NO SIGNIFICANT CHANGES Electronically Signed On 01-03-2024 15:47:12 PLC PROGRAMMER by Marina Schwab M.D.
[2024-01-03 12:42] LABS: Basophils Percent Auto 0.7 % (0.2-1.2); Eosinophils Absolute Auto 0.1 K/mm3 (0-0.3); Eosinophils Percent Auto 2.4 % (0-4.4); Immature Granulocyte Absolute 0.04 K/mm3 (0.00-0.031); Immature Granulocyte Percent A 0.7 % (0-0.5); Lymphocytes Absolute Auto 0.83 K/mm3 (0.9-3.2); Lymphocytes Percent Auto 13.9 % (18.3-44.2); Mean Corpuscular HGB Conc 30.3 g/dl (32-36); Mean Corpuscular Hemoglobin 26.2 pg (26-34); Mean Corpuscular Volume 86.4 fl (80-100); Mean Platelet Volume 9.7 fl (7.4-10.4); Monocytes Absolute Auto 0.6 K/mm3 (0.1-0.6); Monocytes Percent Auto 9.7 % (2.6-8.5); Neutrophils Absolute Auto 4.3 K/mm3 (1.3-6.7); Neutrophils Percent Auto 72.6 % (45.5-73.1); Platelet Count Result 320 k/mm3 (150-375); Red Blood Count 2.06 M/mm3 (4.6-6.20); Red Cell Distribution Width 21.4 % (11.5-14.5)
[2024-01-03 12:44] LABS: Hematocrit 17.8 % (42.0-52.0); Hemoglobin 5.4 g/dL (14.0-18.0)
[2024-01-03 12:45] LABS: Alanine Aminotransferase 22 U/L (6-50); Albumin Level 3.4 g/dL (3.5-5.1); Alkaline Phosphatase 56 U/L (38-126); Anion Gap 0 mmol/L (8-16); Aspartate Amino Transferase 30 U/L (17-59); Bilirubin,Total 0.3 mg/dL (0.2-1.3); Blood Urea Nitrogen 30 mg/dL (9-20); Calcium 9.2 mg/dL (8.4-10.2); Carbon Dioxide 33 mmol/L (22-30); Chloride 102 mmol/L (98-107); Estimated Glomerular Filt Rate > 60; Glucose 113 mg/dL (65-110); Sodium 135 mmol/L (137-145)
[2024-01-03 12:52] LABS: Prothrombin Time 14.1 Seconds (11.1-14.7)
[2024-01-03 12:53] LABS: Partial Thromboplastin Time 26.3 SECONDS (22.3-36.8)
[2024-01-03 12:56] LABS: NT Pro B Type Natriuretic Pept 451 pg/mL (19.9-100); Troponin I 0.027 ng/mL (0.000-0.034)
--- NOTE | 2024-01-03 13:24 | ED.SOB ---
HPI - SOB/Dyspnea General Chief Complaint: Shortness of Breath/Dyspnea Stated Complaint: SOB Time Seen by Provider: 01/03/24 13:06 Source: patient Mode of arrival: ambulatory Limitations: no limitations History of Present Illness HPI Narrative: 88-year-old with a history of hypertension CHF, CAD, COPD on 2 L at home, Anemia on iron therapy presents to the ER with complaints of shortness of breath for past few days.He also complaints of chest tightness ocassionally MD elicited complaint: shortness of breath Pertinent past history: COPD and congestive heart failure Timing: constant Severity: moderate Exacerbating factors: movement Relieving factors: rest Known history of: COPD and congestive heart failure Associated symptoms: denies other symptoms Treatment prior to arrival: oxygen Related Data Home Medications Medication Instructions Recorded Confirmed aspirin 81 mg tablet,delayed 81 mg PO DAILY 09/14/19 12/19/23 release (Adult Aspirin Regimen) multivitamin with minerals-folic 0.4 mg PO DAILY 09/14/19 12/19/23 acid 0.4 mg tablet (Adult One Daily Multivitamin) cholecalciferol (vitamin D3) 25 2,000 unit PO DAILY 11/19/19 12/19/23 mcg (1,000 unit) tablet atorvastatin 80 mg tablet 80 mg PO QHS 01/24/23 12/19/23 clopidogrel 75 mg tablet (Plavix) 75 mg PO DAILY 01/24/23 12/19/23 furosemide 20 mg tablet 20 mg PO QAM 01/24/23 12/19/23 lisinopril 5 mg tablet 5 mg PO DAILY 01/24/23 12/19/23 loteprednol etabonate 0.5 % eye 1 drp EACH EYE DAILY 01/24/23 12/19/23 drops,suspension amoxicillin 875 mg-potassium 1 tablet PO BID 12/19/23 12/19/23 clavulanate 125 mg tablet doxycycline hyclate 100 mg tablet 100 mg PO BID 12/19/23 12/19/23 Allergies Allergy/AdvReac Type Severity Reaction Status Date / Time warfarin AdvReac Intermediate Dizziness Verified 11/17/23 10:30 Review of Systems Review of Systems: All systems reviewed & are unremarkable except as noted in HPI and below Constitutional: Constitutional: Reports no additional constitutional complaints Eyes: Eyes: Reports no additional eye complaints ENT: Reports system reviewed and no additional complaints, except as documented Cardiovascular: Cardiovascular: Reports no additional cardiovascular complaints Respiratory: Respiratory: Reports as per HPI Gastrointestinal: Gastrointestinal: Reports no additional gastrointestinal complaints Musculoskeletal: Musculoskeletal: Reports no additional musculoskeletal complaints [facility] Past Medical History Medical History Acute on chronic anemia Atrial fibrillation Coronary artery disease Dermatitis of left ear canal Eczema intertrigo Glaucoma Hyperlipidemia Hypertension Insomnia Interstitial lung disease Obesity (BMI 30-39.9) Occult blood in stools Presbycusis of both ears Prostate cancer (2008) Psoriasis Vitamin D deficiency Surgical History Surgical History H/O heart artery stent (~02/2022) And 2004 History of right cataract extraction Hx of cholecystectomy Family History Family History Mother Family history of malignant neoplasm Father Acute myocardial infarction Social History Social History Social History: Patient is listed as a full code. Smoking status: Never smoker Second hand tobacco smoke exposure: No Alcohol intake: never Substance use: never Substance use type: does not use Do You Feel Safe in your Home?: Yes Lack of Transportation: No Lack of Food: Never True Current Housing: I Have Housing Concerned About Future Housing: No Difficulty Paying Gas/Electric Bills: No Difficulty Paying for Meds: No Currently Unemployed: No Education: Decline to Answer Difficulty w/ Childcare or Family Care: No Living arrangements: with family Additio
[2024-01-03] MEDS: PANTOPRAZOLE SODIUM IV 40 MG VIAL IV PUSH ×3 (13:56→21:41)
--- NOTE | 2024-01-03 15:14 | WPDGICN ---
Assessment and Plan Assessment and plan (1) Anemia: Qualifiers: Anemia type: iron deficiency Iron deficiency anemia type: chronic blood loss Qualified Code(s): D50.0 - Iron deficiency anemia secondary to blood loss (chronic) Code(s): D64.9 - Anemia, unspecified Status: Acute Assessment and Plan: He has recurrent anemia with dropping blood counts requiring transfusions. In the mentioned he was here couple months ago an FOBT was negative. (2) Occult blood in stools: Code(s): R19.5 - Other fecal abnormalities Status: Acute Assessment and Plan: Today, occult blood is detected in his stools. (3) Chronic respiratory failure: Code(s): J96.10 - Chronic respiratory failure, unspecified whether with hypoxia or hypercapnia Status: Acute Assessment and Plan: He is on home oxygen, 2 liters/minute for hypoventilation syndrome and chronic respiratory failure. (4) Coronary artery disease: Code(s): I25.10 - Atherosclerotic heart disease of [place] coronary artery without angina pectoris Status: Acute (5) Paroxysmal atrial fibrillation: Code(s): I48.0 - Paroxysmal atrial fibrillation Status: Chronic Assessment and Plan: Today's EKG shows him to be in sinus rhythm. Plan Will hold anti-platelet drugs and begin prep for endoscopy and colonoscopy. GI Consult Note Consult date/time: 01/03/24 15:14 HPI: Kwame Crane is a 88 year old male ?with a history of hypertension CHF, CAD, COPD on 2 L at home, Anemia on iron therapy presents to the ER with complaints of shortness of breath for past few days.He also complaints of chest tightness ocassionally. He has chronic atrial fibrillation for which he takes aspirin and clopidogrel. His hemoglobin, which was 9.4 earlier this month is now down to 5.4. He does not see red blood in his stools but he states his stools are dark. He attributes that to taking iron. A couple months ago he was admitted with a hemoglobin of 6.7 given blood transfusions. At that time however is FOBT was negative. He was then admitted again in late November and seen by our service. Dr. Sanchez felt that symptoms were primarily due to his respiratory status and endoscopic procedures were not done at that time. At that time his hemoglobin was 6.6 and he was transfused once again. His last EGD and colonoscopy were 7 years ago, 2017. Review of Systems Review of Systems: All systems reviewed & are unremarkable except as noted in HPI and below PMFSH Past Medical History Medical History Acute on chronic anemia Atrial fibrillation Coronary artery disease Dermatitis of left ear canal Eczema intertrigo Glaucoma Hyperlipidemia Hypertension Insomnia Interstitial lung disease Obesity (BMI 30-39.9) Occult blood in stools Presbycusis of both ears Prostate cancer (2008) Psoriasis Vitamin D deficiency Surgical History Surgical History H/O heart artery stent (~02/2022) And 2004 History of right cataract extraction Hx of cholecystectomy Family History Family History Mother Family history of malignant neoplasm Father Acute myocardial infarction Social History Social History Social History: Patient is listed as a full code. Smoking status: Never smoker Second hand tobacco smoke exposure: No Alcohol intake: never Substance use: never Substance use type: does not use Do You Feel Safe in your Home?: Yes Lack of Transportation: No Lack of Food: Never True Current Housing: I Have Housing Concerned About Future Housing: No Difficulty Paying Gas/Electric Bills: No Difficulty Paying for Meds: No Currently Unemployed: No Education: Decline to Answer Difficult
[2024-01-03] MEDS: SODIUM CHLORIDE 0.9% IV 250 ML 30 ML IV CONT (15:25)
[2024-01-03] MEDS: TUBING, BLOOD PLUM PUMP TUBING 1 EACH XX (16:04)
--- NOTE | 2024-01-03 17:17 | ADMGEN ---
This patient, Kwame Crane, was admitted to Medical Room 344-01. Patient/family oriented to hospital policies and general routines including ID bracelet, bed and alarms, visiting hours, pain management, procedures, bathroom and other care routines, personal items, smoking policy, room service/diet, and visiting hours. Information on how to activate the Rapid Response Team has been discussed. Patient/Family are encouraged to report perceived risks to care and to ask questions if they do not understand what they are told or what they should do.
--- NOTE | 2024-01-03 18:44 | PM.IMHP ---
H&P: HPI History of Present Illness Date/Time: 01/03/24 20:45 Chief Complaint: Shortness of breath and leg swelling. Narrative: This is a very pleasant 88-year-old male with chronic obstructive pulmonary disease, interstitial lung disease, coronary artery disease with history of stents on dual antiplatelet therapy, paroxysmal atrial fibrillation not on anticoagulation due to recurrent anemia, heart failure with preserved ejection fraction, aortic valve stenosis, hypertension, and gastroesophageal reflux disease who presented to the emergency department for evaluation of shortness of breath and leg swelling. The patient provides the following history. He was recently admitted to the hospital with acute on chronic respiratory failure secondary to influenza. He was discharged on 12/21/2023 and home health has been coming to visit him since discharge. Today he was noted to have increasing edema in his legs and was more short of breath than he had been and they encouraged him to come in for evaluation. With further questioning he admits to occasional chest tightness which seems to be related to his shortness of breath. He has noticed that his stools have been darker than usual though he attributes that to his iron supplementation. He has not noticed any bright red blood in his stools. He denies syncope, near syncope, exertional chest pain, pleuritic pain, palpitations, epigastric and abdominal pain, nausea, vomiting. In the ED: He was afebrile on arrival. SpO2 has been in the mid to upper 90s. Labs were significant for a hemoglobin and hematocrit of 5.4 and 17.8% respectively, sodium 135, BUN 30, creatinine 0.90, glucose 113, proBNP 451, total protein 6.0, albumin 3.4. Initial troponin was within normal limits. EKG showed sinus rhythm with ST deviation and moderate T-wave abnormalities which are similar to changes seen on prior tracings. Chest x-ray showed no acute cardiopulmonary abnormality. Stool was Hemoccult positive per ED physician note. He was given 40 mg IV pantoprazole and he is being admitted in this setting for blood transfusion and GI consult. Review of Systems Review of Systems: Twelve systems were reviewed and are negative except for as per HPI. [facility] Past Medical History Medical History (Updated 01/04/24 @ 00:05 by Lauren Burnette PA-C) Chronic anemia Chronic obstructive pulmonary disease Coronary artery disease Glaucoma Hyperlipidemia Hypertension Insomnia Interstitial lung disease Obesity (BMI 30-39.9) Paroxysmal atrial fibrillation Presbycusis of both ears Prostate cancer (2008) Psoriasis Vitamin D deficiency Surgical History Surgical History (Updated 01/03/24 @ 23:53 by Lauren Burnette PA-C) History of cholecystectomy History of coronary artery stent placement 2003 and 2021. History of right cataract extraction Family History Family History Mother Family history of malignant neoplasm Father Acute myocardial infarction Social History Social History (Updated 01/03/24 @ 23:59 by Lauren Burnette PA-C) Social History: Surrogate medical decision maker: Billie Crane, spouse. Code status: Full code. 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 Spiritual care concerns: No Meds Home Medications and Allergies
[2024-01-03] MEDS: IPRATROPIUM BR 0.02% INH SOLN 0.5 MG/2.5 ML VIAL INHALATION (21:46)
[2024-01-03] MEDS: ALBUTEROL SULFATE NEB 2.5 MG/3 ML INH INHALATION (21:46)
[2024-01-03] MEDS: MELATONIN 5 MG TABLET PO ×2 (22:19→22:20)
[2024-01-03] MEDS: ACETAMINOPHEN 325 MG TABLET 650 MG PO (22:19)
[2024-01-04] VITALS (21 sets, daily range): BP systolic 114–159; BP diastolic 49–73; PULSE 72–90; RESP 18–20; TEMP 36.4–37.2; O2SAT 96–100
[2024-01-04 00:23] LABS: Hematocrit 21.4 % (42.0-52.0)
[2024-01-04 00:34] LABS: Hemoglobin 6.6 g/dL (14.0-18.0)
[2024-01-04 00:42] LABS: Troponin I 0.022 ng/mL (0.000-0.034)
[2024-01-04] MEDS: FUROSEMIDE INJ 40 MG/4 ML VIAL 20 MG IV PUSH (01:04)
[2024-01-04] MEDS: SODIUM CHLORIDE 0.9% IV 250 ML 30 ML IV CONT (01:05)
[2024-01-04] MEDS: ALBUTEROL SULFATE NEB 2.5 MG/3 ML INH INHALATION ×4 (02:21→20:15)
[2024-01-04] MEDS: IPRATROPIUM BR 0.02% INH SOLN 0.5 MG/2.5 ML VIAL INHALATION ×4 (02:21→20:16)
--- NOTE | 2024-01-04 07:06 | WPDGIPROGNO ---
Progress Note: A&P Assessment and Plan (1) Anemia: Qualifiers: Anemia type: iron deficiency Iron deficiency anemia type: chronic blood loss Qualified Code(s): D50.0 - Iron deficiency anemia secondary to blood loss (chronic) Code(s): D64.9 - Anemia, unspecified Status: Acute Assessment and Plan: He has recurrent anemia with dropping blood counts requiring transfusions. In the mentioned he was here couple months ago an FOBT was negative. he has received 3 units of blood so far. (2) Occult blood in stools: Code(s): R19.5 - Other fecal abnormalities Status: Acute Assessment and Plan: Today, occult blood is detected in his stools. (3) Chronic respiratory failure: Code(s): J96.10 - Chronic respiratory failure, unspecified whether with hypoxia or hypercapnia Status: Acute Assessment and Plan: He is on home oxygen, 2 liters/minute for hypoventilation syndrome and chronic respiratory failure. (4) Coronary artery disease: Code(s): I25.10 - Atherosclerotic heart disease of [place] coronary artery without angina pectoris Status: Acute (5) Paroxysmal atrial fibrillation: Code(s): I48.0 - Paroxysmal atrial fibrillation Status: Chronic Assessment and Plan: Today's EKG shows him to be in sinus rhythm. Plan Will hold anti-platelet drugs and begin prep for endoscopy and colonoscopy. Procedures will be done on Subjective Date/time seen: 01/04/24 07:06 no complaints today. He has had no bowel movements during the night. Hemoglobin is only 6.6 after 2 units. Consequently he has received his 3rd unit. Will begin prep today for procedures tomorrow. Exam Const: General: cooperative and healthy appearing Nutritional Appearance: overweight Orientation/consciousness: patient oriented x3 HENMT: Head: normal to inspection Ears: hearing grossly normal bilaterally Mouth: Yes Normal oral and palatal mucosa present Eyes: General: appearance normal, both eyes and all related structures Neck: Neck: normal visual inspection Chest: Chest palpation & inspection: normal inspection of the chest Resp: Effort & Inspection: normal respiratory effort Auscultation: clear to auscultation bilaterally Cardio: Rate: regular rate Rhythm: regular rhythm GI: Inspection: normal to inspection GI Palp: No abdominal tenderness, Yes Soft to palpation, No Guarding due to palpation present (GI) and Yes No hepatosplenomegaly present Auscultation: normal bowel sounds Skin: General skin exam: ecchymosis ( Mostly in upper extremities.), no jaundice and pallor Neuro: General: patient oriented x3 Speech: normal speech Objective Data Vital Signs Vital Signs: Vital Signs - 24 hr 01/03/24 12:02 01/03/24 13:19 01/03/24 13:22 Temperature 36.3 C L Pulse Rate 87 83 Respiratory Rate 16 Blood Pressure 125/49 L Pulse Oximetry 100 100 Oxygen Delivery Nasal Cannula Oxygen Flow Rate 2 01/03/24 13:25 01/03/24 13:58 01/03/24 14:50 Temperature Pulse Rate 86 83 84 Respiratory Rate 17 20 22 H Blood Pressure 148/63 H 97/50 L 99/49 L Pulse Oximetry 100 100 100 Oxygen Delivery Oxygen Flow Rate 01/03/24 15:24 01/03/24 15:40 01/03/24 15:46 Temperature 36.8 C 36.7 C Pulse Rate 79 78 76 Respiratory Rate 20 23 H 19 Blood Pressure 104/51 L 92/51 L 96/53 L Pulse Oximetry 100 100 100 Oxygen Delivery Oxygen Flow Rate 01/03/24 16:40 01/03/24 17:57 01/03/24 18:55 Temperature 36.8 C 36.3 C L 36.7 C Pulse Rate 80 84 82 Respiratory Rate 21 H 20 20 Blood Pressure 100/51 L 131/48 L 134/63 Pulse Oximetry 100 98 100 Oxygen Delivery Oxygen Flow Rate 01/03/24 17:01 01/03/24 18:34 01/03/24 19:15 Temperature 36.9 C 36.7 C 36.8 C Pulse Rate 79 81 79 Respiratory Rate 22 H 18 20 Blood Pressure 107/54 L 112/46 L 136/54 L Pulse Oximetry 100 100 100 Oxygen Delivery Oxygen Flow Rate 01/03/24 2
[2024-01-04 08:01] LABS: Basophils Percent Auto 0.7 % (0.2-1.2); Eosinophils Absolute Auto 0.2 K/mm3 (0-0.3); Eosinophils Percent Auto 4.4 % (0-4.4); Hematocrit 24.5 % (42.0-52.0); Hemoglobin 7.7 g/dL (14.0-18.0); Immature Granulocyte Absolute 0.02 K/mm3 (0.00-0.031); Immature Granulocyte Percent A 0.4 % (0-0.5); Lymphocytes Absolute Auto 0.85 K/mm3 (0.9-3.2); Lymphocytes Percent Auto 15.4 % (18.3-44.2); Mean Corpuscular HGB Conc 31.4 g/dl (32-36); Mean Corpuscular Hemoglobin 27.8 pg (26-34); Mean Corpuscular Volume 88.4 fl (80-100); Mean Platelet Volume 9.7 fl (7.4-10.4); Monocytes Absolute Auto 0.5 K/mm3 (0.1-0.6); Monocytes Percent Auto 8.9 % (2.6-8.5); Neutrophils Absolute Auto 3.9 K/mm3 (1.3-6.7); Neutrophils Percent Auto 70.2 % (45.5-73.1); Platelet Count Result 270 k/mm3 (150-375); Red Blood Count 2.77 M/mm3 (4.6-6.20); Red Cell Distribution Width 18.3 % (11.5-14.5); White Blood Count 5.5 K/mm3 (4.5-10.0)
[2024-01-04 08:25] LABS: Anion Gap 1 mmol/L (8-16); Blood Urea Nitrogen 24 mg/dL (9-20); Calcium 8.7 mg/dL (8.4-10.2); Carbon Dioxide 32 mmol/L (22-30); Chloride 101 mmol/L (98-107); Estimated CRCL calculation 58 ml/min; Estimated Glomerular Filt Rate > 60; Glucose 105 mg/dL (65-110); Magnesium 1.7 mg/dL (1.6-2.3); Potassium 3.6 mmol/L (3.4-5.0); Sodium 134 mmol/L (137-145)
[2024-01-04] MEDS: lisinopriL 5 MG TABLET PO (08:29)
[2024-01-04] MEDS: AMIODARONE HCL 200 MG TABLET PO (08:30)
[2024-01-04] MEDS: FERROUS SULFATE 325 MG TABLET DR BY MOUTH (08:30)
[2024-01-04] MEDS: FUROSEMIDE 20 MG TABLET PO (08:30)
[2024-01-04] MEDS: CHOLECALCIFEROL 1,000 UNITS TABLET 2000 UNITS PO (08:30)
[2024-01-04] MEDS: LOTEPREDNOL ETABONATE 0.5% OPH 5 ML BOTTLE 1 DROP EACH EYE (08:31)
[2024-01-04] MEDS: TOLNAFTATE 1% POWDER 45 GM BTL 1 APPLIC TOPICAL ×2 (08:31→21:27)
[2024-01-04 08:32] LABS: Alanine Aminotransferase 19 U/L (6-50); Albumin Level 2.9 g/dL (3.5-5.1); Alkaline Phosphatase 47 U/L (38-126); Aspartate Amino Transferase 32 U/L (17-59); Bilirubin,Total 0.6 mg/dL (0.2-1.3)
[2024-01-04 11:08] LABS: Hematocrit 26.7 % (42.0-52.0); Hemoglobin 8.3 g/dL (14.0-18.0)
--- NOTE | 2024-01-04 13:26 | PM.IMPN ---
Progress Note: A&P Assessment and Plan (1) GI bleed: Code(s): K92.2 - Gastrointestinal hemorrhage, unspecified Status: Acute (2) Profound anemia: Code(s): D64.9 - Anemia, unspecified Status: Acute (3) Paroxysmal atrial fibrillation: Code(s): I48.0 - Paroxysmal atrial fibrillation Status: Acute (4) Chronic obstructive pulmonary disease: Code(s): J44.9 - Chronic obstructive pulmonary disease, unspecified Status: Acute (5) Chronic diastolic heart failure: Code(s): I50.32 - Chronic diastolic (congestive) heart failure Status: Acute (6) Coronary artery disease: Code(s): I25.10 - Atherosclerotic heart disease of [place] coronary artery without angina pectoris Status: Acute Plan Acute blood loss secondary gastrointestinal hemorrhage Hgb 5.6 POA GI consulted 3 units PRBC H&H q6HR PPI BID colonoscopy 01/05 Transfuse if hgb <7.0 Hold plavix and ASA CAD stent 2021 holding plavix and ASA Chronic diastolic Heart failure Stable this time. 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 continue to monitor H&H transfuse if hemoglobin drops under 7. PT/OT pending. Will likely return to home at discharge when medical stable. Time Spent With Patient Time with patient: 25 - 35 minutes Subjective Date/time seen: 01/04/24 13:26 Interval history: H&P (Medical Record) Chief Complaint: Shortness of breath and leg swelling. Narrative: This is a very pleasant 88-year-old male with chronic obstructive pulmonary disease, interstitial lung disease, coronary artery disease with history of stents on dual antiplatelet therapy, paroxysmal atrial fibrillation not on anticoagulation due to recurrent anemia, heart failure with preserved ejection fraction, aortic valve stenosis, hypertension, and gastroesophageal reflux disease who presented to the emergency department for evaluation of shortness of breath and leg swelling. The patient provides the following history. He was recently admitted to the hospital with acute on chronic respiratory failure secondary to influenza. He was discharged on 12/21/2023 and home health has been coming to visit him since discharge. Today he was noted to have increasing edema in his legs and was more short of breath than he had been and they encouraged him to come in for evaluation. With further questioning he admits to occasional chest tightness which seems to be related to his shortness of breath. He has noticed that his stools have been darker than usual though he attributes that to his iron supplementation. He has not noticed any bright red blood in his stools. He denies syncope, near syncope, exertional chest pain, pleuritic pain, palpitations, epigastric and abdominal pain, nausea, vomiting. In the ED: He was afebrile on arrival. SpO2 has been in the mid to upper 90s. Labs were significant for a hemoglobin and hematocrit of 5.4 and 17.8% respectively, sodium 135, BUN 30, creatinine 0.90, glucose 113, proBNP 451, total protein 6.0, albumin 3.4. Initial troponin was within normal limits. EKG showed sinus rhythm with ST deviation and moderate T-wave abnormalities which are similar to changes seen on prior tracings. Chest x-ray showed no acute cardiopulmonary abnormality. Stool was Hemoccult positive per ED physician note. He was given 40 mg IV pantoprazole and he is being admitted in this setting for blood transfusion and GI consult. 01/04: Patient in no acute distress sitting in the chair eating breakfast. Hgb 6.6 this am F/U after 3rd unit PRBC was 8.3, p
[2024-01-04] MEDS: BISACODYL 5 MG TABLET EC 10 MG PO ×2 (17:50→21:29)
[2024-01-04] MEDS: polyethylene glycoL 3350 238 GM BOTTLE PO (17:51)
[2024-01-04 18:26] LABS: Hematocrit 25.4 % (42.0-52.0); Hemoglobin 7.9 g/dL (14.0-18.0)
[2024-01-04] MEDS: PANTOPRAZOLE SODIUM IV 40 MG VIAL IV PUSH (21:27)
[2024-01-04] MEDS: MELATONIN 5 MG TABLET PO (21:27)
[2024-01-04] MEDS: traZODone HCL 50 MG TABLET PO (21:27)
[2024-01-04] MEDS: ATORVASTATIN 40 MG TABLET 80 MG PO (21:27)
[2024-01-05] VITALS (19 sets, daily range): BP systolic 99–145; BP diastolic 46–72; PULSE 66–90; RESP 16–27; TEMP 36.6–36.9; O2SAT 95–100
[2024-01-05] MEDS: ALBUTEROL SULFATE NEB 2.5 MG/3 ML INH INHALATION ×3 (02:43→20:46)
[2024-01-05] MEDS: IPRATROPIUM BR 0.02% INH SOLN 0.5 MG/2.5 ML VIAL INHALATION ×3 (02:43→20:46)
[2024-01-05 05:24] LABS: Hematocrit 24.5 % (42.0-52.0); Hemoglobin 7.7 g/dL (14.0-18.0); Mean Corpuscular HGB Conc 31.4 g/dl (32-36); Mean Corpuscular Volume 89.1 fl (80-100); Mean Platelet Volume 9.7 fl (7.4-10.4); Platelet Count Result 291 k/mm3 (150-375); Red Blood Count 2.75 M/mm3 (4.6-6.20); Red Cell Distribution Width 18.6 % (11.5-14.5); White Blood Count 5.9 K/mm3 (4.5-10.0)
[2024-01-05] MEDS: MAGNESIUM CITRATE 300 ML BTL 180 ML PO (05:42)
[2024-01-05 05:48] LABS: Alanine Aminotransferase 20 U/L (6-50); Albumin Level 2.9 g/dL (3.5-5.1); Alkaline Phosphatase 48 U/L (38-126); Anion Gap -1 mmol/L (8-16); Aspartate Amino Transferase 31 U/L (17-59); Bilirubin,Total 0.5 mg/dL (0.2-1.3); Blood Urea Nitrogen 15 mg/dL (9-20); Calcium 8.6 mg/dL (8.4-10.2); Carbon Dioxide 33 mmol/L (22-30); Chloride 100 mmol/L (98-107); Estimated CRCL calculation 63 ml/min; Estimated Glomerular Filt Rate > 60; Glucose 112 mg/dL (65-110); Potassium 3.7 mmol/L (3.4-5.0); Sodium 132 mmol/L (137-145)
[2024-01-05] MEDS: TOLNAFTATE 1% POWDER 45 GM BTL 1 APPLIC TOPICAL ×2 (08:52→20:56)
[2024-01-05] MEDS: LOTEPREDNOL ETABONATE 0.5% OPH 5 ML BOTTLE 1 DROP EACH EYE (08:52)
[2024-01-05] MEDS: PANTOPRAZOLE SODIUM IV 40 MG VIAL IV PUSH ×2 (08:52→20:56)
--- NOTE | 2024-01-05 10:12 | PM.IMPN ---
Progress Note: A&P Assessment and Plan (1) GI bleed: Code(s): K92.2 - Gastrointestinal hemorrhage, unspecified Status: Acute (2) Profound anemia: Code(s): D64.9 - Anemia, unspecified Status: Acute (3) Paroxysmal atrial fibrillation: Code(s): I48.0 - Paroxysmal atrial fibrillation Status: Acute (4) Chronic obstructive pulmonary disease: Code(s): J44.9 - Chronic obstructive pulmonary disease, unspecified Status: Acute (5) Chronic diastolic heart failure: Code(s): I50.32 - Chronic diastolic (congestive) heart failure Status: Acute (6) Coronary artery disease: Code(s): I25.10 - Atherosclerotic heart disease of [place] coronary artery without angina pectoris Status: Acute Plan Acute blood loss secondary gastrointestinal hemorrhage Hgb 5.6 POA GI consulted 3 units PRBC H&H q6HR PPI BID colonoscopy 01/05 Transfuse if hgb <7.0 Hold plavix and ASA CAD stent 2021 holding plavix and ASA Chronic diastolic Heart failure Stable this time. 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 PT/OT pending. Will likely return to home at discharge when medical stable. Time Spent With Patient Time with patient: 15 - 25 minutes Subjective Date/time seen: 01/05/24 10:12 Interval history: H&P (Medical Record) Chief Complaint: Shortness of breath and leg swelling. Narrative: This is a very pleasant 88-year-old male with chronic obstructive pulmonary disease, interstitial lung disease, coronary artery disease with history of stents on dual antiplatelet therapy, paroxysmal atrial fibrillation not on anticoagulation due to recurrent anemia, heart failure with preserved ejection fraction, aortic valve stenosis, hypertension, and gastroesophageal reflux disease who presented to the emergency department for evaluation of shortness of breath and leg swelling. The patient provides the following history. He was recently admitted to the hospital with acute on chronic respiratory failure secondary to influenza. He was discharged on 12/21/2023 and home health has been coming to visit him since discharge. Today he was noted to have increasing edema in his legs and was more short of breath than he had been and they encouraged him to come in for evaluation. With further questioning he admits to occasional chest tightness which seems to be related to his shortness of breath. He has noticed that his stools have been darker than usual though he attributes that to his iron supplementation. He has not noticed any bright red blood in his stools. He denies syncope, near syncope, exertional chest pain, pleuritic pain, palpitations, epigastric and abdominal pain, nausea, vomiting. In the ED: He was afebrile on arrival. SpO2 has been in the mid to upper 90s. Labs were significant for a hemoglobin and hematocrit of 5.4 and 17.8% respectively, sodium 135, BUN 30, creatinine 0.90, glucose 113, proBNP 451, total protein 6.0, albumin 3.4. Initial troponin was within normal limits. EKG showed sinus rhythm with ST deviation and moderate T-wave abnormalities which are similar to changes seen on prior tracings. Chest x-ray showed no acute cardiopulmonary abnormality. Stool was Hemoccult positive per ED physician note. He was given 40 mg IV pantoprazole and he is being admitted in this setting for blood transfusion and GI consult. 01/04: Patient in no acute distress sitting in the chair eating breakfast. Hgb 6.6 this am F/U after 3rd unit PRBC was 8.3, patient hemodynamically stable denies any chest pain shortness
[2024-01-05] MEDS: LACTATED RINGERS 1,000 ML 150 ML IV CONT (12:57)
--- NOTE | 2024-01-05 13:23 | WPDANESEPPF ---
Anes - Initial Pre Proc Eval Procedure: Operation Date: 01/05/24 13:30 Proposed Procedures p Esophagogastroduodenoscopy & Colonoscopy - Joshua Sylvester MD Date/Time: 01/05/24 13:23 Surgeon: Sergey Holloway MD Pre Op Diagnosis: gi bleed,anemia Patient Data Age: 88 Gender: M Height: 1.68 m Weight: 96.4 kg Last Vital Signs Temp 98 F 01/05/24 12:52 Pulse 70 01/05/24 12:52 Resp 22 H 01/05/24 12:52 BP 131/59 L 01/05/24 12:52 Pulse Ox 100 01/05/24 12:52 O2 Del Method Nasal Cannula 01/05/24 12:52 O2 Flow Rate 2 01/05/24 12:52 Allergies Allergy/AdvReac Type Severity Reaction Status Date / Time warfarin AdvReac Intermediate Dizziness Verified 01/03/24 17:55 Home Medications Medication Instructions Recorded Confirmed Type aspirin 81 mg tablet,delayed 81 mg PO DAILY 09/14/19 01/03/24 History release (Adult Aspirin Regimen) multivitamin with minerals-folic 0.4 mg PO DAILY 09/14/19 01/03/24 History acid 0.4 mg tablet (Adult One Daily Multivitamin) cholecalciferol (vitamin D3) 25 2,000 unit PO DAILY 11/19/19 01/03/24 History mcg (1,000 unit) tablet atorvastatin 80 mg tablet 80 mg PO QHS 01/24/23 01/03/24 History clopidogrel 75 mg tablet (Plavix) 75 mg PO DAILY 01/24/23 01/03/24 History furosemide 20 mg tablet 20 mg PO QAM 01/24/23 01/03/24 History lisinopril 5 mg tablet 5 mg PO DAILY 01/24/23 01/03/24 History loteprednol etabonate 0.5 % eye 1 drp EACH EYE DAILY 01/24/23 01/03/24 History drops,suspension albuterol sulfate 90 mcg/actuation 1 - 2 puff inhalation Q4-6H PRN 09/22/23 01/03/24 Rx aerosol inhaler shortness of breath or wheezing #8.5 grams amiodarone 200 mg tablet (Pacerone) 200 mg PO DAILY #30 tabs 11/29/23 01/03/24 Rx acetaminophen 325 mg tablet 650 mg PO Q4H PRN Pain Or Fever 12/18/23 01/03/24 Rx #30 tabs guaifenesin 600 mg tablet, 1,200 mg PO Q12HR #14 tabs 12/18/23 01/03/24 Rx extended release 12 hr (Mucus Relief ER) pantoprazole 40 mg tablet,delayed 40 mg PO QAM #30 tabs 12/18/23 01/03/24 Rx release trazodone 50 mg tablet 50 mg PO QHS #30 tabs 12/18/23 01/03/24 Rx doxycycline hyclate 100 mg tablet 100 mg PO BID 12/19/23 01/03/24 History ferrous sulfate 325 mg (65 mg 325 mg PO DAILY #30 tabs 12/21/23 01/03/24 Rx iron) tablet ipratropium bromide 0.02 % 0.5 mg (2.5 mL) inhalation Q6HRT 12/23/23 01/03/24 Rx solution for inhalation PRN Shortness Of Breath Or Wheezing #150 mL levalbuterol HCl 1.25 mg/3 mL 1.25 mg (3 mL) inhalation Q6HRT 12/28/23 01/03/24 Rx solution for nebulization PRN Shortness Of Breath Or Wheezing #90 mL Laboratory Tests 01/04/24 01/05/24 18:15 05:14 WBC 5.9 K/mm3 (4.5-10.0) RBC 2.75 L M/mm3 (4.6-6.20) Hgb 7.9 L g/dL 7.7 L g/dL (14.0-18.0) (14.0-18.0) Hct 25.4 L % 24.5 L % (42.0-52.0) (42.0-52.0) MCV 89.1 fl (80-100) MCH 28.0 pg (26-34) MCHC 31.4 L g/dl (32-36) RDW 18.6 H % (11.5-14.5) Plt Count 291 k/mm3 (150-375) MPV 9.7 fl (7.4-10.4) Sodium 132 L mmol/L (137-145) Potassium 3.7 mmol/L (3.4-5.0) Chloride 100 mmol/L (98-107) Carbon Dioxide 33 H mmol/L (22-30) Anion Gap -1 L mmol/L (8-16) BUN 15 D mg/dL (9-20) Creatinine 0.80 mg/dL (0.7-1.3) Estim Creat Clear Calc 63 ml/min Estimated GFR > 60 (59 - ) Glucose 112 H mg/dL (65-110) Calcium 8.6 mg/dL (8.4-10.2) Total Bilirubin 0.5 mg/dL (0.2-1.3) AST 31 U/L (17-59) ALT 20 U/L (6-50) Alkaline Phosphatase 48 U/L (38-126) Total Protein 5.0 L g/dL (6.3-8.2) Albumin 2.9 L g/dL (3.5-5.1) Patient hx anesthesia problems: none Family hx anesthesia problems: none Results Review: All pre-operative results and documents have been reviewed as part of the pre-operative evaluation. [facility] Past Medical History Medic
--- NOTE | 2024-01-05 13:52 | SUR.OPER ---
EGD END 1348 COLONOSCOPY START 1359
--- NOTE | 2024-01-05 14:20 | PCPTNOTE ---
Attempted PT evaluation, pt off the unit for procedure. Will follow.
[2024-01-05] MEDS: traZODone HCL 50 MG TABLET PO (20:56)
[2024-01-05] MEDS: MELATONIN 5 MG TABLET PO (20:56)
[2024-01-05] MEDS: ATORVASTATIN 40 MG TABLET 80 MG PO (20:56)
[2024-01-05] MEDS: ACETAMINOPHEN 325 MG TABLET 650 MG PO (20:56)
[2024-01-06] VITALS (20 sets, daily range): BP systolic 104–158; BP diastolic 56–80; PULSE 67–91; RESP 18–21; TEMP 36.3–37.1; O2SAT 97–100
[2024-01-06] MEDS: ALBUTEROL SULFATE NEB 2.5 MG/3 ML INH INHALATION ×2 (02:34→07:37)
[2024-01-06] MEDS: IPRATROPIUM BR 0.02% INH SOLN 0.5 MG/2.5 ML VIAL INHALATION ×2 (02:35→07:37)
[2024-01-06 05:22] LABS: Hematocrit 25.4 % (42.0-52.0); Hemoglobin 7.6 g/dL (14.0-18.0); Mean Corpuscular HGB Conc 29.9 g/dl (32-36); Mean Corpuscular Hemoglobin 27.1 pg (26-34); Mean Corpuscular Volume 90.7 fl (80-100); Mean Platelet Volume 9.3 fl (7.4-10.4); Platelet Count Result 296 k/mm3 (150-375); Red Cell Distribution Width 18.6 % (11.5-14.5); White Blood Count 4.8 K/mm3 (4.5-10.0)
[2024-01-06 05:35] LABS: Alanine Aminotransferase 22 U/L (6-50); Alkaline Phosphatase 61 U/L (38-126); Anion Gap -3 mmol/L (8-16); Aspartate Amino Transferase 32 U/L (17-59); Bilirubin,Total 0.6 mg/dL (0.2-1.3); Blood Urea Nitrogen 12 mg/dL (9-20); Calcium 8.8 mg/dL (8.4-10.2); Carbon Dioxide 33 mmol/L (22-30); Chloride 104 mmol/L (98-107); Estimated CRCL calculation 63 ml/min; Estimated Glomerular Filt Rate > 60; Glucose 102 mg/dL (65-110); Potassium 3.8 mmol/L (3.4-5.0); Sodium 134 mmol/L (137-145)
--- NOTE | 2024-01-06 06:21 | WPDGIPROGNO ---
Progress Note: A&P Assessment and Plan (1) Anemia: Qualifiers: Anemia type: iron deficiency Iron deficiency anemia type: chronic blood loss Qualified Code(s): D50.0 - Iron deficiency anemia secondary to blood loss (chronic) Code(s): D64.9 - Anemia, unspecified Status: Acute Assessment and Plan: He has recurrent anemia with dropping blood counts requiring transfusions. In the mentioned he was here couple months ago an FOBT was negative. he has received 3 units of blood so far. He had been taking iron but has not been on it recently. I think he would benefit from Hematology consult. (2) Occult blood in stools: Code(s): R19.5 - Other fecal abnormalities Status: Acute Assessment and Plan: On this admission Hemoccult was slightly but not immediately positive. Endoscopy and colonoscopy showed no evidence of recent bleeding. There was mostly brown stool in the ascending colon precluding visualization of the cecum. One polyp was found and removed. He did again have extensive diverticulosis as had been found in the past. He says he had been on oral iron but did not take it consistently. Did not agree with him. (3) Chronic respiratory failure: Code(s): J96.10 - Chronic respiratory failure, unspecified whether with hypoxia or hypercapnia Status: Acute Assessment and Plan: He is on home oxygen, 2 liters/minute for hypoventilation syndrome and chronic respiratory failure. (4) Coronary artery disease: Code(s): I25.10 - Atherosclerotic heart disease of [place] coronary artery without angina pectoris Status: Acute (5) Paroxysmal atrial fibrillation: Code(s): I48.0 - Paroxysmal atrial fibrillation Status: Chronic Assessment and Plan: Today's EKG shows him to be in sinus rhythm. Plan Okay to resume anti-platelet drugs. Okay from my standpoint to be discharged. Hematology consult would be helpful. Subjective Date/time seen: 01/06/24 06:21 I discussed with him results of endoscopy. Much like his previous colonoscopy, he has extensive diverticulosis. There was 1 small polyp removed from the ascending colon. Also unfortunately there was some stool in the cecum that made it difficult to visualize that thoroughly. Nevertheless, there was no blood in the colon or stomach and no melena to suggest recent bleed. Has had dropping blood counts repeatedly for no clear reason. He had been on iron but not taken recently. I believe it would be practical and worthwhile for him to see a conductor and engineer. He might benefit from intravenous iron. Exam Const: General: cooperative and healthy appearing Nutritional Appearance: overweight Orientation/consciousness: patient oriented x3 HENMT: Head: normal to inspection Ears: hearing grossly normal bilaterally Mouth: Yes Normal oral and palatal mucosa present Eyes: General: appearance normal, both eyes and all related structures Neck: Neck: normal visual inspection Chest: Chest palpation & inspection: normal inspection of the chest Resp: Effort & Inspection: normal respiratory effort Auscultation: clear to auscultation bilaterally Cardio: Rate: regular rate Rhythm: regular rhythm GI: Inspection: normal to inspection GI Palp: No abdominal tenderness, Yes Soft to palpation, No Guarding due to palpation present (GI) and Yes No hepatosplenomegaly present Auscultation: normal bowel sounds Skin: General skin exam: ecchymosis ( Mostly in upper extremities.), no jaundice and pallor Neuro: General: patient oriented x3 Speech: normal speech Objective Data Vital Signs Vital Signs: Vital Signs - 24 hr 01/05/24 07:50 01/05/24 07:50 01/05/24 08:00 Temperature Pulse Rate 80 74 Respiratory Rate 18 18 Blood Pressure Pulse Oximetry 99 Oxygen Delivery Nasal Cannula Oxygen Flow Rate 2 Fraction of Inspired Oxygen 01/05/24 09:10 01/05/24 12:52 01/05/24 1
--- NOTE | 2024-01-06 07:19 | WPDANESPN ---
Anes - Prog Note Post-Op Date/Time: 01/06/24 07:19 Cardiovascular status: normal Respiratory status: normal (home O2) Airway patency: baseline Mental status: baseline Post-Op hydration status: normal Vital Signs: Last Vital Signs Temp 98.4 F 01/05/24 22:27 Pulse 77 01/06/24 04:00 Resp 20 01/06/24 02:41 BP 136/51 L 01/05/24 22:27 Pulse Ox 100 01/05/24 22:27 O2 Del Method Nasal Cannula 01/05/24 20:46 O2 Flow Rate 2 01/05/24 20:46 FiO2 28 01/05/24 20:46 Pain Score (VAS): 0 I/O: Intake & Output 01/05/24 01/05/24 01/06/24 15:59 23:59 07:59 Intake Total 0 680 Balance 0 680 Laboratory Tests 01/06/24 05:12 01/06/24 05:12 01/06/24 05:12 WBC 4.8 RBC 2.80 L Hgb 7.6 L Hct 25.4 L MCV 90.7 MCH 27.1 MCHC 29.9 L RDW 18.6 H Plt Count 296 MPV 9.3 Sodium 134 L Potassium 3.8 Chloride 104 Carbon Dioxide 33 H Anion Gap -3 L BUN 12 Creatinine 0.80 Estim Creat Clear Calc 63 Estimated GFR > 60 Glucose 102 Calcium 8.8 Total Bilirubin 0.6 AST 32 ALT 22 Alkaline Phosphatase 61 Total Protein 5.0 L Albumin 3.0 L Post-procedural complaints: none Patient Feedback: Patient satisfied with anesthetic care.
[2024-01-06] MEDS: AMIODARONE HCL 200 MG TABLET PO (08:39)
[2024-01-06] MEDS: lisinopriL 5 MG TABLET PO (08:39)
[2024-01-06] MEDS: CHOLECALCIFEROL 1,000 UNITS TABLET 2000 UNITS PO (08:39)
[2024-01-06] MEDS: FUROSEMIDE 20 MG TABLET PO (08:39)
[2024-01-06] MEDS: PANTOPRAZOLE SODIUM IV 40 MG VIAL IV PUSH ×2 (08:39→21:40)
[2024-01-06] MEDS: LOTEPREDNOL ETABONATE 0.5% OPH 5 ML BOTTLE 1 DROP EACH EYE (08:40)
[2024-01-06] MEDS: TOLNAFTATE 1% POWDER 45 GM BTL 1 APPLIC TOPICAL ×2 (08:40→21:39)
[2024-01-06] MEDS: FERROUS SULFATE 325 MG TABLET DR BY MOUTH ×3 (08:40→18:03)
[2024-01-06 10:27] LABS: Immature Reticulocyte Fraction 28.9 % (3.0-15.9); Reticulocyte Hemoglobin Conten 24.4 pg (28.2-35.7); Reticulocyte Percent 4.06 % (0.7-4.3); Reticulocytes Absolute 0.12 M/mm3 (0.02-0.1)
[2024-01-06 10:39] LABS: Iron 24 ug/dL (49-181); Lactate Dehydrogenase 189 U/L (120-246)
[2024-01-06 10:48] LABS: Percent Iron Saturation 7 % (20-50)
[2024-01-06 11:49] LABS: Folic Acid 18.4 ng/mL (2.76->20)
--- NOTE | 2024-01-06 13:31 | PM.IMPN ---
Progress Note: A&P Assessment and Plan (1) GI bleed: Code(s): K92.2 - Gastrointestinal hemorrhage, unspecified Status: Acute (2) Profound anemia: Code(s): D64.9 - Anemia, unspecified Status: Acute (3) Paroxysmal atrial fibrillation: Code(s): I48.0 - Paroxysmal atrial fibrillation Status: Acute (4) Chronic obstructive pulmonary disease: Code(s): J44.9 - Chronic obstructive pulmonary disease, unspecified Status: Acute (5) Chronic diastolic heart failure: Code(s): I50.32 - Chronic diastolic (congestive) heart failure Status: Acute (6) Coronary artery disease: Code(s): I25.10 - Atherosclerotic heart disease of [place] coronary artery without angina pectoris Status: Acute Plan ANEMIA Acute blood loss secondary gastrointestinal hemorrhage RULED OUT Hgb 5.6 POA GI consulted 3 units PRBC H&H q6HR PPI BID colonoscopy 01/05 Transfuse if hgb <7.0 Hold plavix and ASA/resume 01/06 01/06: no active bleed noted on EGD or colonoscopy Patient with history of microcytic anemia Increase ferrous sulfate to TID Hematology consult for any further recommendations CAD stent 2021 holding plavix and ASA GI okay and resuming Plavix and aspirin Chronic diastolic Heart failure Stable this time. 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 Time Spent With Patient Time with patient: 15 - 25 minutes Subjective Date/time seen: 01/06/24 13:31 Interval history: H&P (Medical Record) Chief Complaint: Shortness of breath and leg swelling. Narrative: This is a very pleasant 88-year-old male with chronic obstructive pulmonary disease, interstitial lung disease, coronary artery disease with history of stents on dual antiplatelet therapy, paroxysmal atrial fibrillation not on anticoagulation due to recurrent anemia, heart failure with preserved ejection fraction, aortic valve stenosis, hypertension, and gastroesophageal reflux disease who presented to the emergency department for evaluation of shortness of breath and leg swelling. The patient provides the following history. He was recently admitted to the hospital with acute on chronic respiratory failure secondary to influenza. He was discharged on 12/21/2023 and home health has been coming to visit him since discharge. Today he was noted to have increasing edema in his legs and was more short of breath than he had been and they encouraged him to come in for evaluation. With further questioning he admits to occasional chest tightness which seems to be related to his shortness of breath. He has noticed that his stools have been darker than usual though he attributes that to his iron supplementation. He has not noticed any bright red blood in his stools. He denies syncope, near syncope, exertional chest pain, pleuritic pain, palpitations, epigastric and abdominal pain, nausea, vomiting. In the ED: He was afebrile on arrival. SpO2 has been in the mid to upper 90s. Labs were significant for a hemoglobin and hematocrit of 5.4 and 17.8% respectively, sodium 135, BUN 30, creatinine 0.90, glucose 113, proBNP 451, total protein 6.0, albumin 3.4. Initial troponin was within normal limits. EKG showed sinus rhythm with ST deviation and moderate T-wave abnormalities which are similar to changes seen on prior tracings. Chest x-ray showed no acute cardiopulmonary abnormality. Stool was Hemoccult positive per ED physician note. He was given 40 mg IV pantoprazole and he is being admitted in this setti
[2024-01-06] MEDS: IPRATROPIUM 0.5 MG/ALBUTEROL SULFATE 2.5 MG AMPUL.NEB 3 ML INHALATION ×2 (13:34→20:02)
--- NOTE | 2024-01-06 17:01 | PDONCCN ---
HPI - Date of Consult Date/Time: 01/06/24 17:01 Requesting Physician: Sergey Holloway MD Primary Care Provider: Cy Randall, DO - Consult Narrative Reason for consult: Anemia Narrative: Kwame Crane is a 88 year old male with history of COPD, interstitial lung disease and coronary artery disease with history of atrial fibrillation not on anticoagulation due to recent current anemia. Patient was on the dual anti-platelet therapy came into the hospital with shortness of breath and leg swelling. Labs showed hemoglobin of 5.4. He denies any melena hematochezia. Stool warm occult was positive. Patient received 3 units of packed red blood cell. Colonoscopy done yesterday showed diverticulosis without bleeding and internal hemorrhoids. EGD showed nonerosive reflux disease. He remains quite tired and fatigued with some shortness of breath. Review of Systems - Review of Systems All systems reviewed & are unremarkable except as noted in HPI and [facility] Medical History: Medical History (Last Updated 01/03/24 @ 23:54 by Lauren Burnette PA-C) Chronic anemia Chronic obstructive pulmonary disease Coronary artery disease Glaucoma Hyperlipidemia Hypertension Insomnia Interstitial lung disease Obesity (BMI 30-39.9) Paroxysmal atrial fibrillation Presbycusis of both ears Prostate cancer Onset Date: 2008 Psoriasis Vitamin D deficiency Surgical History: Surgical History (Last Updated 01/03/24 @ 23:53 by Lauren Burnette PA-C) History of cholecystectomy History of coronary artery stent placement 2003 and 2021. History of right cataract extraction Family History: Family History (Last Reviewed 01/03/24 @ 23:53 by Lauren Burnette PA-C) Mother Family history of malignant neoplasm Father Acute myocardial infarction - Social History Social History: Social History (Last Updated 01/03/24 @ 23:59 by Lauren Burnette PA-C) Alcohol Use: Alcohol intake: never Substance Use: Substance use: never Substance use type: does not use Others: Spiritual care concerns: No Living Arrangements: Living arrangements: with family Oppucation/Education: Occupation/Education: retired Smoking Status: Smoking status: Never smoker Second hand tobacco smoke exposure: No Social Determinants of Health: Do You Feel Safe in your Home?: Yes Has the Lack of Transportation Kept You From Medical Appointments or From Getting Medications?: No Within the Past 12 Months, Were You Worried Whether Your Food Would Run Out Before You Got Money to Buy More?: Never True What is Your Housing Situation Today?: I Have Housing Are You Worried That in the Next 2 Months, You May Not Have Your Own Housing to Live In?: No Do You Have Trouble Paying Your Heating Or Electricity Bill?: No Do You Have Trouble Paying For Medicines?: No Are You Currently Unemployed and Looking for Work?: No Highest Level of Education Completed: Decline to Answer Do You Have Trouble With Childcare or the Care of a Family Member?: No Exam - Vital Signs Vital Signs - 24 hr 01/05/24 20:46 01/05/24 20:46 01/05/24 20:51 Temperature Pulse Rate 75 75 78 Respiratory Rate 20 20 20 Blood Pressure Pulse Oximetry 97 Oxygen Delivery Nasal Cannula Oxygen Flow Rate 2 Fraction of Inspired Oxygen 01/05/24 20:00 01/05/24 20:00 01/05/24 22:27 Temperature 36.9 C Pulse Rate 73 78 75 Respiratory Rate 20 21 H Blood Pressure 136/51 L Pulse Oximetry 97 100 Oxygen Delivery Nasal Cannula Oxygen Flow Rate 2 Fraction of Inspired Oxygen 01/06/24 00:00 01/06/24 02:35 01/06/24 02:41 Temperature Pulse Rate 73 76 68 Respiratory Rate 20 20 Blood Pressure Pulse Oximetry Oxygen Delivery Oxygen Flow Rate Fraction of Inspired Oxygen 01/06/24 04:00 01/06/24 07:37 01/06/24 07:37 Temperature Pulse Rate 77 72 Respirato
[2024-01-06] MEDS: IRON SUCROSE COMPLEX 500 MG in SODIUM CHLORIDE 0.9% IV 250 ML 79 MG IVPB (18:03)
[2024-01-06] MEDS: ACETAMINOPHEN 325 MG TABLET 650 MG PO (21:39)
[2024-01-06] MEDS: traZODone HCL 50 MG TABLET PO (21:39)
[2024-01-06] MEDS: ATORVASTATIN 40 MG TABLET 80 MG PO (21:39)
[2024-01-06] MEDS: MELATONIN 5 MG TABLET PO (21:39)
[2024-01-07] VITALS (19 sets, daily range): BP systolic 127–148; BP diastolic 52–60; PULSE 71–87; RESP 20; TEMP 36.7–36.9; O2SAT 98–99
[2024-01-07] MEDS: IPRATROPIUM 0.5 MG/ALBUTEROL SULFATE 2.5 MG AMPUL.NEB 3 ML INHALATION ×4 (02:26→20:02)
[2024-01-07 05:23] LABS: Hematocrit 24.5 % (42.0-52.0); Hemoglobin 7.4 g/dL (14.0-18.0); Mean Corpuscular HGB Conc 30.2 g/dl (32-36); Mean Corpuscular Hemoglobin 27.5 pg (26-34); Mean Corpuscular Volume 91.1 fl (80-100); Mean Platelet Volume 9.7 fl (7.4-10.4); Platelet Count Result 311 k/mm3 (150-375); Red Blood Count 2.69 M/mm3 (4.6-6.20); Red Cell Distribution Width 18.5 % (11.5-14.5); White Blood Count 4.6 K/mm3 (4.5-10.0)
[2024-01-07 05:41] LABS: Alanine Aminotransferase 21 U/L (6-50); Albumin Level 2.9 g/dL (3.5-5.1); Alkaline Phosphatase 70 U/L (38-126); Anion Gap 1 mmol/L (8-16); Aspartate Amino Transferase 27 U/L (17-59); Bilirubin,Total 0.5 mg/dL (0.2-1.3); Blood Urea Nitrogen 12 mg/dL (9-20); Calcium 8.5 mg/dL (8.4-10.2); Carbon Dioxide 33 mmol/L (22-30); Chloride 101 mmol/L (98-107); Estimated CRCL calculation 63 ml/min; Estimated Glomerular Filt Rate > 60; Glucose 114 mg/dL (65-110); Potassium 3.7 mmol/L (3.4-5.0); Sodium 135 mmol/L (137-145)
[2024-01-07] MEDS: CLOPIDOGREL BISULFATE 75 MG TABLET PO (08:37)
[2024-01-07] MEDS: PANTOPRAZOLE SODIUM IV 40 MG VIAL IV PUSH ×2 (08:37→21:54)
[2024-01-07] MEDS: ASPIRIN 81 MG ENTERIC TABLET PO (08:37)
[2024-01-07] MEDS: CHOLECALCIFEROL 1,000 UNITS TABLET 2000 UNITS PO (08:37)
[2024-01-07] MEDS: lisinopriL 5 MG TABLET PO (08:38)
[2024-01-07] MEDS: FERROUS SULFATE 325 MG TABLET DR BY MOUTH ×3 (08:38→17:05)
[2024-01-07] MEDS: AMIODARONE HCL 200 MG TABLET PO (08:38)
[2024-01-07] MEDS: TOLNAFTATE 1% POWDER 45 GM BTL 1 APPLIC TOPICAL ×2 (08:39→21:54)
[2024-01-07] MEDS: LOTEPREDNOL ETABONATE 0.5% OPH 5 ML BOTTLE 1 DROP EACH EYE (08:39)
[2024-01-07] MEDS: FUROSEMIDE 20 MG TABLET PO (08:43)
[2024-01-07] MEDS: ACETAMINOPHEN 325 MG TABLET 650 MG PO ×2 (08:45→21:54)
[2024-01-07] MEDS: IRON SUCROSE COMPLEX 500 MG in SODIUM CHLORIDE 0.9% IV 250 ML 79 MG IVPB (10:52)
--- NOTE | 2024-01-07 14:06 | PM.IMPN ---
Progress Note: A&P Assessment and Plan (1) GI bleed: Code(s): K92.2 - Gastrointestinal hemorrhage, unspecified Status: Acute (2) Profound anemia: Code(s): D64.9 - Anemia, unspecified Status: Acute (3) Paroxysmal atrial fibrillation: Code(s): I48.0 - Paroxysmal atrial fibrillation Status: Acute (4) Chronic obstructive pulmonary disease: Code(s): J44.9 - Chronic obstructive pulmonary disease, unspecified Status: Acute (5) Chronic diastolic heart failure: Code(s): I50.32 - Chronic diastolic (congestive) heart failure Status: Acute (6) Coronary artery disease: Code(s): I25.10 - Atherosclerotic heart disease of [place] coronary artery without angina pectoris Status: Acute Plan ANEMIA Acute blood loss secondary gastrointestinal hemorrhage RULED OUT Hgb 5.6 POA GI consulted 3 units PRBC H&H q6HR PPI BID colonoscopy 01/05 Transfuse if hgb <7.0 Hold plavix and ASA/resume 01/06 01/06: no active bleed noted on EGD or colonoscopy Patient with history of microcytic anemia Increase ferrous sulfate to TID Hematology consult for any further recommendations 01/07 Hgb 7.4 even after IV iron stop Plavix and ASA due to chronic anemia was held previously due same problem Iron IV again increased oral Iron likely will need marrow biopsy with anemia stable O/P CAD stent 2021 holding plavix and ASA GI okay and resuming Plavix and aspirin Chronic diastolic Heart failure Stable this time. 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 CXR pending crackles heard. Plan is for patient to return home when anemia is stable. Time Spent With Patient Time with patient: 25 - 35 minutes Subjective Date/time seen: 01/07/24 14:06 Interval history: H&P (Medical Record) Chief Complaint: Shortness of breath and leg swelling. Narrative: This is a very pleasant 88-year-old male with chronic obstructive pulmonary disease, interstitial lung disease, coronary artery disease with history of stents on dual antiplatelet therapy, paroxysmal atrial fibrillation not on anticoagulation due to recurrent anemia, heart failure with preserved ejection fraction, aortic valve stenosis, hypertension, and gastroesophageal reflux disease who presented to the emergency department for evaluation of shortness of breath and leg swelling. The patient provides the following history. He was recently admitted to the hospital with acute on chronic respiratory failure secondary to influenza. He was discharged on 12/21/2023 and home health has been coming to visit him since discharge. Today he was noted to have increasing edema in his legs and was more short of breath than he had been and they encouraged him to come in for evaluation. With further questioning he admits to occasional chest tightness which seems to be related to his shortness of breath. He has noticed that his stools have been darker than usual though he attributes that to his iron supplementation. He has not noticed any bright red blood in his stools. He denies syncope, near syncope, exertional chest pain, pleuritic pain, palpitations, epigastric and abdominal pain, nausea, vomiting. In the ED: He was afebrile on arrival. SpO2 has been in the mid to upper 90s. Labs were significant for a hemoglobin and hematocrit of 5.4 and 17.8% respectively, sodium 135, BUN 30, creatinine 0.90, glucose 113, proBNP 451, total protein 6.0, albumin 3.4. Initial troponin was within normal limits. EKG showed sinus rhythm with ST deviation and moderate T-wave abnormalities which are similar to
[2024-01-07] MEDS: guaiFENesin 12 HR 600 MG TABCR PO ×2 (14:26→21:55)
[2024-01-07] MEDS: FUROSEMIDE INJ 40 MG/4 ML VIAL IV PUSH (14:32)
[2024-01-07] MEDS: MELATONIN 5 MG TABLET PO (21:54)
[2024-01-07] MEDS: ATORVASTATIN 40 MG TABLET 80 MG PO (21:54)
[2024-01-07] MEDS: traZODone HCL 50 MG TABLET PO (21:54)
[2024-01-08] VITALS (20 sets, daily range): BP systolic 119–150; BP diastolic 50–76; PULSE 67–88; RESP 18–20; TEMP 36.4–36.6; O2SAT 95–98
[2024-01-08] MEDS: IPRATROPIUM 0.5 MG/ALBUTEROL SULFATE 2.5 MG AMPUL.NEB 3 ML INHALATION ×4 (02:15→20:04)
[2024-01-08] MEDS: ACETAMINOPHEN 325 MG TABLET 650 MG PO ×2 (03:45→22:03)
[2024-01-08 06:07] LABS: Hematocrit 23.4 % (42.0-52.0); Hemoglobin 7.1 g/dL (14.0-18.0); Mean Corpuscular HGB Conc 30.3 g/dl (32-36); Mean Corpuscular Hemoglobin 27.3 pg (26-34); Platelet Count Result 306 k/mm3 (150-375); Red Cell Distribution Width 18.6 % (11.5-14.5); White Blood Count 4.7 K/mm3 (4.5-10.0)
[2024-01-08 06:25] LABS: Alanine Aminotransferase 18 U/L (6-50); Albumin Level 2.8 g/dL (3.5-5.1); Alkaline Phosphatase 72 U/L (38-126); Anion Gap 1 mmol/L (8-16); Aspartate Amino Transferase 28 U/L (17-59); Bilirubin,Total 0.4 mg/dL (0.2-1.3); Blood Urea Nitrogen 11 mg/dL (9-20); Calcium 8.5 mg/dL (8.4-10.2); Carbon Dioxide 31 mmol/L (22-30); Chloride 102 mmol/L (98-107); Estimated CRCL calculation 63 ml/min; Estimated Glomerular Filt Rate > 60; Glucose 98 mg/dL (65-110); Potassium 3.6 mmol/L (3.4-5.0); Sodium 134 mmol/L (137-145)
[2024-01-08] MEDS: guaiFENesin 12 HR 600 MG TABCR PO ×2 (08:23→22:04)
[2024-01-08] MEDS: FERROUS SULFATE 325 MG TABLET DR BY MOUTH ×3 (08:23→16:46)
[2024-01-08] MEDS: lisinopriL 5 MG TABLET PO (08:23)
[2024-01-08] MEDS: FUROSEMIDE 20 MG TABLET PO (08:23)
[2024-01-08] MEDS: AMIODARONE HCL 200 MG TABLET PO (08:24)
[2024-01-08] MEDS: PANTOPRAZOLE SODIUM IV 40 MG VIAL IV PUSH ×2 (08:24→22:04)
[2024-01-08] MEDS: CHOLECALCIFEROL 1,000 UNITS TABLET 2000 UNITS PO (08:24)
[2024-01-08] MEDS: LOTEPREDNOL ETABONATE 0.5% OPH 5 ML BOTTLE 1 DROP EACH EYE (08:24)
[2024-01-08] MEDS: TOLNAFTATE 1% POWDER 45 GM BTL 1 APPLIC TOPICAL ×2 (08:29→22:03)
--- NOTE | 2024-01-08 12:52 | PM.IMPN ---
Progress Note: A&P Assessment and Plan (1) GI bleed: Code(s): K92.2 - Gastrointestinal hemorrhage, unspecified Status: Acute (2) Profound anemia: Code(s): D64.9 - Anemia, unspecified Status: Acute (3) Paroxysmal atrial fibrillation: Code(s): I48.0 - Paroxysmal atrial fibrillation Status: Acute (4) Chronic obstructive pulmonary disease: Code(s): J44.9 - Chronic obstructive pulmonary disease, unspecified Status: Acute (5) Chronic diastolic heart failure: Code(s): I50.32 - Chronic diastolic (congestive) heart failure Status: Acute (6) Coronary artery disease: Code(s): I25.10 - Atherosclerotic heart disease of [place] coronary artery without angina pectoris Status: Acute Plan ANEMIA Acute blood loss secondary gastrointestinal hemorrhage RULED OUT Hgb 5.6 POA GI consulted 3 units PRBC H&H q6HR PPI BID colonoscopy 01/05 Transfuse if hgb <7.0 Hold plavix and ASA/resume 01/06 01/06: no active bleed noted on EGD or colonoscopy Patient with history of microcytic anemia Increase ferrous sulfate to TID Hematology consult for any further recommendations 01/07 Hgb 7.4 even after IV iron stop Plavix and ASA due to chronic anemia was held previously due same problem Iron IV again increased oral Iron likely will need marrow biopsy with anemia stable O/P CAD stent 2021 holding plavix and ASA GI okay and resuming Plavix and aspirin Chronic diastolic Heart failure Stable this time. 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 Plan is for patient to return home when anemia is stable. Time Spent With Patient Time with patient: 15 - 25 minutes Subjective Date/time seen: 01/08/24 12:52 Interval history: H&P (Medical Record) Chief Complaint: Shortness of breath and leg swelling. Narrative: This is a very pleasant 88-year-old male with chronic obstructive pulmonary disease, interstitial lung disease, coronary artery disease with history of stents on dual antiplatelet therapy, paroxysmal atrial fibrillation not on anticoagulation due to recurrent anemia, heart failure with preserved ejection fraction, aortic valve stenosis, hypertension, and gastroesophageal reflux disease who presented to the emergency department for evaluation of shortness of breath and leg swelling. The patient provides the following history. He was recently admitted to the hospital with acute on chronic respiratory failure secondary to influenza. He was discharged on 12/21/2023 and home health has been coming to visit him since discharge. Today he was noted to have increasing edema in his legs and was more short of breath than he had been and they encouraged him to come in for evaluation. With further questioning he admits to occasional chest tightness which seems to be related to his shortness of breath. He has noticed that his stools have been darker than usual though he attributes that to his iron supplementation. He has not noticed any bright red blood in his stools. He denies syncope, near syncope, exertional chest pain, pleuritic pain, palpitations, epigastric and abdominal pain, nausea, vomiting. In the ED: He was afebrile on arrival. SpO2 has been in the mid to upper 90s. Labs were significant for a hemoglobin and hematocrit of 5.4 and 17.8% respectively, sodium 135, BUN 30, creatinine 0.90, glucose 113, proBNP 451, total protein 6.0, albumin 3.4. Initial troponin was within normal limits. EKG showed sinus rhythm with ST deviation and moderate T-wave abnormalities which are similar to changes seen on prior trac
[2024-01-08] MEDS: IRON SUCROSE COMPLEX 500 MG in SODIUM CHLORIDE 0.9% IV 250 ML 79 MG IVPB (13:25)
[2024-01-08] MEDS: ATORVASTATIN 40 MG TABLET 80 MG PO (22:04)
[2024-01-08] MEDS: traZODone HCL 50 MG TABLET PO (22:04)
[2024-01-08] MEDS: MELATONIN 5 MG TABLET PO (22:04)
[2024-01-09] VITALS (13 sets, daily range): BP systolic 141; BP diastolic 56; PULSE 66–90; RESP 18–20; TEMP 36.6; O2SAT 93–95
[2024-01-09] MEDS: IPRATROPIUM 0.5 MG/ALBUTEROL SULFATE 2.5 MG AMPUL.NEB 3 ML INHALATION ×3 (01:46→13:20)
[2024-01-09 05:35] LABS: Hematocrit 24.9 % (42.0-52.0); Hemoglobin 7.5 g/dL (14.0-18.0); Mean Corpuscular HGB Conc 30.1 g/dl (32-36); Mean Corpuscular Hemoglobin 27.7 pg (26-34); Mean Corpuscular Volume 91.9 fl (80-100); Mean Platelet Volume 9.5 fl (7.4-10.4); Platelet Count Result 332 k/mm3 (150-375); Red Blood Count 2.71 M/mm3 (4.6-6.20); Red Cell Distribution Width 18.6 % (11.5-14.5); White Blood Count 4.9 K/mm3 (4.5-10.0)
[2024-01-09 05:47] LABS: Alanine Aminotransferase 19 U/L (6-50); Albumin Level 3.1 g/dL (3.5-5.1); Alkaline Phosphatase 72 U/L (38-126); Anion Gap 1 mmol/L (8-16); Aspartate Amino Transferase 25 U/L (17-59); Bilirubin,Total 0.4 mg/dL (0.2-1.3); Blood Urea Nitrogen 10 mg/dL (9-20); Calcium 8.8 mg/dL (8.4-10.2); Carbon Dioxide 34 mmol/L (22-30); Chloride 100 mmol/L (98-107); Estimated CRCL calculation 63 ml/min; Estimated Glomerular Filt Rate > 60; Glucose 103 mg/dL (65-110); Potassium 3.6 mmol/L (3.4-5.0); Sodium 135 mmol/L (137-145)
[2024-01-09] MEDS: PANTOPRAZOLE SODIUM IV 40 MG VIAL IV PUSH (08:37)
[2024-01-09] MEDS: LOTEPREDNOL ETABONATE 0.5% OPH 5 ML BOTTLE 1 DROP EACH EYE (08:37)
[2024-01-09] MEDS: CHOLECALCIFEROL 1,000 UNITS TABLET 2000 UNITS PO (08:37)
[2024-01-09] MEDS: guaiFENesin 12 HR 600 MG TABCR PO (08:37)
[2024-01-09] MEDS: FUROSEMIDE 20 MG TABLET PO (08:37)
[2024-01-09] MEDS: TOLNAFTATE 1% POWDER 45 GM BTL 1 APPLIC TOPICAL (08:37)
[2024-01-09] MEDS: FERROUS SULFATE 325 MG TABLET DR BY MOUTH (08:37)
[2024-01-09] MEDS: lisinopriL 5 MG TABLET PO (08:37)
[2024-01-09] MEDS: AMIODARONE HCL 200 MG TABLET PO (08:37)
[2024-01-09 09:09] LABS: Methylmalonic Acid 250 nmol/L (87-318)
--- NOTE | 2024-01-09 16:00 | PM.DS ---
DS: Admitting Diagnosis Discharge Date 01/09/24 Admitting Diagnosis Anemia DS: Discharge Diagnosis Discharge Diagnosis (1) GI bleed: Code(s): K92.2 - Gastrointestinal hemorrhage, unspecified Status: Acute (2) Profound anemia: Code(s): D64.9 - Anemia, unspecified Status: Acute (3) Paroxysmal atrial fibrillation: Code(s): I48.0 - Paroxysmal atrial fibrillation Status: Acute (4) Chronic obstructive pulmonary disease: Code(s): J44.9 - Chronic obstructive pulmonary disease, unspecified Status: Acute (5) Chronic diastolic heart failure: Code(s): I50.32 - Chronic diastolic (congestive) heart failure Status: Acute (6) Coronary artery disease: Code(s): I25.10 - Atherosclerotic heart disease of [place] coronary artery without angina pectoris Status: Acute Plan ANEMIA Acute blood loss secondary gastrointestinal hemorrhage RULED OUT Hgb 5.6 POA GI consulted 3 units PRBC H&H q6HR PPI BID colonoscopy 01/05 Transfuse if hgb <7.0 Hold plavix and ASA/resume 01/06 01/06: no active bleed noted on EGD or colonoscopy Patient with history of microcytic anemia Increase ferrous sulfate to TID Hematology consult for any further recommendations 01/07 Hgb 7.4 even after IV iron stop Plavix and ASA due to chronic anemia was held previously due same problem Iron IV again increased oral Iron likely will need marrow biopsy with anemia stable O/P CAD stent 2021 holding plavix and ASA GI okay and resuming Plavix and aspirin Chronic diastolic Heart failure Stable this time. 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 DS: Summary Hospital Course Reason for hospitalization: Anemia Hospital Course: H&P (Medical Record) Chief Complaint: Shortness of breath and leg swelling. Narrative: This is a very pleasant 88-year-old male with chronic obstructive pulmonary disease, interstitial lung disease, coronary artery disease with history of stents on dual antiplatelet therapy, paroxysmal atrial fibrillation not on anticoagulation due to recurrent anemia, heart failure with preserved ejection fraction, aortic valve stenosis, hypertension, and gastroesophageal reflux disease who presented to the emergency department for evaluation of shortness of breath and leg swelling. The patient provides the following history. He was recently admitted to the hospital with acute on chronic respiratory failure secondary to influenza. He was discharged on 12/21/2023 and home health has been coming to visit him since discharge. Today he was noted to have increasing edema in his legs and was more short of breath than he had been and they encouraged him to come in for evaluation. With further questioning he admits to occasional chest tightness which seems to be related to his shortness of breath. He has noticed that his stools have been darker than usual though he attributes that to his iron supplementation. He has not noticed any bright red blood in his stools. He denies syncope, near syncope, exertional chest pain, pleuritic pain, palpitations, epigastric and abdominal pain, nausea, vomiting. In the ED: He was afebrile on arrival. SpO2 has been in the mid to upper 90s. Labs were significant for a hemoglobin and hematocrit of 5.4 and 17.8% respectively, sodium 135, BUN 30, creatinine 0.90, glucose 113, proBNP 451, total protein 6.0, albumin 3.4. Initial troponin was within normal limits. EKG showed sinus rhythm with ST deviation and moderate T-wave abnormalities which are similar to changes se
[2024-01-11 07:23] LABS: Haptoglobin 241 mg/dL (43-212)
[2024-01-12 13:18] LABS: Soluble Transferrin Receptor 2.92 mg/L (0.76-1.76)
== END 2024-01-09 15:30 | disposition home health service (06) | DRG 812 ==
LOC: ANHED 13:52 → ANH3MED 16:37
PROVIDERS: Internal Medicine Gastroenterology; Nurse Practitioner Family; Physician Assistant; Admitting Provider Hospitalist; Emergency Provider Family Medicine; PCP Family Medicine; Visit Provider Nurse Practitioner Family
PROC: 0DJ08ZZ Inspection of Upper Intestinal Tract, Via Natural or Artificial Opening Endoscopic (ICD-10-PCS; CPT 43235; principal; 2024-01-05 13:30)
DX: D50.9 Iron deficiency anemia, unspecified (principal); I50.32 Chronic diastolic (congestive) heart failure; J96.11 Chronic respiratory failure with hypoxia; K57.30 Diverticulosis of large intestine without perforation or abscess without bleeding; D12.2 Benign neoplasm of ascending colon; K64.8 Other hemorrhoids; E55.9 Vitamin D deficiency, unspecified; E78.5 Hyperlipidemia, unspecified; E66.9 Obesity, unspecified; H40.9 Unspecified glaucoma; I48.0 Paroxysmal atrial fibrillation; I25.10 Atherosclerotic heart disease of native coronary artery without angina pectoris; I11.0 Hypertensive heart disease with heart failure; I35.0 Nonrheumatic aortic (valve) stenosis; J44.9 Chronic obstructive pulmonary disease, unspecified; K21.9 Gastro-esophageal reflux disease without esophagitis; Z99.81 Dependence on supplemental oxygen; Z79.02 Long term (current) use of antithrombotics/antiplatelets; Z79.82 Long term (current) use of aspirin; Z68.34 Body mass index [BMI] 34.0-34.9, adult; Z95.5 Presence of coronary angioplasty implant and graft; Z85.46 Personal history of malignant neoplasm of prostate; Z90.49 Acquired absence of other specified parts of digestive tract; Z98.41 Cataract extraction status, right eye
CPT/HCPCS: 36415; 36430; 71045; 71046; 80048; 80053; 80076; 82607; 82728; 82746; 83010; 83540; 83550; 83615; 83735; 83880; 83921; 84238; 84484; 85014; 85018; 85025; 85027; 85046; 85610; 85730; 86850; 86880; 86900; 86901; 86923; 87081; 88305; 93005; 93970; 94640; 96374; 97116; 97161; 97165; 97530; 99285; A9270; C9113; J1756; J1940; J2704; J7050; J7120; P9016

== ENCOUNTER 2024-01-31 13:58 | Outpatient (CLI) | payer MEDICARE, SELFPAY ==
[2024-01-31 14:15] VITALS: PULSE 76; O2SAT 96
[2024-01-31 14:20] VITALS: PULSE 109; O2SAT 91
[2024-01-31 14:30] VITALS: PULSE 83; O2SAT 94
--- NOTE | 2024-01-31 14:59 | HOMEO2EVAL ---
Evaluation was performed at [facility] Home Oxygen Evaluation RC: Home Oxygen (O2) Evaluation Start: 01/31/24 14:55 Freq: Status: Active Protocol: RPE Activity Type Activity Date Activity User E-sign Co-sign Detail Recorded Client Recorded Date Recorded By Document 01/31/24 14:15 PRESTON [email or web address] 01/31/24 14:59 PRESTON Document 01/31/24 14:20 PRESTON [email or web address] 01/31/24 14:59 PRESTON Document 01/31/24 14:30 PRESTON [email or web address] 01/31/24 14:59 PRESTON 01/31/24 01/31/24 01/31/24 14:15 14:20 14:30 Home O2 Evaluation [Oxygen] -Test Phase Resting Exercise Resting -Oxygen Delivery Room Air Room Air Room Air [Pulse Oximetry] -Pulse Oximetry (90-100 %) 96 91 94 [Pulse Rate] -Pulse Rate (60-100 beats/min) 76 109 H 83 [Evaluation] -Activity Tolerance Good -Rating of Perceived Dyspnea (PD) +2 Mild, Some Difficulty, Noticeable to the Observer [Exercise] -Ambulation Distance (feet) 450 -Ambulation Distance (meters) 137.15 [Comments] -Home Oxygen Evaluation Comments Pt used wheeled walker for stability. No home o2 needed at this time. [Charges] -Evaluation Charges O2 Evaluation by Pulmonary
--- NOTE | 2024-01-31 14:59 | PCRCNOTE ---
Home o2 faxed to office staff. No home O2 needed at this time
--- NOTE | 2024-01-31 17:05 | WPDPFTINT ---
PFT Procedure Performed PFT Procedure Performed Spirometry with Pre/Post Bronchodilator Plethysmography (Lung Vol) Diffusing Cap (DLCO) Flow Vol Loop PFT Interpretation This is a pulmonary function test with pre and post-bronchodilator spirometry, plethysmography and diffusing capacity. The test was performed and results interpreted in accordance with the 2019 and 2005 ATS/ERS Task Force guidelines respectively using the Global Lung Function Initiative-2012 reference equations. Patient demonstrated good effort and cooperation. Reproducibility criteria were met. The quality of the pre bronchodilator spirometry maneuver was Grade B and post bronchodilator spirometry maneuver was Grade B. Of note, patient had difficulty following directions and was unable to complete forced expiratory limb of spirometry. Findings: Spirometry: The inspiratory and expiratory flow volume loops are not reproducible. Using the best available dated, the pre bronchodilator FVC is 1.16 L, 36% predicted. The pre bronchodilator FEV1 is 1.10 L, 46% predicted. The pre bronchodilator FEV1: FVC ratio is 94%. The post bronchodilator FVC is 1.30 L, representing a 140 mL increase which corresponds to a 12% increase. The post bronchodilator FEV1 is 1.20 L, representing a 9% increase. The post bronchodilator FEV1: FVC ratio is 92%. Plethysmography: The total lung capacity is 5.58 L, 89% predicted. The functional residual capacity is 4.17 L, 122% predicted. The residual volume is 4.02 L, 156% predicted. The residual volume:Total lung capacity ratio 72%. Diffusing capacity: The diffusing capacity unadjusted for hemoglobin and carboxyhemoglobin is 12.3, 59% predicted. The diffusing capacity adjusted for alveolar volume is 4.43, 121% predicted. In comparison to prior pulmonary function testing on 01/11/2022 in which the patient had difficulty with directions and was unable to complete the DLCO due to inability to hold breath and shortness of breath. The post bronchodilator FVC is unchanged from 1.33 L to 1.30 L. The post bronchodilator FEV1 is unchanged from 1.20 L to 1.20 L. the total lung capacity is unchanged from 5.28 L to 5.58 L. The functional residual capacity is unchanged from 4.13 L to 4.17 L. The residual volume has increased from 2.68 L to 4.02 L. Impression: The spirometry is not reproducible as the patient had difficulty following directions. Using the best available data, the spirometry is normal without evidence of an obstructive abnormality. The lung volumes are normal without evidence of and restrictive abnormality. The FVC and FEV1 are severely decreased without an obstructive or restrictive abnormality. This is an abnormal but nonspecific finding. There is no significant improvement after inhaling a single dose of albuterol as the absolute increase in the post bronchodilator FVC was less than 200 mL. The diffusing capacity unadjusted for hemoglobin and carboxyhemoglobin is moderately decreased and normalizes when adjusted for alveolar volume. in comparison to prior pulmonary function testing on 01/11/2022 there has been a greater than anticipated time dependent increase in the residual volume with no significant change in the FVC, FEV1, total lung capacity or functional residual capacity. Clinical correlation is recommended.
== END 2024-01-31 13:59 | disposition home or self-care (01) ==
LOC: ANHPFT 14:00
PROVIDERS: PCP Family Medicine; Visit Provider Internal Medicine Pulmonary Disease
DX: J84.9 Interstitial pulmonary disease, unspecified (principal)
CPT/HCPCS: 94060; 94618; 94726; 94729

== ENCOUNTER 2024-02-09 14:03 | Outpatient (CLI) | payer MEDICARE, SELFPAY ==
[2024-02-09 14:22] LABS: Basophils Absolute Auto 0.1 K/mm3 (0.0-0.1); Basophils Percent Auto 0.7 % (0.2-1.2); Eosinophils Absolute Auto 0.3 K/mm3 (0-0.3); Eosinophils Percent Auto 3.7 % (0-4.4); Hematocrit 33.5 % (42.0-52.0); Hemoglobin 10.5 g/dL (14.0-18.0); Immature Granulocyte Absolute 0.03 K/mm3 (0.00-0.031); Immature Granulocyte Percent A 0.4 % (0-0.5); Lymphocytes Absolute Auto 1.05 K/mm3 (0.9-3.2); Lymphocytes Percent Auto 15.1 % (18.3-44.2); Mean Corpuscular HGB Conc 31.3 g/dl (32-36); Mean Corpuscular Hemoglobin 29.2 pg (26-34); Mean Corpuscular Volume 93.1 fl (80-100); Mean Platelet Volume 9.2 fl (7.4-10.4); Monocytes Absolute Auto 0.6 K/mm3 (0.1-0.6); Neutrophils Percent Auto 71.1 % (45.5-73.1); Platelet Count Result 288 k/mm3 (150-375)
[2024-02-09 17:40] LABS: Iron 44 ug/dL (49-181)
[2024-02-09 17:43] LABS: Alanine Aminotransferase 24 U/L (6-50); Albumin Level 4.2 g/dL (3.5-5.1); Alkaline Phosphatase 85 U/L (38-126); Anion Gap 5 mmol/L (4-12); Aspartate Amino Transferase 33 U/L (17-59); Bilirubin,Total 0.7 mg/dL (0.2-1.3); Blood Urea Nitrogen 17 mg/dL (9-20); Calcium 9.5 mg/dL (8.4-10.2); Carbon Dioxide 33 mmol/L (22-30); Chloride 100 mmol/L (98-107); Estimated Glomerular Filt Rate > 60; Glucose 103 mg/dL (65-110); Lactate Dehydrogenase 211 U/L (120-246); Potassium 3.7 mmol/L (3.4-5.0); Sodium 138 mmol/L (137-145)
[2024-02-09 18:09] LABS: Percent Iron Saturation 14 % (20-50)
[2024-02-09 19:02] LABS: Folic Acid 18.9 ng/mL (2.76->20)
[2024-02-13 06:34] LABS: Methylmalonic Acid 305 nmol/L (87-318)
[2024-02-16 14:16] LABS: Soluble Transferrin Receptor 2.75 mg/L (0.76-1.76)
== END 2024-02-09 14:04 | disposition home or self-care (01) ==
LOC: ANHLAB 14:06
PROVIDERS: Nurse Practitioner Family; PCP Family Medicine; Visit Provider Internal Medicine Hematology & Oncology
DX: D50.0 Iron deficiency anemia secondary to blood loss (chronic) (principal)
CPT/HCPCS: 36415; 80053; 82607; 82728; 82746; 83540; 83550; 83615; 83921; 84238; 85025

== ENCOUNTER 2024-05-23 10:29 | Outpatient (CLI) | payer MEDICARE, SELFPAY ==
[2024-05-23 11:09] LABS: Basophils Percent Auto 0.4 % (0.2-1.2); Eosinophils Absolute Auto 0.4 K/mm3 (0-0.3); Eosinophils Percent Auto 4.9 % (0-4.4); Immature Granulocyte Absolute 0.05 K/mm3 (0.00-0.031); Immature Granulocyte Percent A 0.6 % (0-0.5); Lymphocytes Absolute Auto 0.86 K/mm3 (0.9-3.2); Lymphocytes Percent Auto 10.9 % (18.3-44.2); Mean Corpuscular Hemoglobin 26.9 pg (26-34); Mean Corpuscular Volume 92.5 fl (80-100); Mean Platelet Volume 9.8 fl (7.4-10.4); Monocytes Percent Auto 12.4 % (2.6-8.5); Neutrophils Absolute Auto 5.6 K/mm3 (1.3-6.7); Neutrophils Percent Auto 70.8 % (45.5-73.1); Platelet Count Result 397 k/mm3 (150-375); Red Blood Count 2.27 M/mm3 (4.6-6.20); Red Cell Distribution Width 18.5 % (11.5-14.5); White Blood Count 7.9 K/mm3 (4.5-10.0)
[2024-05-23 11:39] LABS: Iron 25 ug/dL (49-181)
[2024-05-23 11:50] LABS: Alanine Aminotransferase 30 U/L (6-50); Albumin Level 3.8 g/dL (3.5-5.1); Alkaline Phosphatase 97 U/L (38-126); Anion Gap 7 mmol/L (4-12); Aspartate Amino Transferase 38 U/L (17-59); Bilirubin,Total 0.4 mg/dL (0.2-1.3); Blood Urea Nitrogen 26 mg/dL (9-20); Calcium 9.2 mg/dL (8.4-10.2); Carbon Dioxide 30 mmol/L (22-30); Chloride 101 mmol/L (98-107); Estimated Glomerular Filt Rate > 60; Glucose 109 mg/dL (65-110); Lactate Dehydrogenase 179 U/L (120-246); Potassium 4.2 mmol/L (3.4-5.0); Sodium 138 mmol/L (137-145)
[2024-05-23 11:53] LABS: Percent Iron Saturation 6 % (20-50)
[2024-05-23 12:01] LABS: Transferrin 291 mg/dL (206-381)
[2024-05-23 12:58] LABS: Folic Acid 19.4 ng/mL (2.76->20)
[2024-05-23 14:01] LABS: Hemoglobin 6.1 g/dL (14.0-18.0)
[2024-05-23 14:03] LABS: Platelet Estimate Slightly Increased (Adequate); Schistocytes None Seen
[2024-05-23 14:04] LABS: Anisocytosis 1+; Hypochromasia 1+
[2024-05-27 03:48] LABS: Methylmalonic Acid 398 nmol/L (85-423)
== END 2024-05-23 10:30 | disposition home or self-care (01) ==
PROVIDERS: PCP Family Medicine; Visit Provider Nurse Practitioner Family
DX: D50.0 Iron deficiency anemia secondary to blood loss (chronic) (principal)
CPT/HCPCS: 36415; 80053; 82607; 82728; 82746; 83540; 83550; 83615; 83921; 84466; 85025

== ENCOUNTER 2024-05-24 07:12 | Outpatient (RCR) | payer MEDICARE, SELFPAY ==
[2024-05-24] VITALS (12 sets, daily range): BP systolic 110–155; BP diastolic 61–96; PULSE 70–79; RESP 16–24; TEMP 36.6–36.9; O2SAT 96–100
[2024-05-24] MEDS: diphenhydrAMINE HCl CAP 25 MG CAPSULE PO (09:11)
[2024-05-24] MEDS: ACETAMINOPHEN 325 MG TABLET 650 MG PO (09:11)
[2024-05-24] MEDS: SODIUM CHLORIDE 0.9% IV 250 ML 30 ML IV CONT (09:11)
[2024-05-24] MEDS: FUROSEMIDE INJ 40 MG/4 ML VIAL 20 MG IV PUSH (13:20)
== END 2024-06-15 23:59 | disposition home or self-care (01) ==
LOC: ANHCPCTRAN 07:12
PROVIDERS: PCP Family Medicine; Visit Provider Nurse Practitioner Family
DX: D50.9 Iron deficiency anemia, unspecified (principal)
CPT/HCPCS: 36415; 36430; 86850; 86900; 86901; 86923; 96374; A9270; J1940; J7050; P9016

== ENCOUNTER 2024-05-30 08:45 | Outpatient (CLI) | payer MEDICARE, SELFPAY ==
[2024-05-30 09:46] LABS: Basophils Percent Auto 0.7 % (0.2-1.2); Eosinophils Absolute Auto 0.4 K/mm3 (0-0.3); Eosinophils Percent Auto 8.2 % (0-4.4); Hematocrit 29.4 % (42.0-52.0); Hemoglobin 8.7 g/dL (14.0-18.0); Immature Granulocyte Absolute 0.01 K/mm3 (0.00-0.031); Immature Granulocyte Percent A 0.2 % (0-0.5); Lymphocytes Absolute Auto 0.61 K/mm3 (0.9-3.2); Lymphocytes Percent Auto 11.3 % (18.3-44.2); Mean Corpuscular HGB Conc 29.6 g/dl (32-36); Mean Corpuscular Hemoglobin 27.3 pg (26-34); Mean Corpuscular Volume 92.2 fl (80-100); Mean Platelet Volume 9.8 fl (7.4-10.4); Monocytes Absolute Auto 0.6 K/mm3 (0.1-0.6); Monocytes Percent Auto 10.6 % (2.6-8.5); Neutrophils Absolute Auto 3.7 K/mm3 (1.3-6.7); Platelet Count Result 346 k/mm3 (150-375); Red Blood Count 3.19 M/mm3 (4.6-6.20); Red Cell Distribution Width 17.4 % (11.5-14.5); White Blood Count 5.4 K/mm3 (4.5-10.0)
[2024-05-30 09:57] LABS: Alanine Aminotransferase 29 U/L (6-50); Albumin Level 3.8 g/dL (3.5-5.1); Alkaline Phosphatase 102 U/L (38-126); Anion Gap 8 mmol/L (4-12); Aspartate Amino Transferase 37 U/L (17-59); Bilirubin,Total 0.4 mg/dL (0.2-1.3); Blood Urea Nitrogen 19 mg/dL (9-20); Calcium 8.9 mg/dL (8.4-10.2); Carbon Dioxide 31 mmol/L (22-30); Chloride 101 mmol/L (98-107); Estimated Glomerular Filt Rate > 60; Glucose 149 mg/dL (65-110); Lactate Dehydrogenase 209 U/L (120-246); Potassium 3.8 mmol/L (3.4-5.0); Sodium 140 mmol/L (137-145)
[2024-05-30 10:04] LABS: Transferrin 279 mg/dL (206-381)
[2024-05-30 10:11] LABS: Iron 89 ug/dL (49-181)
[2024-05-30 10:20] LABS: Hypochromasia 1+; Platelet Estimate Adequate (Adequate)
[2024-05-30 10:21] LABS: Anisocytosis 1+; Macrocytosis 1+ (NORMAL); Percent Iron Saturation 22 % (20-50); Schistocytes None Seen; Target Cells 1+
[2024-05-30 11:03] LABS: Folic Acid > 20.0 ng/mL (2.76->20)
[2024-06-01 14:54] LABS: Methylmalonic Acid 362 nmol/L (85-423)
== END 2024-05-30 08:46 | disposition home or self-care (01) ==
LOC: ANHLAB 08:51
PROVIDERS: PCP Family Medicine; Visit Provider Nurse Practitioner Family
DX: D50.0 Iron deficiency anemia secondary to blood loss (chronic) (principal)
CPT/HCPCS: 36415; 80053; 82607; 82728; 82746; 83540; 83550; 83615; 83921; 84466; 85025

== ENCOUNTER 2024-06-01 09:12 | Inpatient (IN) | payer MEDICARE, SELFPAY ==
[2024-06-01] VITALS (28 sets, daily range): BP systolic 146–216; BP diastolic 59–87; PULSE 60–93; RESP 13–31; TEMP 36.3–36.7; O2SAT 89–100; BMI 32.9
--- NOTE | ~2024-06-01 | US_ITS ---
EXAMINATION: US venous doppler [facility] DATE: 06/06/2024 14:17 INDICATION: calf pain . TECHNIQUE: Grayscale images without and with compression and Doppler images of the bilateral lower ex tremity veins were obtained. COMPARISON: None FINDINGS: The right common femoral vein, profunda (deep) femoral vein, femoral vein, popliteal vein, peroneal v ein, posterior tibial veins, gastrocnemius vein, and greater saphenous vein are patent. The left common femoral vein, profunda (deep) femoral vein, femoral vein, popliteal vein, peroneal v ein, posterior tibial veins, gastrocnemius vein, and greater saphenous vein are patent. IMPRESSION: Patent bilateral lower extremity veins. No evidence of deep venous thrombosis. Reviewed, dictated and finalized at location K.
--- NOTE | ~2024-06-01 | CT_ITS ---
EXAMINATION: CTA chest PE abdomen pel DATE: 06/01/2024 12:25 INDICATION: Syncope and abdominal pain and distention. Elevated d-dimer. TECHNIQUE: Computed tomography (CT) pulmonary angiogram of the chest was performed with 100 mL Omnipa que-350 intravenous contrast. Additional 3D reconstructions utilizing coronal maximum intensity proje ction (MIP) were performed. CT of the abdomen and pelvis was performed with intravenous contrast util izing the same contrast bolus following a short delay. Automated exposure control and iterative recon struction technique were employed. The dose-length product was 2717.24 mGy-cm. COMPARISON: CT dated 12/17/2023, 12/12/2023 11/14/2023 FINDINGS: Chest: Good contrast opacification of the pulmonary arteries. There is mild streak artifact from dense contr ast in the superior vena cava and right atrium. Moderate scattered respiratory motion artifact. Toget her this decreases sensitivity in the segmental subsegmental pulmonary arteries with assessment of kearney bsegmental pulmonary arteries in the region of more severe artifact in the bilateral upper and right lower lung zones essentially nondiagnostic. No evident pulmonary embolism. The respiratory motion als o limits assessment of fine pulmonary parenchymal detail. Is increased peripheral reticular opacities at the bilateral lower lung zones without associated consolidation most likely representing either m ild pulmonary edema, atelectasis or chronic interstitial lung disease. Small calcified nodules in the right middle lobe and calcified right hilar lymph nodes consistent with old granulomatous disease. N o pleural effusion. Cardiomegaly. Atherosclerotic coronary artery calcification. Coronary artery sten ting along the left anterior descending coronary arteries. No pericardial effusion. Thoracic aorta is normal in caliber with no dissection. No pathologically enlarged thoracic lymphadenopathy. Moderate to severe lower thoracic predominant spondylosis with a several mild chronic compression fractures th roughout the thoracic spine. Abdomen/pelvis: Numerous small calcified nodules in the liver and spleen consistent with old granulomatous disease. M ild intrahepatic biliary ductal dilation which is new since the prior study and increase in the dilat ion of the common bile duct from 1.3 to 1.6 cm. Gallbladder not visualized and likely surgically abse nt. Pancreas and bilateral adrenal glands are normal. Bilateral renal cysts more numerous on the righ t including the largest cyst which measures up to 3.3 cm. There are couple small complex proteinaceou s/hemorrhagic cysts at the upper pole of the left kidney, the larger measuring 1.5 cm, which demonstr ate soft tissue density which is unchanged since the noncontrast chest CT dated 11/24/2023. Prominent diverticulosis along the descending and sigmoid colon without adjacent inflammatory stranding to sugg est diverticulitis. No bowel obstruction. Normal appendix. Bladder is normal. Multiple brachytherapy seeds at the prostate. No free intraperitoneal gas or fluid. No pathologically enlarged abdominal or pelvic lymphadenopathy. Nonspecific mild body wall edema along the anterior abdominal wall. Severe sp ondylosis at the lumbosacral junction. Chronic L1 compression fracture. There is an age-indeterminate recent-appearing L4 with compression fracture with 40% central vertebral body height loss which is n ew since 12/12/2023. IMPRESSION: 1. No evident pulmonary embolism. Sensitivity decreased in the segmental and subsegmental pulmonary a rteries, essentially nondiagnostic in some of the smaller subsegmental pulmonary arteries in the bila teral upper and right lower lung zones. 2. Mild peripheral reticular opacities in the bilateral lower lungs which could represent mild pulmon emily edema, atelectasis, chronic interstitial lung disease or combination thereof. 3. Cardiomegaly. 4. New mild intrahepatic biliary ductal dilation and i
--- NOTE | ~2024-06-01 | XR_ITS ---
XR chest 2V 06/01/2024 10:07 Indication: Syncope Procedure: 2 view chest Comparison: Comparison to multiple prior studies sequentially, with oldest reviewed study dated 11/2023. Findings: Shallow inspiration with crowding of the pulmonary vessels. Mild interstitial edema. No sig nificant effusion. No pneumothorax. Heart size is difficult to evaluate. There is atherosclerosis of the coronary arteries. Impression: 1: Probable mild interstitial edema. Low lung volumes. Reviewed, dictated and finalized at location B. Impression: 1: Probable mild interstitial edema. Low lung volumes.
--- NOTE | ~2024-06-01 | CT_ITS ---
EXAMINATION: CT brain wo con DATE: 06/01/2024 10:03 INDICATION: Status post fall. Head trauma. TECHNIQUE: Computed tomography (CT) of the head was performed without intravenous contrast. The dose- length product was 605.33 mGy-cm. Automated exposure control and iterative reconstruction technique were employed. COMPARISON: CT dated 11/18/2023 FINDINGS: Generalized atrophy. There are scattered moderate periventricular and subcortical white mat ter changes, most likely related to small vessel ischemic disease (microangiopathy). No ventriculomeg kar or midline shift. There is intracranial atherosclerosis. No acute infarction, hemorrhage, mass or mass effect. Paranasal sinuses and mastoids are pneumatized. There is a right scleral band. No depre ssed skull fractures. IMPRESSION: 1. No acute intracranial abnormality. Reviewed, dictated and finalized at location B.
--- NOTE | ~2024-06-01 | CT_ITS ---
EXAMINATION: CT cervical spine wo con DATE: 06/01/2024 10:03 INDICATION: Falls with head injury TECHNIQUE: Computed tomography (CT) of the cervical spine was performed without intravenous contrast. Automated exposure control and iterative reconstruction technique were employed. The dose-length pro duct was 544.65 mGy-cm. COMPARISON: None FINDINGS: Severe osteoarthritis at the atlantoaxial articulation. There is approximately 15 degrees cervicothor acic levocurvature. Sagittal alignment is normal. Vertebral body heights are normal. No fracture. Sev ere disc height loss at C5-C6, moderate to severe disc height loss at C2-C3 and C3-C4, moderate disc height loss at C4-C5 and C6-C7. There posterior endplate osteophytes related multilevel mild central canal stenosis throughout the cervical spine greatest at C5-C6 and C6-C7. There is multilevel severe uncovertebral osteoarthritis throughout the majority of the cervical spine. There is also multilevel moderate to severe facet osteoarthritis throughout the cervical spine and right side of the upper tho racic spine. This contributes to multilevel bilateral neural foraminal stenosis, moderate severity on the left at C3-C4, C5-C6 and C6-C7 and on the right at C4-C5 through C6-C7 and mild at the remaining cervical neural foramina. 2.5 cm left thyroid nodule. Cervical soft tissues are otherwise unremarkab le. There is smooth septal line thickening at the visualized upper lungs, right greater than left con sistent with mild pulmonary edema. IMPRESSION: 1. Severe cervical spondylosis. No acute osseous abnormality. Reviewed, dictated and finalized at location A.
--- NOTE | ~2024-06-01 | MR_ITS ---
EXAMINATION: MR MRCP wo/w con/w 3D wo ind DATE: 06/04/2024 15:06 INDICATION: Biliary ductal dilation TECHNIQUE: Magnetic resonance imaging (MRI) of the abdomen was performed without and with 18 mL Multi antelmo intravenous contrast. Sequences included coronal T2-weighted SS-FSE, coronal T2-weighted FS SS- FSE, coronal T2-weighted FS FIESTA, axial T2-weighted FS FIESTA, axial T2-weighted FIESTA, sagittal T 2-weighted SS-FSE, axial T1-weighted dual-echo FSPGR, axial T2-weighted SS-FSE, axial T1-weighted LAV A, axial T2-weighted STIR FSE. Thick-slab T2-weighted FRFSE-XL images were obtained for magnetic reso nance cholangiopancreatography (MRCP). Rotating maximum intensity projection 3-D reconstructions of t he volumetric data were created by the technologist. Postcontrast sequences included a time course of axial T1-weighted LAVA. COMPARISON: CT dated 06/01/2024 FINDINGS: ABDOMEN MRI: Cardiomegaly. No pericardial or pleural effusion. Mild intrahepatic biliary ductal dilation. Liver is otherwise normal. Spleen and bilateral adrenal glands are normal. 5 mm T2 hyperintense cystic lesion at the tail of the pancreas. Multiple T2 hyperintense nonenhancing renal cysts the largest on the ri ght measuring 2.8 cm. Scattered colonic diverticula without adjacent comparison to suggest diverticul itis. No pathologically enlarged abdominal or upper pelvic lymphadenopathy. There is marrow edema ass ociated with the L4 compression fracture consistent with recent fracture. No loss of central fat sign al to suggest pathologic fracture. T1 hyperintense fat saturating hemangioma at L3. Several additiona l chronic compression fractures in the lower thoracic and upper lumbar spine. ABDOMEN MRCP: Common bile duct measures up to 1.5 cm diameter. There is a 4 x 3 mm hypointense filling defect at th e ampulla suspicious for small gallstone which is best appreciated on the coronal T2-weighted image s eries 2, image 33. No definitive filling defect evident on the MRCP images. IMPRESSION: 1. Possible 4 x 3 mm filling defect seen on one of the sequences at the distalmost aspect of the dila keegan common bile duct raising suspicion for a gallstone with differential including flow artifact. 2. Marrow edema at a recent L4 compression fracture. Reviewed, dictated and finalized at location A. IMPRESSION: 1. Possible 4 x 3 mm filling defect seen on one of the sequences at the distalm ost aspect of the dilated common bile duct raising suspicion for a gallstone wi th differential including flow artifact. 2. Marrow edema at a recent L4 compression fracture.
--- NOTE | 2024-06-01 09:14 | ECG_ITS ---
Test Date: 2024-06-01 09:20:07 Measurements Intervals [place] Rate: 73 P: 27 SC: 170 QRS: 8 QRSD: 98 T: 56 QT: 404 QTc: 446 Interpretive Statements SINUS RHYTHM BASELINE ARTIFACT- I, III, AVR, AVL, AVF NORMAL ECG No previous ECG available for comparison Electronically Signed On 06-01-2024 11:01:36 CDT by Robert Cutler D.O.
[2024-06-01 09:29] LABS: Basophils Percent Auto 0.8 % (0.2-1.2); Eosinophils Absolute Auto 0.3 K/mm3 (0-0.3); Eosinophils Percent Auto 5.5 % (0-4.4); Hematocrit 29.7 % (42.0-52.0); Hemoglobin 8.8 g/dL (14.0-18.0); Immature Granulocyte Absolute 0.01 K/mm3 (0.00-0.031); Immature Granulocyte Percent A 0.2 % (0-0.5); Lymphocytes Absolute Auto 0.73 K/mm3 (0.9-3.2); Mean Corpuscular HGB Conc 29.6 g/dl (32-36); Mean Corpuscular Hemoglobin 27.3 pg (26-34); Mean Corpuscular Volume 92.2 fl (80-100); Mean Platelet Volume 9.7 fl (7.4-10.4); Monocytes Absolute Auto 0.5 K/mm3 (0.1-0.6); Monocytes Percent Auto 10.3 % (2.6-8.5); Neutrophils Absolute Auto 3.3 K/mm3 (1.3-6.7); Neutrophils Percent Auto 68.2 % (45.5-73.1); Platelet Count Result 317 k/mm3 (150-375); Red Blood Count 3.22 M/mm3 (4.6-6.20); Red Cell Distribution Width 17.3 % (11.5-14.5); White Blood Count 4.9 K/mm3 (4.5-10.0)
[2024-06-01 09:39] LABS: Alanine Aminotransferase 33 U/L (6-50); Albumin Level 3.9 g/dL (3.5-5.1); Alkaline Phosphatase 109 U/L (38-126); Anion Gap 6 mmol/L (4-12); Aspartate Amino Transferase 38 U/L (17-59); Bilirubin,Total 0.5 mg/dL (0.2-1.3); Blood Urea Nitrogen 21 mg/dL (9-20); Carbon Dioxide 31 mmol/L (22-30); Chloride 100 mmol/L (98-107); Estimated CRCL calculation 54 ml/min; Estimated Glomerular Filt Rate > 60; Glucose 107 mg/dL (65-110); Potassium 4.1 mmol/L (3.4-5.0); Sodium 137 mmol/L (137-145)
--- NOTE | 2024-06-01 09:50 | ED.SYNCOPE ---
HPI - Syncope General Chief Complaint: Syncope Stated Complaint: syncope Time Seen by Provider: 06/01/24 09:48 Source: patient and family (son Royal) Limitations: other (hard of hearing) History of Present Illness HPI narrative: Patient presents with complaint of multiple falls. Some of these have been witnessed and some have not. Patient states at times they occur when he is changing positions such as going from a seated position to a standing position and other times, like this morning, he will be seated on the couch and suddenly fall forward. Today he struck his head when he fell. Patient initially states he does not lose consciousness but then states sometimes he thinks he does briefly. Patient denies any chest pain or significant warning that he will have an episode/fall. He states that he has been having some abdominal pain points to his left lower abdomen. For this reason he did not take his morning medication. He has a history of interstitial lung disease is on home oxygen. He also states he has a history of cardiac stents and he last saw his manager assurance Dr. Styles 6 months ago. He does endorse shortness of breath, chronic/baseline. Related Data Home Medications Medication Instructions Recorded Confirmed aspirin 81 mg tablet,delayed 81 mg PO DAILY 09/14/19 06/01/24 release (Adult Aspirin Regimen) multivitamin with minerals-folic 0.4 mg PO DAILY 09/14/19 06/01/24 acid 0.4 mg tablet (Adult One Daily Multivitamin) cholecalciferol (vitamin D3) 25 2,000 unit PO DAILY 11/19/19 06/01/24 mcg (1,000 unit) tablet atorvastatin 80 mg tablet 80 mg PO QHS 01/24/23 06/01/24 clopidogrel 75 mg tablet (Plavix) 75 mg PO DAILY 01/24/23 06/01/24 lisinopril 5 mg tablet 5 mg PO DAILY 01/24/23 06/01/24 furosemide 20 mg tablet 20 mg PO QAM 01/19/24 06/01/24 loteprednol etabonate 0.5 % eye 1 drp EACH EYE DAILY 01/19/24 06/01/24 drops,suspension clotrimazole-betamethasone 1 1 applic topical BID PRN psoriasis 01/24/24 06/01/24 %-0.05 % topical cream rash ferrous sulfate 325 mg (65 mg 325 mg BYMOUTH BID 06/01/24 06/01/24 iron) tablet,delayed release metoprolol tartrate 25 mg tablet 25 mg PO BID 06/01/24 06/01/24 Allergies Allergy/AdvReac Type Severity Reaction Status Date / Time warfarin AdvReac Intermediate Dizziness Verified 06/01/24 09:20 [facility] Past Medical History Medical History (Updated 06/01/24 @ 18:33 by Ladi Hernandez APRN) Chronic anemia Chronic obstructive pulmonary disease Coronary artery disease Glaucoma Hyperlipidemia Hypertension Insomnia Interstitial lung disease Obesity (BMI 30-39.9) SUDHIR (obstructive sleep apnea) Paroxysmal atrial fibrillation Presbycusis of both ears Prostate cancer (2008) Psoriasis Vitamin D deficiency Surgical History Surgical History History of cholecystectomy History of coronary artery stent placement 2003 and 2021. History of right cataract extraction Family History Family History Mother Family history of malignant neoplasm Father Acute myocardial infarction Social History Social History (Updated 06/02/24 @ 06:19 by Rosy Dumont MD) Social History: Surrogate medical decision maker: Billie Crane, spouse. Code status: Full code. Smoking status: Never smoker Second hand tobacco smoke exposure: No Alcohol intake: never Substance use: never Substance use type: does not use Do You Feel Safe in your Home?: Yes Lack of Transportation: No Lack of Food: Never True Current Housing: I Have Housing Concerned About Future Housing: No Difficulty Paying Gas/Electric Bills: No Difficulty Paying for Meds: No Currently Unemployed: No Education: High School Diploma/GED Difficulty w/ Childcare or Family Care: No Living arrangements: with family Additional living arrangements comments: and son (Royal) Occupati
[2024-06-01 10:33] LABS: Hypochromasia 2+; Platelet Estimate Adequate (Adequate); Schistocytes None Seen
[2024-06-01 10:34] LABS: Anisocytosis 1+; Target Cells 1+
--- NOTE | 2024-06-01 10:51 | PC.NURSE ---
Lab called to add on labs
[2024-06-01 11:23] LABS: D Dimer 0.83 ug/mL (<0.48)
[2024-06-01 11:40] LABS: Troponin I 0.033 ng/mL (0.000-0.034)
[2024-06-01 11:51] LABS: NT Pro B Type Natriuretic Pept 3230 pg/mL (19.9-100)
[2024-06-01] MEDS: FUROSEMIDE INJ 40 MG/4 ML VIAL IV PUSH ×2 (12:27→15:08)
--- NOTE | 2024-06-01 13:16 | PC.NURSE ---
Patient placed on 2L oxygen due to 88% room air sat
--- NOTE | 2024-06-01 14:25 | PM.IMHP ---
H&P: HPI History of Present Illness Date/Time: 06/01/24 14:25 Chief Complaint: Falls Narrative: 89 y/o M presents here with falls with PMH of chronic anemia, COPD, CAD, glaucoma, HLD, HTN, insomnia, I LD, paroxysmal AFib, prostate cancer, psoriasis, and vitamin-D deficiency. The patient presents here with multiple falls from home. Patient reports 2 falls and 1 near fall in the last week. The initial fall was in the evening around 930p on where he was standing at the sink when he suddenly felt sleepy and he fell over and fell onto his right hip without head strike and brief LOC (remembers standing and then woke on the floor). Second fall occurred this morning around 7 am. He was sitting on the side of the bed and then began to feel a little lightheaded. He then tipped forward and hit his head on the couch. Again did not remember the act of falling and woke after on the floor. Has chronic headaches, no deviation from his baseline post fall or neck pain. Last episode was a near fall, occurred approximately 45 mins after. Patient felt episode coming on and stood up from the table. Was able to stabilize himself and avoid fall. No loss of consciousness. Previously when patient had multiple falls over a short period of time (Dec), he was evaluated and found to have CO2 narcosis. Once corrected patient did not have issues with falls or loss of consciousness. Currently lives at home with his and son. Patient has a walker but and compliance varies, typically utilizes it more in the morning. Initial VS at presentation: 98? F, HR 73, RR 17, 177/77, and 92% on RA. ED workup showed: no leukocytosis, hemoglobin 8.8 (previously 8.7 on 05/30, chronic), D-dimer 0.83, ABG showed CO2 of 48.5, O2 60.5, O2 saturation 93.2%, creatinine 0.9 and GFR >60, initial troponin 0.033, and BNP 3230. CXR showed probable mild interstitial edema and low lung volumes. CT of the head showed no acute intracranial abnormality. C-spine CT showed severe cervical spondylosis without acute osseous abnormality. CTA of the chest/abdomen/pelvis showed no evidence PE, mild peripheral reticular opacities in the bilateral lower lung zones, cardiomegaly, new mild intrahepatic bile ear E ductal dilation, prominent descending and sigmoid diverticulosis without diverticulitis, and multiple compression fractures throughout thoracic and lumbar spine age indeterminate. Review of Systems Review of Systems: All systems reviewed & are unremarkable except as noted in HPI and below PMFSH Past Medical History Medical History (Updated 06/01/24 @ 18:33 by Ladi Hernandez APRN) Chronic anemia Chronic obstructive pulmonary disease Coronary artery disease Glaucoma Hyperlipidemia Hypertension Insomnia Interstitial lung disease Obesity (BMI 30-39.9) SUDHIR (obstructive sleep apnea) Paroxysmal atrial fibrillation Presbycusis of both ears Prostate cancer (2008) Psoriasis Vitamin D deficiency Surgical History Surgical History History of cholecystectomy History of coronary artery stent placement 2003 and 2021. History of right cataract extraction Family History Family History Mother Family history of malignant neoplasm Father Acute myocardial infarction Social History Social History Social History: Surrogate medical decision maker: Billie Crane, spouse. Code status: Full code. Smoking status: Never smoker Second hand tobacco smoke exposure: No Alcohol intake: never Substance use: never Substance use type: does not use Do You Feel Safe in your Home?: Yes Lack of Transportation: No Lack of Food: Never True Current Housing: I Have Housing Concerned About Future Housing: No Difficulty Paying Gas/Electric Bills: No Difficulty Paying for Meds: No Currently Unemployed: No Educati
[2024-06-01 14:28] LABS: Alveolar/Arterial O2 Gradient 44.9 mmHg; Base Excess ABG 2.4 mEq/l (+/-2.0); Fractional Inspired Oxygen 24 %; Oxygen Content ABG 12.5 %vol (16.0-22.0); Oxygen Saturation ABG 93.2 % (95.0-100.0); Oxyhemoglobin 91.4 % THb (90.0-100.0); PCO2 ABG 48.5 mmHg (35.0-45.0); PO2 ABG 68.5 mmHg (80.0-100.0); PO2 FiO2 Ratio Arterial Blood 2.85 %; Total Hemoglobin 9.7 g/dL (12.0-18.0)
[2024-06-01 14:29] LABS: Device NASAL CANNULA; Liters per Minute 0.5 LPM; Modified Allen's Test Pass; Site Drawn LEFT RADIAL
--- NOTE | 2024-06-01 15:18 | ADMGEN ---
This patient, Kwame Crane, was admitted to Medical Room 343-01. Patient/family oriented to hospital policies and general routines including ID bracelet, bed and alarms, visiting hours, pain management, procedures, bathroom and other care routines, personal items, smoking policy, room service/diet, and visiting hours. Information on how to activate the Rapid Response Team has been discussed. Patient/Family are encouraged to report perceived risks to care and to ask questions if they do not understand what they are told or what they should do.
[2024-06-01 20:05] LABS: Troponin I 0.048 ng/mL (0.000-0.034)
[2024-06-01] MEDS: MELATONIN 5 MG TABLET PO (22:03)
[2024-06-01] MEDS: METOPROLOL TARTRATE 25 MG TABLET PO (22:03)
[2024-06-01] MEDS: ACETAMINOPHEN 325 MG TABLET 650 MG PO (22:03)
[2024-06-01] MEDS: ATORVASTATIN 40 MG TABLET 80 MG PO (22:03)
[2024-06-02] VITALS (16 sets, daily range): BP systolic 117–153; BP diastolic 53–58; PULSE 55–86; RESP 18–27; TEMP 36.6–37.1; O2SAT 95–100
[2024-06-02 04:46] LABS: Appearance Urine Clear (Clear); Bacteria Urine None Seen /hpf; Bilirubin Urine Negative (Negative); Blood Urine Negative (Negative); Color Urine Yellow (Yellow); Glucose Urine UA Negative (Negative); Ketones Urine Negative (Negative); Leukocyte Esterase Ur Negative LEU/UL (Negative); Nitrate Urine Negative (Negative); Non Pathogenic Casts 0-2; Protein Urine 3+ mg/dL (Negative); RBC Urine 0-2 /hpf (0-2); Specific Grav Ur > 1.045 (1.001-1.035); Squamous Epithelial Cell Urine None Seen /hpf (Few); WBC Urine 0-5 /hpf (0-3); pH Urine 5.5 (5.0-9.0)
[2024-06-02 04:55] LABS: Add Urine Microscopic? YES
[2024-06-02 05:38] LABS: Alveolar/Arterial O2 Gradient 36.1 mmHg; Base Excess ABG 4.7 mEq/l (+/-2.0); Fractional Inspired Oxygen 21 %; HCO3 ABG 30.5 mEq/l (22.0-26.0); Oxygen Content ABG 11.1 %vol (16.0-22.0); PCO2 ABG 51.5 mmHg (35.0-45.0); PO2 FiO2 Ratio Arterial Blood 2.48 %; Total Hemoglobin 9.4 g/dL (12.0-18.0)
[2024-06-02 06:41] LABS: Device CPAP; Modified Allen's Test Pass; Oxyhemoglobin 83.6 % THb (90.0-100.0); Site Drawn RIGHT RADIAL
[2024-06-02 07:02] LABS: Basophils Percent Auto 0.6 % (0.2-1.2); Eosinophils Absolute Auto 0.5 K/mm3 (0-0.3); Eosinophils Percent Auto 7.2 % (0-4.4); Hematocrit 29.7 % (42.0-52.0); Hemoglobin 8.6 g/dL (14.0-18.0); Immature Granulocyte Absolute 0.01 K/mm3 (0.00-0.031); Immature Granulocyte Percent A 0.2 % (0-0.5); Lymphocytes Absolute Auto 0.84 K/mm3 (0.9-3.2); Lymphocytes Percent Auto 13.4 % (18.3-44.2); Mean Corpuscular Hemoglobin 26.6 pg (26-34); Monocytes Absolute Auto 0.7 K/mm3 (0.1-0.6); Monocytes Percent Auto 10.8 % (2.6-8.5); Neutrophils Absolute Auto 4.3 K/mm3 (1.3-6.7); Neutrophils Percent Auto 67.8 % (45.5-73.1); Platelet Count Result 323 k/mm3 (150-375); Red Blood Count 3.23 M/mm3 (4.6-6.20); Red Cell Distribution Width 17.4 % (11.5-14.5); White Blood Count 6.3 K/mm3 (4.5-10.0)
[2024-06-02 07:16] LABS: Alanine Aminotransferase 31 U/L (6-50); Albumin Level 3.6 g/dL (3.5-5.1); Alkaline Phosphatase 98 U/L (38-126); Anion Gap 5 mmol/L (4-12); Aspartate Amino Transferase 39 U/L (17-59); Bilirubin,Total 0.4 mg/dL (0.2-1.3); Blood Urea Nitrogen 20 mg/dL (9-20); Calcium 8.8 mg/dL (8.4-10.2); Carbon Dioxide 36 mmol/L (22-30); Chloride 98 mmol/L (98-107); Estimated CRCL calculation 49 ml/min; Estimated Glomerular Filt Rate > 60; Glucose 97 mg/dL (65-110); Sodium 139 mmol/L (137-145)
[2024-06-02 07:28] LABS: Anisocytosis 1+; Hypochromasia 2+; Platelet Estimate Adequate (Adequate); Schistocytes None Seen
--- NOTE | 2024-06-02 07:47 | PCRCNOTE ---
Assessed patient due to blood gas results obtained by overnight associate RT. Patient is currently on 3L nasal cannula with SpO2 @ 99%. Breath sounds diminished with respirations @ 20 and HR @ 63. Discussed with patient to wear Bipap that's in room while sleeping @ night and for naps. Patient verbalized understanding and stated he did wear it last night. Will notify RN.
[2024-06-02] MEDS: ASPIRIN 81 MG ENTERIC TABLET PO (09:38)
[2024-06-02] MEDS: lisinopriL 5 MG TABLET PO (09:38)
[2024-06-02] MEDS: METOPROLOL TARTRATE 25 MG TABLET PO ×2 (09:38→21:56)
[2024-06-02] MEDS: CHOLECALCIFEROL 1,000 UNITS TABLET 2000 UNITS PO (09:38)
[2024-06-02] MEDS: FERROUS SULFATE 325 MG TABLET DR BY MOUTH ×2 (09:38→17:30)
[2024-06-02] MEDS: THERAPEUTIC MULTIVITAMINS/MINERALS TAB (*BKC) 1 TABLET PO (09:40)
[2024-06-02] MEDS: LOTEPREDNOL ETABONATE 0.5% OPH 5 ML BOTTLE 1 DROP EACH EYE (09:40)
[2024-06-02] MEDS: CLOPIDOGREL BISULFATE 75 MG TABLET PO (09:40)
[2024-06-02] MEDS: PANTOPRAZOLE 40 MG TABLET PO (09:40)
[2024-06-02] MEDS: AMIODARONE HCL 200 MG TABLET PO (09:40)
[2024-06-02] MEDS: FUROSEMIDE 20 MG TABLET PO (09:40)
--- NOTE | 2024-06-02 13:14 | PM.IMPN ---
Progress Note: A&P Assessment and Plan (1) Multiple falls: Code(s): R29.6 - Repeated falls Status: Acute Assessment and Plan: - trauma workup (Head CT, C-Spine CT, CT chest/abdomen/pelvis) negative for acute findings, subacute finding on CTA - Relatively recent-appearing L4 compression fracture new since 12/12/2023; patient denies any back pain. - ABG, initial: pCO2 48.5, pO2 68.5, HCO3 28, O2 sat 93.2%. Repeat 06/02 am pCO2 51.5, PO2 52.0, HC03 30.5 - reviewed home medications, no sedating medications beyond melatonin - EKG, initial: Sinus rhythm, baseline artifact, normal EKG. - UA without concerns for infection - orthostatic VS negative - PT/OT eval evaluated - syncope vs CO2 narcosis vs daytime somnolence. Suspect CO2 narcosis/somnolence. Used CPAP last night for about 6 hours with 3 L O2 bleed in. PO2 remains low. Will plan for CPAP begin tonight but increase to 5 L O2 bleed in. Discussed with respiratory. Will repeat ABG in am - continue to monitor on telemetry - fall precautions implemented (2) SUDHIR (obstructive sleep apnea): Code(s): G47.33 - Obstructive sleep apnea (adult) (pediatric) Status: Acute Assessment and Plan: As above. Previously has been intolerant of CPAP. Trialing again given history of CO2 narcosis and somnolence. Will plan for CPAP again tonight with 5 L O2 and repeat ABG in the morning (3) Acute exacerbation of congestive heart failure: Qualifiers: Heart failure type: diastolic Qualified Code(s): I50.33 - Acute on chronic diastolic (congestive) heart failure Code(s): I50.9 - Heart failure, unspecified Status: Acute Assessment and Plan: - BNP 3230 and CXR with findings of interstitial edema - most recent echo (11/2023): Normal LV systolic function, estimated EF 60 65%, grade 2 diastolic dysfunction. Moderate pulmonary hypertension. - continue Lasix 20 mg daily, was given an additional 40 mg IV x2. Appears euvolemic at this time - daily weights - monitor I&Os - trend renal function (4) Chronic anemia: Code(s): D64.9 - Anemia, unspecified Status: Acute Assessment and Plan: - hemoglobin remaining stable during admission, hemoglobin 8.6 today - continue iron and multivitamin - monitor H&H daily (5) Essential (primary) hypertension: Code(s): I10 - Essential (primary) hypertension Status: Acute Assessment and Plan: - chronic, BP elevated on arrival but improved at this time - continue home medications: Lisinopril 5 mg daily. Also on Lasix 20 mg daily, metoprolol 25 mg b.i.d. and amiodarone 200 mg daily. - monitor BP trends (6) Chronic respiratory failure with hypoxia, on home oxygen therapy: Code(s): J96.11 - Chronic respiratory failure with hypoxia; Z99.81 - Dependence on supplemental oxygen Status: Acute Assessment and Plan: - multifactorial secondary to COPD, CHF, SUDHIR - reports using supplemental oxygen at home, 4 L only at night. No daytime oxygen - would recommend updated home O2 eval prior to discharge Plan Diet: Heart healthy GI Prophylaxis: Not indicated DVT Prophylaxis: SCDs Lines: Peripheral Code Status: Full code Subjective Date/time seen: 06/02/24 13:14 Interval history: Kwame is doing well today. He denies any concerns for shortness of breath. Denies cough. Denies dyspnea on exertion. Denies wheezing. Denies chest pain. Denies abdominal pain, nausea, vomiting, fever, chills. Denies dizziness, lightheadedness. He is tolerating his diet. He denies joint pain, back pain, hip pain. Review of Systems Review of Systems: All systems reviewed & are unremarkable except as noted in HPI and below Exam Narrative: General: Well-nourished, well-appearing 89-year-old male, sitting up in bed, comfortable, NARD Neuro: awake, alert and oriented x4, speech clear, no focal neuro deficits noted HEENMT: normocephalic, atraumatic, EO
[2024-06-02] MEDS: MELATONIN 5 MG TABLET PO (21:56)
[2024-06-02] MEDS: ACETAMINOPHEN 325 MG TABLET 650 MG PO (21:56)
[2024-06-02] MEDS: ATORVASTATIN 40 MG TABLET 80 MG PO (21:56)
[2024-06-03] VITALS (18 sets, daily range): BP systolic 137–150; BP diastolic 55–61; PULSE 52–73; RESP 19–25; TEMP 36.6–36.9; O2SAT 89–100
[2024-06-03 06:26] LABS: Alveolar/Arterial O2 Gradient 145.2 mmHg; Fractional Inspired Oxygen 40 %; HCO3 ABG 31.2 mEq/l (22.0-26.0); Oxygen Content ABG 12.2 %vol (16.0-22.0); Oxygen Saturation ABG 94.5 % (95.0-100.0); Oxyhemoglobin 93.5 % THb (90.0-100.0); PCO2 ABG 55.8 mmHg (35.0-45.0); PO2 ABG 75.8 mmHg (80.0-100.0); Total Hemoglobin 9.2 g/dL (12.0-18.0); pH ABG 7.366 (7.350-7.450)
[2024-06-03 06:28] LABS: Hematocrit 28.2 % (42.0-52.0); Hemoglobin 8.1 g/dL (14.0-18.0); Mean Corpuscular HGB Conc 28.7 g/dl (32-36); Mean Corpuscular Hemoglobin 26.9 pg (26-34); Mean Corpuscular Volume 93.7 fl (80-100); Mean Platelet Volume 10.4 fl (7.4-10.4); Platelet Count Result 267 k/mm3 (150-375); Red Blood Count 3.01 M/mm3 (4.6-6.20); Red Cell Distribution Width 17.3 % (11.5-14.5); White Blood Count 5.7 K/mm3 (4.5-10.0)
[2024-06-03 06:30] LABS: CPAP 15 cmH2O; Device CPAP; Modified Allen's Test Pass; Site Drawn RIGHT RADIAL
[2024-06-03 06:42] LABS: Anion Gap 9 mmol/L (4-12); Blood Urea Nitrogen 24 mg/dL (9-20); Calcium 8.6 mg/dL (8.4-10.2); Carbon Dioxide 25 mmol/L (22-30); Chloride 99 mmol/L (98-107); Estimated CRCL calculation 54 ml/min; Estimated Glomerular Filt Rate > 60; Glucose 89 mg/dL (65-110); Sodium 133 mmol/L (137-145)
[2024-06-03] MEDS: ACETAMINOPHEN 325 MG TABLET 650 MG PO ×2 (07:20→21:22)
[2024-06-03] MEDS: LOTEPREDNOL ETABONATE 0.5% OPH 5 ML BOTTLE 1 DROP EACH EYE (08:39)
[2024-06-03] MEDS: FUROSEMIDE 20 MG TABLET PO (08:39)
[2024-06-03] MEDS: CHOLECALCIFEROL 1,000 UNITS TABLET 2000 UNITS PO (08:39)
[2024-06-03] MEDS: METOPROLOL TARTRATE 25 MG TABLET PO ×2 (08:39→21:23)
[2024-06-03] MEDS: lisinopriL 5 MG TABLET PO (08:39)
[2024-06-03] MEDS: CLOPIDOGREL BISULFATE 75 MG TABLET PO (08:40)
[2024-06-03] MEDS: FERROUS SULFATE 325 MG TABLET DR BY MOUTH ×2 (08:40→17:46)
[2024-06-03] MEDS: AMIODARONE HCL 200 MG TABLET PO (08:40)
[2024-06-03] MEDS: PANTOPRAZOLE 40 MG TABLET PO (08:40)
[2024-06-03] MEDS: ASPIRIN 81 MG ENTERIC TABLET PO (08:40)
[2024-06-03] MEDS: THERAPEUTIC MULTIVITAMINS/MINERALS TAB (*BKC) 1 TABLET PO (08:40)
--- NOTE | 2024-06-03 17:07 | PM.IMPN ---
Progress Note: A&P Assessment and Plan (1) Multiple falls: Code(s): R29.6 - Repeated falls Status: Acute Assessment and Plan: - trauma workup (Head CT, C-Spine CT, CT chest/abdomen/pelvis) negative for acute findings, subacute finding on CTA - Relatively recent-appearing L4 compression fracture new since 12/12/2023; patient denies any back pain. - ABG, initial: pCO2 48.5, pO2 68.5, HCO3 28, O2 sat 93.2%. Repeat 06/02 am pCO2 51.5, PO2 52.0, HC03 30.5 - reviewed home medications, no sedating medications beyond melatonin - EKG, initial: Sinus rhythm, baseline artifact, normal EKG. - UA without concerns for infection - orthostatic VS negative - PT/OT eval evaluated - syncope vs CO2 narcosis vs daytime somnolence. Suspect CO2 narcosis/somnolence. Used CPAP last night for about 6 hours with 3 L O2 bleed in. PO2 remains low. Will plan for CPAP begin tonight but increase to 5 L O2 bleed in. Discussed with respiratory. --Follow ABG. Doesn't use cpap at home, encourage use. May need adjustment of settings. - continue to monitor on telemetry - fall precautions implemented (2) SUDHIR (obstructive sleep apnea): Code(s): G47.33 - Obstructive sleep apnea (adult) (pediatric) Status: Acute Assessment and Plan: As above. Previously has been intolerant of CPAP. Trialing again given history of CO2 narcosis and somnolence. Will plan for CPAP again tonight with 5 L O2 and repeat ABG in the morning (3) Acute exacerbation of congestive heart failure: Qualifiers: Heart failure type: diastolic Qualified Code(s): I50.33 - Acute on chronic diastolic (congestive) heart failure Code(s): I50.9 - Heart failure, unspecified Status: Acute Assessment and Plan: - BNP 3230 and CXR with findings of interstitial edema - most recent echo (11/2023): Normal LV systolic function, estimated EF 60 65%, grade 2 diastolic dysfunction. Moderate pulmonary hypertension. - continue Lasix 20 mg daily, was given an additional 40 mg IV x2. DC PO lasix and schedule 40 IV BID --Crackles to both lung romero, abdominal distention - daily weights - monitor I&Os - trend renal function, magnesium, phos -Consult cardiology (4) Chronic anemia: Code(s): D64.9 - Anemia, unspecified Status: Acute Assessment and Plan: - hemoglobin remaining stable during admission, hemoglobin 8.6 today - continue iron and multivitamin - monitor H&H daily (5) Essential (primary) hypertension: Code(s): I10 - Essential (primary) hypertension Status: Acute Assessment and Plan: - chronic, BP elevated on arrival but improved at this time - continue home medications: Lisinopril 5 mg daily. Also on Lasix, metoprolol 25 mg b.i.d. and amiodarone 200 mg daily. - monitor BP trends (6) Chronic respiratory failure with hypoxia, on home oxygen therapy: Code(s): J96.11 - Chronic respiratory failure with hypoxia; Z99.81 - Dependence on supplemental oxygen Status: Acute Assessment and Plan: - multifactorial secondary to COPD, CHF, SUDHIR - reports using supplemental oxygen at home, 4 L only at night. No daytime oxygen - would recommend updated home O2 eval prior to discharge (7) Common bile duct dilatation: Code(s): K83.8 - Other specified diseases of biliary tract Status: Acute Assessment and Plan: CTA showed new mild intrahepatic biliary ductal dilation and increase in the dilation of the common bile duct --Follow LFT's --Consider MRCP, inpatient vs outpatinet Plan Diet: Heart healthy GI Prophylaxis: Not indicated DVT Prophylaxis: SCDs Lines: Peripheral Code Status: Full code Time Spent With Patient Time: 59 minutes Subjective Date/time seen: 06/03/24 17:07 Interval history: Kwame is doing well today. He denies any concerns for shortness of breath. Denies cough. Denies dyspnea on exertion. Denies wheezing. Denies chest pain. Den
[2024-06-03] MEDS: FUROSEMIDE INJ 40 MG/4 ML VIAL IV PUSH (17:45)
[2024-06-03] MEDS: ATORVASTATIN 40 MG TABLET 80 MG PO (21:25)
[2024-06-03] MEDS: MELATONIN 5 MG TABLET PO (21:27)
[2024-06-04] VITALS (15 sets, daily range): BP systolic 139–176; BP diastolic 44–64; PULSE 50–75; RESP 16–28; TEMP 36.7–36.8; O2SAT 94–100
--- NOTE | 2024-06-04 | ECHO_ITS ---
Patient Info Name: Kwame Crane Age: 89 years : 1935 Gender: Male Ht: 66 in Wt: 206 lbs BSA: 2.12 m2 HR: 56 bpm BP: 176 / 64 mmHg Heart Rhythm: Sinus Rhythm Technical Quality: Good Exam Date: 06/04/2024 9:34 AM Exam Location: Echo Lab Patient Status: Inpatient Admit Date: 06/02/2024 Staff Ordering Physician: Domenica Retana APRN Maintenance Data Analyst: Tanisha Peoples RDCS Attending Provider: Domenica Retana APRN Exam Type: CA echo doppler color flow Study Info Indications - heart failure Complete two-dimensional, color flow and Doppler transthoracic echocardiogram is performed. Summary 1. Left ventricular chamber dimension is normal. 2. Left ventricular systolic function is normal, estimated at 60-65%. 3. There is mildly increased left ventricular wall thickness. 4. The left ventricular diastolic function is grade I diastolic dysfunction. 5. Right ventricular systolic function is normal. 6. Left atrial chamber dimension is moderately enlarged. 7. There is severe aortic valve calcification. 8. There is mild to moderate aortic valve stenosis. 9. There is moderate aortic valve regurgitation. 10. There is mild mitral valve regurgitation. 11. There is mild pulmonic regurgitation. Left Ventricle Left ventricular chamber dimension is normal. Left ventricular systolic function is normal, estimated at 60-65%. There is mildly increased left ventricular wall thickness. The left ventricular diastolic function is grade I diastolic dysfunction. Right Ventricle Right ventricular chamber dimension is normal. Right ventricular systolic function is normal. Left Atria Left atrial chamber dimension is moderately enlarged. Right Atria Right atrial chamber dimension is normal. Atrial Septum Intact interatrial septum visualized by color flow imaging. Aortic Valve The aortic valve is not well visualized. There is mild to moderate aortic valve stenosis. There is moderate aortic valve regurgitation. There is severe aortic valve calcification. Pulmonic Valve The pulmonic valve is not well visualized. There is mild pulmonic regurgitation. Mitral Valve The mitral valve has thickened leaflets. There is mild mitral valve regurgitation. The mitral valve annulus is mildly calcified. Tricuspid Valve There is trace tricuspid valve regurgitation. Pericardium/Pleural The pericardium appears epicardial fat pad. There is no pericardial effusion. Inferior Vena Cava Inferior vena cava is not well visualized. Aorta The aortic root size at the sinus of Valsalva is normal. Left Ventricular Outflow Tract Name Value Normal LVOT 2D LVOT Diameter 2.1 cm LVOT Doppler LVOT Peak Gradient 9 mmHg LVOT Mean Gradient 5 mmHg LVOT VTI 41 cm LVOT VTI/AV VTI Ratio 0.6 LVOT Stroke Volume 146 ml LVOT CO 8.7 l/min LVOT CI 4.1 l/min/m2 Pulmonic Valve Name Value Normal
[2024-06-04 05:45] LABS: Alveolar/Arterial O2 Gradient 104.7 mmHg; Base Excess ABG 2.4 mEq/l (+/-2.0); Fractional Inspired Oxygen 36 %; Oxygen Content ABG 13.1 %vol (16.0-22.0); Oxygen Saturation ABG 97.1 % (95.0-100.0); Oxyhemoglobin 95.7 % THb (90.0-100.0); PCO2 ABG 48.5 mmHg (35.0-45.0); PO2 ABG 95.7 mmHg (80.0-100.0); PO2 FiO2 Ratio Arterial Blood 2.66 %; Total Hemoglobin 9.6 g/dL (12.0-18.0)
[2024-06-04 05:47] LABS: Device CPAP; Modified Allen's Test Pass; Site Drawn RIGHT RADIAL
[2024-06-04 05:50] LABS: CPAP 15 cmH2O
[2024-06-04 06:40] LABS: Basophils Absolute Auto 0.1 K/mm3 (0.0-0.1); Basophils Percent Auto 0.9 % (0.2-1.2); Eosinophils Absolute Auto 0.5 K/mm3 (0-0.3); Eosinophils Percent Auto 8.4 % (0-4.4); Hematocrit 29.9 % (42.0-52.0); Hemoglobin 8.7 g/dL (14.0-18.0); Immature Granulocyte Absolute 0.02 K/mm3 (0.00-0.031); Immature Granulocyte Percent A 0.4 % (0-0.5); Lymphocytes Absolute Auto 0.82 K/mm3 (0.9-3.2); Mean Corpuscular HGB Conc 29.1 g/dl (32-36); Mean Corpuscular Volume 92.9 fl (80-100); Mean Platelet Volume 10.7 fl (7.4-10.4); Monocytes Absolute Auto 0.8 K/mm3 (0.1-0.6); Monocytes Percent Auto 14.3 % (2.6-8.5); Neutrophils Absolute Auto 3.3 K/mm3 (1.3-6.7); Platelet Count Result 242 k/mm3 (150-375); Red Blood Count 3.22 M/mm3 (4.6-6.20); Red Cell Distribution Width 17.2 % (11.5-14.5); White Blood Count 5.5 K/mm3 (4.5-10.0)
[2024-06-04 07:07] LABS: Alanine Aminotransferase 29 U/L (6-50); Albumin Level 3.6 g/dL (3.5-5.1); Alkaline Phosphatase 97 U/L (38-126); Anion Gap 8 mmol/L (4-12); Aspartate Amino Transferase 34 U/L (17-59); Bilirubin,Total 0.5 mg/dL (0.2-1.3); Blood Urea Nitrogen 25 mg/dL (9-20); Calcium 8.7 mg/dL (8.4-10.2); Carbon Dioxide 29 mmol/L (22-30); Chloride 97 mmol/L (98-107); Estimated CRCL calculation 55 ml/min; Estimated Glomerular Filt Rate > 60; Glucose 90 mg/dL (65-110); Magnesium 2.1 mg/dL (1.6-2.3); Phosphorus 3.2 mg/dL (2.5-4.5); Potassium 3.8 mmol/L (3.4-5.0); Sodium 134 mmol/L (137-145)
[2024-06-04 07:42] LABS: Anisocytosis 1+; Hypochromasia 2+; Platelet Estimate Adequate (Adequate); Schistocytes Rare
[2024-06-04] MEDS: LOTEPREDNOL ETABONATE 0.5% OPH 5 ML BOTTLE 1 DROP EACH EYE (08:46)
[2024-06-04] MEDS: FUROSEMIDE INJ 40 MG/4 ML VIAL IV PUSH ×2 (08:46→17:34)
[2024-06-04] MEDS: AMIODARONE HCL 200 MG TABLET PO (08:46)
[2024-06-04] MEDS: ENOXAPARIN 40 MG/0.4 ML SYRINGE SUB-Q (08:47)
[2024-06-04] MEDS: CHOLECALCIFEROL 1,000 UNITS TABLET 2000 UNITS PO (08:47)
[2024-06-04] MEDS: lisinopriL 5 MG TABLET PO (08:47)
[2024-06-04] MEDS: ASPIRIN 81 MG ENTERIC TABLET PO (08:47)
[2024-06-04] MEDS: THERAPEUTIC MULTIVITAMINS/MINERALS TAB (*BKC) 1 TABLET PO (08:47)
[2024-06-04] MEDS: CLOPIDOGREL BISULFATE 75 MG TABLET PO (08:47)
[2024-06-04] MEDS: FERROUS SULFATE 325 MG TABLET DR BY MOUTH ×2 (08:47→17:33)
[2024-06-04] MEDS: METOPROLOL TARTRATE 25 MG TABLET PO ×2 (08:47→21:06)
[2024-06-04] MEDS: PANTOPRAZOLE 40 MG TABLET PO (08:47)
--- NOTE | 2024-06-04 09:16 | PM.CNCAR ---
Assessment and Plan Assessment and plan (1) Acute exacerbation of congestive heart failure: Qualifiers: Heart failure type: diastolic Qualified Code(s): I50.33 - Acute on chronic diastolic (congestive) heart failure Code(s): I50.9 - Heart failure, unspecified Status: Acute Assessment and Plan: Acute on chronic diastolic heart failure. He is improving with diuresis Continue with IV furosemide for today, likely shift to p.o. tomorrow Daily weights Strict intake and output ARYAN hose (2) Paroxysmal atrial fibrillation: Code(s): I48.0 - Paroxysmal atrial fibrillation Status: Acute Assessment and Plan: He is in sinus rhythm/sinus bradycardia. He has had significant bleeding problems in the past and he is anemic so he is not anticoagulated. (3) Coronary artery disease: Code(s): I25.10 - Atherosclerotic heart disease of [place] coronary artery without angina pectoris Status: Acute Assessment and Plan: Stable, no anginal symptoms. Continue ASA, plavix, statin (4) Murmur, heart: Code(s): R01.1 - Cardiac murmur, unspecified Status: Acute Assessment and Plan: History of mild aortic stenosis. Echo is ordered and pending (5) Syncope: Qualifiers: Encounter type: subsequent encounter Code(s): R55 - Syncope and collapse Status: Acute Assessment and Plan: It sounds like he is having syncope rather than falls. Possibly related to bradyarrhythmia, though he has not had any evidence of this on telemetry. He does have a history of pauses when being treated for AF RVR with metoprolol. Continue to monitor on telemetry. Can also consider outpatient broaching machine set up operator. History of Present Illness History of Present Illness Consult date/time: 06/04/24 09:16 Requesting physician: Domenica Retana APRN Consult reason: congestive heart failure Reason For Visit: CHF Exacerbation/Syncope vs Recurrent Falls Narrative: Kwame Crane is an 89-year-old male with coronary artery disease, aortic valve disease, and paroxysmal atrial fibrillation. This is a patient who is followed in our office by Dr. Hylton. Cardiology is being consulted for congestive heart failure. He presents to the hospital after sustaining multiple falls at home over the past week. Patient describes several episodes of losing consciousness and falling as a result. He states he thinks he is only out for a couple seconds before regaining consciousness. One of these episodes happened while he was sitting down at the table and another happened while ambulating in his home. He denies any prodrome of symptoms. He does endorse lower extremity edema and a feeling of abdominal fullness/distension. He does have dyspnea with exertion as well. Review of Systems Review of Systems: All systems reviewed & are unremarkable except as noted in HPI and below PMFSH Past Medical History Medical History Chronic anemia Chronic obstructive pulmonary disease Coronary artery disease Glaucoma Hyperlipidemia Hypertension Insomnia Interstitial lung disease Obesity (BMI 30-39.9) SUDHIR (obstructive sleep apnea) Paroxysmal atrial fibrillation Presbycusis of both ears Prostate cancer (2008) Psoriasis Vitamin D deficiency Surgical History Surgical History History of cholecystectomy History of coronary artery stent placement 2003 and 2021. History of right cataract extraction Family History Family History Mother Family history of malignant neoplasm Father Acute myocardial infarction Social History Social History Social History: Surrogate medical decision maker: Billie Crane, spouse. Code status: Full code. Smoking status: Never smoker [place]
--- NOTE | 2024-06-04 11:10 | PM.IMPN ---
Progress Note: A&P Assessment and Plan (1) Acute exacerbation of congestive heart failure: Qualifiers: Heart failure type: diastolic Qualified Code(s): I50.33 - Acute on chronic diastolic (congestive) heart failure Code(s): I50.9 - Heart failure, unspecified Status: Acute Assessment and Plan: BNP 3230 and CXR with findings of interstitial edema. Likely exacerbated by CPAP nonadherence --Encourage CPAP. Patient has been unsure if it's been helpful and he understood that he didn't have to wear it if he didn't feel it helped. Discussed wearing it at home. - most recent echo (11/2023): Normal LV systolic function, estimated EF 60 65%, grade 2 diastolic dysfunction. Moderate pulmonary hypertension. Repeat echo - continue Lasix 20 mg daily, was given an additional 40 mg IV x2. DC'd PO lasix and continue scheduled 40 IV BID --Exam with crackles to both lung romero, abdominal distention - daily weights - monitor I&Os - trend renal function, magnesium, phos -Cardiology consult (2) Chronic respiratory failure with hypoxia, on home oxygen therapy: Code(s): J96.11 - Chronic respiratory failure with hypoxia; Z99.81 - Dependence on supplemental oxygen Status: Acute Assessment and Plan: - multifactorial secondary to COPD, CHF, SUDHIR - reports using supplemental oxygen at home, 4 L only at night. No daytime oxygen - updated home O2 eval prior to discharge (3) SUDHIR (obstructive sleep apnea): Code(s): G47.33 - Obstructive sleep apnea (adult) (pediatric) Status: Acute Assessment and Plan: As above. Previously has been intolerant of CPAP. Trialing again given history of CO2 narcosis and somnolence. Continue CPAP again tonight with 5 L O2 and repeat ABG in the morning --Will likely need oxygen with CPAP for home (4) Multiple falls: Code(s): R29.6 - Repeated falls Status: Acute Assessment and Plan: trauma workup (Head CT, C-Spine CT, CT chest/abdomen/pelvis) negative for acute findings, subacute finding on CTA - Relatively recent-appearing L4 compression fracture new since 12/12/2023; patient denies any back pain. Doing well with therapy. - ABG, initial: pCO2 48.5, pO2 68.5, HCO3 28, O2 sat 93.2%. Repeat 06/02 am pCO2 51.5, PO2 52.0, HC03 30.5 - reviewed home medications, no sedating medications beyond melatonin - EKG, initial: Sinus rhythm, baseline artifact, normal EKG. - UA without concerns for infection - orthostatic VS negative - PT/OT eval evaluated, doing well with therapy - syncope vs CO2 narcosis vs daytime somnolence. Suspect CO2 narcosis/somnolence, exacerbated by heart failure exacerbation. Used CPAP last night for about 6 hours with 3 L O2 bleed in. PO2 remains low. Will plan for CPAP begin tonight but increase to 5 L O2 bleed in. RT following --Follow ABG. Doesn't use cpap at home, encourage use. May need adjustment of settings. - continue to monitor on telemetry - fall precautions implemented (5) Chronic anemia: Code(s): D64.9 - Anemia, unspecified Status: Acute Assessment and Plan: - hemoglobin remaining stable during admission, hemoglobin 8.6 today - continue iron and multivitamin - monitor H&H daily (6) Essential (primary) hypertension: Code(s): I10 - Essential (primary) hypertension Status: Acute Assessment and Plan: - chronic, BP elevated on arrival but improved at this time - continue home medications: Lisinopril 5 mg daily. Also on Lasix, metoprolol 25 mg b.i.d. and amiodarone 200 mg daily. - monitor BP trends (7) Common bile duct dilatation: Code(s): K83.8 - Other specified diseases of biliary tract Status: Acute Assessment and Plan: CTA showed new mild intrahepatic biliary ductal dilation and increase in the dilation of the common bile duct --Follow LFT's --MRCP Plan Diet: Heart healthy GI Prophylaxis: Not indicated DVT Prophylaxis: SCDs Lines: Per
[2024-06-04] MEDS: ATORVASTATIN 40 MG TABLET 80 MG PO (21:06)
[2024-06-04] MEDS: MELATONIN 5 MG TABLET PO (21:07)
[2024-06-04] MEDS: ACETAMINOPHEN 325 MG TABLET 650 MG PO (21:07)
[2024-06-05] VITALS (12 sets, daily range): BP systolic 144–157; BP diastolic 56–67; PULSE 47–78; RESP 12–18; TEMP 36.6; O2SAT 95–98
[2024-06-05 05:38] LABS: Anion Gap 4 mmol/L (4-12); Blood Urea Nitrogen 22 mg/dL (9-20); Calcium 9.2 mg/dL (8.4-10.2); Carbon Dioxide 36 mmol/L (22-30); Chloride 94 mmol/L (98-107); Estimated CRCL calculation 49 ml/min; Estimated Glomerular Filt Rate > 60; Glucose 100 mg/dL (65-110); Magnesium 1.8 mg/dL (1.6-2.3); Potassium 3.8 mmol/L (3.4-5.0); Sodium 134 mmol/L (137-145)
[2024-06-05] MEDS: ACETAMINOPHEN 325 MG TABLET 650 MG PO ×3 (07:17→20:38)
[2024-06-05] MEDS: ENOXAPARIN 40 MG/0.4 ML SYRINGE SUB-Q (07:58)
[2024-06-05] MEDS: ASPIRIN 81 MG ENTERIC TABLET PO (07:58)
[2024-06-05] MEDS: CLOPIDOGREL BISULFATE 75 MG TABLET PO (07:58)
[2024-06-05] MEDS: CHOLECALCIFEROL 1,000 UNITS TABLET 2000 UNITS PO (07:58)
[2024-06-05] MEDS: FERROUS SULFATE 325 MG TABLET DR BY MOUTH ×2 (07:58→17:12)
[2024-06-05] MEDS: lisinopriL 5 MG TABLET PO (07:59)
[2024-06-05] MEDS: FUROSEMIDE INJ 40 MG/4 ML VIAL IV PUSH (07:59)
[2024-06-05] MEDS: LOTEPREDNOL ETABONATE 0.5% OPH 5 ML BOTTLE 1 DROP EACH EYE (07:59)
[2024-06-05] MEDS: METOPROLOL TARTRATE 25 MG TABLET PO ×2 (08:00→20:38)
[2024-06-05] MEDS: PANTOPRAZOLE 40 MG TABLET PO (08:00)
[2024-06-05] MEDS: THERAPEUTIC MULTIVITAMINS/MINERALS TAB (*BKC) 1 TABLET PO (08:00)
[2024-06-05] MEDS: AMIODARONE HCL 200 MG TABLET PO (08:01)
--- NOTE | 2024-06-05 09:20 | PM.IMPN ---
Progress Note: A&P Assessment and Plan (1) Acute exacerbation of congestive heart failure: Qualifiers: Heart failure type: diastolic Qualified Code(s): I50.33 - Acute on chronic diastolic (congestive) heart failure Code(s): I50.9 - Heart failure, unspecified Status: Acute Assessment and Plan: BNP 3230 and CXR with findings of interstitial edema. Likely exacerbated by CPAP nonadherence --Encourage CPAP. Patient has been unsure if it's been helpful and he understood that he didn't have to wear it if he didn't feel it helped. Discussed wearing it at home. - most recent echo (11/2023): Normal LV systolic function, estimated EF 60 65%, grade 2 diastolic dysfunction. Moderate pulmonary hypertension. -Repeat echo today - scheduled 40 IV BID Lasix, likely transition to PO tomorrow - daily weights - monitor I&Os -ARYAN hose -trend renal function, magnesium, phos; WNL today -Cardiology consulted and following recs (2) Chronic respiratory failure with hypoxia, on home oxygen therapy: Code(s): J96.11 - Chronic respiratory failure with hypoxia; Z99.81 - Dependence on supplemental oxygen Status: Acute Assessment and Plan: - multifactorial secondary to COPD, CHF, SUDHIR - reports using supplemental oxygen at home, 4 L only at night. No daytime oxygen - requiring 1L NC, work to wean if possible - updated home O2 eval prior to discharge (3) SUDHIR (obstructive sleep apnea): Code(s): G47.33 - Obstructive sleep apnea (adult) (pediatric) Status: Chronic Assessment and Plan: As above. Previously has been intolerant of CPAP. --Will likely need oxygen with CPAP for home (4) Multiple falls: Code(s): R29.6 - Repeated falls Status: Acute Assessment and Plan: trauma workup (Head CT, C-Spine CT, CT chest/abdomen/pelvis) negative for acute findings, subacute finding on CTA - Relatively recent-appearing L4 compression fracture new since 12/12/2023; patient denies any back pain. Doing well with therapy. - ABG, initial: pCO2 48.5, pO2 68.5, HCO3 28, O2 sat 93.2%. Repeat 06/02 am pCO2 51.5, PO2 52.0, HC03 30.5 - reviewed home medications, no sedating medications beyond melatonin - EKG, initial: Sinus rhythm, baseline artifact, normal EKG. - UA without concerns for infection - orthostatic VS negative - PT/OT eval evaluated, doing well with therapy - syncope vs CO2 narcosis vs daytime somnolence. Suspect CO2 narcosis/somnolence, exacerbated by heart failure exacerbation. Used CPAP last night for about 6 hours with 3 L O2 bleed in. PO2 remains low. Will plan for CPAP begin tonight but increase to 5 L O2 bleed in. RT following --Follow ABG. Doesn't use cpap at home, encourage use. May need adjustment of settings. - continue to monitor on telemetry - fall precautions implemented (5) Chronic anemia: Code(s): D64.9 - Anemia, unspecified Status: Acute Assessment and Plan: - hemoglobin remaining stable during admission, hemoglobin 8.6 today - continue iron and multivitamin - monitor H&H daily (6) Essential (primary) hypertension: Code(s): I10 - Essential (primary) hypertension Status: Chronic Assessment and Plan: - chronic, BP elevated on arrival but improved at this time - continue home medications: Lisinopril 5 mg daily. Also on Lasix, metoprolol 25 mg b.i.d. and amiodarone 200 mg daily. - monitor BP trends (7) Common bile duct dilatation: Code(s): K83.8 - Other specified diseases of biliary tract Status: Acute Assessment and Plan: CTA showed new mild intrahepatic biliary ductal dilation and increase in the dilation of the common bile duct --Follow LFT's --MRCP showed possible 4 x 3 mm filling defect seen on one of the sequences at the distalmost aspect of the dilated common bile duct raising suspicion for a gallstone with differential including flow artifact. Patient currently asymptomatic, denies
[2024-06-05 09:45] LABS: Hemoglobin 8.3 g/dL (14.0-18.0); Mean Corpuscular HGB Conc 29.6 g/dl (32-36); Mean Corpuscular Hemoglobin 26.8 pg (26-34); Mean Corpuscular Volume 90.3 fl (80-100); Mean Platelet Volume 10.4 fl (7.4-10.4); Platelet Count Result 253 k/mm3 (150-375)
--- NOTE | 2024-06-05 14:04 | PM.PNCARD ---
Progress Note: A&P Assessment and Plan (1) Acute exacerbation of congestive heart failure: Qualifiers: Heart failure type: diastolic Qualified Code(s): I50.33 - Acute on chronic diastolic (congestive) heart failure Code(s): I50.9 - Heart failure, unspecified Status: Acute Assessment and Plan: Acute on chronic diastolic heart failure. He is improving with diuresis Shift furosemide to 40mg daily Daily weights Strict intake and output ARYAN hose He looks euvolemic at this point. Will sign off. Please call with questions. (2) Paroxysmal atrial fibrillation: Code(s): I48.0 - Paroxysmal atrial fibrillation Status: Acute Assessment and Plan: He is in sinus rhythm/sinus bradycardia. He has had significant bleeding problems in the past and he is anemic so he is not anticoagulated. (3) Coronary artery disease: Code(s): I25.10 - Atherosclerotic heart disease of [place] coronary artery without angina pectoris Status: Acute Assessment and Plan: Stable, no anginal symptoms. Continue ASA, plavix, statin (4) Murmur, heart: Code(s): R01.1 - Cardiac murmur, unspecified Status: Acute Assessment and Plan: History of mild aortic stenosis. Echo yesterday shows mild-mod , moderate AI, mild MR (5) Syncope: Qualifiers: Encounter type: subsequent encounter Code(s): R55 - Syncope and collapse Status: Acute Assessment and Plan: It sounds like he is having syncope rather than falls. Possibly related to bradyarrhythmia, though he has not had any evidence of this on telemetry. He does have a history of pauses when being treated for AF RVR with metoprolol. Continue to monitor on telemetry. Can also consider outpatient freight inspector. Subjective Date/time seen: 06/05/24 14:04 Interval history: Cardiology follow up for CHF Denies any shortness of breath, swelling. No complaints today. Review of Systems Review of Systems: All systems reviewed & are unremarkable except as noted in HPI and below Exam Const: General: comfortable, no acute distress, alert and awake Orientation/consciousness: patient oriented x3 HENMT: Head: normal to inspection Eyes: General: appearance normal, both eyes and all related structures Pupils: Equal, round and reactive pupils present Neck: Neck: normal visual inspection, supple and no JVD Carotids: normal carotid upstroke Resp: Effort & Inspection: normal respiratory effort Auscultation: not clear to auscultation bilaterally, crackles and diminished lung sounds Cardio: Rate: regular rate Rhythm: regular rhythm Heart sounds: S1 normal heart sound present, S2 normal heart sound present and Murmur heart sound present GI: Auscultation: normal bowel sounds Skin: General skin exam: normal color Neuro: General: patient oriented x3 Cranial nerves: Yes Equal, round and reactive pupils present Extrem: General: abnormal to inspection, no edema and no pedal edema Psych: Appearance: grossly normal Mental Status: mental status grossly normal Objective Data Vital Signs Vital Signs: Vital Signs - 24 hr 06/04/24 16:00 06/04/24 19:23 06/04/24 20:00 Temperature 36.8 C Pulse Rate 59 L 67 56 L Respiratory Rate 16 Blood Pressure 139/44 L Pulse Oximetry 97 Oxygen Delivery Oxygen Flow Rate 06/04/24 20:00 06/04/24 21:06 06/05/24 00:00 Temperature Pulse Rate 67 75 58 L Respiratory Rate 16 Blood Pressure Pulse Oximetry 97 Oxygen Delivery Nasal Cannula Oxygen Flow Rate 1 06/05/24 04:00 06/05/24 05:21 06/04/24 22:15 Temperature 36.6 C Pulse Rate 56 L 64 63 Respiratory Rate 12 19 Blood Pressure 155/67 H Pulse Oximetry 97 97 Oxygen Delivery CPAP Oxygen Flow Rate 06/05/24 01:55 06/05/24 08:00 06/05/24 08:01 Temperature Pulse Rate 59 L 61 61 Respiratory Rate Blood Pressure Pulse Oximetry 95 Oxygen Delive
[2024-06-05] MEDS: ATORVASTATIN 40 MG TABLET 80 MG PO (20:38)
[2024-06-05] MEDS: MELATONIN 5 MG TABLET PO (20:38)
[2024-06-06] VITALS (14 sets, daily range): BP systolic 141–153; BP diastolic 53–61; PULSE 62–86; RESP 16–23; TEMP 36.4–37.6; O2SAT 92–96
[2024-06-06] MEDS: ACETAMINOPHEN 325 MG TABLET 650 MG PO ×2 (05:31→21:40)
[2024-06-06 06:11] LABS: Anion Gap 7 mmol/L (4-12); Blood Urea Nitrogen 21 mg/dL (9-20); Calcium 9.2 mg/dL (8.4-10.2); Carbon Dioxide 35 mmol/L (22-30); Chloride 93 mmol/L (98-107); Estimated CRCL calculation 54 ml/min; Estimated Glomerular Filt Rate > 60; Glucose 100 mg/dL (65-110); Magnesium 1.9 mg/dL (1.6-2.3); Sodium 135 mmol/L (137-145)
[2024-06-06] MEDS: METOPROLOL TARTRATE 25 MG TABLET PO ×2 (09:15→20:30)
[2024-06-06] MEDS: LOTEPREDNOL ETABONATE 0.5% OPH 5 ML BOTTLE 1 DROP EACH EYE (09:15)
[2024-06-06] MEDS: CHOLECALCIFEROL 1,000 UNITS TABLET 2000 UNITS PO (09:17)
[2024-06-06] MEDS: FERROUS SULFATE 325 MG TABLET DR BY MOUTH ×2 (09:17→17:12)
[2024-06-06] MEDS: lisinopriL 5 MG TABLET PO (09:17)
[2024-06-06] MEDS: FUROSEMIDE 40 MG TABLET PO (09:17)
[2024-06-06] MEDS: CLOPIDOGREL BISULFATE 75 MG TABLET PO (09:17)
[2024-06-06] MEDS: THERAPEUTIC MULTIVITAMINS/MINERALS TAB (*BKC) 1 TABLET PO (09:17)
[2024-06-06] MEDS: ASPIRIN 81 MG ENTERIC TABLET PO (09:17)
[2024-06-06] MEDS: PANTOPRAZOLE 40 MG TABLET PO (09:17)
[2024-06-06] MEDS: ENOXAPARIN 40 MG/0.4 ML SYRINGE SUB-Q (09:18)
[2024-06-06] MEDS: AMIODARONE HCL 200 MG TABLET PO (09:18)
[2024-06-06 09:34] LABS: Alanine Aminotransferase 30 U/L (6-50); Aspartate Amino Transferase 38 U/L (17-59); Bilirubin,Total 0.5 mg/dL (0.2-1.3)
[2024-06-06] MEDS: FUROSEMIDE INJ 40 MG/4 ML VIAL IV PUSH (13:07)
--- NOTE | 2024-06-06 14:50 | PM.IMPN ---
Progress Note: A&P Assessment and Plan (1) Acute exacerbation of congestive heart failure: Qualifiers: Heart failure type: diastolic Qualified Code(s): I50.33 - Acute on chronic diastolic (congestive) heart failure Code(s): I50.9 - Heart failure, unspecified Status: Acute Assessment and Plan: 06/06/24: Initial BNP 3230 and CXR with findings of interstitial edema. Echo from 12/07 showed normal LV systolic function with an estimated EF of 60-65%, grade 2 diastolic dysfunction, moderate pulmonary hypertension. Repeat echo today showed normal LV systolic function with an estimated EF of 60-65% with grade 1 diastolic dysfunction Continue with IV Lasix Continue daily weight Monitor I&O Cardiology follow (2) Chronic respiratory failure with hypoxia, on home oxygen therapy: Code(s): J96.11 - Chronic respiratory failure with hypoxia; Z99.81 - Dependence on supplemental oxygen Status: Acute Assessment and Plan: 06/06/24: Currently on 1L NC. Continue to wean O2 (3) SUDHIR (obstructive sleep apnea): Code(s): G47.33 - Obstructive sleep apnea (adult) (pediatric) Status: Chronic Assessment and Plan: 06/06/24: CPAP ordered for night use (4) Multiple falls: Code(s): R29.6 - Repeated falls Status: Acute Assessment and Plan: 06/06/24: Continue PT and OT Continue fall precautions (5) Chronic anemia: Code(s): D64.9 - Anemia, unspecified Status: Acute Assessment and Plan: 06/06/24: Hemoglobin 8.3 Continue to trend (6) Essential (primary) hypertension: Code(s): I10 - Essential (primary) hypertension Status: Chronic Assessment and Plan: 06/06/24: Blood pressure ranging 146/61 to 157/56 Continue lisinopril and metoprolol (7) Common bile duct dilatation: Code(s): K83.8 - Other specified diseases of biliary tract Status: Acute Assessment and Plan: 06/06/24: CTA showed new mild intrahepatic biliary ductal dilation and increase in the dilation of the common bile duct Trend LFTs MRCP showed possible 4.3 mm filling defectseen on one of the sequences at the distalmost aspect of the dilated common bile duct raising suspicion for a gallstone with differential including flow artifact Time Spent With Patient Time with patient: 25 - 35 minutes Subjective Date/time seen: 06/06/24 14:50 Interval history: Patient reporting calf pain today in his left lower leg. He does have notable swelling on examination with worsening pain to dorsiflex. He denies any fever chills nausea, vomiting, diarrhea, abdominal pain, chest pain, shortness breath. Review of Systems Review of Systems: Still with abdominal distension causing increased shortness of breath. Awake this morning. All systems reviewed & are unremarkable except as noted in HPI and below Constitutional: Constitutional: Reports as per HPI and Reports no additional constitutional complaints Eyes: Eyes: Reports as per HPI and Reports no additional eye complaints ENT: Reports system reviewed and no additional complaints, except as documented and Reports as per HPI Cardiovascular: Cardiovascular: Reports as per HPI and Reports no additional cardiovascular complaints Respiratory: Respiratory: Reports as per HPI and Reports no additional respiratory complaints Gastrointestinal: Gastrointestinal: Reports as per HPI and Reports no additional gastrointestinal complaints Genitourinary: Genitourinary: Reports no additional male genitourinary complaints and Reports as per HPI Musculoskeletal: Musculoskeletal: Reports no additional musculoskeletal complaints and Reports as per HPI Integumentary/Breasts: Skin/Breast: Reports system reviewed and no additional complaints, except as docu and Reports as per HPI Neurologic: Reports system reviewed and no additional complaints, except as documented and Reports as per H
[2024-06-06] MEDS: ATORVASTATIN 40 MG TABLET 80 MG PO (20:30)
[2024-06-06] MEDS: MELATONIN 5 MG TABLET PO (21:40)
[2024-06-07] VITALS (9 sets, daily range): BP systolic 133–136; BP diastolic 49–59; PULSE 59–65; RESP 22; TEMP 36.6; O2SAT 95–97
[2024-06-07 07:18] LABS: Anion Gap 8 mmol/L (4-12); Blood Urea Nitrogen 23 mg/dL (9-20); Carbon Dioxide 34 mmol/L (22-30); Chloride 92 mmol/L (98-107); Estimated CRCL calculation 54 ml/min; Estimated Glomerular Filt Rate > 60; Glucose 90 mg/dL (65-110); Magnesium 1.9 mg/dL (1.6-2.3); Potassium 3.9 mmol/L (3.4-5.0); Sodium 134 mmol/L (137-145)
[2024-06-07] MEDS: METOPROLOL TARTRATE 25 MG TABLET PO (08:28)
[2024-06-07] MEDS: CHOLECALCIFEROL 1,000 UNITS TABLET 2000 UNITS PO (08:28)
[2024-06-07] MEDS: AMIODARONE HCL 200 MG TABLET PO (08:28)
[2024-06-07] MEDS: ASPIRIN 81 MG ENTERIC TABLET PO (08:29)
[2024-06-07] MEDS: CLOPIDOGREL BISULFATE 75 MG TABLET PO (08:30)
[2024-06-07] MEDS: PANTOPRAZOLE 40 MG TABLET PO (08:30)
[2024-06-07] MEDS: FUROSEMIDE 40 MG TABLET PO (08:30)
[2024-06-07] MEDS: FERROUS SULFATE 325 MG TABLET DR BY MOUTH (08:30)
[2024-06-07] MEDS: lisinopriL 5 MG TABLET PO (08:30)
[2024-06-07] MEDS: THERAPEUTIC MULTIVITAMINS/MINERALS TAB (*BKC) 1 TABLET PO (08:30)
[2024-06-07] MEDS: LOTEPREDNOL ETABONATE 0.5% OPH 5 ML BOTTLE 1 DROP EACH EYE (08:33)
[2024-06-07 09:15] LABS: Basophils Percent Auto 0.6 % (0.2-1.2); Eosinophils Absolute Auto 0.1 K/mm3 (0-0.3); Eosinophils Percent Auto 2.5 % (0-4.4); Hematocrit 30.8 % (42.0-52.0); Hemoglobin 9.2 g/dL (14.0-18.0); Immature Granulocyte Absolute 0.01 K/mm3 (0.00-0.031); Immature Granulocyte Percent A 0.2 % (0-0.5); Lymphocytes Absolute Auto 0.71 K/mm3 (0.9-3.2); Lymphocytes Percent Auto 13.5 % (18.3-44.2); Mean Corpuscular HGB Conc 29.9 g/dl (32-36); Mean Corpuscular Hemoglobin 26.9 pg (26-34); Mean Corpuscular Volume 90.1 fl (80-100); Monocytes Absolute Auto 0.7 K/mm3 (0.1-0.6); Monocytes Percent Auto 12.5 % (2.6-8.5); Neutrophils Absolute Auto 3.7 K/mm3 (1.3-6.7); Neutrophils Percent Auto 70.7 % (45.5-73.1); Platelet Count Result 226 k/mm3 (150-375); Red Blood Count 3.42 M/mm3 (4.6-6.20); Red Cell Distribution Width 17.2 % (11.5-14.5); White Blood Count 5.3 K/mm3 (4.5-10.0)
[2024-06-07 09:52] LABS: Anisocytosis 1+; Hypochromasia 1+; Platelet Estimate Adequate (Adequate); Target Cells 1+
[2024-06-07 09:53] LABS: Ovalocytes 1+; Schistocytes None Seen
--- NOTE | 2024-06-07 11:52 | PM.DS ---
DS: Admitting Diagnosis Discharge Date 06/07/24 Admitting Diagnosis Multiple falls SUDHIR Acute exacerbation CHF Chronic anemia Essential hypertension DS: Discharge Diagnosis Discharge Diagnosis (1) Syncope: Qualifiers: Encounter type: subsequent encounter Code(s): R55 - Syncope and collapse Status: Acute DS: Summary Hospital Course Reason for hospitalization: Multiple falls SUDHIR Acute exacerbation CHF Chronic anemia Essential hypertension Hospital Course: This is an 89-year-old male presented to the hospital 06/01/2024 for evaluation after a fall. Workup in the hospital included a chest x-ray which showed probable mild interstitial edema. CT which was negative for any acute intracranial abnormality. Cervical spine CT which showed severe cervical spondylosis. Chest/abdomen/pelvis CTA was negative for PE, shown mild pulmonary edema and chronic interstitial lung disease, mild intrahepatic biliary ductal dilatation measuring up to 1.6 cm, prominent descending and sigmoid diverticulosis, multiple chronic fractures throughout the thoracic and lumbar spine. Abdomen MRI with MRCP shown possible 4 x 3 mm filling defect seen on the distal most aspect of the dilated common bile duct raising suspicion for a gallstone. Bilateral lower extremity Dopplers were negative for DVT. Patient was to have an exacerbation of his CHF and was given IV Lasix. He was not having any complaints or symptoms of acute cholecystitis during this hospital stay. He is afebrile, currently on room air, VSS. He was started on 40mg Lasix daily. He is stable for discharge at this time. He will need a 30 day event monitor and follow up with auto fleet manager in 2 weeks. Final diagnosis: Multiple falls, acute exacerbation of CHF Time Spent with Patient Time attestation: Total time spent providing and/or coordinating discharge services: Exam Narrative: General: In no acute distress, well nourished Cardiac: Normal S1 and S2. No murmur, gallops or friction rubs, peripheral pulses intact. Respiratory: Right lung field course greater than left, no adventitious lung sounds, currently on 1 L nasal cannula Gastrointestinal: soft, non-distended, non-tender, normoactive bowel sounds. : voiding without difficulty. Neuro: Alert and oriented x4 DS: Data Data Completed and Pending Completed studies during hospitalization: Chest x-ray Head CT Cervical spine CT Chest/abdomen/pelvis CTA MRCP Venous Doppler study Pending studies at discharge: None Labs on day of discharge: Labs from last 24 hours 06/07/24 06/07/24 08:45 06:09 WBC 5.3 RBC 3.42 L Hgb 9.2 L Hct 30.8 L MCV 90.1 MCH 26.9 MCHC 29.9 L RDW 17.2 H Plt Count 226 MPV 10.0 Immature Gran % (Auto) 0.2 Neut % (Auto) 70.7 Lymph % (Auto) 13.5 L [place] % (Auto) 12.5 H Eos % (Auto) 2.5 Baso % (Auto) 0.6 Lymph # (Auto) 0.71 L [place] # (Auto) 0.7 H Eos # (Auto) 0.1 Baso # (Auto) 0.0 Abs Immat Gran (auto) 0.01 Absolute Neuts (auto) 3.7 Absolute Nucleated RBC 0.000 Nucleated RBC % 0.0 Platelet Estimate Adequate Hypochromasia 1+ Anisocytosis 1+ Target Cells 1+ Ovalocytes 1+ Schistocytes None seen Sodium 134 L Potassium 3.9 Chloride 92 L Carbon Dioxide 34 H Anion Gap 8 BUN 23 H Creatinine 0.90 Estim Creat Clear Calc 54 Estimated GFR > 60 Glucose 90 Calcium 9.0 Magnesium 1.9 Procedures/Treatments: None Discharge Plan Discharge Attending physician on discharge: Ramirez Chadwick Consulting providers: Marina Schwab; Guillermina Linda Discharging Clinician: Guillermina iLnda Anticipated Discharge Date/Time: 06/07/24 11:48 Patient Disposition: Home, Self-Care Activity: as tolerated Diet: as tolerated Discharge Instructions: Take medications as prescribed Maintain a cardiac diet, 2 g sodium, do not over hydrate Remain active Monitor urine output Daily weights, if yo
== END 2024-06-07 13:40 | disposition home or self-care (01) | DRG 292 ==
LOC: ANHED 10:22 → ANH3MED 14:44
PROVIDERS: Nurse Practitioner; Nurse Practitioner Acute Care; Physician Assistant; Student in an Organized Health Care Education/Training Program; Admitting Provider Internal Medicine; Emergency Provider Student in an Organized Health Care Education/Training Program; PCP Family Medicine; Visit Provider Nurse Practitioner Acute Care
DX: I50.33 Acute on chronic diastolic (congestive) heart failure (principal); J84.9 Interstitial pulmonary disease, unspecified; J96.11 Chronic respiratory failure with hypoxia; I11.0 Hypertensive heart disease with heart failure; J44.9 Chronic obstructive pulmonary disease, unspecified; I25.10 Atherosclerotic heart disease of native coronary artery without angina pectoris; I48.0 Paroxysmal atrial fibrillation; D64.9 Anemia, unspecified; E78.5 Hyperlipidemia, unspecified; E55.9 Vitamin D deficiency, unspecified; C61 Malignant neoplasm of prostate; K83.8 Other specified diseases of biliary tract; L40.9 Psoriasis, unspecified; M47.812 Spondylosis without myelopathy or radiculopathy, cervical region; R00.1 Bradycardia, unspecified; R55 Syncope and collapse; R29.6 Repeated falls; G47.33 Obstructive sleep apnea (adult) (pediatric); H40.9 Unspecified glaucoma; Z95.5 Presence of coronary angioplasty implant and graft; Z99.81 Dependence on supplemental oxygen; Z79.82 Long term (current) use of aspirin; Z79.02 Long term (current) use of antithrombotics/antiplatelets
CPT/HCPCS: 36415; 36600; 70450; 71046; 71275; 72125; 74177; 74183; 76376; 80048; 80053; 80076; 81001; 82247; 82607; 82728; 82746; 82805; 83540; 83550; 83615; 83735; 83880; 83921; 84100; 84450; 84460; 84466; 84484; 85025; 85027; 85380; 93005; 93306; 93970; 94002; 96374; 96375; 97110; 97116; 97161; 97165; 97530; 97535; 99285; A9270; A9577; G0378; J1650; J1940; Q9967

== ENCOUNTER 2024-06-10 20:12 | Inpatient (IN) | payer MEDICARE, SELFPAY ==
[2024-06-10] VITALS (19 sets, daily range): BP systolic 58–163; BP diastolic 29–93; PULSE 86–98; RESP 18–33; TEMP 37.5–38.1; O2SAT 92–100
--- NOTE | ~2024-06-10 | CT_ITS ---
CT chest abdomen pelvis wo con Ordering provider: Ravindra Walker MD History: . MRSA Bacteremia . Comparison: June 01, 2024 Technique: CT chest without IV contrast. CT abdomen and pelvis without oral and IV contrast. Radiatio n reduction technique utilized. DLP is 1608.81 mGy-cm. FINDINGS: The study is limited due to lack of IV contrast. CHEST: Right central line with the tip in the superior vena cava. --VISUALIZED THORACIC INLET: Nodule in the left lobe of the thyroid. Normal as visualized. --MEDIASTINUM: Aorta/coronary arteries: Mild atheromatous disease. Heart/other: The heart is slightly enlarged. Trace of pericardial effusion. Lymph nodes: No mediastinal or hilar adenopathy. --LUNGS: A right basal pneumonia with adjacent pleural effusion. Left pleural effusion No pulmonary n odules or masses. No pneumothorax. --MUSCULOSKELETAL: Soft tissues: The superficial soft tissues are normal. Bones: Age appropriate degenerative changes of the spine. Multiple compression fractures in the lower thoracic area most likely chronic. ABDOMEN/PELVIS: --MUSCULOSKELETAL: Bones: Age appropriate degenerative changes of the spine. Compression fracture of L1 is most likely o ld. Compression fracture of L4 which is most likely acute. Spondylolisthesis at the level of L5-S1. Superficial soft tissues: The superficial soft tissues are normal. --UPPER ABDOMINAL ORGANS: Liver: Normal. Gallbladder: not visualized most likely removed. Spleen: Normal. Stomach/duodenum: Normal. Pancreas: Normal. Adrenals: Normal. Kidneys: Small exophytic soft tissue densities in the right kidney upper pole most likely cysts. Foll ow-up advised. Small Cyst also seen in the right kidney lower pole. --PELVIC ORGANS: The bladder is underfilled with Young's catheter. No bladder stones. Brachytherapy is seen in the prostate. --BOWEL AND MESENTERY: Colon: No evidence of diverticulitis. The appendix is not demonstrated. Fecal material is seen in the colon which may indicate constipation. Small Bowel: Normal. No obstruction. Peritoneum/mesentery: No free air. Moderate Free fluid is seen in the pelvis and around the liver and in the left paracolic gutter. No mesenteric lymphadenopathy. --RETROPERITONEUM: Mild atheromatous disease of the abdominal aorta. No retroperitoneal lymphadenop athy. IMPRESSION: CHEST: 1. Cardiomegaly. 2. Right basal pneumonia with bilateral pleural effusion. 3. Left thyroid nodule ultrasound evaluation advised. ABDOMEN/PELVIS: 1. No evidence of appendicitis, diverticulitis or intestinal obstruction. 2. Fluid seen in the pelvis and around the liver and also in the left paracolic gutter. 3. Multiple compression fractures with highly suggestive acute fracture and L4. Reviewed, dictated and finalized at location A. IMPRESSION: CHEST: 1. Cardiomegaly. 2. Right basal pneumonia with bilateral pleural effusion. 3. Left thyroid nodule ultrasound evaluation advised. ABDOMEN/PELVIS: 1. No evidence of appendicitis, diverticulitis or intestinal obstruction. 2. Fluid seen in the pelvis and around the liver and also in the left paracoli c gutter. 3. Multiple compression fractures with highly suggestive acute fracture and L4 .
--- NOTE | ~2024-06-10 | XR_ITS ---
XR chest 1V portable Ordering provider: Olivier Jade MD History: 89 years Male with . SOB, Hypoxia . Comparison: June 01, 2024 FINDINGS: MEDIASTINUM: The cardiac silhouette is not enlarged. LUNGS: No infiltrates, effusions or pneumothorax. Prominent markings bilaterally with interstitial changes. OTHER: No free air under the diaphragm. IMPRESSION: Bilateral interstitial changes which may indicate pneumonitis versus fibrotic changes. Reviewed, dictated and finalized at location A. IMPRESSION: Bilateral interstitial changes which may indicate pneumonitis versus fibrotic c hanges.
--- NOTE | ~2024-06-10 | XR_ITS ---
XR chest port-a-cath/central Ordering provider: Olivier Jade MD History: 89 years Male with . central line placement . Comparison: June 10, 2024 FINDINGS: MEDIASTINUM: The cardiac silhouette is slightly enlarged. Right central line with the tip overlying superior vena cava. LUNGS: No effusion or pneumothorax. Minimal atelectasis versus pneumonia in the lung bases seen. OTHER: No free air under the diaphragm. Degenerative changes of the spine. IMPRESSION: Minimal atelectasis versus pneumonia in the left lung base. Reviewed, dictated and finalized at location A.
--- NOTE | ~2024-06-10 | US_ITS ---
EXAMINATION: US renal BI DATE: 06/11/2024 13:04 INDICATION: Acute on chronic kidney disease. TECHNIQUE: Multiple ultrasound grayscale images of the kidneys were obtained. COMPARISON: MRCP 06/04/2024 FINDINGS: Sensitivity is decreased by obesity. The right kidney measures 10.6 x 6.9 x 5.8 cm. The left kidney m easures 11.2 x 5.9 x 5.7 cm. The kidneys demonstrate normal parenchymal echogenicity. There is no hyd ronephrosis. The bladder is decompressed by a Young catheter. IMPRESSION: 1. Normal kidney sizes. No hydronephrosis. Reviewed, dictated and finalized at location A.
--- NOTE | ~2024-06-10 | XR_ITS ---
EXAMINATION: XR abdomen gastric tube rechec DATE: 06/14/2024 14:00 INDICATION: Orogastric tube adjustment. TECHNIQUE: A supine view of the abdomen was obtained. COMPARISON: CT abdomen and pelvis 06/13/2024 FINDINGS: There are no dilated loops of bowel. The nasogastric tube tip is in the stomach. IMPRESSION: 1. Nasogastric tube tip in the stomach. Reviewed, dictated and finalized at location A.
--- NOTE | ~2024-06-10 | XR_ITS ---
Portable chest x-ray Comparison: 06/12/2024 Clinical History: Pulmonary edema Findings: Right-sided subclavian line remains in place. Possible minimal right pleural effusion. Low lung volumes. Cardiomediastinal silhouette is stable. Bones and soft tissues are unremarkable. Impression: Low lung volumes with possible minimal right pleural effusion. Stable cardiomegaly. Stable right subclavian line. Reviewed, dictated and finalized at location . Impression: Low lung volumes with possible minimal right pleural effusion. Stable cardiomegaly. Stable right subclavian line.
--- NOTE | ~2024-06-10 | XR_ITS ---
Portable chest x-ray Comparison: 06/10/2024 Clinical History: CHF Findings: Right-sided subclavian line in satisfactory position. There are low lung volumes with prob able minimal left basilar atelectasis. Cardiomediastinal silhouette is stable. Bones and soft tissue s are unremarkable. Impression: Low lung volumes with minimal left basilar atelectasis. Support line, as above. Reviewed, dictated and finalized at location M. Impression: Low lung volumes with minimal left basilar atelectasis. Support line, as above.
--- NOTE | ~2024-06-10 | XR_ITS ---
EXAMINATION: XR chest ET placement DATE: 06/14/2024 12:14 INDICATION: Intubation. TECHNIQUE: A single frontal view of the chest was obtained. COMPARISON: Chest single view 06/13/2024, chest CT 06/13/2024 FINDINGS: There are small pleural effusions. There are airspace opacities in the mid and lower lung z ones with a basilar predominance. No pneumothorax. Cardiomegaly is noted. The endotracheal tube tip i s at the level of the simone. There is a right subclavian central venous catheter with tip at superio r cavoatrial junction. IMPRESSION: 1. Endotracheal tube tip at the level of the simone. Retraction is recommended. 2. Airspace opacities in the mid and lower lung zones with a basilar predominance, consistent with at electasis versus pneumonia. 3. Small pleural effusions. 4. Cardiomegaly. Reviewed, dictated and finalized at location A. IMPRESSION: 1. Endotracheal tube tip at the level of the simone. Retraction is recommended. 2. Airspace opacities in the mid and lower lung zones with a basilar predominan ce, consistent with atelectasis versus pneumonia. 3. Small pleural effusions. 4. Cardiomegaly.
--- NOTE | ~2024-06-10 | XR_ITS ---
XR abdomen gastric tube insert Ordering provider: Ravindra Walker MD History: . OG TUBE PLACEMENT . Comparison: None. FINDINGS/impression: Nasogastric tube with the tip in the fundus of the stomach. Advancement by 2 to 3 cm is advised. BOWEL: Distended small bowel loops are seen. Reviewed, dictated and finalized at location A.
--- NOTE | 2024-06-10 20:33 | ECG_ITS ---
Test Date: 2024-06-10 20:20:35 Measurements Intervals [place] Rate: 97 P: 35 TN: 185 QRS: -18 QRSD: 90 T: -22 QT: 364 QTc: 464 Interpretive Statements ATRIAL FLUTTER/TACHYCARDIA LEFT VENTRICULAR HYPERTROPHY WITH ST-T CHANGE CONSIDER ANTERIOR INFARCT, AGE INDETERMINATE INFERIOR INFARCT, AGE INDETERMINATE BORDERLINE T WAVE ABNORMALITY- ANTEROLATERAL LEADS BASELINE ARTIFACT- I, III, AVL, V2-V6 ABNORMAL ECG Compared to ECG 06/01/2024 09:20:07 SINUS RHYTHM NO LONGER PRESENT Electronically Signed On 06-10-2024 21:18:59 CDT by Robert Cutler D.O.
[2024-06-10 20:42] LABS: Basophils Percent Auto 0.1 % (0.2-1.2); Hematocrit 29.3 % (42.0-52.0); Hemoglobin 9.1 g/dL (14.0-18.0); Immature Granulocyte Absolute 0.07 K/mm3 (0.00-0.031); Immature Granulocyte Percent A 0.5 % (0-0.5); Lymphocytes Absolute Auto 0.82 K/mm3 (0.9-3.2); Lymphocytes Percent Auto 5.9 % (18.3-44.2); Mean Corpuscular HGB Conc 31.1 g/dl (32-36); Mean Corpuscular Hemoglobin 26.9 pg (26-34); Mean Corpuscular Volume 86.7 fl (80-100); Mean Platelet Volume 11.1 fl (7.4-10.4); Monocytes Absolute Auto 1.5 K/mm3 (0.1-0.6); Monocytes Percent Auto 10.7 % (2.6-8.5); Neutrophils Absolute Auto 11.6 K/mm3 (1.3-6.7); Neutrophils Percent Auto 82.8 % (45.5-73.1); Platelet Count Result 276 k/mm3 (150-375); Red Blood Count 3.38 M/mm3 (4.6-6.20); Red Cell Distribution Width 17.5 % (11.5-14.5)
--- NOTE | 2024-06-10 20:47 | ED.GENADULT ---
HPI - General Adult General Chief complaint: Chest Pain Stated complaint: chest pain Time Seen by Provider: 06/10/24 20:26 History of Present Illness HPI narrative: This is an 89-year-old male with a past medical history significant for congestive heart failure, COPD, hypertension. Patient is oxygen dependent at home. He was recently discharged from this facility 3 days prior after an inpatient stay for acute CHF exacerbation requiring IV diuretic therapy. Patient states he was improved upon discharge but overlies day as been noticing recurrence of chest pressure on the left side of his chest as well as associated difficulty in breathing. He has been febrile at home and complaining of a cough. EMS was called today and he was noted to be hypoxic to 89% and hypotensive in the 80s on arrival. They provide him a non-rebreather face mask and given push dose epinephrine which did improve his pressure and saturation of oxygen. Presently patient is febrile at 38.1, tachypneic and has moderate respiratory distress but is saturating well on a 5 L nasal cannula at 100%. His pressure has been stable in the 160. His thoracic chest pain difficulty in breathing but denies any nausea, vomiting, abdominal pain, back pain. Has been taking all his medications as prescribed. On review of the EMR he had a negative DVT and PE study and during his recent admission. Related Data Home Medications Medication Instructions Recorded Confirmed aspirin 81 mg tablet,delayed 81 mg PO DAILY 09/14/19 06/01/24 release (Adult Aspirin Regimen) multivitamin with minerals-folic 0.4 mg PO DAILY 09/14/19 06/01/24 acid 0.4 mg tablet (Adult One Daily Multivitamin) cholecalciferol (vitamin D3) 25 2,000 unit PO DAILY 11/19/19 06/01/24 mcg (1,000 unit) tablet atorvastatin 80 mg tablet 80 mg PO QHS 01/24/23 06/01/24 clopidogrel 75 mg tablet (Plavix) 75 mg PO DAILY 01/24/23 06/01/24 lisinopril 5 mg tablet 5 mg PO DAILY 01/24/23 06/01/24 furosemide 20 mg tablet 20 mg PO QAM 01/19/24 06/01/24 loteprednol etabonate 0.5 % eye 1 drp EACH EYE DAILY 01/19/24 06/01/24 drops,suspension clotrimazole-betamethasone 1 1 applic topical BID PRN psoriasis 01/24/24 06/01/24 %-0.05 % topical cream rash ferrous sulfate 325 mg (65 mg 325 mg BYMOUTH BID 06/01/24 06/01/24 iron) tablet,delayed release metoprolol tartrate 25 mg tablet 25 mg PO BID 06/01/24 06/01/24 Allergies Allergy/AdvReac Type Severity Reaction Status Date / Time warfarin AdvReac Intermediate Dizziness Verified 06/01/24 09:20 Review of Systems Review of Systems: As reviewed above in the HPI [facility] Past Medical History Medical History Chronic anemia Chronic obstructive pulmonary disease Coronary artery disease Glaucoma Hyperlipidemia Hypertension Insomnia Interstitial lung disease Obesity (BMI 30-39.9) SUDHIR (obstructive sleep apnea) Paroxysmal atrial fibrillation Presbycusis of both ears Prostate cancer (2008) Psoriasis Vitamin D deficiency Surgical History Surgical History History of cholecystectomy History of coronary artery stent placement 2003 and 2021. History of right cataract extraction Family History Family History Mother Family history of malignant neoplasm Father Acute myocardial infarction Social History Social History Social History: Surrogate medical decision maker: Billie Crane, spouse. Code status: Full code. Smoking status: Never smoker Second hand tobacco smoke exposure: No Alcohol intake: never Substance use: never Substance use type: does not use Do You Feel Safe in your Home?: Yes Lack of Transportation: No Lack of Food: Never True Current Housing: I Have Housing Concerned About Future Housing: No
[2024-06-10 20:53] LABS: INR 1.3; Partial Thromboplastin Time 33.7 Seconds (22.3-36.8)
[2024-06-10] MEDS: ACETAMINOPHEN 500 MG TABLET 1000 MG PO (20:54)
[2024-06-10] MEDS: methylPREDNISolone SOD SUCC 125 MG VIAL IV PUSH (20:54)
[2024-06-10 20:55] LABS: Alanine Aminotransferase 48 U/L (6-50); Albumin Level 3.8 g/dL (3.5-5.1); Alkaline Phosphatase 85 U/L (38-126); Anion Gap 12 mmol/L (4-12); Aspartate Amino Transferase 265 U/L (17-59); Bilirubin,Total 0.9 mg/dL (0.2-1.3); Blood Urea Nitrogen 45 mg/dL (9-20); Calcium 8.8 mg/dL (8.4-10.2); Carbon Dioxide 28 mmol/L (22-30); Chloride 91 mmol/L (98-107); Estimated Glomerular Filt Rate 27; Glucose 133 mg/dL (65-110); Lipase 66 U/L (23-300); Potassium 4.2 mmol/L (3.4-5.0); Sodium 131 mmol/L (137-145)
[2024-06-10] MEDS: LACTATED RINGERS 1,000 ML 999 ML IV CONT (20:55)
[2024-06-10] MEDS: NOREPINEPHRINE 8 MG/D5W 250 ML 8 MG/250 ML BAG 9.38 MG IV CONT (21:00)
[2024-06-10 21:12] LABS: Lactic Acid Reflex 4.1 mmol/L (0.7-2.0)
--- NOTE | 2024-06-10 21:12 | ECG_ITS ---
Test Date: 2024-06-10 21:14:35 Measurements Intervals [place] Rate: 93 P: 44 AR: 191 QRS: -18 QRSD: 89 T: -9 QT: 360 QTc: 449 Interpretive Statements ATRIAL FLUTTER/TACHYCARDIA WITH OCCASIONAL VENTRICULAR PREMATURE COMPLEXES LEFT VENTRICULAR HYPERTROPHY WITH ST-T CHANGE CONSIDER ANTERIOR INFARCT, AGE INDETERMINATE INFERIOR INFARCT, AGE INDETERMINATE BORDERLINE T WAVE ABNORMALITY- ANTEROLATERAL LEADS BASELINE ARTIFACT- I, II, III, AVR, AVL, V3-V6 ABNORMAL ECG Compared to ECG 06/10/2024 20:20:35 NO SIGNIFICANT CHANGE Electronically Signed On 06-10-2024 21:21:10 CDT by Robert Cutler D.O.
[2024-06-10 21:13] LABS: NT Pro B Type Natriuretic Pept > 30000 pg/mL (19.9-100); Troponin I > 80.000 ng/mL (0.000-0.034)
[2024-06-10] MEDS: ALBUTEROL SULFATE NEB 2.5 MG/3 ML INH 5 MG INHALATION (21:28)
[2024-06-10 21:29] LABS: Appearance Urine Cloudy (Clear); Bacteria Urine None Seen /hpf; Bilirubin Urine 1+ (Negative); Blood Urine Negative (Negative); Color Urine Dark Yellow (Yellow); Glucose Urine UA Negative (Negative); Ketones Urine Trace mg/dL (Negative); Leukocyte Esterase Ur Negative LEU/UL (Negative); Need Manual Microscopic Reviewed; Nitrate Urine Negative (Negative); Non Pathogenic Casts >20; Protein Urine 2+ mg/dL (Negative); Specific Grav Ur 1.024 (1.001-1.035); Squamous Epithelial Cell Urine Occasional /hpf (Few); WBC Urine 0-5 /hpf (0-3)
[2024-06-10 21:30] LABS: Add Urine Microscopic? YES; Amorphous Sediment Urine Few
[2024-06-10] MEDS: CEFEPIME 1 GM/NS 50 ML 1 GM/50 ML BAG IVPB (21:30)
[2024-06-10] MEDS: IPRATROPIUM 0.5 MG/ALBUTEROL SULFATE 2.5 MG AMPUL.NEB 3 ML INHALATION (21:30)
[2024-06-10 21:36] LABS: Base Excess ABG 1.1 mEq/l (+/-2.0); Fractional Inspired Oxygen 36 %; HCO3 ABG 26.6 mEq/l (22.0-26.0); Oxygen Content ABG 20.2 %vol (16.0-22.0); Oxygen Saturation ABG 97.3 % (95.0-100.0); Oxyhemoglobin 96.2 % THb (90.0-100.0); PCO2 ABG 45.5 mmHg (35.0-45.0); PO2 ABG 96.9 mmHg (80.0-100.0); PO2 FiO2 Ratio Arterial Blood 2.69 %; Total Hemoglobin 14.9 g/dL (12.0-18.0); pH ABG 7.385 (7.350-7.450)
[2024-06-10 21:37] LABS: Device NASAL CANNULA; Modified Allen's Test Pass; Site Drawn RIGHT RADIAL
[2024-06-10] MEDS: HEPARIN SOD/D5W 100 UNITS/ML 25,000 UNITS/250 ML BAG 9 UNITS IV CONT (21:48)
[2024-06-10] MEDS: DOBUTamine 250 MG/D5W 250 ML 250 MG/250 ML BAG 13.47 MG IV CONT (21:50)
[2024-06-10 21:54] LABS: Influenza A QL RT-PCR Negative (Negative); Influenza B QL RT-PCR Negative (Negative); RSV RNA, RT-PCR Negative (Negative); SARS-CoV-2 RNA PCR Negative (Negative)
[2024-06-10] MEDS: FUROSEMIDE INJ 100 MG/10 ML VIAL 80 MG IV PUSH (22:05)
[2024-06-10] MEDS: VANCOMYCIN 1,750 MG/NS 500 ML 1,750 MG/500 ML BAG 250 MG IVPB (22:11)
--- NOTE | 2024-06-10 22:23 | PM.IMHP ---
H&P: HPI History of Present Illness Date/Time: 06/10/24 22:23 Chief Complaint: sob Narrative: This is an 89 yo male with PMHx significant for CHF, SUDHIR, recurrent falls, multiple spine fractures, paroxysmal A.fib, CAD, Chronic anemia. Patient recently discharged from [facility] treated for recurrent falls, acute exacerbation of CHF.Comes back to ED via EMS due to sob, low pulse ox, hypotension. Patient was started on vasopressors and BiPAP. At the time of my visit on BiPAP, unable to participate on history taking. XR chest 1V portable Ordering provider: Olivier Jade MD History: 89 years Male with . SOB, Hypoxia . Comparison: June 01, 2024 FINDINGS: MEDIASTINUM: The cardiac silhouette is not enlarged. LUNGS: No infiltrates, effusions or pneumothorax. Prominent markings bilaterally with interstitial changes. OTHER: No free air under the diaphragm. IMPRESSION: Bilateral interstitial changes which may indicate pneumonitis versus fibrotic changes. Review of Systems Review of Systems: sob ROS unobtainable: Yes unobtainable due to medical condition (on BiPAP) [facility] Past Medical History Medical History Chronic anemia Chronic obstructive pulmonary disease Coronary artery disease Glaucoma Hyperlipidemia Hypertension Insomnia Interstitial lung disease Obesity (BMI 30-39.9) SUDHIR (obstructive sleep apnea) Paroxysmal atrial fibrillation Presbycusis of both ears Prostate cancer (2008) Psoriasis Vitamin D deficiency Surgical History Surgical History History of cholecystectomy History of coronary artery stent placement 2003 and 2021. History of right cataract extraction Family History Family History Mother Family history of malignant neoplasm Father Acute myocardial infarction Social History Social History Social History: Surrogate medical decision maker: Billie Crane, spouse. Code status: Full code. 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 Spiritual care concerns: No Meds Home Medications and Allergies Home Medications Medication Instructions Recorded Confirmed Type aspirin 81 mg tablet,delayed 81 mg PO DAILY 09/14/19 06/01/24 History release (Adult Aspirin Regimen) multivitamin with minerals-folic 0.4 mg PO DAILY 09/14/19 06/01/24 History acid 0.4 mg tablet (Adult One Daily Multivitamin) cholecalciferol (vitamin D3) 25 2,000 unit PO DAILY 11/19/19 06/01/24 History mcg (1,000 unit) tablet atorvastatin 80 mg tablet 80 mg PO QHS 01/24/23 06/01/24 History clopidogrel 75 mg tablet (Plavix) 75 mg PO DAILY 01/24/23 06/01/24 History lisinopril 5 mg tablet 5 mg PO DAILY 01/24/23 06/01/24 History acetaminophen 325 mg tablet 650 mg PO Q4H PRN Pain Or Fever 12/18/23 06/01/24 Rx #30 tabs melatonin 5 mg tablet 5 mg PO HS #30 tabs 01/09/24 06/01/24 Rx furosemide 20 mg tablet 20 mg PO QAM 01/19/24 06/01/24 History loteprednol etabonate 0.5 % eye 1 drp EACH EYE DAILY 01/19/24 06/01/24 History drops,suspension clotrimazole-betamethasone 1 1 applic topical BID PRN psor
[2024-06-10 23:05] LABS: MRSA (PCR) DETECTED (NOT DETECTE)
[2024-06-10 23:21] LABS: Lactic Acid Reflex 3.7 mmol/L (0.7-2.0)
--- NOTE | 2024-06-10 23:37 | ECG_ITS ---
Test Date: 2024-06-10 23:33:43 Measurements Intervals [place] Rate: 86 P: 39 ND: 184 QRS: -17 QRSD: 101 T: -4 QT: 408 QTc: 491 Interpretive Statements ATRIAL FLUTTER/TACHYCARDIA LEFT VENTRICULAR HYPERTROPHY WITH ST-T CHANGE INFERIOR INFARCT, AGE INDETERMINATE BASELINE WANDER- V1-V3 ABNORMAL ECG Compared to ECG 06/10/2024 21:14:35 NO SIGNIFICANT CHANGE Electronically Signed On 06-11-2024 06:16:31 CDT by Robert Cutler D.O.
[2024-06-10 23:39] LABS: Reflex Lactic Acid Yes or No Add Lactic
[2024-06-11] VITALS (67 sets, daily range): BP systolic 81–143; BP diastolic 29–87; PULSE 82–104; RESP 19–31; TEMP 37.2–37.8; O2SAT 88–100; BMI 36.0
[2024-06-11 00:28] LABS: Troponin I > 80.000 ng/mL (0.000-0.034)
[2024-06-11 01:12] LABS: Lactic Acid 3.1 mmol/L (0.7-2.0)
--- NOTE | 2024-06-11 01:13 | ADMGEN ---
This patient, Kwame Crane, was admitted to Intensive Care Unit-3 at 0048. Patient/family oriented to hospital policies and general routines including ID bracelet, bed and alarms, visiting hours, pain management, procedures, bathroom and other care routines, personal items, smoking policy, room service/diet, and visiting hours. Information on how to activate the Rapid Response Team has been discussed. Patient/Family are encouraged to report perceived risks to care and to ask questions if they do not understand what they are told or what they should do.
[2024-06-11] MEDS: VASOPRESSIN INJ 100 UNITS in DEXTROSE 5% 95 ML IV CONT (01:19)
--- NOTE | 2024-06-11 01:32 | PC.NURSE ---
Verified with son Royal that patient has been taking all of the medications that the patient was discharged on.
--- NOTE | 2024-06-11 03:20 | ECG_ITS ---
Test Date: 2024-06-11 03:20:58 Measurements Intervals [place] Rate: 82 P: 78 MS: 188 QRS: 202 QRSD: 113 T: 188 QT: 391 QTc: 457 Interpretive Statements ATRIAL FLUTTER/TACHYCARDIA LIMB LEAD REVERSAL INTRAVENTRICULAR CONDUCTION DELAY INFERIOR INFARCT, AGE INDETERMINATE CONSIDER ANTERIOR INFARCT, AGE INDETERMINATE ABNORMAL ECG Compared to ECG 06/10/2024 23:33:43 NO SIGNIFICANT CHANGE Electronically Signed On 06-11-2024 15:58:49 CDT by Robert Cutler D.O.
[2024-06-11 03:29] LABS: Partial Thromboplastin Time 65.9 Seconds (22.3-36.8)
[2024-06-11] MEDS: HEPARIN SODIUM 5,000 UNITS/ML VIAL 3000 UNITS IV PUSH (04:19)
[2024-06-11] MEDS: CENTRAL LINE FLUSH 10 ML IV PUSH ×3 (04:20→20:22)
[2024-06-11 04:46] LABS: Estimated CRCL calculation 19 ml/min; Estimated Glomerular Filt Rate 26
[2024-06-11] MEDS: NOREPINEPHRINE 8 MG/D5W 250 ML 8 MG/250 ML BAG 26.25 MG IV CONT (04:52)
--- NOTE | 2024-06-11 06:00 | ECHO_ITS ---
Patient Info Name: Kwame Crane Age: 89 years : 1935 Gender: Male Ht: 66 in Wt: 197 lbs BSA: 2.07 m2 HR: 84 bpm BP: 137 / 58 mmHg Heart Rhythm: Sinus Rhythm Technical Quality: Fair Exam Date: 06/11/2024 11:00 AM Exam Location: Echo Lab Patient Status: Inpatient Admit Date: 06/10/2024 Staff Ordering Physician: Olivier Jade MD [employer] Teacher: Adele Vieira RDCS Attending Provider: Rob Albert MD Referring Physician: Kalie JONES; Exam Type: CA echo dop color flow w con Study Info Indications - Cardiogenic shock Complete two-dimensional, color flow and Doppler transthoracic echocardiogram is performed with contrast to opacify the left ventricle and to improve the deliniation of the left ventricle endocardial borders. Contrast/Agitated Saline Contrast/Ag. Saline: Definity Amount: 2.00 ml Administered By: Adele Vieira RDCS Existing IV Access: Yes IV Access Condition: patent with no signs of infiltration Summary 1. Left ventricular hypertrophy with posterior and inferior hypokinesia overall normal ejection fraction. 2. Grade 1 diastolic noncompliance. 3. Left atrial dilation. 4. Poorly visualized aortic valve which is appears to be mildly stenotic. 5. Mild aortic regurgitation. 6. Compared with echocardiogram done last week the inferior and posterior segments appear to be hypodynamic but overall ejection fraction is preserved. Left Ventricle Left ventricular chamber dimension is normal. Left ventricular systolic function is normal, estimated at 55-60%. There is mild concentric increased left ventricular wall thickness. The left ventricular diastolic function is grade I diastolic dysfunction. Right Ventricle Right ventricular chamber dimension is normal. Left Atria Left atrial chamber dimension is moderately enlarged. Right Atria Right atrial chamber dimension is normal. Aortic Valve The aortic valve is not well visualized. There is mild aortic valve stenosis with a peak velocity of 268.16 cm/s, mean gradient of 17 mmHg, and aortic valve area of 1.47 cm2. Pulmonic Valve The pulmonic valve is not well visualized. Mitral Valve The mitral valve has normal leaflets. There is mild mitral valve regurgitation. Tricuspid Valve The tricuspid valve leaflets are normal. There is trace tricuspid valve regurgitation. Pericardium/Pleural The pericardium appears normal. Aorta The aortic root size at the sinus of Valsalva is normal. Left Ventricular Outflow Tract Name Value Normal LVOT 2D LVOT Diameter 2.09 cm LVOT Doppler LVOT Peak Gradient 5 mmHg LVOT Mean Gradient 2 mmHg LVOT VTI 16.22 cm LVOT VTI/AV VTI Ratio 0.43 LVOT Stroke Volume 55.83 ml LVOT CO 5.04 l/min LVOT CI 2.44 L/min/m2 Pulmonic Valve Name Value Normal RVO
[2024-06-11 07:37] LABS: Basophils Percent Auto 0.1 % (0.2-1.2); Hematocrit 27.9 % (42.0-52.0); Hemoglobin 8.7 g/dL (14.0-18.0); Immature Granulocyte Absolute 0.28 K/mm3 (0.00-0.031); Immature Granulocyte Percent A 1.9 % (0-0.5); Lymphocytes Absolute Auto 0.53 K/mm3 (0.9-3.2); Lymphocytes Percent Auto 3.6 % (18.3-44.2); Mean Corpuscular HGB Conc 31.2 g/dl (32-36); Mean Corpuscular Volume 86.6 fl (80-100); Mean Platelet Volume 10.5 fl (7.4-10.4); Monocytes Absolute Auto 0.7 K/mm3 (0.1-0.6); Monocytes Percent Auto 4.9 % (2.6-8.5); Neutrophils Percent Auto 89.5 % (45.5-73.1); Platelet Count Result 288 k/mm3 (150-375); Red Blood Count 3.22 M/mm3 (4.6-6.20); Red Cell Distribution Width 17.3 % (11.5-14.5); White Blood Count 14.6 K/mm3 (4.5-10.0)
[2024-06-11 07:47] LABS: Alanine Aminotransferase 53 U/L (6-50); Albumin Level 3.5 g/dL (3.5-5.1); Alkaline Phosphatase 81 U/L (38-126); Anion Gap 9 mmol/L (4-12); Aspartate Amino Transferase 207 U/L (17-59); Bilirubin,Total 0.5 mg/dL (0.2-1.3); Blood Urea Nitrogen 48 mg/dL (9-20); Calcium 8.7 mg/dL (8.4-10.2); Carbon Dioxide 30 mmol/L (22-30); Chloride 92 mmol/L (98-107); Estimated CRCL calculation 22 ml/min; Estimated Glomerular Filt Rate 30; Glucose 246 mg/dL (65-110); INR 1.4; Magnesium 1.6 mg/dL (1.6-2.3); Phosphorus 4.6 mg/dL (2.5-4.5); Potassium 3.9 mmol/L (3.4-5.0); Sodium 131 mmol/L (137-145)
[2024-06-11 07:48] LABS: Lactic Acid Reflex 1.4 mmol/L (0.7-2.0)
[2024-06-11 07:50] LABS: Partial Thromboplastin Time 143.3 Seconds (22.3-36.8)
[2024-06-11] MEDS: ALBUMIN HUMAN 25% 25 GM/100 ML 100 ML IVPB ×4 (07:56→23:51)
--- NOTE | 2024-06-11 08:21 | WPDCNINT ---
Assessment and Plan Assessment and plan (1) Shock: Code(s): R57.9 - Shock, unspecified Status: Acute Assessment and Plan: Likely related to cardiogenic versus septic -received 1 L of IV fluid bolus in the ER -troponins the significantly elevated EKG showed ST-T changes likely related to LVH -cardiology has been consulted from the ED, did not feel that the patient required immediate intervention -patient was started on heparin infusion, dobutamine increased cardiac output -central line was inserted in the ER -remains on vasopressin and Levophed to maintain MAP > 65 mmHg or systolic blood pressures > 100 mmHg -lactic acidosis has resolved -patient has leukocytosis, was febrile, elevated lactic acids, chest x-ray shows possible pneumonia versus atelectasis -06/10: Blood cultures have been obtained -06/10: Started on cefepime and vancomycin 06/04/2024: Echocardiogram Summary 1. Left ventricular chamber dimension is normal. 2. Left ventricular systolic function is normal, estimated at 60-65%. 3. There is mildly increased left ventricular wall thickness. 4. The left ventricular diastolic function is grade I diastolic dysfunction. 5. Right ventricular systolic function is normal. 6. Left atrial chamber dimension is moderately enlarged. 7. There is severe aortic valve calcification. 8. There is mild to moderate aortic valve stenosis. 9. There is moderate aortic valve regurgitation. 10. There is mild mitral valve regurgitation. 11. There is mild pulmonic regurgitation. (2) Acute coronary syndrome: Code(s): I24.9 - Acute ischemic heart disease, unspecified Status: Acute Assessment and Plan: Significantly elevated troponins -troponin > 80.00-->80.00--> 55.400. -ProBNP>[id number] -EKG showed ST-T changes with LVH but no ST elevations -cardiology was contacted from the ER, recommended no acute intervention -continue heparin infusion -dobutamine for possible cardiogenic shock (3) Severe sepsis: Code(s): A41.9 - Sepsis, unspecified organism; R65.20 - Severe sepsis without septic shock Status: Acute Assessment and Plan: Patient on antibiotics, lactic acid has resolved, continue vasopressors as above (4) Acute kidney injury: Code(s): N17.9 - Acute kidney failure, unspecified Status: Acute Assessment and Plan: Patient with acute kidney injury could be related to shock, hypotension, infection, ACS -baseline creatinine 0.80-1.10 -patient's creatinine was 2.40 on this admission -elevated lactic acidosis which has resolved -low urine output -patient received Lasix 80 mg IV x1 in the ER without much improvement -will obtain urine lytes, urine eosinophils, CK level -obtained renal ultrasound -nephrology has been consulted -continue to monitor renal function, electrolytes and urine (5) Paroxysmal atrial fibrillation: Code(s): I48.0 - Paroxysmal atrial fibrillation Status: Chronic Assessment and Plan: History of paroxysmal AFib -currently in sinus rhythm, patient on amiodarone at home, clopidogrel, metoprolol -hold all home meds for now (6) Chronic obstructive pulmonary disease: Code(s): J44.9 - Chronic obstructive pulmonary disease, unspecified Status: Acute Assessment and Plan: Currently on BiPAP -continue bronchodilators -started on Solu-Medrol as patient has wheezing, this could be cardiogenic wheezing versus COPD -patient will be given a break from BiPAP and placed on Vapotherm (7) Chronic diastolic heart failure: Code(s): I50.32 - Chronic diastolic (congestive) heart failure Status: Acute Assessment and Plan: History of diastolic dysfunction -currently on dobutamine likely due to cardiogenic shock -continue to monitor urine output, renal function and liver enzymes Plan DVT prophylaxis: Heparin infusion Stress ulcer prophylaxis: Protonix Nutrition: NPO for now Code Status: Full code
[2024-06-11] MEDS: methylPREDNISolone SOD SUCC 40 MG VIAL IV PUSH ×4 (09:01→23:54)
[2024-06-11] MEDS: IPRATROPIUM 0.5 MG/ALBUTEROL SULFATE 2.5 MG AMPUL.NEB 3 ML INHALATION ×3 (09:07→20:05)
--- NOTE | 2024-06-11 09:24 | PM.CNCAR ---
Assessment and Plan Assessment and plan (1) Cardiogenic shock: Code(s): R57.0 - Cardiogenic shock Status: Acute (2) Acute kidney injury: Code(s): N17.9 - Acute kidney failure, unspecified Status: Acute (3) Myocardial infarction: Code(s): I21.9 - Acute myocardial infarction, unspecified Status: Acute Plan This is an 89-year-old man who is known to have coronary disease presented following significant chest pain for a couple of days prior to admission and clear evidence that he has had a significant myocardial infarction. There are new inferior Q-waves on his electrocardiogram and his troponin level was very high. This is a late presentation and there is no benefit to consider revascularization of the infarct related artery at this time. His prognosis is very poor given his advanced age the fact that he has developed picture of cardiogenic shock and acute renal insufficiency. Had a long discussion with the patient in the room about his end of life wishes including code status etc.. In my opinion DNR status would be appropriate and he was says he will think about this. Aggressive supportive care has been provided which is appropriate. At this point his prognosis for recovery/survival after this event is unlikely in my opinion Wilder Hylton MD [facility] History of Present Illness History of Present Illness Consult date/time: 06/11/24 09:24 Reason For Visit: Cardiogenic shock Narrative: This is an 89-year-old man with coronary heart disease, valvular heart disease and atrial fibrillation being seen at the request of the hospitalist because of picture of shock following myocardial infarction. The patient is known to me with follow-up of his coronary disease and paroxysmal AFib. He was just in this hospital within the last week to 10 days with some symptoms of shortness of breath and intermittent atrial fibrillation. He is known to have his atrial fibrillation any is also known to have significant interstitial lung disease and is home oxygen dependent. He went home from the hospital last week and for the 1st 24 hours says he was feeling fairly well but then the about 24 hours after that he started having chest pain he describes this as an interscapular back pain radiating around to the anterior aspect of his neck and his this was going on for at least 48 hours before he came back to the hospital yesterday. His electrocardiogram shows inferior Q-waves which were not present on his previous tracing earlier this month. His troponin level was very high at greater than 80 and has trended down. He also has renal insufficiency with a creatinine of 2.4 on admission which was previously normal. In this setting I am seeing him in consultation he is in the ICU on face mask oxygen and on pressor support. His history of coronary artery disease dates back to 2021 when he was hospitalized at [facility] with symptoms of chest pain and had a drug-eluting stent placed in his LAD. He has a history of paroxysmal atrial fib dating back to August of 2016. He has been maintained on amiodarone at modest doses which was started during hospitalization earlier this year to try to maintain sinus rhythm. Yesterday when he came to the hospital looks like he was in atypical atrial flutter with a normal ventricular response currently he is in sinus rhythm with a heart rate of 90. He does have mild aortic valve stenosis by exam and by recent echocardiogram. Review of Systems Constitutional: Constitutional: Reports lethargy and Reports weakness Eyes: Eyes: Reports no additional eye complaints ENT: Reports system reviewed and no additional complaints, except as documented Cardiovascular: Cardiovascular: Reports as per HPI and Reports chest pain Respiratory: Respiratory: Reports dyspnea on exertion Gastrointestinal: Gastrointestinal: Reports no additional gastrointestinal complaints Musculoskeletal: Musculoskeletal: Repor
[2024-06-11] MEDS: PANTOPRAZOLE SODIUM IV 40 MG VIAL IV PUSH ×2 (09:32→20:12)
[2024-06-11 09:45] LABS: Creatinine Urine 133.2 mg/dL
[2024-06-11 09:48] LABS: Potassium Urine Random 60.6 meq/L; Sodium Urine Random 10 meq/L
[2024-06-11 10:17] LABS: Eosinophil Urine None Seen % (None Seen); Urine Eos QC 2nd Tech Confirmed
[2024-06-11 10:33] LABS: Creatine Kinase 238 U/L (55-170); Partial Thromboplastin Time 120.4 Seconds (22.3-36.8)
[2024-06-11] MEDS: PERFLUTREN LIPID MICROSPHERES 1.5 ML VIAL DILUTED TO 10 ML TOTAL VOLUME IV PUSH (11:30)
[2024-06-11 11:32] LABS: Glucose Point of Care 185 mg/dl (65-105)
[2024-06-11 12:10] LABS: Thyroid Stimulating Hormone Reflex 0.115 uIU/mL (0.465-4.68)
--- NOTE | 2024-06-11 12:35 | PM.CNNEP ---
Assessment and Plan Assessment and plan (1) Acute kidney injury: Code(s): N17.9 - Acute kidney failure, unspecified Status: Acute Assessment and Plan: the patient has acute kidney injury. His baseline creatinine is normal. he was recently in the hospital. At that point his Lasix had been increased from 20-40. Now the patient has shortness of breath. However chest x-ray is clear. His urine sodium is only 10. CK is not high enough to do anything. A renal ultrasound is done but pending I wonder if he could be pre renal. The problem is that he is on high-flow oxygen and now lot of room if we give him a lot of fluids. He already has received a L of lactated Ringer's and so far today besides the LR he is gotten about 1100cc in and only 300 cc of urine out. So he is essentially being hydrated now just because of his drips. At this point since the chest x-ray does not show fluid I would hesitate to give more diuretics. None more planned that I know of. He is getting supportive care for his severe lung disease. He is also getting supportive care for his blood pressure and his heart. Cardiology is on the case. (2) Shock: Code(s): R57.9 - Shock, unspecified Status: Acute Assessment and Plan: he is on pressors (3) Presence of stent in coronary artery in patient with coronary artery disease: Code(s): I25.10 - Atherosclerotic heart disease of [place] coronary artery without angina pectoris; Z95.5 - Presence of coronary angioplasty implant and graft Status: Acute Assessment and Plan: no chest pain (4) Paroxysmal atrial fibrillation: Code(s): I48.0 - Paroxysmal atrial fibrillation Status: Chronic Assessment and Plan: controlled rate. EKG showed aflutter/ tachycardia. (5) Iron deficiency anemia, unspecified: Code(s): D50.9 - Iron deficiency anemia, unspecified Status: Acute Assessment and Plan: Hemoglobin is 8.7 he has been running in the 8s and 9s all year. (6) Essential (primary) hypertension: Code(s): I10 - Essential (primary) hypertension Status: Chronic Assessment and Plan: On no blood pressure meds because of his hypotension (7) COPD with exacerbation: Code(s): J44.1 - Chronic obstructive pulmonary disease with (acute) exacerbation Status: Acute Assessment and Plan: getting supportive care History of Present Illness Reason for Consult Consult date: 06/11/24 Chief Complaint Chief complaint: Cardiogenic shock History of Present Illness Narrative: Kwame is a very pleasant 89-year-old gentleman who has multiple medical problems including COPD, coronary artery disease, congestive heart failure, paroxysmal atrial fibrillation, hyperlipidemia, hypertension, anemia, sleep apnea, vitamin-D deficiency, psoriasis. The patient came in the hospital because he had 2 or 3 days of shortness of breath. He says he is just gone home from [facility] a few days before that. About 2 or 3 days before admission he started getting more short of breath under progressively worsened so he came to the ER. In the ER he had evaluation. Chest x-ray showed prominent markings with interstitial changes but no infiltrates effusions or pneumothorax. His blood pressure was very low. He says he had a fever of 100. Blood cultures are pending. He was placed on antibiotics and pressors and sent to the ICU. He is still on pressors. An echocardiogram has been done. his creatinine is typically normal. However on admission it was up to 2.3, then niall to 2.4 and is now 2.1 renal consultation was requested he denies any Advil leave ibuprofen or Motrin. He does not take any [id number]-vvxddye medications. He does not have any bloody foamy cloudy or smelly urine. No painful urination. No kidney stones or bladder infections. Earlier this month he was in the hospital after a
[2024-06-11 12:47] LABS: Free T4 Free Thyroxine Reflex 2.85 ng/dL (0.78-2.19)
--- NOTE | 2024-06-11 13:09 | IVDEFINITY ---
Prior to administration of IV Definity the patient was educated on the risks and benefits of the imaging enhancing agent including potential adverse side effects. The patient verbalized understanding. Allergies were verified. No exclusion criteria were identified and at least one of the following inclusion criteria were met: 1) physician request, 2) patient technically difficult to image (per the [place] [employer] guidelines of two or more segments not discernable within the apical view), or 3) questionable left ventricular function. ?
--- NOTE | 2024-06-11 14:34 | PM.IMPN ---
Progress Note: A&P Assessment and Plan (1) Cardiogenic shock: Code(s): R57.0 - Cardiogenic shock Status: Acute (2) Sepsis: Code(s): A41.9 - Sepsis, unspecified organism Status: Acute (3) Chronic respiratory failure with hypoxia, on home oxygen therapy: Code(s): J96.11 - Chronic respiratory failure with hypoxia; Z99.81 - Dependence on supplemental oxygen Status: Acute (4) SUDHIR (obstructive sleep apnea): Code(s): G47.33 - Obstructive sleep apnea (adult) (pediatric) Status: Chronic (5) Acute exacerbation of congestive heart failure: Qualifiers: Heart failure type: diastolic Qualified Code(s): I50.33 - Acute on chronic diastolic (congestive) heart failure Code(s): I50.9 - Heart failure, unspecified Status: Acute (6) Chronic obstructive pulmonary disease: Code(s): J44.9 - Chronic obstructive pulmonary disease, unspecified Status: Acute (7) Paroxysmal atrial fibrillation: Code(s): I48.0 - Paroxysmal atrial fibrillation Status: Acute (8) Hypertension: Qualifiers: Hypertension type: primary hypertension Qualified Code(s): I10 - Essential (primary) hypertension Code(s): I10 - Essential (primary) hypertension Status: Acute Plan This is an 89-year-old male with past medical history of CHF SUDHIR recurrent falls multiple spine fracture proximal atrial fibrillation coronary artery disease chronic anemia recent discharge from [facility] treated for recurrent falls acute CHF exacerbation present back to ER via EMS due to shortness of breath low oxygen saturation and hypotension. He also reported some chest pressure and associated shortness of breath. Associated cough and fever. EMS was called and was noted to be hypoxic to 89% hypotensive and 80s on arrival. Placed on non-rebreather face mask on epinephrine push was given which improved the pressure as well as saturation of the oxygen. Patient was febrile at 38.1 technique and and moderate respiratory distress on 5 L nasal cannula. Blood pressure improved to 160s. Patient was subsequently placed on BiPAP for respiratory distress. Clinical course in the artery treated with worsening hypotension and and vasopressor with the IV Levophed was started. Right subclavian line was placed in the ER. Received a dose of Lasix. Laboratory evaluation showed leukocytosis of 14 hemoglobin stable at 9.1 ABG with pCO2 45 bicarb 26. Chem panel showed acute renal failure with creatinine of 2.3 baseline around 0.9. Lactic acid was elevated at 4.1 AST elevated at 265. Chest x-ray with bilateral interstitial changes which may indicate pneumonitis versus fibrotic changes. Troponin was greater than 80 and BNP was greater than 30,000. She has been started on heparin drip for non STEMI. Antibiotics were started for possible septic shock and admitted to the ICU. Patient remains on dobutamine infusion for possible cardiogenic shock Also on broad-spectrum antibiotic with vancomycin cefepime for possible septic shock Echo on 06/04/2024 with EF 60-65% grade 1 diastolic dysfunction [id number] aortic valve stenosis moderate aortic valve regurgitation mild MR mild pulmonary regurgitation. Non STEMI significantly elevated troponin more than 80-more than 80-more than 55.4 proBNP more than 30,000 cardiology has been consulted on heparin infusion Severe sepsis/septic shock antibiotics and vasopressors as ordered lactic acid has resolved FRACISCO with creatinine of 2.4 on admission baseline around 0.8 nephrology has been consulted Paroxysmal atrial fibrillation currently in sinus rhythm on amiodarone at home COPD continue bronchodilators treat as COPD exacerbation but could be related to CHF exacerbation as well. Chronic diastolic heart failure possible acute component DVT prophylaxis heparin infusion Code status full code Subjective Date/time seen: 06/11/24 14:34 Interval history: Chart r
[2024-06-11] MEDS: DOBUTamine 250 MG/D5W 250 ML 250 MG/250 ML BAG 13.47 MG IV CONT (16:37)
[2024-06-11 16:59] LABS: Partial Thromboplastin Time 90.2 Seconds (22.3-36.8)
[2024-06-11 18:11] LABS: Glucose Point of Care 268 mg/dl (65-105)
[2024-06-11] MEDS: INSULIN ASPART (*BKC) 100 UNITS/ML SUB-Q (18:15)
[2024-06-11] MEDS: CEFEPIME 2 GM/NS 50 ML 2 GM/50 ML BAG IVPB (20:12)
[2024-06-11] MEDS: NOREPINEPHRINE 8 MG/D5W 250 ML 8 MG/250 ML BAG 5.63 MG IV CONT (21:38)
[2024-06-11] MEDS: ACETAMINOPHEN 325 MG TABLET 650 MG PO (21:39)
[2024-06-11 23:18] LABS: Partial Thromboplastin Time 71.2 Seconds (22.3-36.8)
[2024-06-12] VITALS (65 sets, daily range): BP systolic 67–132; BP diastolic 37–88; PULSE 70–140; RESP 21–32; TEMP 37.2–38.1; O2SAT 93–100
[2024-06-12] MEDS: INSULIN ASPART (*BKC) 100 UNITS/ML SUB-Q ×3 (00:05→18:20)
[2024-06-12 00:12] LABS: Glucose Point of Care 223 mg/dl (65-105)
[2024-06-12 00:18] LABS: Vancomycin Random 9.5 ug/mL (10-20)
[2024-06-12] MEDS: HEPARIN SOD/D5W 100 UNITS/ML 25,000 UNITS/250 ML BAG 9 UNITS IV CONT (00:37)
[2024-06-12] MEDS: VANCOMYCIN 1,750 MG/NS 500 ML 1,750 MG/500 ML BAG 250 MG IVPB (01:25)
[2024-06-12] MEDS: IPRATROPIUM 0.5 MG/ALBUTEROL SULFATE 2.5 MG AMPUL.NEB 3 ML INHALATION (02:10)
[2024-06-12] MEDS: ACETAMINOPHEN 325 MG TABLET 650 MG PO ×4 (03:16→22:59)
[2024-06-12 05:36] LABS: Alveolar/Arterial O2 Gradient 77.8 mmHg; Base Excess ABG 0.5 mEq/l (+/-2.0); Carboxyhemoglobin 0.7 % THb (0-2.0); Fractional Inspired Oxygen 30 %; Methemoglobin ABG 0.2 %THb (0-1.5); Oxygen Content ABG 11.8 %vol (16.0-22.0); Oxygen Saturation ABG 97.1 % (95.0-100.0); Oxyhemoglobin 96.4 % THb (90.0-100.0); PCO2 ABG 39.1 mmHg (35.0-45.0); PO2 ABG 90.2 mmHg (80.0-100.0); PO2 FiO2 Ratio Arterial Blood 3.01 %; Reduced Hemoglobin 2.7 %THb (0-5.0); Total Hemoglobin 8.6 g/dL (12.0-18.0); pH ABG 7.423 (7.350-7.450)
[2024-06-12 05:37] LABS: Device HIGH FLOW THERAPY; Modified Allen's Test Pass; Site Drawn RIGHT RADIAL
[2024-06-12 05:53] LABS: Basophils Percent Auto 0.1 % (0.2-1.2); Hematocrit 24.4 % (42.0-52.0); Hemoglobin 7.7 g/dL (14.0-18.0); Immature Granulocyte Absolute 0.36 K/mm3 (0.00-0.031); Lymphocytes Absolute Auto 0.39 K/mm3 (0.9-3.2); Lymphocytes Percent Auto 3.3 % (18.3-44.2); Mean Corpuscular HGB Conc 31.6 g/dl (32-36); Mean Corpuscular Hemoglobin 26.9 pg (26-34); Mean Corpuscular Volume 85.3 fl (80-100); Mean Platelet Volume 11.5 fl (7.4-10.4); Monocytes Absolute Auto 0.8 K/mm3 (0.1-0.6); Monocytes Percent Auto 6.4 % (2.6-8.5); Neutrophils Absolute Auto 10.4 K/mm3 (1.3-6.7); Neutrophils Percent Auto 87.2 % (45.5-73.1); Platelet Count Result 305 k/mm3 (150-375); Red Blood Count 2.86 M/mm3 (4.6-6.20); Red Cell Distribution Width 17.4 % (11.5-14.5); White Blood Count 11.9 K/mm3 (4.5-10.0)
[2024-06-12] MEDS: ALBUMIN HUMAN 25% 25 GM/100 ML 100 ML IVPB (05:56)
[2024-06-12] MEDS: methylPREDNISolone SOD SUCC 40 MG VIAL IV PUSH ×2 (05:57→11:42)
[2024-06-12] MEDS: CENTRAL LINE FLUSH 10 ML IV PUSH ×3 (05:57→20:18)
[2024-06-12 06:00] LABS: Lactic Acid Reflex 1.2 mmol/L (0.7-2.0)
[2024-06-12 06:05] LABS: Partial Thromboplastin Time 61.6 Seconds (22.3-36.8)
[2024-06-12 06:14] LABS: Anisocytosis 1+; Hypochromasia 2+; Ovalocytes 1+; Platelet Estimate Adequate (Adequate); Schistocytes None Seen; Target Cells 1+
[2024-06-12 06:29] LABS: Alanine Aminotransferase 43 U/L (6-50); Albumin Level 4.1 g/dL (3.5-5.1); Alkaline Phosphatase 67 U/L (38-126); Anion Gap 13 mmol/L (4-12); Aspartate Amino Transferase 104 U/L (17-59); Bilirubin,Total 0.5 mg/dL (0.2-1.3); Blood Urea Nitrogen 62 mg/dL (9-20); CRP 23.5 mg/dL (<1.0); Calcium 8.8 mg/dL (8.4-10.2); Carbon Dioxide 29 mmol/L (22-30); Chloride 89 mmol/L (98-107); Creatine Kinase 114 U/L (55-170); Estimated CRCL calculation 22 ml/min; Estimated Glomerular Filt Rate 28; Glucose 198 mg/dL (65-110); Magnesium 1.7 mg/dL (1.6-2.3); Phosphorus 3.8 mg/dL (2.5-4.5); Potassium 3.9 mmol/L (3.4-5.0); Sodium 131 mmol/L (137-145)
[2024-06-12] MEDS: HEPARIN SODIUM 5,000 UNITS/ML VIAL 3000 UNITS IV PUSH ×2 (06:50→19:49)
[2024-06-12 07:05] LABS: Hepatitis B Surface Antigen Negative (Negative)
[2024-06-12 07:12] LABS: Hepatitis B Surface Anti Res Negative
[2024-06-12] MEDS: AMIODARONE 150 MG/D5W 100 ML 150 MG/100 ML BAG 600 MG IV CONT (07:52)
[2024-06-12] MEDS: PANTOPRAZOLE SODIUM IV 40 MG VIAL IV PUSH ×2 (07:53→20:17)
[2024-06-12] MEDS: AMIODARONE 360 MG/D5W 200 ML 360 MG/200 ML BAG 33.33 MG IV CONT (08:05)
--- NOTE | 2024-06-12 08:40 | WPDINTPN ---
Progress Note: A&P Assessment and Plan (1) Shock: Code(s): R57.9 - Shock, unspecified Status: Acute Assessment and Plan: Likely related to cardiogenic versus septic -received 1 L of IV fluid bolus in the ER -troponins the significantly elevated EKG showed ST-T changes likely related to LVH -cardiology has been consulted from the ED, did not feel that the patient required immediate intervention -patient was started on heparin infusion, dobutamine to assist in increasing cardiac output -central line was inserted in the ER -off vasopressin -continue Levophed to maintain MAP > 65 mmHg or systolic blood pressures > 100 mmHg for adequate end organ perfusion -lactic acidosis has resolved -06/10: Blood cultures growing MRSA 2 of 2 bottles -06/10: on cefepime and vancomycin 06/11/2024 Echocardiogram Summary 1. Left ventricular hypertrophy with posterior and inferior hypokinesia overall normal ejection fraction. 2. Grade 1 diastolic noncompliance. 3. Left atrial dilation. 4. Poorly visualized aortic valve which is appears to be mildly stenotic. 5. Mild aortic regurgitation. 6. Compared with echocardiogram done last week the inferior and posterior segments appear to be hypodynamic but overall ejection fraction is preserved. 06/04/2024: Echocardiogram Summary 1. Left ventricular chamber dimension is normal. 2. Left ventricular systolic function is normal, estimated at 60-65%. 3. There is mildly increased left ventricular wall thickness. 4. The left ventricular diastolic function is grade I diastolic dysfunction. 5. Right ventricular systolic function is normal. 6. Left atrial chamber dimension is moderately enlarged. 7. There is severe aortic valve calcification. 8. There is mild to moderate aortic valve stenosis. 9. There is moderate aortic valve regurgitation. 10. There is mild mitral valve regurgitation. 11. There is mild pulmonic regurgitation. (2) Acute coronary syndrome: Code(s): I24.9 - Acute ischemic heart disease, unspecified Status: Acute Assessment and Plan: Significantly elevated troponins -troponin > 80.00-->80.00--> 55.400. -ProBNP>[id number] -EKG showed ST-T changes with LVH but no ST elevations -cardiology was contacted from the ER, recommended no acute intervention -continue heparin infusion -dobutamine for likely cardiogenic shock (3) Severe sepsis: Code(s): A41.9 - Sepsis, unspecified organism; R65.20 - Severe sepsis without septic shock Status: Acute Assessment and Plan: Patient on antibiotics, lactic acid has resolved, continue vasopressors as above -blood cultures growing MRSA, sensitivities pending (4) Acute kidney injury: Code(s): N17.9 - Acute kidney failure, unspecified Status: Acute Assessment and Plan: Patient with acute kidney injury could be related to shock, hypotension, infection, ACS -baseline creatinine 0.80-1.10 -patient's creatinine was 2.40 on this admission -elevated lactic acidosis which has resolved -low urine output -patient received Lasix 80 mg IV x1 in the ER without much improvement -urine lytes were prerenal, no urine use on a feels were seen, CK levels are normal -06/11: Renal ultrasound showed normal kidneys, no hydronephrosis -appreciate Nephrology evaluation and recommendation -continue to monitor renal function, electrolytes and urine -creatinine stable this morning (5) Paroxysmal atrial fibrillation: Code(s): I48.0 - Paroxysmal atrial fibrillation Status: Chronic Assessment and Plan: History of paroxysmal AFib -06/12: Patient went into AFib RVR this more heart rates in the 130s to 140s -patient started on amiodarone bolus and infusion -continue heparin infusion for now -hold home metoprolol, and p.o. amiodarone for now (6) Chronic obstructive pulmonary disease: Code(s): J44.9 - Chronic obstructive pulmonary disease, unspecified Status: Acute
[2024-06-12] MEDS: LEVALBUTEROL NEB 1.25 MG/3 ML INHALATION ×3 (08:49→20:05)
[2024-06-12] MEDS: IPRATROPIUM BR 0.02% INH SOLN 0.5 MG/2.5 ML VIAL INHALATION ×3 (08:49→20:05)
--- NOTE | 2024-06-12 09:13 | PM.PNCARD ---
Progress Note: A&P Assessment and Plan (1) Shock: Code(s): R57.9 - Shock, unspecified Status: Acute Assessment and Plan: Echocardiogram with LVEF 55-60% with posterior and inferior hypokinesia. Suspect cardiogenic shock in setting of ACS vs septic vs mixed. Continue with pressors, wean as tolerated. Agree with stopping Dobutamine for now given RVR. Prognosis is guarded. (2) Acute kidney injury: Code(s): N17.9 - Acute kidney failure, unspecified Status: Acute Assessment and Plan: Nephrology consulted. (3) Severe sepsis: Code(s): A41.9 - Sepsis, unspecified organism; R65.20 - Severe sepsis without septic shock Status: Acute Assessment and Plan: On antibiotics; management as per primary team. (4) Acute on chronic anemia: Code(s): D64.9 - Anemia, unspecified Status: Acute Assessment and Plan: Hgb trending down. If Hgb continues to trend down, may need to hold Heparin drip. (5) Acute coronary syndrome: Code(s): I24.9 - Acute ischemic heart disease, unspecified Status: Acute Assessment and Plan: Continue Heparin drip. If Hgb continues to trend down, may need to hold Heparin drip. Ideally would like to have on DAPT, however, will hold off at this time given worsening anemia. (6) Paroxysmal atrial fibrillation: Code(s): I48.0 - Paroxysmal atrial fibrillation Status: Chronic Assessment and Plan: Currently in RVR. Agree with Amiodarone drip, holding Dobutamine. Continue Heparin drip. (7) Acute hypoxic respiratory failure: Code(s): J96.01 - Acute respiratory failure with hypoxia Status: Acute Assessment and Plan: On HFNC, wean down oxygen as tolerated. Plan Recommendations and plan discussed with Bag Shop Worker. Subjective Date/time seen: 06/12/24 09:13 Interval history: Reason for visit: NSTEMI, cardiogenic shock HPI: This is an 89-year-old man with coronary heart disease, valvular heart disease and atrial fibrillation being seen at the request of the hospitalist because of picture of shock following myocardial infarction. The patient is known to me with follow-up of his coronary disease and paroxysmal AFib. He was just in this hospital within the last week to 10 days with some symptoms of shortness of breath and intermittent atrial fibrillation. He is known to have his atrial fibrillation any is also known to have significant interstitial lung disease and is home oxygen dependent. He went home from the hospital last week and for the 1st 24 hours says he was feeling fairly well but then the about 24 hours after that he started having chest pain he describes this as an interscapular back pain radiating around to the anterior aspect of his neck and his this was going on for at least 48 hours before he came back to the hospital yesterday. His electrocardiogram shows inferior Q-waves which were not present on his previous tracing earlier this month. His troponin level was very high at greater than 80 and has trended down. He also has renal insufficiency with a creatinine of 2.4 on admission which was previously normal. In this setting I am seeing him in consultation he is in the ICU on face mask oxygen and on pressor support. His history of coronary artery disease dates back to 2021 when he was hospitalized at [facility] with symptoms of chest pain and had a drug-eluting stent placed in his LAD. He has a history of paroxysmal atrial fib dating back to August of 2016. He has been maintained on amiodarone at modest doses which was started during hospitalization earlier this year to try to maintain sinus rhythm. Yesterday when he came to the hospital looks like he was in atypical atrial flutter with a normal ventricular response currently he is in sinus rhythm with a heart rate of 90. He does have mild aortic valve stenosis by exam and by recent echocardiogram. Date of service 06/12: Remains on Levo
--- NOTE | 2024-06-12 09:18 | P.PNNP_ITS ---
Progress Note: A&P Assessment and Plan (1) Acute kidney injury: Code(s): N17.9 - Acute kidney failure, unspecified Status: Acute Assessment and Plan: * normal creatinine at baseline * elevated since admission but not significantly worse * however, urine output is not great * multifactorial etiology: * hemodynamic instability/shock * sepsis/infection * prerenal azotemia * CRISTIN-I and diuretic use prior to admission * cardiac issues * evaluation to date noted: * urine electrolytes prerenal * renal ultrasound normal * urine eosinophils negative * CPK okay * consider trial of IVFs * follow repeat labs and UOP (2) Shock: Code(s): R57.9 - Shock, unspecified Status: Acute Assessment and Plan: * cardiogenic versus septic versus combo of both * elevated troponins noted; EKG noted as well * on vasopressor support at this time * blood cultures with MRSA * on antibiotics (3) Severe sepsis: Code(s): A41.9 - Sepsis, unspecified organism; R65.20 - Severe sepsis without septic shock Status: Acute Assessment and Plan: * as noted by hypotension and lactic acidosis on presentation * blood cultures with MRSA * on antibiotics * follow repeat cultures * continue supportive therapy (4) Acute coronary syndrome: Code(s): I24.9 - Acute ischemic heart disease, unspecified Status: Acute Assessment and Plan: * elevated troponins and admission EKG noted * Echo results reviewed * Cardiology following * on heparin gtt * dobutamine as needed (5) Paroxysmal atrial fibrillation: Code(s): I48.0 - Paroxysmal atrial fibrillation Status: Chronic Assessment and Plan: * AFib RVR with heart rates in the 130s to 140s this AM * started on amiodarone bolus and infusion * already on heparin infusion for now * continue rate control strategy (6) Anemia: Code(s): D64.9 - Anemia, unspecified Status: Acute Assessment and Plan: * due to acute illness and FRACISCO * noted drop in H/H * follow trend of H/H since on heparin gtt (7) Chronic obstructive pulmonary disease: Code(s): J44.9 - Chronic obstructive pulmonary disease, unspecified Status: Chronic Assessment and Plan: * known history * despite significant oxygen requirements, appears comfortable * on bronchodilators and steroids * follow respiratory status Discussed with Dr. Gilman. Will continue to follow. Subjective Date/time seen: 06/12/24 09:18 Interval history: Follow-up for acute kidney injury/acute renal failure on chronic kidney disease. Chart reviewed -- assuming care from Dr. Maki; appears comfortable bu on high flow oxygen therapy at the time of my visit; issues wih afib with RVR earlier this AM associated with hypotension so started on amiodarone gtt; remains on heparin gtt as well; renal function/creatinine relatively stable with some urine output; major complaint is that of on/off difficulty breathing. Exam Narrative: General: elderly male in NAD Heart: IRRR, normal S1 and S2; no rub Lungs: coarse and decreased at bases Abdomen: soft, nontender, nondistended, positive bowel sounds Extremities: no cyanosis or clubbing; 1 - 2+ edema Skin: warm and dry Objective Data Vital Signs Vital Signs: Vital Signs Temp Pulse
--- NOTE | 2024-06-12 09:18 | PM.PNNEP ---
Progress Note: A&P Assessment and Plan (1) Acute kidney injury: Code(s): N17.9 - Acute kidney failure, unspecified Status: Acute Assessment and Plan: normal creatinine at baseline elevated since admission but not significantly worse however, urine output is not great multifactorial etiology: hemodynamic instability/shock sepsis/infection prerenal azotemia CRISTIN-I and diuretic use prior to admission cardiac issues evaluation to date noted: urine electrolytes prerenal renal ultrasound normal urine eosinophils negative CPK okay consider trial of IVFs follow repeat labs and UOP (2) Shock: Code(s): R57.9 - Shock, unspecified Status: Acute Assessment and Plan: cardiogenic versus septic versus combo of both elevated troponins noted; EKG noted as well on vasopressor support at this time blood cultures with MRSA on antibiotics (3) Severe sepsis: Code(s): A41.9 - Sepsis, unspecified organism; R65.20 - Severe sepsis without septic shock Status: Acute Assessment and Plan: as noted by hypotension and lactic acidosis on presentation blood cultures with MRSA on antibiotics follow repeat cultures continue supportive therapy (4) Acute coronary syndrome: Code(s): I24.9 - Acute ischemic heart disease, unspecified Status: Acute Assessment and Plan: elevated troponins and admission EKG noted Echo results reviewed Cardiology following on heparin gtt dobutamine as needed (5) Paroxysmal atrial fibrillation: Code(s): I48.0 - Paroxysmal atrial fibrillation Status: Chronic Assessment and Plan: AFib RVR with heart rates in the 130s to 140s this AM started on amiodarone bolus and infusion already on heparin infusion for now continue rate control strategy (6) Anemia: Code(s): D64.9 - Anemia, unspecified Status: Acute Assessment and Plan: due to acute illness and FRACISCO noted drop in H/H follow trend of H/H since on heparin gtt (7) Chronic obstructive pulmonary disease: Code(s): J44.9 - Chronic obstructive pulmonary disease, unspecified Status: Chronic Assessment and Plan: known history despite significant oxygen requirements, appears comfortable on bronchodilators and steroids follow respiratory status Discussed with Dr. Gilman. Will continue to follow. Subjective Date/time seen: 06/12/24 09:18 Interval history: Follow-up for acute kidney injury/acute renal failure on chronic kidney disease. Chart reviewed -- assuming care from Dr. Maki; appears comfortable bu on high flow oxygen therapy at the time of my visit; issues wih afib with RVR earlier this AM associated with hypotension so started on amiodarone gtt; remains on heparin gtt as well; renal function/creatinine relatively stable with some urine output; major complaint is that of on/off difficulty breathing. Exam Narrative: General: elderly male in NAD Heart: IRRR, normal S1 and S2; no rub Lungs: coarse and decreased at bases Abdomen: soft, nontender, nondistended, positive bowel sounds Extremities: no cyanosis or clubbing; 1 - 2+ edema Skin: warm and dry Objective Data Vital Signs Vital Signs: Vital Signs Temp Pulse Resp BP Pulse Ox O2 Del Method O2 Flow Rate 06/12/24 09:15 100.2 F H 117 H 114/87 97 06/12/24 09:03 120 H 26 H 06/12/24 08:00 124 H 06/12/24 08:00 100 High Flow Therapy with Na 25 06/12/24 08:52 124 H 24 H 06/12/24 08:52 94 High Flow Therapy with Na 25 06/12/24 08:13 99 99 High Flow Therapy with Na 35 06/12/24 08:00 99.6 F 139 H 24 H 99/58 L 97 06/12/24 08:01 121 H 68/51 L 06/12/24 08:05 110 H 99/58 L 06/12/24 08:03 122 H 99/58 L 06/12/24 07:52 135 H 97/54 L 06/12/24 07:48 140 H 67/42 L 06/12/24 06:45 106 H 121/63 06/12
--- NOTE | 2024-06-12 09:30 | PC.NURSE ---
Patient experiencing increased work of breathing on airvo, respiratory and this RN present at bedside. Lung sounds sound more diminished than 0800 assessment and developing coarse crackles in bilateral bases. 500 ml bolus stopped immediately and dry kiln operator notified. See orders for changes. Placed patient back on bipap with previous settings (see resp assessment) and patient began to feel more comfortable over the next 15 minutes. Family now at bedside, Dr. Gilman inquired about code status as the potential for patient condition to decline rapidly is likely possible. Family will discuss code status and intubation options. The son will look for health care power of criminal attorney paperwork and living will as he is unsure if those documents were completed or not.
[2024-06-12] MEDS: SODIUM CHLORIDE 0.9% IV 500 ML IV CONT (10:42)
--- NOTE | 2024-06-12 11:17 | PCFNICU ---
ICU Rounding Note: Pt current nutrition is Full liquids with Ensure Compact BID. Last recorded weight is 97.6 kg, up from 89.4 kg on admit. Bowel Motility: +BM reported 06/08 Labs Reviewed:Glu 198, BUN 62,GFR 28,Cr 2.2,Glu 198 Meds Noted:Levophed, Cefepime, Heparin. Skin: WNL Additional Notes: Patient has advanced to a full liquid diet with ensure compact BID. Oral Intake today 100% of meals. MRSA noted in blood. Plans for diet order advancing as tolerated per MD orders. Agree with diet orders. Following daily in ICU rounds. Monitoring diet orders, plan of care, weights, labs Follow up in 5 days. Daily in ICU rounds.
[2024-06-12] MEDS: NOREPINEPHRINE 8 MG/D5W 250 ML 8 MG/250 ML BAG 26.25 MG IV CONT (11:31)
[2024-06-12 11:51] LABS: Glucose Point of Care 222 mg/dl (65-105)
[2024-06-12 12:53] LABS: Hematocrit 26.7 % (42.0-52.0); Hemoglobin 8.3 g/dL (14.0-18.0); Mean Corpuscular HGB Conc 31.1 g/dl (32-36); Mean Corpuscular Hemoglobin 26.5 pg (26-34); Mean Corpuscular Volume 85.3 fl (80-100); Mean Platelet Volume 11.2 fl (7.4-10.4); Platelet Count Result 397 k/mm3 (150-375); Red Blood Count 3.13 M/mm3 (4.6-6.20); Red Cell Distribution Width 17.9 % (11.5-14.5); White Blood Count 15.6 K/mm3 (4.5-10.0)
[2024-06-12 13:06] LABS: Partial Thromboplastin Time 74.4 Seconds (22.3-36.8)
[2024-06-12] MEDS: AMIODARONE 360 MG/D5W 200 ML 360 MG/200 ML BAG 16.67 MG IV CONT (13:36)
--- NOTE | 2024-06-12 15:56 | PM.IMPN ---
Progress Note: A&P Assessment and Plan (1) Cardiogenic shock: Code(s): R57.0 - Cardiogenic shock Status: Acute (2) Sepsis: Code(s): A41.9 - Sepsis, unspecified organism Status: Acute (3) Chronic respiratory failure with hypoxia, on home oxygen therapy: Code(s): J96.11 - Chronic respiratory failure with hypoxia; Z99.81 - Dependence on supplemental oxygen Status: Acute (4) SUDHIR (obstructive sleep apnea): Code(s): G47.33 - Obstructive sleep apnea (adult) (pediatric) Status: Chronic (5) Acute exacerbation of congestive heart failure: Qualifiers: Heart failure type: diastolic Qualified Code(s): I50.33 - Acute on chronic diastolic (congestive) heart failure Code(s): I50.9 - Heart failure, unspecified Status: Acute (6) Chronic obstructive pulmonary disease: Code(s): J44.9 - Chronic obstructive pulmonary disease, unspecified Status: Acute (7) Paroxysmal atrial fibrillation: Code(s): I48.0 - Paroxysmal atrial fibrillation Status: Acute (8) Hypertension: Qualifiers: Hypertension type: primary hypertension Qualified Code(s): I10 - Essential (primary) hypertension Code(s): I10 - Essential (primary) hypertension Status: Acute Plan This is an 89-year-old male with past medical history of CHF SUDHIR recurrent falls multiple spine fracture proximal atrial fibrillation coronary artery disease chronic anemia recent discharge from [facility] treated for recurrent falls acute CHF exacerbation present back to ER via EMS due to shortness of breath low oxygen saturation and hypotension. He also reported some chest pressure and associated shortness of breath. Associated cough and fever. EMS was called and was noted to be hypoxic to 89% hypotensive and 80s on arrival. Placed on non-rebreather face mask on epinephrine push was given which improved the pressure as well as saturation of the oxygen. Patient was febrile at 38.1 technique and and moderate respiratory distress on 5 L nasal cannula. Blood pressure improved to 160s. Patient was subsequently placed on BiPAP for respiratory distress. Clinical course in the artery treated with worsening hypotension and and vasopressor with the IV Levophed was started. Right subclavian line was placed in the ER. Received a dose of Lasix. Laboratory evaluation showed leukocytosis of 14 hemoglobin stable at 9.1 ABG with pCO2 45 bicarb 26. Chem panel showed acute renal failure with creatinine of 2.3 baseline around 0.9. Lactic acid was elevated at 4.1 AST elevated at 265. Chest x-ray with bilateral interstitial changes which may indicate pneumonitis versus fibrotic changes. Troponin was greater than 80 and BNP was greater than 30,000. She has been started on heparin drip for non STEMI. Antibiotics were started for possible septic shock and admitted to the ICU. Patient remains on vasopressors for possible cardiogenic shock. Dobutamine has been discontinued Also on broad-spectrum antibiotic with vancomycin cefepime for possible septic shock. Blood culture x2 came back positive for MRSA. Repeat blood cultures been ordered Non STEMI significantly elevated troponin more than 80-more than 80-more than 55.4 proBNP more than 30,000 cardiology has been consulted on heparin infusion.. Echo on 06/04/2024 with EF 60-65% grade 1 diastolic dysfunction [id number] aortic valve stenosis moderate aortic valve regurgitation mild MR mild pulmonary regurgitation. Severe sepsis/septic shock antibiotics and vasopressors as ordered lactic acid has resolved Acute hypoxic respiratory failure on BiPAP FRACISCO with creatinine of 2.4 on admission baseline around 0.8 nephrology has been consulted. Paroxysmal atrial fibrillation currently in sinus rhythm on amiodarone at home. Weight AFib with RVR 06/12/2024 started on amiodarone drip. Holding dobutamine. COPD continue bronchodilators treat as COPD exacerbation but cou
[2024-06-12 17:52] LABS: Glucose Point of Care 232 mg/dl (65-105)
[2024-06-12 19:23] LABS: Partial Thromboplastin Time 63.7 Seconds (22.3-36.8)
[2024-06-12] MEDS: NOREPINEPHRINE 8 MG/D5W 250 ML 8 MG/250 ML BAG 31.88 MG IV CONT (20:14)
[2024-06-12] MEDS: CEFEPIME 2 GM/NS 50 ML 2 GM/50 ML BAG IVPB (20:17)
[2024-06-12] MEDS: MELATONIN 5 MG TABLET PO (21:29)
[2024-06-12 23:13] LABS: Glucose Point of Care 190 mg/dl (65-105)
[2024-06-13] VITALS (44 sets, daily range): BP systolic 71–129; BP diastolic 38–83; PULSE 79–89; RESP 16–33; TEMP 37.7–38.2; O2SAT 93–100
--- NOTE | 2024-06-13 00:02 | PC.NURSE ---
Patient cares taken over by Dalton COHEN. This RN gave report to Dalton COHEN 06/11/24 [id number]
[2024-06-13] MEDS: HEPARIN SOD/D5W 100 UNITS/ML 25,000 UNITS/250 ML BAG 11 UNITS IV CONT (00:09)
[2024-06-13] MEDS: AMIODARONE 360 MG/D5W 200 ML 360 MG/200 ML BAG 16.67 MG IV CONT ×3 (00:10→23:54)
[2024-06-13] MEDS: IPRATROPIUM BR 0.02% INH SOLN 0.5 MG/2.5 ML VIAL INHALATION ×4 (01:53→20:25)
[2024-06-13] MEDS: LEVALBUTEROL NEB 1.25 MG/3 ML INHALATION ×4 (01:53→20:25)
[2024-06-13 01:55] LABS: Partial Thromboplastin Time 83.7 Seconds (22.3-36.8)
[2024-06-13 02:25] LABS: Vancomycin Random 16.7 ug/mL (10-20)
[2024-06-13] MEDS: VANCOMYCIN 1,750 MG/NS 500 ML 1,750 MG/500 ML BAG 250 MG IVPB (03:40)
[2024-06-13 03:48] LABS: Glucose Point of Care 199 mg/dl (65-105)
[2024-06-13 05:37] LABS: Basophils Percent Auto 0.1 % (0.2-1.2); Hematocrit 26.3 % (42.0-52.0); Hemoglobin 8.4 g/dL (14.0-18.0); Immature Granulocyte Absolute 0.56 K/mm3 (0.00-0.031); Immature Granulocyte Percent A 3.6 % (0-0.5); Lymphocytes Absolute Auto 0.73 K/mm3 (0.9-3.2); Lymphocytes Percent Auto 4.7 % (18.3-44.2); Mean Corpuscular HGB Conc 31.9 g/dl (32-36); Mean Corpuscular Hemoglobin 26.1 pg (26-34); Mean Corpuscular Volume 81.7 fl (80-100); Mean Platelet Volume 11.5 fl (7.4-10.4); Monocytes Absolute Auto 1.3 K/mm3 (0.1-0.6); Monocytes Percent Auto 8.6 % (2.6-8.5); Neutrophils Absolute Auto 12.8 K/mm3 (1.3-6.7); Platelet Count Result 429 k/mm3 (150-375); Red Blood Count 3.22 M/mm3 (4.6-6.20); Red Cell Distribution Width 18.2 % (11.5-14.5); White Blood Count 15.4 K/mm3 (4.5-10.0)
[2024-06-13 05:38] LABS: Lactic Acid Reflex 1.6 mmol/L (0.7-2.0)
[2024-06-13 05:49] LABS: Hypochromasia 1+; Platelet Estimate Increased (Adequate)
[2024-06-13 05:50] LABS: Anisocytosis 1+; Burr Cells 1+; Chloride 89 mmol/L (98-107); Ovalocytes 1+; Poikilocytosis 1+; Potassium 4.1 mmol/L (3.4-5.0); Schistocytes None Seen; Sodium 128 mmol/L (137-145)
[2024-06-13 05:51] LABS: Alanine Aminotransferase 90 U/L (6-50); Albumin Level 3.8 g/dL (3.5-5.1); Alkaline Phosphatase 80 U/L (38-126); Anion Gap 13 mmol/L (4-12); Aspartate Amino Transferase 115 U/L (17-59); Bilirubin,Total 0.5 mg/dL (0.2-1.3); Blood Urea Nitrogen 81 mg/dL (9-20); Calcium 8.8 mg/dL (8.4-10.2); Carbon Dioxide 26 mmol/L (22-30); Estimated CRCL calculation 16 ml/min; Estimated Glomerular Filt Rate 20; Glucose 169 mg/dL (65-110); Magnesium 1.8 mg/dL (1.6-2.3); Phosphorus 3.9 mg/dL (2.5-4.5)
[2024-06-13] MEDS: CENTRAL LINE FLUSH 10 ML IV PUSH ×3 (06:36→20:37)
[2024-06-13 08:34] LABS: Partial Thromboplastin Time 64.3 Seconds (22.3-36.8)
[2024-06-13] MEDS: HEPARIN SODIUM 5,000 UNITS/ML VIAL 3000 UNITS IV PUSH (08:52)
[2024-06-13] MEDS: PANTOPRAZOLE SODIUM IV 40 MG VIAL IV PUSH ×2 (08:53→20:36)
[2024-06-13] MEDS: methylPREDNISolone SOD SUCC 40 MG VIAL IV PUSH (08:53)
--- NOTE | 2024-06-13 09:54 | PM.PNCARD ---
Progress Note: A&P Assessment and Plan (1) Shock: Code(s): R57.9 - Shock, unspecified Status: Acute Assessment and Plan: Echocardiogram with LVEF 55-60% with posterior and inferior hypokinesia. Suspect cardiogenic shock in setting of ACS vs septic vs mixed. Continue with pressors, wean as tolerated. Prognosis is guarded. (2) Acute kidney injury: Code(s): N17.9 - Acute kidney failure, unspecified Status: Acute Assessment and Plan: Nephrology consulted. SCr continues to worsen (3) Severe sepsis: Code(s): A41.9 - Sepsis, unspecified organism; R65.20 - Severe sepsis without septic shock Status: Acute Assessment and Plan: Has MRSA bacteremia. On antibiotics; management as per primary team. (4) Acute on chronic anemia: Code(s): D64.9 - Anemia, unspecified Status: Acute Assessment and Plan: Hgb trending down. If Hgb continues to trend down, may need to hold Heparin drip. (5) Acute coronary syndrome: Code(s): I24.9 - Acute ischemic heart disease, unspecified Status: Acute Assessment and Plan: Continue Heparin drip. If Hgb continues to trend down, may need to hold Heparin drip. Ideally would like to have on DAPT, however, will hold off at this time given worsening anemia. (6) Paroxysmal atrial fibrillation: Code(s): I48.0 - Paroxysmal atrial fibrillation Status: Chronic Assessment and Plan: Agree with Amiodarone drip, holding Dobutamine. Continue Heparin drip. (7) Acute hypoxic respiratory failure: Code(s): J96.01 - Acute respiratory failure with hypoxia Status: Acute Assessment and Plan: On BIPAP Plan Prognosis is poor. Recommendations and plan discussed with Laser Operator. Subjective Date/time seen: 06/13/24 09:54 Interval history: Reason for visit: NSTEMI, cardiogenic shock HPI: This is an 89-year-old man with coronary heart disease, valvular heart disease and atrial fibrillation being seen at the request of the hospitalist because of picture of shock following myocardial infarction. The patient is known to me with follow-up of his coronary disease and paroxysmal AFib. He was just in this hospital within the last week to 10 days with some symptoms of shortness of breath and intermittent atrial fibrillation. He is known to have his atrial fibrillation any is also known to have significant interstitial lung disease and is home oxygen dependent. He went home from the hospital last week and for the 1st 24 hours says he was feeling fairly well but then the about 24 hours after that he started having chest pain he describes this as an interscapular back pain radiating around to the anterior aspect of his neck and his this was going on for at least 48 hours before he came back to the hospital yesterday. His electrocardiogram shows inferior Q-waves which were not present on his previous tracing earlier this month. His troponin level was very high at greater than 80 and has trended down. He also has renal insufficiency with a creatinine of 2.4 on admission which was previously normal. In this setting I am seeing him in consultation he is in the ICU on face mask oxygen and on pressor support. His history of coronary artery disease dates back to 2021 when he was hospitalized at [facility] with symptoms of chest pain and had a drug-eluting stent placed in his LAD. He has a history of paroxysmal atrial fib dating back to August of 2016. He has been maintained on amiodarone at modest doses which was started during hospitalization earlier this year to try to maintain sinus rhythm. Yesterday when he came to the hospital looks like he was in atypical atrial flutter with a normal ventricular response currently he is in sinus rhythm with a heart rate of 90. He does have mild aortic valve stenosis by exam and by recent echocardiogram. Date of service 06/12: Remains on Levophed and Dobutamine. In AFIB with RVR,
[2024-06-13] MEDS: NOREPINEPHRINE 8 MG/D5W 250 ML 8 MG/250 ML BAG 11.25 MG IV CONT (10:30)
--- NOTE | 2024-06-13 11:00 | WPDINTPN ---
Progress Note: A&P Assessment and Plan (1) Acute and chronic respiratory failure: Code(s): J96.20 - Acute and chronic respiratory failure, unspecified whether with hypoxia or hypercapnia Status: Acute Assessment and Plan: Patient has history of COPD and congestive heart failure and is on 4 L nasal cannula at home Increased work of breathing and tachypnea this morning. Placed patient back on BiPAP this more. Continue to monitor May need intubation and mechanical ventilation Continue bronchodilators and Solu-Medrol (2) Shock: Code(s): R57.9 - Shock, unspecified Status: Acute Assessment and Plan: Likely related to cardiogenic versus septic -received IV fluids initially but now off of them -troponins the significantly elevated EKG showed ST-T changes likely related to LVH -cardiology has been consulted from the ED, did not feel that the patient required immediate intervention -patient was started on heparin infusion, off dobutamine due to AFib -central line was inserted in the ER -off vasopressin -continue Levophed to maintain MAP > 65 mmHg or systolic blood pressures > 100 mmHg for adequate end organ perfusion -lactic acidosis has resolved -06/10: Blood cultures growing MRSA 2 of 2 bottles 06/12 repeat blood cultures growing Gram-positive cocci in clusters in 1/2 bottles -06/10: on cefepime and vancomycin which will be continued 06/11/2024 Echocardiogram Summary 1. Left ventricular hypertrophy with posterior and inferior hypokinesia overall normal ejection fraction. 2. Grade 1 diastolic noncompliance. 3. Left atrial dilation. 4. Poorly visualized aortic valve which is appears to be mildly stenotic. 5. Mild aortic regurgitation. 6. Compared with echocardiogram done last week the inferior and posterior segments appear to be hypodynamic but overall ejection fraction is preserved. 06/04/2024: Echocardiogram Summary 1. Left ventricular chamber dimension is normal. 2. Left ventricular systolic function is normal, estimated at 60-65%. 3. There is mildly increased left ventricular wall thickness. 4. The left ventricular diastolic function is grade I diastolic dysfunction. 5. Right ventricular systolic function is normal. 6. Left atrial chamber dimension is moderately enlarged. 7. There is severe aortic valve calcification. 8. There is mild to moderate aortic valve stenosis. 9. There is moderate aortic valve regurgitation. 10. There is mild mitral valve regurgitation. 11. There is mild pulmonic regurgitation. (3) Severe sepsis: Code(s): A41.9 - Sepsis, unspecified organism; R65.20 - Severe sepsis without septic shock Status: Acute Assessment and Plan: Patient on antibiotics, lactic acid has resolved, continue vasopressors as above -blood cultures growing MRSA, antibiotics as above -check CT scan (4) Acute coronary syndrome: Code(s): I24.9 - Acute ischemic heart disease, unspecified Status: Acute Assessment and Plan: Significantly elevated troponins -troponin > 80.00-->80.00--> 55.400. -ProBNP>[id number] -EKG showed ST-T changes with LVH but no ST elevations -cardiology was contacted from the ER, recommended no acute intervention -continue heparin infusion -dobutamine discontinued for AFib with RVR (5) Acute kidney injury: Code(s): N17.9 - Acute kidney failure, unspecified Status: Acute Assessment and Plan: Patient with acute kidney injury could be related to shock, hypotension, infection, ACS -baseline creatinine 0.80-1.10 -patient's creatinine was 2.40 on this admission which has increased to 3 -low urine output -patient received Lasix 80 mg IV x1 in the ER without much improvement -urine lytes were prerenal, no urine use on a feels were seen, CK levels are normal -06/11: Renal ultrasound showed normal kidneys, no hydronephrosis -appreciate Nephrology evaluation and recommendation -continue to monitor renal fun
--- NOTE | 2024-06-13 11:19 | PM.IMPN ---
Progress Note: A&P Assessment and Plan (1) Shock: Code(s): R57.9 - Shock, unspecified Status: Acute Assessment and Plan: Patient presents with SOB and found to have hypoxia, HoTN. Consider cardiogenic and/or septic Chest x-ray shows bilateral interstitial changes consider pneumonitis versus fibrotic changes. Was fluid resuscitated but now off IV fluids. Having low grade fevers since admission. Also with elevated WBC and lactic acidosis to 4.1 Troponins significantly elevated to >80. EKG showed AFlutter vs tachycardia (HR 97) with LVH with ST-T wave changes. Echo 06/04 showing mildly increased LV wall thickness with EF of 60-65%, grade 1 diastolic dysfunction, left atrial enlargement, mild-moderate aortic stenosis, moderate AI and mild MR. Limited Echo 06/11 repeated showing similar findings except for new posterior and inferior hypokinesis of the left ventricle. Aortic valve was poorly visualized. Cardiology was consulted; they did not feel that the patient required immediate intervention Heparin drip started. 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 No obvious evidence of endocarditis by surface echo. CT scan performed today shows multiple compression fractures. Consider diskitis/osteomyelitis as source of persistent fevers. Continue IV abx. 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 Also with history of CHF Patient with increased work of breathing today Product Management Manager was made aware and patient was placed back on BiPAP. He was given 2 doses of Solu-Medrol but this has been stopped now. Monitor closely. (3) Severe sepsis: Code(s): A41.9 - Sepsis, unspecified organism; R65.20 - Severe sepsis without septic shock Status: Acute Assessment and Plan: As above. Suspect patient with severe sepsis with septic shock related to MRSA bacteremia. Possibly underlying component of cardiogenic shock although EF is normal (4) Acute coronary syndrome: Code(s): I24.9 - Acute ischemic heart disease, unspecified Status: Acute Assessment and Plan: Patient presents with shortness of breath. Was found have elevated troponins to greater than 80. EKG is above. Cardiology following and appreciate their input. Continue heparin drip. Add aspirin when okay with others. (5) Acute kidney injury: Code(s): N17.9 - Acute kidney failure, unspecified Status: Acute Assessment and Plan: Patient with acute kidney injury could be related to shock, hypotension, infection, ACS Baseline creatinine 0.80-1.10 -patient's creatinine was 2.40 on this admission and received Lasix 80 mg IV x1 in the ER without much improvement Cr which has increased to 3 and with low urine output -urine lytes were prerenal, urine eos negative, CK levels are normal -06/11: Renal ultrasound showed normal kidneys, no hydronephrosis Nephrology consulted and appreciate their input. -continue to monitor renal function, electrolytes and urine (6) Paroxysmal atrial fibrillation: Code(s): I48.0 - Paroxysmal atrial fibrillation Status: Chronic Assessment and Plan: History of paroxysmal AFib -06/12: Patient went into AFib RVR with heart rates in the 130s to 140s -patient started on amiodarone bolus and infusion He converted to normal sinus rhythm later that morning. -continue heparin infusion for now -hold home metoprolol, and p.o. amiodarone for now (7) Chronic obstructive pulmonary disease: Code(s): J44.9 - Chronic obstructive pulm
--- NOTE | 2024-06-13 11:22 | PCFNICU ---
ICU Rounding Note: Pt current nutrition is NPO. Last recorded weight is 97.6 kg, up to 89.4 kg on admit. Bowel Motility: +BM reported 06/08 Labs Reviewed: Glu 169, BUN 81, GFR 20, Cr 3.0,NA 128, Hct 26.3,Hgb 8.4 Meds Noted:Levophed, Protonix Skin: WNL Additional Notes: Patient is currently NPO. Bipap overnight. Vulcanized Fiber Unit Operator is discussing code status with patient and family today. No diet orders at this time. Following daily in ICU rounds. Monitoring diet orders, plan of care, weights, labs Follow up in 3 days.
[2024-06-13 12:09] LABS: Glucose Point of Care 172 mg/dl (65-105)
--- NOTE | 2024-06-13 13:02 | PM.PNNEP ---
Progress Note: A&P Assessment and Plan (1) Acute kidney injury: Code(s): N17.9 - Acute kidney failure, unspecified Status: Acute Assessment and Plan: ongoing deterioration noted normal creatinine at baseline multifactorial etiology: hemodynamic instability/shock sepsis/infection prerenal azotemia CRISTIN-I and diuretic use prior to admission cardiac issues evaluation to date noted: urine electrolytes prerenal renal ultrasound normal urine eosinophils negative CPK okay poor urine output noted remains at risk for CONTINUOUS IMPROVEMENT COACH/dialysis follow repeat labs and UOP (2) Shock: Code(s): R57.9 - Shock, unspecified Status: Acute Assessment and Plan: cardiogenic versus septic versus combo of both elevated troponins noted; EKG noted as well on vasopressor support at this time blood cultures with MRSA on antibiotics (3) Severe sepsis: Code(s): A41.9 - Sepsis, unspecified organism; R65.20 - Severe sepsis without septic shock Status: Acute Assessment and Plan: as noted by hypotension and lactic acidosis on presentation blood cultures with MRSA on antibiotics follow repeat cultures continue supportive therapy (4) Acute coronary syndrome: Code(s): I24.9 - Acute ischemic heart disease, unspecified Status: Acute Assessment and Plan: elevated troponins and admission EKG noted Echo results reviewed Cardiology following on heparin gtt (5) Paroxysmal atrial fibrillation: Code(s): I48.0 - Paroxysmal atrial fibrillation Status: Chronic Assessment and Plan: AFib RVR with heart rates in the 130s to 140s this AM started on amiodarone bolus and infusion on heparin infusion for now continue rate control strategy (6) Anemia: Code(s): D64.9 - Anemia, unspecified Status: Acute Assessment and Plan: due to acute illness and FRACISCO noted drop in H/H follow trend of H/H since on heparin gtt (7) Chronic obstructive pulmonary disease: Code(s): J44.9 - Chronic obstructive pulmonary disease, unspecified Status: Chronic Assessment and Plan: known history despite significant oxygen requirements, appears comfortable on bronchodilators and steroids follow respiratory status Will continue to follow. Subjective Date/time seen: 06/13/24 13:02 Interval history: Follow-up for acute kidney injury/acute renal failure. Remains on vasopressor support to maintain MAP; major complaint is that his ankles are sore along with shortness of breath; respiratory status remains tenuous at the time of my visit fluctuating between BiPAP and HFNC; remains on heparin gtt; worsening urine output in association with deteriorating renal function/creatinine, febrile overnight. Exam Narrative: General: elderly male in NAD Heart: RRR, normal S1 and S2; no rub Lungs: coarse and decreased at bases Abdomen: soft, nontender, nondistended, positive bowel sounds Extremities: no cyanosis or clubbing; 1 - 2+ edema Skin: warm and intact Objective Data Vital Signs Vital Signs: Vital Signs Temp Pulse Resp BP Pulse Ox O2 Del Method O2 Flow Rate 06/13/24 12:44 85 30 H 98 BiPAP 06/13/24 12:00 100.6 F H 81 29 H 101/48 L 97 06/13/24 12:00 81 30 H 97 BiPAP 06/13/24 12:00 81 06/13/24 12:00 81 101/48 L 06/13/24 12:00 81 101/48 L 06/13/24 11:53 85 108/63 06/13/24 11:02 85 30 H 97 BiPAP 06/13/24 10:30 89 110/59 L 06/13/24 08:48 89 110/59 L 06/13/24 10:00 86 33 H 110/59 L 99 06/13/24 10:00 86 06/13/24 08:00 88 110/48 L 06/13/24 08:00 88 110/48 L 06/13/24 08:46 89 31 H 99 BiPAP 06/13/24 08:00 100.1 F H 88 30 H 110/48 L 96 06/13/24 08:00 88 30 H 96 High Flow Therapy with Na 45 06/13/24 08:00 88 06/13/24 04:00 94 High Flow Therapy w
--- NOTE | 2024-06-13 13:02 | P.PNNP_ITS ---
Progress Note: A&P Assessment and Plan (1) Acute kidney injury: Code(s): N17.9 - Acute kidney failure, unspecified Status: Acute Assessment and Plan: * ongoing deterioration noted * normal creatinine at baseline * multifactorial etiology: * hemodynamic instability/shock * sepsis/infection * prerenal azotemia * CRISTIN-I and diuretic use prior to admission * cardiac issues * evaluation to date noted: * urine electrolytes prerenal * renal ultrasound normal * urine eosinophils negative * CPK okay * poor urine output noted * remains at risk for ACCOUNTING FILE CLERK/dialysis * follow repeat labs and UOP (2) Shock: Code(s): R57.9 - Shock, unspecified Status: Acute Assessment and Plan: * cardiogenic versus septic versus combo of both * elevated troponins noted; EKG noted as well * on vasopressor support at this time * blood cultures with MRSA * on antibiotics (3) Severe sepsis: Code(s): A41.9 - Sepsis, unspecified organism; R65.20 - Severe sepsis without septic shock Status: Acute Assessment and Plan: * as noted by hypotension and lactic acidosis on presentation * blood cultures with MRSA * on antibiotics * follow repeat cultures * continue supportive therapy (4) Acute coronary syndrome: Code(s): I24.9 - Acute ischemic heart disease, unspecified Status: Acute Assessment and Plan: * elevated troponins and admission EKG noted * Echo results reviewed * Cardiology following * on heparin gtt (5) Paroxysmal atrial fibrillation: Code(s): I48.0 - Paroxysmal atrial fibrillation Status: Chronic Assessment and Plan: * AFib RVR with heart rates in the 130s to 140s this AM * started on amiodarone bolus and infusion * on heparin infusion for now * continue rate control strategy (6) Anemia: Code(s): D64.9 - Anemia, unspecified Status: Acute Assessment and Plan: * due to acute illness and FRACISCO * noted drop in H/H * follow trend of H/H since on heparin gtt (7) Chronic obstructive pulmonary disease: Code(s): J44.9 - Chronic obstructive pulmonary disease, unspecified Status: Chronic Assessment and Plan: * known history * despite significant oxygen requirements, appears comfortable * on bronchodilators and steroids * follow respiratory status Will continue to follow. Subjective Date/time seen: 06/13/24 13:02 Interval history: Follow-up for acute kidney injury/acute renal failure. Remains on vasopressor support to maintain MAP; major complaint is that his ankles are sore along with shortness of breath; respiratory status remains tenuous at the time of my visit fluctuating between BiPAP and HFNC; remains on heparin gtt; worsening urine output in association with deteriorating renal function/creatinine, febrile overnight. Exam Narrative: General: elderly male in NAD Heart: RRR, normal S1 and S2; no rub Lungs: coarse and decreased at bases Abdomen: soft, nontender, nondistended, positive bowel sounds Extremities: no cyanosis or clubbing; 1 - 2+ edema Skin: warm and intact Objective Data Vital Signs Vital Signs: Vital Signs Temp Pulse Resp BP Pulse Ox O2 Del Method O2 Flow Rate 06/13/24 12:44 85 30 H 98 BiPAP 06/13/24 12:00 100.6 F H 81 29 H 101/48 L 97
[2024-06-13 15:26] LABS: Partial Thromboplastin Time 85.3 Seconds (22.3-36.8)
[2024-06-13 18:14] LABS: Glucose Point of Care 157 mg/dl (65-105)
[2024-06-13] MEDS: HEPARIN SOD/D5W 100 UNITS/ML 25,000 UNITS/250 ML BAG 12 UNITS IV CONT (20:36)
[2024-06-13] MEDS: CEFEPIME 2 GM/NS 50 ML 2 GM/50 ML BAG IVPB (20:36)
[2024-06-13 21:12] LABS: Partial Thromboplastin Time 78.6 Seconds (22.3-36.8)
[2024-06-13] MEDS: ACETAMINOPHEN 325 MG TABLET 650 MG PO (21:30)
[2024-06-13] MEDS: MELATONIN 5 MG TABLET PO (21:30)
[2024-06-13 23:25] LABS: Glucose Point of Care 151 mg/dl (65-105)
[2024-06-14] VITALS (44 sets, daily range): BP systolic 57–120; BP diastolic 36–82; PULSE 65–82; RESP 20–32; TEMP 36.8–37.9; O2SAT 95–100
[2024-06-14] MEDS: LEVALBUTEROL NEB 1.25 MG/3 ML INHALATION ×3 (02:36→13:49)
[2024-06-14] MEDS: IPRATROPIUM BR 0.02% INH SOLN 0.5 MG/2.5 ML VIAL INHALATION ×3 (02:36→13:48)
[2024-06-14 05:23] LABS: Basophils Percent Auto 0.1 % (0.2-1.2); Hematocrit 23.7 % (42.0-52.0); Hemoglobin 7.8 g/dL (14.0-18.0); Immature Granulocyte Absolute 0.15 K/mm3 (0.00-0.031); Immature Granulocyte Percent A 1.1 % (0-0.5); Lymphocytes Absolute Auto 0.92 K/mm3 (0.9-3.2); Mean Corpuscular HGB Conc 32.9 g/dl (32-36); Mean Corpuscular Hemoglobin 26.6 pg (26-34); Mean Corpuscular Volume 80.9 fl (80-100); Mean Platelet Volume 11.4 fl (7.4-10.4); Monocytes Percent Auto 7.5 % (2.6-8.5); Neutrophils Absolute Auto 11.1 K/mm3 (1.3-6.7); Neutrophils Percent Auto 84.3 % (45.5-73.1); Platelet Count Result 323 k/mm3 (150-375); Red Blood Count 2.93 M/mm3 (4.6-6.20); Red Cell Distribution Width 17.8 % (11.5-14.5); White Blood Count 13.1 K/mm3 (4.5-10.0)
[2024-06-14] MEDS: CENTRAL LINE FLUSH 10 ML IV PUSH ×2 (05:35→12:33)
[2024-06-14 05:36] LABS: Alanine Aminotransferase 125 U/L (6-50); Albumin Level 3.8 g/dL (3.5-5.1); Alkaline Phosphatase 73 U/L (38-126); Anion Gap 16 mmol/L (4-12); Aspartate Amino Transferase 105 U/L (17-59); Bilirubin,Total 0.5 mg/dL (0.2-1.3); Blood Urea Nitrogen 105 mg/dL (9-20); Calcium 8.8 mg/dL (8.4-10.2); Carbon Dioxide 24 mmol/L (22-30); Chloride 88 mmol/L (98-107); Glucose 136 mg/dL (65-110); Partial Thromboplastin Time 86.6 Seconds (22.3-36.8); Phosphorus 5.7 mg/dL (2.5-4.5); Potassium 4.6 mmol/L (3.4-5.0); Sodium 128 mmol/L (137-145)
[2024-06-14 05:41] LABS: Estimated CRCL calculation 13 ml/min; Estimated Glomerular Filt Rate 15
[2024-06-14 05:43] LABS: Anisocytosis 1+; Hypochromasia 2+; Large Platelets Present; Platelet Estimate Adequate (Adequate); Schistocytes Rare
--- NOTE | 2024-06-14 08:40 | WPDINTPN ---
Progress Note: A&P Assessment and Plan (1) Acute and chronic respiratory failure: Code(s): J96.20 - Acute and chronic respiratory failure, unspecified whether with hypoxia or hypercapnia Status: Acute Assessment and Plan: Patient has history of COPD and congestive heart failure and is on 4 L nasal cannula at home Now also has pneumonia Will wean off BiPAP to Airvo this morning Continue BiPAP p.r.n. and at night May need intubation and mechanical ventilation Continue bronchodilators Completed course of Solu-Medrol (2) Shock: Code(s): R57.9 - Shock, unspecified Status: Acute Assessment and Plan: Likely related to cardiogenic and septic -received IV fluids initially but now off of them -off vasopressors -06/10: Blood cultures growing MRSA 2 of 2 bottles - 06/12 repeat blood cultures growing Gram-positive cocci in clusters in 2/2 bottles -will send repeat cultures -CT chest shows pneumonia Right basal pneumonia with bilateral pleural effusion. -on review of record central line was inserted post drawing of the 1st set of blood cultures -will remove central venous catheter today. Will discuss with Cardiology regarding FISH -06/10: on cefepime and vancomycin which will be continued 06/11/2024 Echocardiogram Summary 1. Left ventricular hypertrophy with posterior and inferior hypokinesia overall normal ejection fraction. 2. Grade 1 diastolic noncompliance. 3. Left atrial dilation. 4. Poorly visualized aortic valve which is appears to be mildly stenotic. 5. Mild aortic regurgitation. 6. Compared with echocardiogram done last week the inferior and posterior segments appear to be hypodynamic but overall ejection fraction is preserved. 06/04/2024: Echocardiogram Summary 1. Left ventricular chamber dimension is normal. 2. Left ventricular systolic function is normal, estimated at 60-65%. 3. There is mildly increased left ventricular wall thickness. 4. The left ventricular diastolic function is grade I diastolic dysfunction. 5. Right ventricular systolic function is normal. 6. Left atrial chamber dimension is moderately enlarged. 7. There is severe aortic valve calcification. 8. There is mild to moderate aortic valve stenosis. 9. There is moderate aortic valve regurgitation. 10. There is mild mitral valve regurgitation. 11. There is mild pulmonic regurgitation. 06/13 CT chest abdomen pelvis IMPRESSION: CHEST: 1. Cardiomegaly. 2. Right basal pneumonia with bilateral pleural effusion. 3. Left thyroid nodule ultrasound evaluation advised. ABDOMEN/PELVIS: 1. No evidence of appendicitis, diverticulitis or intestinal obstruction. 2. Fluid seen in the pelvis and around the liver and also in the left paracolic gutter. 3. Multiple compression fractures with highly suggestive acute fracture and L4. (3) Severe sepsis: Code(s): A41.9 - Sepsis, unspecified organism; R65.20 - Severe sepsis without septic shock Status: Acute Assessment and Plan: See above (4) Acute coronary syndrome: Code(s): I24.9 - Acute ischemic heart disease, unspecified Status: Acute Assessment and Plan: Significantly elevated troponins -troponin > 80.00-->80.00--> 55.400. -ProBNP>[id number] -EKG showed ST-T changes with LVH but no ST elevations -cardiology was contacted from the ER, recommended no acute intervention -continue heparin infusion -dobutamine discontinued for AFib with RVR (5) Acute kidney injury: Code(s): N17.9 - Acute kidney failure, unspecified Status: Acute Assessment and Plan: Patient with acute kidney injury could be related to shock, hypotension, infection, ACS -baseline creatinine 0.80-1.10 -patient's creatinine was 2.40 on this admission which has i gradually increasing to 3.9 -marginal urine output -urine lytes were prerenal, no urine use on a feels were seen, CK levels are normal -06/11: Renal ultrasound showed normal
[2024-06-14] MEDS: PANTOPRAZOLE SODIUM IV 40 MG VIAL IV PUSH (08:44)
--- NOTE | 2024-06-14 08:57 | PM.PNNEP ---
Progress Note: A&P Assessment and Plan (1) Acute kidney injury: Code(s): N17.9 - Acute kidney failure, unspecified Status: Acute Assessment and Plan: ongoing deterioration noted normal creatinine at baseline multifactorial etiology: hemodynamic instability/shock sepsis/infection prerenal azotemia CRISTIN-I and diuretic use prior to admission cardiac issues evaluation to date noted: urine electrolytes prerenal renal ultrasound normal urine eosinophils negative CPK okay marginal urine output remains at risk for PROGRAM COUNSELOR/dialysis follow repeat labs and UOP (2) Shock: Code(s): R57.9 - Shock, unspecified Status: Acute Assessment and Plan: cardiogenic versus septic versus combo of both elevated troponins noted; EKG noted as well off vasopressor support at this time blood cultures with MRSA on antibiotics (3) Severe sepsis: Code(s): A41.9 - Sepsis, unspecified organism; R65.20 - Severe sepsis without septic shock Status: Acute Assessment and Plan: as noted by hypotension and lactic acidosis on presentation blood cultures with MRSA on antibiotics follow repeat cultures FISH planned to r/o endocarditis continue supportive therapy (4) Acute coronary syndrome: Code(s): I24.9 - Acute ischemic heart disease, unspecified Status: Acute Assessment and Plan: elevated troponins and admission EKG noted Echo results reviewed Cardiology following on heparin gtt (5) Paroxysmal atrial fibrillation: Code(s): I48.0 - Paroxysmal atrial fibrillation Status: Chronic Assessment and Plan: on amiodarone on heparin infusion for now continue rate control strategy (6) Anemia: Code(s): D64.9 - Anemia, unspecified Status: Acute Assessment and Plan: due to acute illness and FRACISCO follow trend of H/H since on heparin gtt (7) Chronic obstructive pulmonary disease: Code(s): J44.9 - Chronic obstructive pulmonary disease, unspecified Status: Chronic Assessment and Plan: known history despite significant oxygen requirements, appears comfortable on bronchodilators and steroids follow respiratory status Discussed with Dr. Walker. Will continue to follow. Subjective Date/time seen: 06/14/24 08:57 Interval history: Follow-up for acute kidney injury/acute renal failure. Respiratory status still remains tenuous at this time -- still reports feeling short of breath with minimal activity (i.e. even with talking) but seems a bit better currently; febrile overnight; weaned off vasopressor therapy early this AM; marginal improvement in urine output but renal function/creatinine continues to worsen. Exam Narrative: General: elderly male in NAD Heart: RRR, normal S1 and S2; no rub Lungs: coarse and decreased at bases Abdomen: soft, nontender, nondistended, positive bowel sounds Extremities: no cyanosis or clubbing; 1 - 2+ edema Skin: no rash Objective Data Vital Signs Vital Signs: Vital Signs Temp Pulse Resp BP Pulse Ox O2 Del Method O2 Flow Rate 06/14/24 08:54 98.8 F 76 24 H 112/59 L 100 High Flow Therapy with Na 40 06/14/24 08:37 72 112/66 06/14/24 08:16 74 24 H 06/14/24 06:00 99.0 F 78 25 H 106/67 99 06/14/24 06:00 78 06/14/24 06:00 75 106/67 06/14/24 06:00 77 106/67 06/14/24 05:32 75 32 H 100 BiPAP 06/14/24 04:00 80 107/63 06/14/24 04:00 77 107/63 06/14/24 04:00 99.2 F 77 22 H 107/63 100 06/14/24 04:00 79 06/14/24 03:32 77 22 H 100 BiPAP 06/14/24 02:48 79 29 H 06/14/24 02:48 78 30 H 99 BiPAP 06/14/24 02:36 78 25 H 06/14/24 02:00 80 106/67 06/14/24 02:00 79 106/67 06/14/24 02:00 80 25 H 106/67 97 06/14/24 02:00 79 06/14/24 01:06 80 116/74 06/14/24 00:00 81
--- NOTE | 2024-06-14 08:57 | P.PNNP_ITS ---
Progress Note: A&P Assessment and Plan (1) Acute kidney injury: Code(s): N17.9 - Acute kidney failure, unspecified Status: Acute Assessment and Plan: * ongoing deterioration noted * normal creatinine at baseline * multifactorial etiology: * hemodynamic instability/shock * sepsis/infection * prerenal azotemia * CRISTIN-I and diuretic use prior to admission * cardiac issues * evaluation to date noted: * urine electrolytes prerenal * renal ultrasound normal * urine eosinophils negative * CPK okay * marginal urine output * remains at risk for DIVER'S TENDER/dialysis * follow repeat labs and UOP (2) Shock: Code(s): R57.9 - Shock, unspecified Status: Acute Assessment and Plan: * cardiogenic versus septic versus combo of both * elevated troponins noted; EKG noted as well * off vasopressor support at this time * blood cultures with MRSA * on antibiotics (3) Severe sepsis: Code(s): A41.9 - Sepsis, unspecified organism; R65.20 - Severe sepsis without septic shock Status: Acute Assessment and Plan: * as noted by hypotension and lactic acidosis on presentation * blood cultures with MRSA * on antibiotics * follow repeat cultures * FISH planned to r/o endocarditis * continue supportive therapy (4) Acute coronary syndrome: Code(s): I24.9 - Acute ischemic heart disease, unspecified Status: Acute Assessment and Plan: * elevated troponins and admission EKG noted * Echo results reviewed * Cardiology following * on heparin gtt (5) Paroxysmal atrial fibrillation: Code(s): I48.0 - Paroxysmal atrial fibrillation Status: Chronic Assessment and Plan: * on amiodarone * on heparin infusion for now * continue rate control strategy (6) Anemia: Code(s): D64.9 - Anemia, unspecified Status: Acute Assessment and Plan: * due to acute illness and FRACISCO * follow trend of H/H since on heparin gtt (7) Chronic obstructive pulmonary disease: Code(s): J44.9 - Chronic obstructive pulmonary disease, unspecified Status: Chronic Assessment and Plan: * known history * despite significant oxygen requirements, appears comfortable * on bronchodilators and steroids * follow respiratory status Discussed with Dr. Walker. Will continue to follow. Subjective Date/time seen: 06/14/24 08:57 Interval history: Follow-up for acute kidney injury/acute renal failure. Respiratory status still remains tenuous at this time -- still reports feeling short of breath with minimal activity (i.e. even with talking) but seems a bit better currently; febrile overnight; weaned off vasopressor therapy early this AM; marginal improvement in urine output but renal function/creatinine continues to worsen. Exam Narrative: General: elderly male in NAD Heart: RRR, normal S1 and S2; no rub Lungs: coarse and decreased at bases Abdomen: soft, nontender, nondistended, positive bowel sounds Extremities: no cyanosis or clubbing; 1 - 2+ edema Skin: no rash Objective Data Vital Signs Vital Signs: Vital Signs Temp Pulse Resp BP Pulse Ox O2 Del Method O2 Flow Rate 06/14/24 08:54 98.8 F 76 24 H 112/59 L 100 High Flow Therapy with Na 40 06/14/24 08:37 72 112/66 06/14/24 08:16 74 24 H
--- NOTE | 2024-06-14 09:46 | PM.PNCARD ---
Progress Note: A&P Assessment and Plan (1) Shock: Code(s): R57.9 - Shock, unspecified Status: Acute Assessment and Plan: Echocardiogram with LVEF 55-60% with posterior and inferior hypokinesia. Suspect cardiogenic shock in setting of ACS vs septic vs mixed. Continue with pressors, wean as tolerated. Prognosis is guarded. (2) Bacteremia: Code(s): R78.81 - Bacteremia Status: Acute Assessment and Plan: Patient having persistent MRSA bacteremia with no clear source. May need a FISH to evaluate for infective endocarditis, however, given his current respiratory status, he would need to be intubated for the FISH. Will need to have discussions with the family. (3) Acute kidney injury: Code(s): N17.9 - Acute kidney failure, unspecified Status: Acute Assessment and Plan: Nephrology consulted. SCr continues to worsen. May need dialysis. (4) Severe sepsis: Code(s): A41.9 - Sepsis, unspecified organism; R65.20 - Severe sepsis without septic shock Status: Acute Assessment and Plan: Has MRSA bacteremia. On antibiotics; management as per primary team. (5) Acute on chronic anemia: Code(s): D64.9 - Anemia, unspecified Status: Acute Assessment and Plan: Hgb currently remaining stable. (6) Acute coronary syndrome: Code(s): I24.9 - Acute ischemic heart disease, unspecified Status: Acute Assessment and Plan: Will start ASA 81mg once daily as his Hgb has remained stable. Hold off on statin for now given elevated LFTs. (7) Paroxysmal atrial fibrillation: Code(s): I48.0 - Paroxysmal atrial fibrillation Status: Chronic Assessment and Plan: Currently in sinus rhythm. Stopped Amiodarone drip and started PO Amiodarone. Continue Heparin drip for anticoagulation. (8) Acute hypoxic respiratory failure: Code(s): J96.01 - Acute respiratory failure with hypoxia Status: Acute Assessment and Plan: On HFNC, still with labored respirations. Plan Prognosis is poor. Recommendations and plan discussed with Bridge Toll Collector. Subjective Date/time seen: 06/14/24 09:46 Interval history: Reason for visit: NSTEMI, cardiogenic shock HPI: This is an 89-year-old man with coronary heart disease, valvular heart disease and atrial fibrillation being seen at the request of the hospitalist because of picture of shock following myocardial infarction. The patient is known to me with follow-up of his coronary disease and paroxysmal AFib. He was just in this hospital within the last week to 10 days with some symptoms of shortness of breath and intermittent atrial fibrillation. He is known to have his atrial fibrillation any is also known to have significant interstitial lung disease and is home oxygen dependent. He went home from the hospital last week and for the 1st 24 hours says he was feeling fairly well but then the about 24 hours after that he started having chest pain he describes this as an interscapular back pain radiating around to the anterior aspect of his neck and his this was going on for at least 48 hours before he came back to the hospital yesterday. His electrocardiogram shows inferior Q-waves which were not present on his previous tracing earlier this month. His troponin level was very high at greater than 80 and has trended down. He also has renal insufficiency with a creatinine of 2.4 on admission which was previously normal. In this setting I am seeing him in consultation he is in the ICU on face mask oxygen and on pressor support. His history of coronary artery disease dates back to 2021 when he was hospitalized at [facility] with symptoms of chest pain and had a drug-eluting stent placed in his LAD. He has a history of paroxysmal atrial fib dating back to August of 2016. He has been maintained on amiodarone at modest doses which was started during hospitalization earlier this year to try to maintain
[2024-06-14] MEDS: AMIODARONE HCL 200 MG TABLET PO (11:02)
[2024-06-14] MEDS: ASPIRIN 81 MG ENTERIC TABLET PO (11:03)
--- NOTE | 2024-06-14 11:39 | P.PCNTEE_ITS ---
FISH TransEsophageal Echocardiogram Date of procedure: 06/14/24 Procedure Type: Date of Procedure: 06/14/2024 Brief History Of Present Illness: Patient is an 89 year old male with MRSA bacteremia who is referred for transesophageal echocardiogram for evaluation of infective endocarditis. Procedure In Detail: After verbal and written informed consent was obtained, the patient risks, benefits, and alternatives explained in detail. The patient and his family agreed to proceed with the plan of care as outlined above.?The patient was evaluated at bedside in the ICU.?Patient intubated prior to FISH. See pre- sedation note for further details. Patient was monitored throughout the study with telemetry, oxygen saturation, end-tidal CO2 monitoring, blood pressure, heart rate, and respirations. Moderate sedation was administered.?After confirmation of adequate moderate sedation, the transesophageal echocardiogram probe was advanced into the posterior hypopharynx and into the esophagus easily and without complication.? Multiple, multiplanar echocardiographic images were obtained in multiple standard re- projections.? Color-flow Doppler was utilized in conjunction with this study.? At the conclusion of the study, the bradley sesophageal echocardiogram probe was removed easily and without complication.? The patient tolerated the procedure well without difficulty.? Patient was in sinus rhythm throughout the study. Moderate Sedation/Anesthesia Administration: Please see pre-sedation noted for physical examination documentation. Patient already intubated and sedated prior to FISH, an additional Versed 2mg IV and Fentanyl 50mcg IV were administered by NOEL Loja during the procedure. Procedure start time: 1:15PM Procedure end time: 1:31 Total procedure time: 16 minutes FINDINGS: LEFT VENTRICLE: Normal LV size. LVEF was not assessed on this study. RIGHT VENTRICLE:?Normal size LEFT ATRIUM: Mildly enlarged RIGHT ATRIUM: Normal size. MITRAL VALVE: The anterior leaflet of the mitral valve is thickened and a small vegetation is present. There is mild mitral valve regurgitation. AORTIC VALVE: Moderately calcified. Trileaflet. No vegetation appreciated. TRICUSPID VALVE: There is a small vegetation on the tricuspid valve. No significant regurgitation. PULMONIC VALVE: Pulmonic valve was not well visualized, however, mobile elements appreciated. LEFT ATRIAL APPENDAGE: Not well visualized. PERICARDIUM: The pericardium was anatomically normal without significant pericardial effusion.? AORTA: Mild atherosclerotic disease. CONCLUSIONS: There is a small vegetation on the mitral valve and a small vegetation on the tricuspid valve, consistent with infective endocarditis. No significant valvular regurgitation. Complications: None
[2024-06-14] MEDS: ROCURONIUM BROMIDE 50 MG/5 ML VIAL IV PUSH (11:40)
[2024-06-14] MEDS: ETOMIDATE 20 MG/10 ML AMPUL IV PUSH (11:40)
--- NOTE | 2024-06-14 11:43 | PM.IMPN ---
Progress Note: A&P Assessment and Plan (1) Shock: Code(s): R57.9 - Shock, unspecified Status: Acute Assessment and Plan: Patient presents with SOB and found to have hypoxia, HoTN. Consider cardiogenic and/or septic Chest x-ray shows bilateral interstitial changes consider pneumonitis versus fibrotic changes. Was fluid resuscitated but now off IV fluids. Having low grade fevers since admission. Also with elevated WBC and lactic acidosis to 4.1 Troponins significantly elevated to >80. EKG showed AFlutter vs tachycardia (HR 97) with LVH with ST-T wave changes. Echo 06/04 showing mildly increased LV wall thickness with EF of 60-65%, grade 1 diastolic dysfunction, left atrial enlargement, mild-moderate aortic stenosis, moderate AI and mild MR. Limited Echo 06/11 repeated showing similar findings except for new posterior and inferior hypokinesis of the left ventricle. Aortic valve was poorly visualized. Cardiology was consulted; they did not feel that the patient required immediate intervention Heparin drip started. Weaned off dobutamine due to AFib Started on cefepime and vancomycin 06/10 -06/10: Blood cultures growing MRSA 2 of 2 bottles -06/12 repeat blood cultures growing Gram-positive cocci in clusters in 2/2 bottles Weaned off levophed and LAST[employer] FLOOR[employer] CT Ch/A/P showing right basilar pneumonia, left thyroid nodule nonspecific fluid in the abdomen and multiple compression fractures Still having low grade fevers. No obvious evidence of endocarditis by surface echo. CT scan performed today shows multiple compression fractures. Consider endocarditis, diskitis/osteomyelitis or line infection as source of persistent fevers. Continue IV abx. Patient to be intubated to stabilze respiratory status and to have FISH. 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 Also with history of CHF Patient with increased work of breathing today Waste Disposal Attendant was made aware and patient was placed back on BiPAP. He was given 2 doses of Solu-Medrol but this has been stopped now. Plan for intubation today. Monitor closely. (3) Severe sepsis: Code(s): A41.9 - Sepsis, unspecified organism; R65.20 - Severe sepsis without septic shock Status: Acute Assessment and Plan: As above. Suspect patient with severe sepsis with septic shock related to MRSA bacteremia. Possibly underlying component of cardiogenic shock although EF is normal (4) Acute coronary syndrome: Code(s): I24.9 - Acute ischemic heart disease, unspecified Status: Acute Assessment and Plan: Patient presents with shortness of breath. Was found have elevated troponins to greater than 80. EKG and Echo as above. Cardiology following and appreciate their input. Continue heparin drip. Aspirin added. (5) Acute kidney injury: Code(s): N17.9 - Acute kidney failure, unspecified Status: Acute Assessment and Plan: Patient with acute kidney injury could be related to shock, hypotension, infection, ACS Baseline creatinine 0.80-1.10 -patient's creatinine was 2.40 on this admission and received Lasix 80 mg IV x1 in the ER without much improvement Cr which has increased to 3.9 and with low urine output -urine lytes were prerenal, urine eos negative, CK levels are normal -06/11: Renal ultrasound showed normal kidneys, no hydronephrosis Nephrology consulted and appreciate their input. Continue to monitor renal function, electrolytes and urine Plan for possible HD. (6) Paroxysmal atrial fibrillation: Code(s): I48.0 - Paroxysmal atrial fibrillation Status: Chronic Assessment and Plan: History of paroxysmal AFib -06/12: Patient went into AFib RVR with heart rates in the 130s to 140s -patient started on
[2024-06-14] MEDS: MIDAZOLAM HCL (*CRX) 2 MG/2 ML VIAL 4 MG IV PUSH (11:45)
[2024-06-14] MEDS: FENTANYL 2,500MCG/NS250ML(*CRX 2,500 MCG/250 ML BAG IV CONT (11:54)
[2024-06-14] MEDS: MIDAZOLAM 100MG/NS 100ML(*CRX) 100 MG/100 ML BAG IV CONT (11:54)
[2024-06-14] MEDS: SODIUM CHLORIDE 0.9% IV 1,000 ML 999 ML IV CONT (11:55)
--- NOTE | 2024-06-14 11:57 | PM.EVENT ---
Event Note Event Note Event Note: Patient continued to have borderline respiratory status. On Airvo patient was tachypneic in mild respiratory distress. Discussed anton with Cardiology and they recommended intubation and mechanical ventilation considering patient's tenuous respiratory status. Discussed with nephrology regarding initiating hemodialysis. Had long discussion with patient's son and at bedside and discussed pros and cons of TTE, intubation and mechanical ventilation and worsening renal function and impending need for hemodialysis. They agreed and consented to proceed with all these measures. Patient intubated and placed on mechanical ventilation. Sedated. Vent settings reviewed. Repeat ABG pending. Cardiology plans to do a ANTON later today. Will start tube feeds post ANTON. Will plan to hold heparin tomorrow morning and plan to place a temporary hemodialysis catheter. Will remove central venous catheter patient does not need vasopressors post intubation and on sedation.. Discussed case with Dr. Schwab, Dr. Grey and Dr. Dow Additional critical care time 30 except separately billed procedures
--- NOTE | 2024-06-14 11:59 | WPDPROCEDUR ---
Procedures Intubation Intubation Date: 06/14/24 Intubation Time: 11:40 Consent: Consent was obtained from patient's son and at bedside A pre-procedural Time-Out was completed immediately before starting the procedure and confirmed: Patient Identification, Site, Procedure, Patient Position and the Availability of Requisite Equipment: Yes Sedative: etomidate Mg given: 20 Paralytic: rocuronium Mg given: 50 Laryngoscope: fiber optic video scope Assist device used: fiber optic device ET tube size: cuffed Tube secured depth (cm): 24 Tube secured location: lips Tube placement confirmation: visualized tube passing through cords, equal breath sounds bilaterally, no breath sounds over epigastrium and confirmation by capnometry Patient tolerated procedure: well Intubation complications: none
--- NOTE | 2024-06-14 12:14 | PCFNICU ---
ICU Rounding Note: Pt current nutrition is Vital AF 1.2 at 20 ml/hr. Last recorded weight is 97.3 kg,up from 89.4 kg on admit. Bowel Motility: +BM reported 06/08 Labs Reviewed:Glu 136, BUN 105,GFR 15, Cr 3.9 Meds Noted:Fentanyl, Versed, Protonix, Heparin Skin: WNL Additional Notes: Patient will remain a full code, intubated today. Plans for FISH then tube feedings to start of Vital AF 1.2 starting at 20 ml/hr. Flush 30 ml q 4 hours. Following daily in ICU rounds. Monitoring diet orders, plan of care, weights, labs Follow up every Tuesday and Tuesday.
[2024-06-14] MEDS: NOREPINEPHRINE 8 MG/D5W 250 ML 8 MG/250 ML BAG 9.38 MG IV CONT (12:16)
[2024-06-14 12:41] LABS: Glucose Point of Care 125 mg/dl (65-105)
[2024-06-14 12:45] LABS: Alveolar/Arterial O2 Gradient 192.6 mmHg; Base Excess ABG -4.7 mEq/l (+/-2.0); Carboxyhemoglobin 0.1 % THb (0-2.0); Fractional Inspired Oxygen 40 %; HCO3 ABG 20.6 mEq/l (22.0-26.0); Methemoglobin ABG 0.4 %THb (0-1.5); Oxygen Content ABG 9.4 %vol (16.0-22.0); PCO2 ABG 39.2 mmHg (35.0-45.0); PO2 FiO2 Ratio Arterial Blood 1.19 %; Reduced Hemoglobin 23.1 %THb (0-5.0); Total Hemoglobin 8.7 g/dL (12.0-18.0); pH ABG 7.339 (7.350-7.450)
[2024-06-14 12:55] LABS: Alveolar/Arterial O2 Gradient 189.6 mmHg; Base Excess ABG -5.1 mEq/l (+/-2.0); Carboxyhemoglobin 0.2 % THb (0-2.0); Fractional Inspired Oxygen 40 %; HCO3 ABG 20.3 mEq/l (22.0-26.0); Methemoglobin ABG 0.4 %THb (0-1.5); Oxygen Content ABG 9.9 %vol (16.0-22.0); PO2 ABG 50.8 mmHg (80.0-100.0); PO2 FiO2 Ratio Arterial Blood 1.27 %; Reduced Hemoglobin 20.1 %THb (0-5.0); Total Hemoglobin 8.8 g/dL (12.0-18.0); pH ABG 7.335 (7.350-7.450)
[2024-06-14 12:57] LABS: Oxygen Saturation ABG 81.1 % (95.0-100.0); Oxyhemoglobin 76.4 % THb (90.0-100.0); PO2 ABG 47.5 mmHg (80.0-100.0)
[2024-06-14 12:58] LABS: Device VENTILATOR; Site Drawn LEFT RADIAL
[2024-06-14 13:22] LABS: Oxygen Saturation ABG 83.8 % (95.0-100.0)
[2024-06-14 13:23] LABS: Device VENTILATOR; Oxyhemoglobin 79.3 % THb (90.0-100.0); Site Drawn RIGHT RADIAL
[2024-06-14 13:24] LABS: Arterial Blood Gas PEEP 8 cmH2O; Arterial Blood Gas Vent Mode CMV; Arterial Blood Gas Ventilator rate 20 /MIN
[2024-06-14 13:25] LABS: Arterial Blood Gas PEEP 8 cmH2O; Arterial Blood Gas Tidal Volume 400 ml; Arterial Blood Gas Vent Mode CMV; Arterial Blood Gas Ventilator rate 20 /MIN
[2024-06-14 13:25] LABS: Arterial Blood Gas Tidal Volume 400 ml
--- NOTE | 2024-06-14 13:34 | WPDMODSED ---
Moderate Sedation Note-Pt Data Patient Data Diagnosis: Bacteremia Present Complaint: Bacteremia Procedure to be performed/Plan: Transesophageal echocardiogram Allergies Allergy/AdvReac Type Severity Reaction Status Date / Time warfarin AdvReac Intermediate Dizziness Verified 06/01/24 09:20 Home Medications Medication Instructions Recorded Confirmed Type aspirin 81 mg tablet,delayed 81 mg PO DAILY 09/14/19 06/11/24 History release (Adult Aspirin Regimen) multivitamin with minerals-folic 0.4 mg PO DAILY 09/14/19 06/11/24 History acid 0.4 mg tablet (Adult One Daily Multivitamin) cholecalciferol (vitamin D3) 25 2,000 unit PO DAILY 11/19/19 06/11/24 History mcg (1,000 unit) tablet atorvastatin 80 mg tablet 80 mg PO QHS 01/24/23 06/11/24 History clopidogrel 75 mg tablet (Plavix) 75 mg PO DAILY 01/24/23 06/11/24 History lisinopril 5 mg tablet 5 mg PO DAILY 01/24/23 06/11/24 History acetaminophen 325 mg tablet 650 mg PO Q4H PRN Pain Or Fever 12/18/23 06/11/24 Rx #30 tabs melatonin 5 mg tablet 5 mg PO HS #30 tabs 01/09/24 06/11/24 Rx loteprednol etabonate 0.5 % eye 1 drp EACH EYE DAILY 01/19/24 06/11/24 History drops,suspension clotrimazole-betamethasone 1 1 applic topical BID PRN psoriasis 01/24/24 06/11/24 History %-0.05 % topical cream rash pantoprazole 40 mg tablet,delayed 40 mg PO QAM #90 tabs 02/28/24 06/11/24 Rx release albuterol sulfate 90 mcg/actuation 2 puff inhalation Q4-6H PRN 04/19/24 06/11/24 Rx aerosol inhaler shortness of breath or wheezing #8.5 grams amiodarone 200 mg tablet (Pacerone) 200 mg PO DAILY #90 tabs 05/30/24 06/11/24 Rx ferrous sulfate 325 mg (65 mg 325 mg BYMOUTH BID 06/01/24 06/11/24 History iron) tablet,delayed release metoprolol tartrate 25 mg tablet 25 mg PO BID 07/19/24 07/29/24 History furosemide 40 mg tablet 40 mg PO DAILY #30 tabs 06/07/24 06/11/24 Rx Current Medications: Active Medications Acetaminophen (Acetaminophen 325 Mg Tablet) 650 mg PO Q4H PRN PRN Reason: Mild Pain (1-3) or Fever Last Admin: 06/13/24 21:30 Dose: 650 mg Amiodarone HCl (Amiodarone Hcl 200 Mg Tablet) 200 mg PO DAILY@0800 [facility] Last Admin: 06/14/24 11:02 Dose: 200 mg Aspirin (Aspirin 81 Mg Enteric Tablet) 81 mg PO QAM [facility] Last Admin: 06/14/24 11:03 Dose: 81 mg Dextrose (Dextrose 50% 25 Gm/50 Ml Syringe) 12.5 gm IV PUSH PRN PRN; Protocol PRN Reason: Hypoglycemia Glucagon (Glucagon For Inj 1 Mg Vial) 1 mg IM PRN PRN; Protocol PRN Reason: Hypoglycemia Glucose (Glucose Oral Gel 15 Gm Of Glucse In 37.5 Gm Tube) 15 gm PO PRN PRN; Protocol PRN Reason: Hypoglycemia Heparin Sodium (Porcine) (Heparin Sodium 5,000 Units/Ml Vial) 4,000 units IV PUSH PRN PRN PRN Reason: aPTT less than 55 seconds Heparin Sodium (Porcine) (Heparin Sodium 5,000 Units/Ml Vial) 3,000 units IV PUSH PRN PRN PRN Reason: aPTT 55 - 70 seconds Last Admin: 06/13/24 08:52 Dose: 3,000 units Heparin Sodium/Dextrose (Heparin Sodium/D5w 100 Units/Ml) 25,000 units in 250 mls @ 12 mls/hr IV CONT .[id number] [facility]; Protocol Stop: 06/15/24 01:00 Last Infusion: 06/14/24 12:11 Dose: 1,200 units/hr, 12 mls/hr Cefepime HCl (Maxipime 2 Gm/Ns 50 Ml) 2 gm in 50 mls @ 100 mls/hr IVPB Q24H [facility] Last Infusion: 06/13/24 21:06 Dose: Infused Dextrose (Dextrose 5% 1,000 Ml) 1,000 mls @ 100 mls/hr IVPB PRN PRN; Protocol PRN Reason: Hypoglycemia Fentanyl Citrate (Fentanyl 2,500 Mcg/Ns 250 Ml) 2,500 mcg in 250 mls @ 5 mls/hr IV CONT .Q50H [facility]; Protocol Last Admin: 06/14/24 11:54 Dose: 50 mcg/hr, 5 mls/hr Midazolam HCl (Versed 100 Mg/Ns 100 Ml) 100 mg in 100 mls @ 3 mls/hr IV CONT .[id number] [facility]; Protocol Last Titration: 06/14/24 12:18 Dose: 3 mg/hr, 3 mls/hr Norepinephrine Bitartrate (Levophed 8 Mg/D5w 250 Ml) 8 mg in 250 mls @ 13.125 mls/hr IV CONT .Q19H3M [facility]; Protocol Last Titration: 06/14/24 12:36 Dose: 7 mcg/min, 13.13 mls/hr Insulin Aspart (Insulin Aspart (*Bkc) 100 Units/Ml) 4 - 8 units SUB
[2024-06-14] MEDS: MIDAZOLAM HCL (*CRX) 2 MG/2 ML VIAL IV PUSH (13:35)
[2024-06-14] MEDS: fentaNYL CITRATE INJ (*CRX) 100 MCG/2 ML VIAL 50 MCG IV PUSH (13:39)
[2024-06-14] MEDS: HEPARIN SOD/D5W 100 UNITS/ML 25,000 UNITS/250 ML BAG 12 UNITS IV CONT (15:31)
[2024-06-14] MEDS: LACTATED RINGERS 1,000 ML 100 ML IV CONT (15:32)
--- NOTE | 2024-06-14 18:21 | PC.NURSE ---
patient transferred to [facility] to room 340, Dr. Curry accepting. Transported via ALS ambulance, fentanyl/versed/levophed/heparin gtts continued with patient.
[2024-06-14 19:08] LABS: Chloride Rand Ur <20 mmol/L (32-290); Creatinine Random Urine 135 mg/dL (20-320)
--- NOTE | 2024-06-14 19:22 | PM.TDS ---
Transfer Discharge Sum: Prov Provider Date of admission: 06/10/24 22:28 Primary care physician: Cy Randall DO Admitting clinician: Rob Albert MD Consults: 06/10/24 22:30 Consult to Physician Routine Comment: Consulting Provider: Woo Gilman Reason for consultation: Cardiogenic shock Has provider been notified: Yes Consult to Physician Routine Comment: Consulting Provider: Marina Schwab Reason for consultation: Cardiogenic shock, ST changes Has provider been notified: Yes 06/11/24 08:20 Consult to Physician Routine Comment: Spoke with provider on phone Consulting Provider: Dayton Maki call person/MD group to consult: NEPHROLOGY Reason for consultation: Acute kidney injury Has provider been notified: Yes DS: Admitting Diagnosis Discharge Date 06/14/24 Admitting Diagnosis Shortness of breath DS: Discharge Diagnosis Discharge Diagnosis (1) Shock: Code(s): R57.9 - Shock, unspecified Status: Acute (2) Acute and chronic respiratory failure: Code(s): J96.20 - Acute and chronic respiratory failure, unspecified whether with hypoxia or hypercapnia Status: Acute (3) Severe sepsis: Code(s): A41.9 - Sepsis, unspecified organism; R65.20 - Severe sepsis without septic shock Status: Acute (4) Acute coronary syndrome: Code(s): I24.9 - Acute ischemic heart disease, unspecified Status: Acute (5) Acute kidney injury: Code(s): N17.9 - Acute kidney failure, unspecified Status: Acute (6) Paroxysmal atrial fibrillation: Code(s): I48.0 - Paroxysmal atrial fibrillation Status: Chronic (7) Chronic obstructive pulmonary disease: Code(s): J44.9 - Chronic obstructive pulmonary disease, unspecified Status: Chronic (8) Chronic diastolic heart failure: Code(s): I50.32 - Chronic diastolic (congestive) heart failure Status: Acute (9) Anemia: Code(s): D64.9 - Anemia, unspecified Status: Acute (10) Bacteremia: Code(s): R78.81 - Bacteremia Status: Acute (11) Endocarditis: Code(s): I38 - Endocarditis, valve unspecified Status: Acute Transfer Discharge Sum: Med Medications Active and Home Medications: Home Medications aspirin 81 mg tablet,delayed release (Adult Aspirin Regimen) 81 mg PO DAILY 09/14/19 [History Confirmed 06/11/24] multivitamin with minerals-folic acid 0.4 mg tablet (Adult One Daily Multivitamin) 0.4 mg PO DAILY 09/14/19 [History Confirmed 06/11/24] cholecalciferol (vitamin D3) 25 mcg (1,000 unit) tablet 2,000 unit PO DAILY 11/19/19 [History Confirmed 06/11/24] atorvastatin 80 mg tablet 80 mg PO QHS 01/24/23 [History Confirmed 06/11/24] clopidogrel 75 mg tablet (Plavix) 75 mg PO DAILY 01/24/23 [History Confirmed 06/11/24] lisinopril 5 mg tablet 5 mg PO DAILY 01/24/23 [History Confirmed 06/11/24] acetaminophen 325 mg tablet 650 mg PO Q4H PRN Pain Or Fever #30 tabs 12/18/23 [Rx Confirmed 06/11/24] melatonin 5 mg tablet 5 mg PO HS #30 tabs 01/09/24 [Rx Confirmed 06/11/24] loteprednol etabonate 0.5 % eye drops,suspension 1 drp EACH EYE DAILY 01/19/24 [History Confirmed 06/11/24] clotrimazole-betamethasone 1 %-0.05 % topical cream 1 applic topical BID PRN psoriasis rash 01/24/24 [History Confirmed 06/11/24] pantoprazole 40 mg tablet,delayed release 40 mg PO QAM #90 tabs 02/28/24 [Rx Confirmed 06/11/24] albuterol sulfate 90 mcg/actuation aerosol inhaler 2 puff inhalation Q4-6H PRN shortness of breath or wheezing #8.5 grams 04/19/24 [Rx Confirmed 06/11/24] amiodarone 200 mg tablet (Pacerone) 200 mg PO DAILY #90 tabs 05/30/24 [Rx Confirmed 06/11/24] ferrous sulfate 325 mg (65 mg iron) tablet,delayed release 325 mg BYMOUTH BID 06/01/24 [History Confirmed 06/11/24] metoprolol tartrate 25 mg tablet 25 mg PO BID 06/01/24 [History Confirmed 06/11/24] furosemide 40 mg tablet 40 mg PO DAILY #30 tabs 06/07/24 [Rx Confirmed 06/11/24] Transfer Disch
== END 2024-06-14 17:59 | disposition short-term general hospital (02) | DRG 871 ==
LOC: ANHED 22:44 → ANHICU 23:17
PROVIDERS: Internal Medicine; Internal Medicine Nephrology; Admitting Provider Internal Medicine; Emergency Provider Student in an Organized Health Care Education/Training Program; PCP Family Medicine; Visit Provider Internal Medicine
PROC: B24BZZ4 Ultrasonography of Heart with Aorta, Transesophageal (ICD-10-PCS; CPT 93312; principal; 2024-06-14 13:00)
DX: A41.02 Sepsis due to Methicillin resistant Staphylococcus aureus (principal); I21.4 Non-ST elevation (NSTEMI) myocardial infarction; R65.21 Severe sepsis with septic shock; I50.33 Acute on chronic diastolic (congestive) heart failure; R57.0 Cardiogenic shock; J96.21 Acute and chronic respiratory failure with hypoxia; J18.9 Pneumonia, unspecified organism; I33.0 Acute and subacute infective endocarditis; N17.9 Acute kidney failure, unspecified; I50.32 Chronic diastolic (congestive) heart failure; J44.1 Chronic obstructive pulmonary disease with (acute) exacerbation; J44.0 Chronic obstructive pulmonary disease with (acute) lower respiratory infection; I11.0 Hypertensive heart disease with heart failure; G47.33 Obstructive sleep apnea (adult) (pediatric); I48.0 Paroxysmal atrial fibrillation; Z20.822 Contact with and (suspected) exposure to COVID-19; Z99.81 Dependence on supplemental oxygen; I25.10 Atherosclerotic heart disease of native coronary artery without angina pectoris; E78.5 Hyperlipidemia, unspecified; L40.9 Psoriasis, unspecified; I35.0 Nonrheumatic aortic (valve) stenosis; H40.9 Unspecified glaucoma; D50.9 Iron deficiency anemia, unspecified; E66.9 Obesity, unspecified; Z68.39 Body mass index [BMI] 39.0-39.9, adult; Z85.46 Personal history of malignant neoplasm of prostate; Z90.49 Acquired absence of other specified parts of digestive tract; Z95.5 Presence of coronary angioplasty implant and graft; Z98.41 Cataract extraction status, right eye; Z79.82 Long term (current) use of aspirin
CPT/HCPCS: 31500; 36415; 36600; 71045; 71250; 74176; 76775; 80053; 80069; 80202; 81001; 82375; 82436; 82550; 82565; 82570; 82805; 82948; 83050; 83605; 83690; 83735; 83880; 84100; 84133; 84300; 84439; 84443; 84484; 85025; 85027; 85610; 85730; 85999; 86140; 86706; 87040; 87077; 87181; 87340; 87637; 87641; 93005; 93312; 93320; 93325; 94002; 94003; 94640; 96365; 96375; 99285; A9270; C8929; J0282; J0692; J1250; J1644; J1815; J1940; J2250; J2470; J2919; J3010; J3370; J7030; J7040; J7120; P9047; Q9957